=== PATIENT | male | born 1950 | race Caucasian/White ===

== ENCOUNTER → 2018-06-05 | Outpatient (CLI) | payer MEDICARE, OTHER ==
[2018-06-05 19:04] LABS: Basophils % (A) 0 %; Eosinophils # (A) 0.2 k/uL (0-0.7); Eosinophils % (A) 2 %; HGB 14.2 gm/dL (13.0-17.5); Lymphocytes # (A) 0.9 k/uL (1.0-4.8); Lymphocytes % (A) 8 %; MCH 29.7 pg (25.0-35.0); MCHC 33.1 g/dL (31.0-37.0); MCV 89.9 fL (80.0-100.0); Mean Platelet Volume 7.9; Monocytes # (A) 0.5 k/uL (0-1.0); Monocytes % (A) 5 %; Neutrophils # (A) 8.7 k/uL (1.3-7.7); Neutrophils % (A) 84 %; Platelet Count 305 k/uL (150-450); RBC 4.78 m/uL (4.30-5.90); WBC 10.4 k/uL (3.8-10.6)
[2018-06-05 19:10] LABS: ALT 26 U/L (21-72); AST 22 U/L (17-59); Albumin 4.4 g/dL (3.5-5.0); Alkaline Phosphatase 116 U/L (38-126); Anion Gap 9 mmol/L; Blood Urea Nitrogen 22 mg/dL (9-20); Calcium 9.7 mg/dL (8.4-10.2); Carbon Dioxide 28 mmol/L (22-30); Chloride 103 mmol/L (98-107); Glucose 108 mg/dL (74-99); Potassium 4.1 mmol/L (3.5-5.1); Sodium 140 mmol/L (137-145); Total Bilirubin 0.6 mg/dL (0.2-1.3); Total Protein 7.2 g/dL (6.3-8.2)
--- NOTE | 2018-06-05 19:35 | CT ---
EXAMINATION TYPE: CT abdomen pelvis wo con DATE OF EXAM: 06/05/2018 COMPARISON: Radiograph 11/20/2017 HISTORY: abdominal pain and constipation X [address] DLP: 813.2 mGycm Automated exposure control for dose reduction was used. TECHNIQUE: Helical acquisition of images was performed from the lung bases through the pelvis. FINDINGS: LUNG BASES: No acute findings. Coronary calcifications noted. LIVER/GB: No significant abnormality is appreciated. PANCREAS: No significant abnormality is seen. SPLEEN: No significant abnormality is seen. ADRENALS: No significant abnormality is seen. KIDNEYS: No significant abnormality is seen. 4 cm simple appearing upper pole left renal cyst noted. FREE AIR: No free air is visualized RETROPERITONEAL ADENOPATHY: None visualized REPRODUCTIVE ORGANS: No significant abnormality is seen URINARY BLADDER: No significant abnormality is seen. PELVIC ADENOPATHY: None visualized. OSSEOUS STRUCTURES: No significant abnormality is seen. BOWEL: No bowel obstruction or abnormal gas or fluid collection. No focus of inflammatory change. Ho wever, there is moderate marked diverticulosis seen throughout the sigmoid and descending colon with mural thickening and sigmoid mesocolon subcentimeter lymph nodes appreciated. If this patient has not had screening colonoscopy recently, then eventual nonurgent colonoscopy is advisable. IMPRESSION: NO DEFINITE ACUTE CT PROCESS. HOWEVER, THE SIGMOID FINDINGS ABOVE. MILDLY EXCESSIVE PANCOLONIC STOOL VOLUME. PARTIALLY-IMAGED BILATERAL SCROTAL FINDINGS, GREATER ON THE LEFT, WHICH APPEAR TO REPRESENT HYDROCELE S. REQUEST PHYSICAL EXAMINATION CORRELATION.
== END | disposition home or self-care (01) ==
LOC: RADCTMAIN 18:13
PROVIDERS: ATTEND Nurse Practitioner Adult Health
DX: K57.30 Diverticulosis of large intestine without perforation or abscess without bleeding (principal); R19.5 Other fecal abnormalities; R10.9 Unspecified abdominal pain
CPT/HCPCS: 74176; 80053; 85025

== ENCOUNTER 2019-05-14 15:23 | Inpatient (IN) | payer MEDICARE, OTHER ==
[2019-05-14] MEDS: LACTATED RINGERS 1,000 ML IV SCH (16:53)
[2019-05-14] MEDS: LOPERAMIDE 2 MG CAP PO SCH ×2 (17:12→21:05)
[2019-05-14 17:13] LABS: Albumin 2.9 g/dL (3.5-5.0); Calcium 8.7 mg/dL (8.4-10.2); Potassium 4.8 mmol/L (3.5-5.1); Total Bilirubin 0.6 mg/dL (0.2-1.3); Total Protein 5.8 g/dL (6.3-8.2)
[2019-05-14 17:45] LABS: Basophils % (A) 0 %; Eosinophils % (A) 0 %; HCT 37.9 % (39.0-53.0); HGB 11.9 gm/dL (13.0-17.5); Lymphocytes # (A) 0.5 k/uL (1.0-4.8); Lymphocytes % (A) 4 %; MCH 27.9 pg (25.0-35.0); MCHC 31.5 g/dL (31.0-37.0); MCV 88.6 fL (80.0-100.0); Mean Platelet Volume 7.4; Monocytes # (A) 0.4 k/uL (0-1.0); Monocytes % (A) 3 %; Neutrophils # (A) 9.9 k/uL (1.3-7.7); Neutrophils % (A) 91 %; Platelet Count 355 k/uL (150-450); RBC 4.28 m/uL (4.30-5.90); RDW 13.3 % (11.5-15.5); WBC 10.8 k/uL (3.8-10.6)
[2019-05-14] MEDS: BALSALAZIDE DISODIUM 750 MG CAPSULE PO SCH (21:04)
[2019-05-14] MEDS: AMANTADINE HCL 100 MG CAP PO SCH (21:05)
--- NOTE | 2019-05-14 21:07 | P.HPIM ---
History of Present Illness H&P Date: 05/14/19 Chief Complaint: Diarrhea History of presenting complaint: This is a very pleasant 68-year-old patient of Dr. Jossue Peguero. Patient was directly admitted from his office. He presented to the office feeling weak tired and more diarrhea. Long-standing history of Parkinson's. Patient's been having diarrhea bloody stools on and off for about 2 months. Patient was recently at [facility] from where he was discharged 4 days ago. He did have a computed tomography scan ultrasound and colonoscopy. Was diagnosed with colitis. Patient was discharged on prednisone and mesalamine. Patient will appetite is not good continues to have diarrhea bloody stool. Weak tired rundown. Multiple episodes. No obvious fever. Last 4 days has had a congested cough. Decreased appetite. Drinking some liquids. Some abdominal discomfort cramping Review of systems: GEN.: Tired weight loss EYES: None HEENT: None NECK: None RESPIRATORY: As above CARDIOVASCULAR: None GASTROINTESTINAL: As above GENITOURINARY: None MUSCULOSKELETAL: None LYMPHATICS: None HEMATOLOGICAL: None PSYCHIATRY: Anxious NEUROLOGICAL: Bradykinesia Past medical history to include: Parkinson's disease, bradykinesia Social history: Drinks alcohol socially. No smoking. . 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 Family history: Reviewed, noncontributory to presentation Physical examination: VITAL SIGNS: 97.3, 96, 16, 91/59, 96% on room air GENERAL: BMI 27.1, laying in bed, tired. EYES: Pupils equal. Conjunctiva palel. HEENT: External appearance of nose and ears normal, oral cavity dry. NECK: JVD not raised; masses not palpable. HEART: First and second heart sounds are normal; no edema. LUNGS: Respiratory rate increased; decreased breath sounds. ABDOMEN: Soft, minimal tenderness liver spleen not palpable, no masses palpable. PSYCH: Alert and oriented x3; mood and affect tiredl. NEUROLOGICAL: Cranial nerves grossly intact; no facial asymmetry, power and sensation grossly intact. LYMPHATICS: No lymph nodes palpable in the axilla and neck INVESTIGATIONS, reviewed in the clinical context: White count 10.8 hemoglobin 11.9 platelets 355 Sodium 129 potassium 4.8 bun 28 creatinine 1.40 albumin 2.9 Assessment: -This is a patient sent diarrhea for 2 months. With bloody stools. Was at [facility]. Patient did call colonoscopically, computed tomog medhat scan of the abdomen. Was given a diagnosis of colitis. Still having bloody stools. Abdominal pain. Weak tired rundown. We'll obtain records from the hospital GI is being consulted. We will increase the patient is a prednisone to 60 mg. -Idiopathic Parkinson's disease -Patient for 4 days has had a cough congestion. He has been on steroids. Given his low immune system will need to consider diagnosis of COVID-19. Note elevated neutrophil to lymphocyte ratio. The patient been on prednisone. -Mild protein calorie malnutrition medical debility -Medical debility -Acute kidney injury, possibly prerenal -Hyponatremia from decrease solute intake -Normocytic anemia likely from underlying colitis and from blood loss anemia Plan: Patient is to be tested for COVID-19. Multiple isolation room. 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 Prednisone dose increased to 60 mg. GI consulted. Keep on clear liquid diet. Repeat labs in the morning. Get a portable chest x-ray. Albuterol 2 puffs 3 times a day. Other home medications resumed. Care was discussed with the patient question were answered. Past Medical History Additional Past Medical History / Comment(s): parkinson and new colitis History of Any Multi-Drug Resistant Organisms: None Reported Smoking Status: Former smoker Medications and Allergies Home Medications Medication Instructions Recorded Confirmed Type Amantadine HCl [Amantadine] 100 mg PO BID 05/14/19 05/14/19 History Anastrozole [Arimidex] 1 mg PO SUTUFR 05/14/19 05/14/19 History Aspirin [Adult Low Dose Aspirin EC] 81 mg PO DAILY 05/14/19 05/14/19 History Carbidopa/Levodopa [Sinemet 25-100 2 tab PO TID@1000,1400,1800 05/14/19 05/14/19 History mg] Loperamide HCl [Imodium A-D] 2 - 4 mg PO QID PRN 05/14/19 05/14/19 History Mesalamine 1,600 mg PO TID 05/14/19 05/14/19 History predniSONE See Taper PO DAILY 05/14/19 05/14/19 History Allergies Allergy/AdvReac Type Severity Reaction Status Date / Time Penicillins AdvReac Rash/Hives Verified 05/14/19 17:27 Physical Exam Vitals: Vital Signs Temp Pulse Resp BP Pulse Ox 05/14/19 16:32 97.3 F L 96 16 91/59 96 Intake and Output 05/14/19 05/14/19 05/14/19 06:59 14:59 22:59 Other: Voiding Method Toilet Weight 88 kg Results CBC & Chem 7: 05/14/19 16:38 05/14/19 16:38 Labs: Abnormal Lab Results - Last 24 Hours (Table) 05/14/19 05/14/19 Range/Units 16:38 16:38 WBC 10.8 H (3.8-10.6) k/uL RBC 4.28 L (4.30-5.90) m/uL Hgb 11.9 L (13.0-17.5) gm/dL Hct 37.9 L (39.0-53.0) % Neutrophils # 9.9 H (1.3-7.7) k/uL Lymphocytes # 0.5 L (1.0-4.8) k/uL Sodium 129 L (137-145) mmol/L Chloride 90 L (98-107) mmol/L BUN 28 H (9-20) mg/dL Creatinine 1.40 H (0.66-1.25) mg/dL Glucose 171 H (74-99) mg/dL Total Protein 5.8 L (6.3-8.2) g/dL Albumin 2.9 L (3.5-5.0) g/dL Thrombosis Risk Factor Assmnt - Choose All That Apply Each Risk Factor Represents 2 Points: Age 61-74 years Thrombosis Risk Factor Assessment Total Risk Factor Score: 2 Thrombosis Risk Factor Assessment Level: Low Risk
--- NOTE | 2019-05-14 21:50 | XR ---
EXAMINATION TYPE: XR chest 1V portable DATE OF EXAM: 05/14/2019 COMPARISON: NONE HISTORY: Cough and congestion TECHNIQUE: Single view FINDINGS: Heart is normal. There is a minimal infiltrate left lower lobe. The right lung is clear. Th ere are no hilar masses. There is no pleural effusion. IMPRESSION: There is evidence for minimal left lower lobe infiltrate.
[2019-05-14] MEDS ORDERED: MESALAMINE 1600 MG PO SCH (22:00)
[2019-05-14] MEDS: predniSONE 20 MG TAB PO SCH (22:37)
[2019-05-14] MEDS: CARBIDOPA-LEVODOPA 25-100 MG 1 EACH TAB PO SCH (22:38)
[2019-05-15] MEDS: LACTATED RINGERS 1,000 ML IV SCH ×4 (05:41→20:30)
[2019-05-15] MEDS: ACETAMINOPHEN TAB 500 MG TAB PO PRN (06:31)
[2019-05-15 06:58] LABS: Basophils % (A) 0 %; Eosinophils % (A) 0 %; HCT 35.1 % (39.0-53.0); HGB 11.2 gm/dL (13.0-17.5); Lymphocytes # (A) 0.3 k/uL (1.0-4.8); Lymphocytes % (A) 4 %; MCH 28.2 pg (25.0-35.0); MCV 88.1 fL (80.0-100.0); Mean Platelet Volume 7.1; Monocytes # (A) 0.2 k/uL (0-1.0); Monocytes % (A) 2 %; Neutrophils # (A) 5.7 k/uL (1.3-7.7); Neutrophils % (A) 92 %; Platelet Count 304 k/uL (150-450); RBC 3.98 m/uL (4.30-5.90); RDW 13.4 % (11.5-15.5); WBC 6.2 k/uL (3.8-10.6)
[2019-05-15 07:24] LABS: African American GFR (CKD) >90 (>60 ml/min/1.73 sqM); Anion Gap 7 mmol/L; Blood Urea Nitrogen 20 mg/dL (9-20); Calcium 8.4 mg/dL (8.4-10.2); Carbon Dioxide 28 mmol/L (22-30); Chloride 96 mmol/L (98-107); Glucose 170 mg/dL (74-99); Non-African American GFR(CKD) >90 (>60 ml/min/1.73 sqM); Potassium 4.7 mmol/L (3.5-5.1); Sodium 131 mmol/L (137-145)
[2019-05-15] MEDS: ALBUTEROL NEBULIZED 2.5 MG/3 ML INHALATION SCH ×3 (07:32→11:08)
[2019-05-15] MEDS: BALSALAZIDE DISODIUM 750 MG CAPSULE PO SCH ×3 (08:06→20:27)
[2019-05-15] MEDS: CARBIDOPA-LEVODOPA 25-100 MG 1 EACH TAB PO SCH ×3 (08:07→17:34)
[2019-05-15] MEDS: predniSONE 20 MG TAB PO SCH (08:07)
[2019-05-15] MEDS: AMANTADINE HCL 100 MG CAP PO SCH ×2 (08:08→20:27)
[2019-05-15] MEDS: LOPERAMIDE 2 MG CAP PO SCH ×4 (08:08→20:27)
[2019-05-15 14:06] VITALS: BMI 27.0
--- NOTE | 2019-05-15 14:25 | CONS ---
CONSULTATION DATE OF DICTATION: 05/15/2019 REASON FOR CONSULTATION: Diarrhea with blood in the stool. HISTORY OF PRESENT ILLNESS: The patient is a 68-year-old pleasant white male who was directly admitted from Dr. Peguero's office for complaining of fatigue, weakness, worsening diarrhea for the last few days duration. The patient states that he has been having diarrhea on and off for the last 2 months. He was admitted at [facility] about a month ago and he underwent an upper endoscopy as well as flexible sigmoidoscopy. The flexible sigmoidoscopy revealed diffuse inflammation involving the rectum, sigmoid colon and descending colon up to the splenic flexure and the scope could not be completed because of severe inflammation noted. Biopsies revealed crypt abscesses with crypt distortion, all changes consistent with inflammatory bowel disease. He was started on prednisone 60 mg daily as well as and he was discharged home. He was seen by Dr. Peguero in the office and the prednisone was being tapered by 5 mg every week. In the meantime, he continued to have worsening diarrhea with bowel movements anywhere from 7-8 a day with a small amount of blood and mucus in the stool with occasional clots and he was admitted for further management. He has been also complaining of some cough and fever for the last 4 days and presently COVID was tested, which is pending. He also has some chronic lower abdominal discomfort, decreased appetite, weakness, fatigue, but no nausea, vomiting. PAST MEDICAL HISTORY: Significant for Parkinson's disease. PAST SURGICAL HISTORY: Recent EGD a month ago and flexible sigmoidoscopy as mentioned above. MEDICATIONS: At home include Arimidex, Imodium, aspirin, Sinemet, prednisone, mesalamine, and amantadine. ALLERGIES: PENICILLIN. SOCIAL HISTORY: No smoking or alcohol use. FAMILY HISTORY: Unremarkable. REVIEW OF SYSTEMS: CARDIOPULMONARY: No chest pain or shortness of breath. NEUROLOGY: Unremarkable. ENDOCRINE: Unremarkable. PSYCHIATRIC: Unremarkable. ENT/VISION: Unremarkable, CONSTITUTIONAL: Low-grade fever, but no fever, chills, night sweats. GI: As mentioned above. PHYSICAL EXAMINATION: Was not an obtained and telephone interview was obtained from the patient because of COVID pending status. Vital signs show a blood pressure of 132/82, pulse rate 65, temperature 98. LABS: At the time of admission to the hospital:, WBC 6.2, hemoglobin 11.2, platelets 304. Basic metabolic panel is within normal limits. CRP is 165. Sedimentation rate is still pending. Stool studies are still pending. IMPRESSION: 1. Newly diagnosed ulcerative colitis a month ago. He had a flexible sigmoidoscopy done at [facility] a month ago that showed active inflammation involving the left colon. 2. One of the flexible sigmoidoscopy biopsies did show an in the past, presently on prednisone for the last 1 month on tapering doses and he was at 30 mg daily when he presented to the hospital with worsening diarrhea, abdominal pain, and bleeding. Presently, labs do show elevated CRP is 165, all consistent with active inflammatory bowel disease. 3. Cough and fever, pending. 4. History of Parkinson's disease. RECOMMENDATIONS: 1. Start him on Solu-Medoral 20 mg q.8 hours. 2. Continue with oral mesalamine. 3. Obtain stool studies to rule out Clostridium difficile colitis or cholesterol superimposed acute infectious colitis. 4. Await COVID report. RECOMMENDATIONS: 1. Start him on Solu-Medrol 20 mg q.8 hours. 2. Continue with oral mesalamine. 3. Obtain stool studies to rule out C difficile colitis as well as superimposed acute infectious colitis. 4. Elevated await: Results. 5. Advance to full liquid diet. 6. Obtain fecal occult protective as well as ended and we will follow CRP now for 48 hours. The plan was discussed with the patient is agreeable to it thank you for this consultation. CALLIE / JOANN: [id number] /
[2019-05-15] MEDS: methylPREDNISolone SOD SUCCI 40 MG/ML 1 ML VIAL IV SCH ×2 (17:34→23:14)
[2019-05-15] MEDS ORDERED: ALBUTEROL INHALER 60 PUFF/8 GM INHALER (BULK) INHALATION SCH (20:00)
[2019-05-15] MEDS: ALBUTEROL HFA INHALER INHALATION SCH (21:28)
--- NOTE | 2019-05-15 22:21 | P.PN ---
Subjective History of presenting complaint: This is a very pleasant 68-year-old patient of Dr. Jossue Peguero. Patient was directly admitted from his office. He presented to the office feeling weak tired and more diarrhea. Long-standing history of Parkinson's. Patient's been having diarrhea bloody stools on and off for about 2 months. Patient was recently at [facility] from where he was discharged 4 days ago. He did have a computed tomography scan ultrasound and colonoscopy. Was diagnosed with colitis. Patient was discharged on prednisone and mesalamine. Patient will appetite is not good continues to have diarrhea bloody stool. Weak tired rundown. Multiple episodes. No obvious fever. Last 4 days has had a congested cough. Decreased appetite. Drinking some liquids. Some abdominal discomfort cramping 05/15/2019 Patient is awake and alert, he is not in distress. Distal complaining of from bloody diarrhea however is improving today as says yesterday he had only 2 bowel movements, no abdominal pain, no nausea vomiting is still have coughing. No chest pain or dyspnea. Vitals are stable, his leukocytosis on admission of 10.8 K came back to normal at 6.2K, hemoglobin stable at 11.2 compared to 11.9 on admission, platelets normal, sodium is improving 129 up to 131 while on IV fluids, creatinine elevated on admission at 1.4, came back to normal at 0.75. Chest x-ray showed minimal left lower lobe infiltrate suspicious for pneumonia, cough at 19 testing is still pending. Patient was recently discharged from [facility] where he was diagnosed with ulcerative colitis for bloody diarrhea, his C-reactive protein is elevated at 165, ESR is elevated at 71, pro- calcitonin is elevated at 0.13 suspicious for bacterial infection. C. diff testing is negative, influenza is negative EKG was checked showing right bundle branch block, PACs, sinus rhythm with QTC 466, we noticed that the patient on Levaquin which might benefit his pneumonia and possible gastroenteritis. In the meantime we'll wait for stool culture also we'll ask for sputum culture patient today was started on Solu-Medrol 20 mg IV every 8 hours as per GI recommendations, he is on balsalazide, he is also I elected at 125 mL/h. He is also on amantadine for his Parkinson disease Review of systems CONSTITUTIONAL: No fever, no worsening weakness HEENT: No recent visual problems or hearing problems. Denied any sore throat. CARDIOVASCULAR: No orthopnea, PND, no palpitations, no syncope. PULMONARY: No shortness of breath, no cough, no hemoptysis. GENITOURINARY: Denies any burning micturition, frequency, or urgency. MUSCULOSKELETAL/RHEUMATOLOGICAL: Denies any joint pain, swelling, or any muscle pain. ENDOCRINE: Denies any polyuria or polydipsia. Active Medications Generic Name Dose Route Start Last Admin Trade Name Freq PRN Reason Stop Dose Admin Acetaminophen 500 mg 05/15/19 06:24 05/15/19 06:31 Tylenol Tab PO 500 mg Q6HR PRN Administration Fever and/ or Pain Albuterol Sulfate 2 puff 05/15/19 20:00 05/15/19 21:28 Ventolin Hfa Inhaler INHALATION 2 puff RT-TID JUSTIN Administration Amantadine HCl 100 mg 05/14/19 21:00 05/15/19 20:27 Symmetrel PO 100 mg BID JUSTIN Administration Anastrozole 1 mg 05/17/19 09:00 Arimidex PO SuTuFr@0900 JUSTIN Balsalazide 2,250 mg 05/14/19 22:00 05/15/19 20:27 Colazal PO 2,250 mg TID JUSTIN Administration Carbidopa/Levodopa 2 each 05/14/19 21:00 05/15/19 17:34 Sinemet 25-100 PO 2 each TID@1000,1400,1800 JUSTIN Administration Lactated Ringer's 1,000 mls @ 125 mls/hr 05/14/19 16:45 05/15/19 20:30 Lactated Ringers IV 125 mls/hr .Q8H JUSTIN Administration Levofloxacin 500 mg 05/15/19 22:00 Levaquin PO Q24H JUSTIN Loperamide HCl 2 mg 05/14/19 18:00 05/15/19 20:27 Imodium PO 2 mg QID JUSTIN Administration Methylprednisolone Sodium Succinate 20 mg 05/15/19 16:00 05/15/19 17:34 Solu-Medrol IV 20 mg Q8HR JUSTIN Administration Objective - Vital Signs Vital signs: Vital Signs Temp 97.7 F 05/15/19 19:10 Pulse 88 05/15/19 19:10 Resp 19 05/15/19 21:32 BP 106/72 05/15/19 19:10 Pulse Ox 96 05/15/19 19:10 Intake & Output 05/15/19 05/15/19 05/16/19 06:59 18:59 06:59 Intake Total 1225 960 Output Total 1175 Balance 50 960 Weight 88 kg Intake: Intake, IV Titration 875 Amount Lactated Ringers 1,000 ml 875 @ 125 mls/hr IV .Q8H JUSTIN Rx#:[id number] Oral 350 960 Output: Urine 1175 Other: # Voids 2 2 # Bowel Movements 1 2 - Exam GENERAL: The patient is alert and oriented x3, not in any acute distress. Well developed, well nourished. HEENT: Pupils are round and equally reacting to light. EOMI. No scleral icterus. No conjunctival pallor. Normocephalic, atraumatic. No pharyngeal erythema. No thyromegaly. CARDIOVASCULAR: S1 and S2 present. No murmurs, rubs, or gallops. PULMONARY: Chest is clear to auscultation, no wheezing or crackles. ABDOMEN: Soft, nontender, nondistended, normoactive bowel sounds. No palpable organomegaly. MUSCULOSKELETAL: No joint swelling or deformity. EXTREMITIES: No cyanosis, clubbing, or pedal edema. NEUROLOGICAL: Gross neurological examination did not reveal any focal deficits. SKIN: No rashes. no petechiae. - Constitutional General appearance: Present: cooperative - EENT Eyes: Present: poor dentition - Labs CBC & Chem 7: 05/15/19 06:19 05/15/19 06:19 Labs: Abnormal Lab Results - Last 24 Hours (Table) 05/15/19 05/15/19 05/15/19 Range/Units 06:19 06:19 06:19 RBC 3.98 L (4.30-5.90) m/uL Hgb 11.2 L (13.0-17.5) gm/dL Hct 35.1 L (39.0-53.0) % Lymphocytes # 0.3 L (1.0-4.8) k/uL ESR (0-15) mm/hr Sodium 131 L (137-145) mmol/L Chloride 96 L (98-107) mmol/L Glucose 170 H (74-99) mg/dL C-Reactive Protein (<10.0) mg/L Procalcitonin 0.13 H (0.02-0.09) ng/mL 05/15/19 05/15/19 Range/Units 06:19 06:19 RBC (4.30-5.90) m/uL Hgb (13.0-17.5) gm/dL Hct (39.0-53.0) % Lymphocytes # (1.0-4.8) k/uL ESR 71 H (0-15) mm/hr Sodium (137-145) mmol/L Chloride (98-107) mmol/L Glucose (74-99) mg/dL C-Reactive Protein 165.1 H (<10.0) mg/L Procalcitonin (0.02-0.09) ng/mL Assessment and Plan Assessment: -This is a patient sent diarrhea for 2 months. With bloody stools. Was at [facility]. Patient did call colonoscopically, computed tomography scan of the abdomen. Was given a diagnosis of colitis. Still having bloody stools. Abdominal pain. Weak tired rundown. We'll obtain records from the hospital GI is being consulted. We will increase the patient is a prednisone to 60 mg. -Idiopathic Parkinson's disease -Patient for 4 days has had a cough congestion. He has been on steroids. Given his low immune system will need to consider diagnosis of COVID-19. Note eleva theresa neutrophil to lymphocyte ratio. The patient been on prednisone. -Mild protein calorie malnutrition medical debility -Medical debility -Acute kidney injury, possibly prerenal -Hyponatremia from decrease solute intake -Normocytic anemia likely from underlying colitis and from blood loss anemia Plan: This is a pleasant 68 years old male who presents with worsening ulcerative colitis, is also possible elements of infection including pneumonia and infectious gastroenteritis. Continue with steroids and also SoloSite as per GI recommendations continue with IV fluid, continue with Levaquin, monitor QTC, monitor labs Labs and medication were reviewed.. Continue same treatment. Continue with symptomatic treatment. Resume home medication. Monitor lytes and vitals. DVT and GI prophylaxis. Further recommendations of the clinical course of the patient DVT prophylaxis: No heparin in view of possible GI bleed GI Prophylaxis: Pepcid PT/OT: Pending Prognosis is guarded
[2019-05-15] MEDS: LEVOFLOXACIN 500 MG TAB PO SCH (22:30)
[2019-05-16] MEDS: ACETAMINOPHEN TAB 500 MG TAB PO PRN (06:31)
--- NOTE | 2019-05-16 08:17 | XR ---
EXAMINATION TYPE: XR chest 1V DATE OF EXAM: 05/16/2019 COMPARISON: 05/14/2019 HISTORY: 68-year-old male cough, follow-up TECHNIQUE: Single frontal view of the chest is obtained. FINDINGS: Development of mild patchy left mid and lower lung opacity. Heart normal size. Aortopulmonary vascula ture within normal limits. No pleural effusion. IMPRESSION: There may be early developing infiltrates within the periphery of the left mid and lower lung. Follow -up recommended.
[2019-05-16] MEDS: methylPREDNISolone SOD SUCCI 40 MG/ML 1 ML VIAL IV SCH ×3 (08:29→23:58)
[2019-05-16] MEDS: BALSALAZIDE DISODIUM 750 MG CAPSULE PO SCH ×3 (08:30→20:37)
[2019-05-16] MEDS: AMANTADINE HCL 100 MG CAP PO SCH ×2 (08:30→20:38)
[2019-05-16] MEDS: LOPERAMIDE 2 MG CAP PO SCH ×4 (08:31→20:37)
[2019-05-16] MEDS ORDERED: FAMOTIDINE 20 MG/2 ML VIAL IV SCH (09:00)
[2019-05-16] MEDS: ALBUTEROL HFA INHALER INHALATION SCH ×3 (09:03→20:30)
[2019-05-16 09:04] LABS: Basophils % (A) 0 %; Eosinophils % (A) 0 %; HGB 10.8 gm/dL (13.0-17.5); Lymphocytes # (A) 0.5 k/uL (1.0-4.8); Lymphocytes % (A) 7 %; MCH 28.2 pg (25.0-35.0); MCHC 31.9 g/dL (31.0-37.0); MCV 88.6 fL (80.0-100.0); Mean Platelet Volume 7.2; Monocytes # (A) 0.3 k/uL (0-1.0); Monocytes % (A) 4 %; Neutrophils # (A) 6.8 k/uL (1.3-7.7); Neutrophils % (A) 88 %; Platelet Count 311 k/uL (150-450); RBC 3.84 m/uL (4.30-5.90); RDW 13.2 % (11.5-15.5); WBC 7.7 k/uL (3.8-10.6)
[2019-05-16 09:16] LABS: African American GFR (CKD) >90 (>60 ml/min/1.73 sqM); Anion Gap 7 mmol/L; Blood Urea Nitrogen 17 mg/dL (9-20); Calcium 8.3 mg/dL (8.4-10.2); Carbon Dioxide 29 mmol/L (22-30); Chloride 96 mmol/L (98-107); Glucose 166 mg/dL (74-99); Non-African American GFR(CKD) >90 (>60 ml/min/1.73 sqM); Potassium 4.4 mmol/L (3.5-5.1); Sodium 132 mmol/L (137-145)
[2019-05-16] MEDS: CARBIDOPA-LEVODOPA 25-100 MG 1 EACH TAB PO SCH ×3 (10:12→17:24)
[2019-05-16] MEDS: LACTATED RINGERS 1,000 ML IV SCH ×3 (10:12→22:05)
--- NOTE | 2019-05-16 14:06 | P.PN ---
Subjective History of presenting complaint: This is a very pleasant 68-year-old patient of Dr. Jossue Peguero. Patient was directly admitted from his office. He presented to the office feeling weak tired and more diarrhea. Long-standing history of Parkinson's. Patient's been having diarrhea bloody stools on and off for about 2 months. Patient was recently at [facility] from where he was discharged 4 days ago. He did have a computed tomography scan ultrasound and colonoscopy. Was diagnosed with colitis. Patient was discharged on prednisone and mesalamine. Patient will appetite is not good continues to have diarrhea bloody stool. Weak tired rundown. Multiple episodes. No obvious fever. Last 4 days has had a congested cough. Decreased appetite. Drinking some liquids. Some abdominal discomfort cramping 05/15/2019 Patient is awake and alert, he is not in distress. Distal complaining of from bloody diarrhea however is improving today as says yesterday he had only 2 bowel movements, no abdominal pain, no nausea vomiting is still have coughing. No chest pain or dyspnea. Vitals are stable, his leukocytosis on admission of 10.8 K came back to normal at 6.2K, hemoglobin stable at 11.2 compared to 11.9 on admission, platelets normal, sodium is improving 129 up to 131 while on IV fluids, creatinine elevated on admission at 1.4, came back to normal at 0.75. Chest x-ray showed minimal left lower lobe infiltrate suspicious for pneumonia, cough at 19 testing is still pending. Patient was recently discharged from [facility] where he was diagnosed with ulcerative colitis for bloody diarrhea, his C-reactive protein is elevated at 165, ESR is elevated at 71, pro- calcitonin is elevated at 0.13 suspicious for bacterial infection. C. diff testing is negative, influenza is negative EKG was checked showing right bundle branch block, PACs, sinus rhythm with QTC 466, we noticed that the patient on Levaquin which might benefit his pneumonia and possible gastroenteritis. In the meantime we'll wait for stool culture also we'll ask for sputum culture patient today was started on Solu-Medrol 20 mg IV every 8 hours as per GI recommendations, he is on balsalazide, he is also I elected at 125 mL/h. He is also on amantadine for his Parkinson disease 05/16/2019 Patient is improving today with the severe bloody diarrhea, no nausea vomiting and he tolerated clear liquid diet and was to be advanced to full liquid diet, which was started with Ensure. No chest pain but is still have some congested cough at times. Vitals are stable and patient is afebrile. Left showing stable hemoglobin and WBC, lymphocytes are low 0.5 sodium 132. He is a stable. C. diff is negative. Lovenox is been added and his QTC was checked today is stable compared to yesterday was 466 and today is 465. His EKG showed normal sinus rhythm at 72 with right bundle branch block Review of systems CONSTITUTIONAL: No fever, no worsening weakness HEENT: No recent visual problems or hearing problems. Denied any sore throat. CARDIOVASCULAR: No orthopnea, PND, no palpitations, no syncope. PULMONARY: No shortness of breath, no cough, no hemoptysis. GENITOURINARY: Denies any burning micturition, frequency, or urgency. MUSCULOSKELETAL/RHEUMATOLOGICAL: Denies any joint pain, swelling, or any muscle pain. ENDOCRINE: Denies any polyuria or polydipsia. Active Medications Generic Name Dose Route Start Last Admin Trade Name Freq PRN Reason Stop Dose Admin Acetaminophen 500 mg 05/15/19 06:24 05/16/19 06:31 Tylenol Tab PO 500 mg Q6HR PRN Administration Fever and/ or Pain Albuterol Sulfate 2 puff 05/15/19 20:00 05/16/19 11:27 Ventolin Hfa Inhaler INHALATION 2 puff RT-TID JUSTIN Administration Amantadine HCl 100 mg 05/14/19 21:00 05/16/19 08:30 Symmetrel PO 100 mg BID JUSTIN Administration Anastrozole 1 mg 05/17/19 09:00 Arimidex PO SuTuFr@0900 JUSTIN Balsalazide 2,250 mg 05/14/19 22:00 05/16/19 08:30 Colazal PO 2,250 mg TID JUSTIN Administration Carbidopa/Levodopa 2 each 05/14/19 21:00 05/16/19 12:55 Sinemet 25-100 PO 2 each TID@1000,1400,1800 JUSTIN Administration Famotidine 20 mg 05/16/19 21:00 Pepcid PO Q12HR JUSTIN Lactated Ringer's 1,000 mls @ 125 mls/hr 05/14/19 16:45 05/16/19 10:12 Lactated Ringers IV 125 mls/hr .Q8H JUSTIN Administration Levofloxacin 500 mg 05/15/19 22:00 05/15/19 22:30 Levaquin PO 500 mg Q24H JUSTIN Administration Loperamide HCl 2 mg 05/14/19 18:00 05/16/19 12:55 Imodium PO 2 mg QID JUSTIN Administration Methylprednisolone Sodium Succinate 20 mg 05/15/19 16:00 05/16/19 08:29 Solu-Medrol IV 20 mg Q8HR JUSTIN Administration Objective - Vital Signs Vital signs: Vital Signs Temp 97.9 F 05/16/19 11:16 Pulse 80 05/16/19 11:16 Resp 18 05/16/19 11:16 BP 129/75 05/16/19 11:16 Pulse Ox 96 05/16/19 11:16 Intake & Output 05/15/19 05/16/19 05/16/19 18:59 06:59 18:59 Intake Total 960 500 Output Total 1150 Balance 960 -650 Weight 88 kg Intake: Intake, IV Titration 500 Amount Lactated Ringers 1,000 ml 500 @ 125 mls/hr IV .Q8H JUSTIN Rx#:[id number] Oral 960 Output: Urine 1150 Other: Voiding Method Toilet # Voids 2 1 # Bowel Movements 2 2 - Exam GENERAL: The patient is alert and oriented x3, not in any acute distress. Well developed, well nourished. HEENT: Pupils are round and equally reacting to light. EOMI. No scleral icterus. No conjunctival pallor. Normocephalic, atraumatic. No pharyngeal erythema. No thyromegaly. CARDIOVASCULAR: S1 and S2 present. No murmurs, rubs, or gallops. PULMONARY: Chest is clear to auscultation, no wheezing or crackles. ABDOMEN: Soft, nontender, nondistended, normoactive bowel sounds. No palpable organomegaly. MUSCULOSKELETAL: No joint swelling or deformity. EXTREMITIES: No cyanosis, clubbing, or pedal edema. NEUROLOGICAL: Gross neurological examination did not reveal any focal deficits. SKIN: No rashes. no petechiae. - Labs CBC & Chem 7: 05/16/19 08:01 05/16/19 08:07 Labs: Abnormal Lab Results - Last 24 Hours (Table) 05/16/19 05/16/19 Range/Units 08:01 08:07 RBC 3.84 L (4.30-5.90) m/uL Hgb 10.8 L (13.0-17.5) gm/dL Hct 34.0 L (39.0-53.0) % Lymphocytes # 0.5 L (1.0-4.8) k/uL Sodium 132 L (137-145) mmol/L Chloride 96 L (98-107) mmol/L Glucose 166 H (74-99) mg/dL Calcium 8.3 L (8.4-10.2) mg/dL Microbiology - Last 24 Hours (Table) 05/15/19 17:40 Stool Culture - Preliminary Stool Assessment and Plan Assessment: -This is a patient sent diarrhea for 2 months. With bloody stools. Was at [facility]. Patient did call colonoscopically, computed tomography scan of the abdomen. Was given a diagnosis of colitis. Still having bloody stools. Abdominal pain. Weak tired rundown. We'll obtain records from the hospital GI is being consulted. We will increase the patient is a prednisone to 60 mg. -Idiopathic Parkinson's disease -Patient for 4 days has had a cough congestion. He has been on steroids. Given his low immune system will need to consider diagnosis of COVID-19. Note elevated neutrophil to lymphocyte ratio. The patient been on prednisone. -Mild protein calorie malnutrition medical debility -Medical debility -Acute kidney injury, possibly prerenal -Hyponatremia from decrease solute intake -Normocytic anemia likely from underlying colitis and from blood loss anemia Plan: This is a pleasant 68 years old male who presents with worsening ulcerative colitis, is also possible elements of infection including pneumonia and infectious gastroenteritis. Continue with steroids and also SoloSite as per GI recommendations continue with IV fluid, continue with Levaquin, monitor QTC, monitor labs Labs and medication were reviewed.. Continue same treatment. Continue with symptomatic treatment. Resume home medication. Monitor lytes and vitals. DVT and GI prophylaxis. Further recommendations of the clinical course of the patient DVT prophylaxis: No heparin in view of possible GI bleed GI Prophylaxis: Pepcid PT/OT: Pending Prognosis is guarded
--- NOTE | 2019-05-16 15:30 | PN ---
PROGRESS NOTE DATE OF SERVICE: 05/16/2019 Patient is a 68-year-old pleasant white male, admitted to the hospital with exacerbation of ulcerative colitis that was diagnosed only 2 weeks ago. He presents to the hospital with bloody diarrhea and was started on IV Solu-Medrol 20 mg q.8 hours yesterday. Feeling better today. He had only one bowel movement with no bleeding. He still complains of fatigue and weakness. No nausea, vomiting, and a full liquid diet tolerating well. No fever, chills, night sweats. COVID is still pending. PHYSICAL EXAMINATION: He appears comfortable. Vital signs show a blood pressure of 129/75, pulse 80, temperature 98.7. Physical examination as per his attending physician. LABS: Done from today show WBC 7.7, hemoglobin 10.8, platelets normal. Basic metabolic panel is within normal limits. CRP is 165. Stool for C. difficile toxin is negative. IMPRESSION: 1. Acute exacerbation of ulcerative colitis diagnosed about 2 weeks ago. Presently on Solu-Medrol 20 mg q.8 hours and symptoms gradually improving. 2. Fatigue, fever, chills: COVID still pending. 3. History of Parkinson's disease. RECOMMENDATION: 1. Continue with Solu-Medrol 20 mg q.8 hours. 2. If the symptoms continue to improve, will change it to prednisone 40 mg daily tomorrow to be tapered by 35 mg every week. 3. Continue with the Balsalazide 3 tablets 3 times daily. 4. Await COVID-19 results. 5. We will follow with you closely. Thank you for this consultation. MMODL / IJN: [id number] /
[2019-05-16] MEDS: LEVOFLOXACIN 500 MG TAB PO SCH (20:37)
[2019-05-16] MEDS: FAMOTIDINE 20 MG TAB PO SCH (20:37)
[2019-05-16] MEDS ORDERED: AZITHROMYCIN 500 MG TAB PO ONE (21:30)
[2019-05-16] MEDS: HYDROXYCHLOROQUINE SULFATE 200 MG TAB PO SCH (22:04)
[2019-05-17] MEDS: LACTATED RINGERS 1,000 ML IV SCH ×2 (04:03→21:38)
--- NOTE | 2019-05-17 07:56 | XR ---
EXAMINATION TYPE: XR chest 1V portable DATE OF EXAM: 05/17/2019 HISTORY: Shortness of breath. COMPARISON: May 16, 2019 TECHNIQUE: Single view of the chest is submitted. FINDINGS: Demonstrated are scattered senescent parenchymal change. Areas of linear infiltrate or atelectasis left lower lobe persists although appear to enhance. The heart is stable. Hilar and mediastinal structures are within normal limits. Degenerative changes are seen of the dorsal spine. IMPRESSION: 1. Areas of linear infiltrate or atelectasis left lower lobe persists although appear to enhance.
[2019-05-17] MEDS: AMANTADINE HCL 100 MG CAP PO SCH ×2 (08:16→21:36)
[2019-05-17] MEDS: ANASTROZOLE 1 MG TAB PO SCH (08:16)
[2019-05-17] MEDS: LOPERAMIDE 2 MG CAP PO SCH ×4 (08:16→21:36)
[2019-05-17] MEDS: FAMOTIDINE 20 MG TAB PO SCH ×2 (08:16→21:36)
[2019-05-17] MEDS: methylPREDNISolone SOD SUCCI 40 MG/ML 1 ML VIAL IV SCH ×2 (08:16→17:15)
[2019-05-17] MEDS: CARBIDOPA-LEVODOPA 25-100 MG 1 EACH TAB PO SCH ×3 (08:16→17:24)
[2019-05-17] MEDS: BALSALAZIDE DISODIUM 750 MG CAPSULE PO SCH ×3 (08:16→21:36)
[2019-05-17] MEDS: HYDROXYCHLOROQUINE SULFATE 200 MG TAB PO SCH ×2 (08:17→21:54)
[2019-05-17] MEDS: ALBUTEROL HFA INHALER INHALATION SCH ×3 (08:31→19:46)
[2019-05-17 08:45] LABS: Basophils % (A) 0 %; Eosinophils % (A) 0 %; Lymphocytes # (A) 0.5 k/uL (1.0-4.8); Lymphocytes % (A) 10 %; MCH 28.3 pg (25.0-35.0); MCHC 32.3 g/dL (31.0-37.0); MCV 87.5 fL (80.0-100.0); Mean Platelet Volume 7.2; Monocytes # (A) 0.3 k/uL (0-1.0); Monocytes % (A) 5 %; Neutrophils # (A) 4.6 k/uL (1.3-7.7); Neutrophils % (A) 84 %; Platelet Count 279 k/uL (150-450); RBC 4.23 m/uL (4.30-5.90); RDW 13.1 % (11.5-15.5); WBC 5.5 k/uL (3.8-10.6)
[2019-05-17] MEDS ORDERED: AZITHROMYCIN 250 MG TAB PO SCH (09:00)
[2019-05-17 09:11] LABS: African American GFR (CKD) >90 (>60 ml/min/1.73 sqM); Anion Gap 6 mmol/L; Blood Urea Nitrogen 18 mg/dL (9-20); Carbon Dioxide 32 mmol/L (22-30); Chloride 94 mmol/L (98-107); Glucose 186 mg/dL (74-99); LDH 380 U/L (313-618); Non-African American GFR(CKD) >90 (>60 ml/min/1.73 sqM); Potassium 4.5 mmol/L (3.5-5.1); Sodium 132 mmol/L (137-145)
[2019-05-17 09:54] LABS: Erythrocyte Sedimentation Rate 93 mm/hr (0-15)
--- NOTE | 2019-05-17 11:04 | PN ---
PROGRESS NOTE DATE OF SERVICE: 05/17/2019 Patient is a 68-year-old pleasant white male admitted to the hospital with weakness, fatigue, severe bloody diarrhea, which has been going on and off for the last few weeks duration. He underwent upper endoscopy and flexible sigmoidoscopy at [facility] on April 29, which showed severe inflammation involving the entire left colon. Biopsy showed changes consistent with inflammatory bowel disease. Patient was discharged home on oral prednisone, but he was readmitted to the hospital with worsening symptoms. He tested positive for COVID. Presently, he denies any shortness of breath. He still has diarrhea with 3-5 loose bowel movements daily with some blood in the stool which is maroon in color. Patient was started on IV Solu-Medrol 20 mg q.8 hours 2 days ago. CRP has decreased from 167 to 65. He feels better, but still has some diarrhea and bleeding. No abdominal pain. He is on a full liquid diet, tolerating well and requesting for advancing the diet. History was obtained on a telephone interview from across the patient room. PHYSICAL EXAMINATION: Blood pressure is 138/89, pulse is 79, temperature 98. Physical examination as per the attending physician. LABS: From today WBC 5.5, hemoglobin 12, platelets normal. Basic metabolic panel is within normal limits. BUN and creatinine are 80 and 0.65. CRP is 69. C difficile toxin is negative. IMPRESSION: 1. Exacerbation of ulcerative colitis, which was newly diagnosed 3 weeks ago at [facility] on a flexible sigmoidoscopy. Presently on Solu-Medrol 20 mg q.8 hours and is gradually improving. CRP has decreased from 165 to 69, on a full liquid diet, tolerating well. 2. Positive COVID infection. Patient continues to have persistent fatigue and fevers have resolved, presently on hydroxychloroquine as well as azithromycin. 3. History of Parkinson's disease, on carbidopa levodopa. RECOMMENDATIONS: 1. Continue with Solu-Medrol 20 mg q.8 hours. 2. Continue with Balsalazide 3 tablets 3 times daily. 3. Advance to a low-fiber diet. 4. Repeat CRP tomorrow and if it is improving and is clinically improving, will change it to oral prednisone 40 mg daily. The plan was discussed with the patient who is agreeable to it. Thank you for this consultation. MMODL / IJN: [id number] /
[2019-05-17] MEDS ORDERED: Magnesium Replacement Protocol 1 EACH MISC MISCELLANE PRN (13:32)
--- NOTE | 2019-05-17 13:53 | P.PN ---
Subjective History of presenting complaint: This is a very pleasant 68-year-old patient of Dr. Jossue Peguero. Patient was directly admitted from his office. He presented to the office feeling weak tired and more diarrhea. Long-standing history of Parkinson's. Patient's been having diarrhea bloody stools on and off for about 2 months. Patient was recently at [facility] from where he was discharged 4 days ago. He did have a computed tomography scan ultrasound and colonoscopy. Was diagnosed with colitis. Patient was discharged on prednisone and mesalamine. Patient will appetite is not good continues to have diarrhea bloody stool. Weak tired rundown. Multiple episodes. No obvious fever. Last 4 days has had a congested cough. Decreased appetite. Drinking some liquids. Some abdominal discomfort cramping 05/15/2019 Patient is awake and alert, he is not in distress. Distal complaining of from bloody diarrhea however is improving today as says yesterday he had only 2 bowel movements, no abdominal pain, no nausea vomiting is still have coughing. No chest pain or dyspnea. Vitals are stable, his leukocytosis on admission of 10.8 K came back to normal at 6.2K, hemoglobin stable at 11.2 compared to 11.9 on admission, platelets normal, sodium is improving 129 up to 131 while on IV fluids, creatinine elevated on admission at 1.4, came back to normal at 0.75. Chest x-ray showed minimal left lower lobe infiltrate suspicious for pneumonia, cough at 19 testing is still pending. Patient was recently discharged from [facility] where he was diagnosed with ulcerative colitis for bloody diarrhea, his C-reactive protein is elevated at 165, ESR is elevated at 71, pro- calcitonin is elevated at 0.13 suspicious for bacterial infection. C. diff testing is negative, influenza is negative EKG was checked showing right bundle branch block, PACs, sinus rhythm with QTC 466, we noticed that the patient on Levaquin which might benefit his pneumonia and possible gastroenteritis. In the meantime we'll wait for stool culture also we'll ask for sputum culture patient today was started on Solu-Medrol 20 mg IV every 8 hours as per GI recommendations, he is on balsalazide, he is also I elected at 125 mL/h. He is also on amantadine for his Parkinson disease 05/16/2019 Patient is improving today with the severe bloody diarrhea, no nausea vomiting and he tolerated clear liquid diet and was to be advanced to full liquid diet, which was started with Ensure. No chest pain but is still have some congested cough at times. Vitals are stable and patient is afebrile. Left showing stable hemoglobin and WBC, lymphocytes are low 0.5 sodium 132. He is a stable. C. diff is negative. Lovenox is been added and his QTC was checked today is stable compared to yesterday was 466 and today is 465. His EKG showed normal sinus rhythm at 72 with right bundle branch block 05/17/2019 Patient is awake and alert, no overt respiratory symptoms no dyspnea or chest pain, patient had 2 bloody bowel movement last night however his pain is controlled and his abdomen and no nausea vomiting. Has occasional cough. Vitals are stable. She was stable, he has stable mild hyponatremia at 132, potassium 4.5. Patient called 19 test came back positive, patient made aware of this, patient says that his might have it that she is taking that with her doctor as well patient was started on Zithromax and Plaquenil, QTC today is 467 is stable. Infectious disease service is consulted Today patient garrett few runs of nonsustained V. tach, patient remaining asymptomatic We would check troponin and magnesium and add them to the morning labs and call cardiology consult Levaquin was stopped. Continue on Solu-Medrol Upon Patient request and approval I spoke with his Mrs. Eli and I updated her with his condition including positive covid test and all her questions were answered to her satisfaction, she told me she is going to see Dr. Peguero to be tested herself Review of systems CONSTITUTIONAL: No fever, no worsening weakness HEENT: No recent visual problems or hearing problems. Denied any sore throat. CARDIOVASCULAR: No orthopnea, PND, no palpitations, no syncope. PULMONARY: No shortness of breath, no hemoptysis. GENITOURINARY: Denies any burning micturition, frequency, or urgency. MUSCULOSKELETAL/RHEUMATOLOGICAL: Denies any joint pain, swelling, or any muscle pain. ENDOCRINE: Denies any polyuria or polydipsia. Active Medications Generic Name Dose Route Start Last Admin Trade Name Freq PRN Reason Stop Dose Admin Acetaminophen 500 mg 05/15/19 06:24 05/16/19 06:31 Tylenol Tab PO 500 mg Q6HR PRN Administration Fever and/ or Pain Albuterol Sulfate 2 puff 05/15/19 20:00 05/17/19 11:28 Ventolin Hfa Inhaler INHALATION 2 puff RT-TID [facility] Administration Amantadine HCl 100 mg 05/14/19 21:00 05/17/19 08:16 Symmetrel PO 100 mg BID JUSTIN Administration Anastrozole 1 mg 05/17/19 09:00 05/17/19 08:16 Arimidex PO 1 mg SuTuFr@0900 JUSTIN Administration Azithromycin 250 mg 05/17/19 09:00 05/17/19 08:16 Zithromax PO 250 mg DAILY [facility] Administration Balsalazide 2,250 mg 05/14/19 22:00 05/17/19 08:16 Colazal PO 2,250 mg TID JUSTIN Administration Carbidopa/Levodopa 2 each 05/14/19 21:00 05/17/19 08:16 Sinemet 25-100 PO 2 each TID@1000,1400,1800 JUSTIN Administration Famotidine 20 mg 05/16/19 21:00 05/17/19 08:16 Pepcid PO 20 mg Q12HR JUSTIN Administration Hydroxychloroquine Sulfate 200 mg 05/17/19 21:00 Plaquenil PO 05/21/19 09:01 BID [facility] Lactated Ringer's 1,000 mls @ 75 mls/hr 05/16/19 21:15 05/16/19 22:05 Lactated Ringers IV Not Given .[id number] [facility] Loperamide HCl 2 mg 05/14/19 18:00 05/17/19 08:16 Imodium PO 2 mg QID [facility] Administration Methylprednisolone Sodium Succinate 20 mg 05/15/19 16:00 05/17/19 08:16 Solu-Medrol IV 20 mg Q8HR [facility] Administration Metoprolol Tartrate 25 mg 05/17/19 13:45 Lopressor PO BID [facility] Miscellaneous Information 1 each 05/17/19 13:32 Magnesium Per Protocol MISCELLANE DAILY PRN Per Protocol Protocol Objective - Vital Signs Vital signs: Vital Signs Temp 97.8 F 05/17/19 10:58 Pulse 87 05/17/19 10:58 Resp 17 05/17/19 10:58 BP 101/65 05/17/19 10:58 Pulse Ox 94 L 05/17/19 10:58 Intake & Output 05/16/19 05/17/19 05/17/19 18:59 06:59 18:59 Intake Total 1120 888 Output Total 1350 Balance -1350 1120 888 Intake: Intake, IV Titration 900 Amount Lactated Ringers 1,000 ml 900 @ 75 mls/hr IV .[id number] JUSTIN Rx#:[id number] Oral 220 888 Output: Urine 1350 Other: Voiding Method Toilet Urinal Urinal # Voids 400 # Bowel Movements 2 1 - Exam GENERAL: The patient is alert and oriented x3, not in any acute distress. Well developed, well nourished. HEENT: Pupils are round and equally reacting to light. EOMI. No scleral icterus. No conjunctival pallor. Normocephalic, atraumatic. No pharyngeal erythema. No thyromegaly. CARDIOVASCULAR: S1 and S2 present. No murmurs, rubs, or gallops. PULMONARY: Chest is clear to auscultation, no wheezing or crackles. ABDOMEN: Soft, nontender, nondistended, normoactive bowel sounds. No palpable organomegaly. EXTREMITIES: No cyanosis, clubbing, or pedal edema. SKIN: No rashes. no petechiae. - Labs CBC & Chem 7: 05/17/19 07:53 05/17/19 07:53 Labs: Abnormal Lab Results - Last 24 Hours (Table) 05/14/19 05/17/19 05/17/19 Range/Units 22:07 07:53 07:53 RBC 4.23 L (4.30-5.90) m/uL Hgb 12.0 L (13.0-17.5) gm/dL Hct 37.0 L (39.0-53.0) % Lymphocytes # 0.5 L (1.0-4.8) k/uL ESR 93 H (0-15) mm/hr Sodium 132 L (137-145) mmol/L Chloride 94 L (98-107) mmol/L Carbon Dioxide 32 H (22-30) mmol/L Creatinine 0.65 L (0.66-1.25) mg/dL Glucose 186 H (74-99) mg/dL C-Reactive Protein 69.0 H (<10.0) mg/L Coronavirus (PCR) Detected H (Not Detected) Assessment and Plan Assessment: -Ulcerative colitis with bloody diarrhea -Confirmed Covid 19 pneumonia -Non-sustained V. tach -Idiopathic Parkinson's disease -Patient for 4 days has had a cough congestion. He has been on steroids. Given his low immune system will need to consider diagnosis of COVID-19. Note elevated neutrophil to lymphocyte ratio. The patient been on prednisone. -Mild protein calorie malnutrition medical debility -Medical debility -Acute kidney injury, possibly prerenal -Hyponatremia from decrease solute intake -Normocytic anemia likely from underlying colitis and from blood loss anemia Plan: This is a pleasant 68 years old male who presents with worsening ulcerative colitis, is also possible elements of infection including pneumonia and infectious gastroenteritis. Continue with Solu-Medrol and Balsalazide while GI service R following the case closely. Patient was started on Plaquinel and Zithromax, infectious disease consult called. Also call cartilage consult, monitor QTC, monitor labs Labs and medication were reviewed.. Continue same treatment. Continue with symptomatic treatment. Resume home medication. Monitor lytes and vitals. DVT and GI prophylaxis. Further recommendations of the clinical course of the patient DVT prophylaxis: No heparin in view of possible GI bleed GI Prophylaxis: Pepcid Prognosis is guarded
[2019-05-17 15:09] LABS: T4, Free (Free Thyroxine) 2.51 ng/dL (0.78-2.19)
--- NOTE | 2019-05-17 15:10 | P.CRDCN ---
History of Present Illness History of present illness: HISTORY OF PRESENTING ILLNESS This is a pleasant 68-year-old male past medical history significant for Parkinson's disease and colitis newly diagnosed. He denies prior history of coronary artery disease and does not follow regularly in the office with a brain picker. We have been asked to see in consultation for ventricular tachycardia. His course of hospitalization began approximately 2 weeks ago and hospital where he was seen and treated for ulcerative colitis. He was di scharged home however continued to have persistent diarrhea. He came to the emergency department clear and coherent for further evaluation and underwent a COVID 19 testing, which is positive. He is currently being treated simultaneously for acute exacerbation of ulcerative colitis along with Covid 19. He is on Zithromax and Plaquenil. Telemetry tracings from earlier this morning revealed evidence of nonsustained monomorphic ventricular tachycardia. Patient was seen and examined in no acute distress. He denies symptoms of chest pain, shortness of breath, dizziness or palpitations. DIAGNOSTICS EKG reveals sinus mechanism with PACs and right bundle branch block with a QTC of 466. Chest xray on admission reveals minimal left lower lobe infiltrate. Repeat yesterday reveals developing infiltrates with periphery of the left mid and lower lung. Repeat today reveals no infiltrate of the left lower lobe persisting. Laboratory reviewed, WBC 5.5, hemoglobin 12, platelets 279, sodium 132, potassium 4.5, creatinine 0.65, magnesium 2.1, troponin negative 1, TSH 0.212. He takes no daily cardiac medications. REVIEW OF SYSTEMS At the time of my exam: CONSTITUTIONAL: Denies fever or chills. CARDIOVASCULAR: Denies chest pain, shortness of breath, orthopnea, PND or palpitations. RESPIRATORY: Denies cough. GASTROINTESTINAL: Complains of diarrhea. Denies abdominal pain, constipation, nausea or vomiting. MUSCULOSKELETAL: Denies myalgias. NEUROLOGIC: Denies numbness, tingling or weakness. ENDOCRINE: Denies fatigue, weight change, polydipsia or polyurina. GENITOURINARY: Denies burning, hematuria or urgency with micturation. HEMATOLOGIC: Denies history of anemia or bleeding. PHYSICAL EXAMINATION Blood pressure 101/65 heart rate 87 afebrile and maintaining oxygen saturation on room air. CONSTITUTIONAL: No apparent distress. HEENT: Head is normocephalic. Pupils are equal, round. Sclerae anicteric. Mucous membranes of the mouth are moist. No JVD. No carotid bruit. CHEST EXAMINATION: Lungs are clear to auscultation. No chest wall tenderness is noted on palpation or with deep breathing. HEART EXAMINATION: Regular rate and rhythm. S1, S2 heard. No murmurs, gallops or rub. ABDOMEN: Soft, nontender. Positive bowel sounds. EXTREMITIES: 2+ peripheral pulses, no lower extremity edema and no calf tenderness. NEUROLOGIC EXAMINATION: Patient is awake, alert and oriented x3. ASSESSMENT Nonsustained monomorphic ventricular tachycardia, could be related to persistent diarrhea and dehydration Covid 19 positive Ulcerative colitis History of Parkinson's disease PLAN Obtain 2-D echocardiogram and Doppler study to assess cardiac structure and function. Suppressed TSH noted, free T4 pending. To be managed by primary care team. Initiate Lopressor 25 mg twice a day. Ongoing telemetry monitoring. Thank you kindly for this consultation. Nurse Practitioner note has been reviewed, I agree with a documented findings and plan of care. Patient was seen and examined. Past Medical History Additional Past Medical History / Comment(s): parkinson and new colitis History of Any Multi-Drug Resistant Organisms: None Reported Smoking Status: Former smoker Medications and Allergies Home Medications Medication Instructions Recorded Confirmed Type Amantadine HCl [Amantadine] 100 mg PO BID 05/14/19 05/14/19 History Anastrozole [Arimidex] 1 mg PO SUTUFR 05/14/19 05/14/19 History Aspirin [Adult Low Dose Aspirin EC] 81 mg PO DAILY 05/14/19 05/14/19 History Carbidopa/Levodopa [Sinemet 25-100 2 tab PO TID@1000,1400,1800 05/14/19 05/14/19 History mg] Loperamide HCl [Imodium A-D] 2 - 4 mg PO QID PRN 05/14/19 05/14/19 History Mesalamine 1,600 mg PO TID 05/14/19 05/14/19 History predniSONE See Taper PO DAILY 05/14/19 05/14/19 History Allergies Allergy/AdvReac Type Severity Reaction Status Date / Time Penicillins AdvReac Rash/Hives Verified 05/14/19 17:27 Physical Exam Vitals: Vital Signs Temp Pulse Resp BP Pulse Ox 05/17/19 10:58 97.8 F 87 17 101/65 94 L 05/17/19 08:00 79 18 05/17/19 07:00 98.0 F 79 18 138/89 95 05/17/19 04:07 97.9 F 95 05/17/19 04:00 15 05/17/19 03:18 97.5 F L 83 14 139/85 95 05/17/19 01:49 95 05/17/19 00:00 16 05/16/19 23:32 97.9 F 99 14 117/77 99 05/16/19 20:00 14 05/16/19 19:24 98.2 F 78 14 116/80 95 05/16/19 16:00 96 17 05/16/19 15:00 97.8 F 96 17 133/66 97 Intake and Output 05/16/19 05/17/19 05/17/19 22:59 06:59 14:59 Intake Total 120 1000 888 Output Total 750 Balance -630 1000 888 Intake: Intake, IV Titration 900 Amount Lactated Ringers 1,000 ml 900 @ 75 mls/hr IV .[id number] [facility] Rx#:[id number] Oral 120 100 888 Output: Urine 750 Other: Voiding Method Urinal Urinal Urinal # Voids 240 400 # Bowel Movements 1 Weight 88 kg Results 05/17/19 07:53 05/17/19 07:53 Cardiac Enzymes 05/17/19 05/17/19 Range/Units 07:53 07:53 Lactate Dehydrogenase 380 (313-618) U/L Troponin I <0.012 (0.000-0.034) ng/mL CBC 05/17/19 Range/Units 07:53 WBC 5.5 (3.8-10.6) k/uL RBC 4.23 L (4.30-5.90) m/uL Hgb 12.0 L (13.0-17.5) gm/dL Hct 37.0 L (39.0-53.0) % Plt Count 279 (150-450) k/uL Comprehensive Metabolic Panel 05/17/19 Range/Units 07:53 Sodium 132 L (137-145) mmol/L Potassium 4.5 (3.5-5.1) mmol/L Chloride 94 L (98-107) mmol/L Carbon Dioxide 32 H (22-30) mmol/L BUN 18 (9-20) mg/dL Creatinine 0.65 L (0.66-1.25) mg/dL Glucose 186 H (74-99) mg/dL Calcium 9.0 (8.4-10.2) mg/dL Current Medications Generic Name Dose Route Start Last Admin Trade Name Freq PRN Reason Stop Dose Admin Acetaminophen 500 mg 05/15/19 06:24 05/16/19 06:31 Tylenol Tab PO 500 mg Q6HR PRN Administration Fever and/ or Pain Albuterol Sulfate 2 puff 05/15/19 20:00 05/17/19 11:28 Ventolin Hfa Inhaler INHALATION 2 puff RT-TID [facility] Administration Amantadine HCl 100 mg 05/14/19 21:00 05/17/19 08:16 Symmetrel PO 100 mg BID [facility] Administration Anastrozole 1 mg 05/17/19 09:00 05/17/19 08:16 Arimidex PO 1 mg SuTuFr@0900 [facility] Administration Azithromycin 250 mg 05/17/19 09:00 05/17/19 08:16 Zithromax PO 250 mg DAILY [facility] Administration Balsalazide 2,250 mg 05/14/19 22:00 05/17/19 08:16 Colazal PO 2,250 mg TID [facility] Administration Carbidopa/Levodopa 2 each 05/14/19 21:00 05/17/19 08:16 Sinemet 25-100 PO 2 each TID@1000,1400,1800 [facility] Administration Famotidine 20 mg 05/16/19 21:00 05/17/19 08:16 Pepcid PO 20 mg Q12HR [facility] Administration Hydroxychloroquine Sulfate 200 mg 05/17/19 21:00 Plaquenil PO 05/21/19 09:01 BID [facility] Lactated Ringer's 1,000 mls @ 75 mls/hr 05/16/19 21:15 05/16/19 22:05 Lactated Ringers IV Not Given .[id number] [facility] Loperamide HCl 2 mg 05/14/19 18:00 05/17/19 08:16 Imodium PO 2 mg QID [facility] Administration Methylprednisolone Sodium Succinate 20 mg 05/15/19 16:00 05/17/19 08:16 Solu-Medrol IV 20 mg Q8HR [facility] Administration Metoprolol Tartrate 25 mg 05/17/19 13:45 Lopressor PO BID [facility] Miscellaneous Information 1 each 05/17/19 13:32 Magnesium Per Protocol MISCELLANE DAILY PRN Per Protocol Protocol Intake and Output 05/16/19 05/17/19 05/17/19 22:59 06:59 14:59 Intake Total 120 1000 888 Output Total 750 Balance -630 1000 888 Intake: Intake, IV Titration 900 Amount Lactated Ringers 1,000 ml 900 @ 75 mls/hr IV .[id number] [facility] Rx#:[id number] Oral 120 100 888 Output: Urine 750 Other: Voiding Method Urinal Urinal Urinal # Voids 240 400 # Bowel Movements 1 Weight 88 kg Patient Weight 05/18/19 06:59 Weight 88 kg 05/17/19 07:53 05/17/19 07:53
--- NOTE | 2019-05-17 16:37 | P.CNPUL ---
History of Present Illness Consult date: 05/17/19 Reason for consult: cough History of present illness: We were consulted to evaluate this 68-year-old male patient was confirmed to be a case of a covid 19 infection. The patient had a rather atypical presentation. He came in with generalized weakness and fatigue. He denies having any significant respiratory distress. he had limited coffee no significant sputum production. No shortness of breath. No palpitations. No angina. He was garrett ving diminished appetite along with gastrointestinal symptoms with the patient was having diarrhea and bloody stools on and off for the past 2 months and he was evaluated and seen at [facility] where the patient was seen by gastroenterology and he underwent a CAT scan of the abdomen in addition to ultrasound and a colonoscopy and he was given the diagnosis of colitis and he was started on a combination of prednisone starting with 40 mg and this was being tapered as the patient was down to 10 mg at time of admission in addition to mesalamine. The patient reported that he had improved however he was having some iron of GI upset and some loose bowel movements. During this current admission, C. diff is been negative, influenza screen was negative. Covid 19 evaluation was positive. He is been having increased chest congestion for the past 4 days. He is currently on room air oxygen. His chest x-ray is clear. As far as his blood work, the patient has an elevated C-reactive protein of 165. His ESR was 71. Proteus at the level was 0.13. C. diff was negative. EKG showed a right bundle branch block pattern. During this current hospitalization the patient also had an episode of nonsustained V. tach and cardiology consultation was obtained and the patient was placed on beta blockers and echocardiogram is to follow. In terms of his Covid 19 infection the patient was started on Plaquenil and Zithromax. Infectious disease consultation was also obtained. Review of Systems Constitutional: Reports lethargy, Reports weakness Eyes: denies as per HPI, denies blurred vision, denies bulging eye, denies d ecreased vision, denies diplopia, denies discharge, denies dry eye, denies irritation, denies itching, denies pain, denies photophobia, denies loss of peripheral vision, denies loss of vision, denies tunnel vision/blind spots Ears: deny: decreased hearing, ear discharge, earache, tinnitus Ears, nose, mouth and throat: Denies headache, Denies sore throat Breasts: absent: as per HPI, gynecomastia Cardiovascular: Reports as per HPI Respiratory: Reports cough Gastrointestinal: Reports diarrhea, Reports loss of appetite Genitourinary: Reports as per HPI Musculoskeletal: Reports as per HPI, Reports muscle weakness Musculoskeletal: absent: ankle pain, ankle stiffness, ankle swelling Integumentary: Reports as per HPI Neurological: Reports weakness Psychiatric: Reports as per HPI Endocrine: Reports as per HPI Allergic/Immunologic: Reports as per HPI Past Medical History Additional Past Medical History / Comment(s): parkinson disease and inflammatory colitis, History of Any Multi-Drug Resistant Organisms: None Reported Additional Past Surgical History / Comment(s): Previous colonoscopy and EGD Smoking Status: Former smoker Medications and Allergies Home Medications Medication Instructions Recorded Confirmed Type Amantadine HCl [Amantadine] 100 mg PO BID 05/14/19 05/14/19 History Anastrozole [Arimidex] 1 mg PO SUTUFR 05/14/19 05/14/19 History Aspirin [Adult Low Dose Aspirin EC] 81 mg PO DAILY 05/14/19 05/14/19 History Carbidopa/Levodopa [Sinemet 25-100 2 tab PO TID@1000,1400,1800 05/14/19 05/14/19 History mg] Loperamide HCl [Imodium A-D] 2 - 4 mg PO QID PRN 05/14/19 05/14/19 History Mesalamine 1,600 mg PO TID 05/14/19 05/14/19 History predniSONE See Taper PO DAILY 05/14/19 05/14/19 History Allergies Allergy/AdvReac Type Severity Reaction Status Date / Time Penicillins AdvReac Rash/Hives Verified 05/14/19 17:27 Physical Exam Vitals: Vital Signs Temp Pulse Resp BP Pulse Ox 05/17/19 15:00 98.7 F 102 H 19 104/69 98 05/17/19 10:58 97.8 F 87 17 101/65 94 L 05/17/19 08:00 79 18 05/17/19 07:00 98.0 F 79 18 138/89 95 05/17/19 04:07 97.9 F 95 05/17/19 04:00 15 05/17/19 03:18 97.5 F L 83 14 139/85 95 05/17/19 01:49 95 05/17/19 00:00 16 05/16/19 23:32 97.9 F 99 14 117/77 99 05/16/19 20:00 14 05/16/19 19:24 98.2 F 78 14 116/80 95 Intake and Output 05/17/19 05/17/19 05/17/19 06:59 14:59 22:59 Intake Total 1000 888 Balance 1000 888 Intake: Intake, IV Titration 900 Amount Lactated Ringers 1,000 ml 900 @ 75 mls/hr IV .[id number] [facility] Rx#:[id number] Oral 100 888 Other: Voiding Method Urinal Urinal # Voids 400 Weight 88 kg The patient appeared well nourished and normally developed. Vital signs as documented. Head exam is unremarkable. No scleral icterus or corneal arcus noted. Neck is without jugular venous distension, thyromegaly, or carotid bruits. Carotid upstrokes are brisk bilaterally. Lungs are clear to auscultation and percussion. Cardiac exam reveals the PMI to be normally sized and situated. Rhythm is regular. First and second heart sounds normal. No murmurs, rubs or gallops. Abdominal exam reveals normal bowel sounds, no masses, no organomegaly and no aortic enlargement. Extremities are nonedematous and both femoral and pedal pulses are normal.Examination of the skin revealed no evidence of significant rashes, suspicious appearing nevi or other concerning lesions. Neurologically the patient is awake and alert and there is no focal neurological deficits Results - Laboratory Findings CBC and BMP: 05/17/19 07:53 05/17/19 07:53 Abnormal lab findings: Abnormal Labs 05/14/19 05/14/19 05/14/19 16:38 16:38 22:07 WBC 10.8 H RBC 4.28 L Hgb 11.9 L Hct 37.9 L Neutrophils # 9.9 H Lymphocytes # 0.5 L ESR Sodium 129 L Chloride 90 L Carbon Dioxide BUN 28 H Creatinine 1.40 H Glucose 171 H Calcium C-Reactive Protein Total Protein 5.8 L Albumin 2.9 L Procalcitonin TSH Free T4 Coronavirus (PCR) Detected H 05/15/19 05/15/19 05/15/19 06:19 06:19 06:19 WBC RBC 3.98 L Hgb 11.2 L Hct 35.1 L Neutrophils # Lymphocytes # 0.3 L ESR Sodium 131 L Chloride 96 L Carbon Dioxide BUN Creatinine Glucose 170 H Calcium C-Reactive Protein Total Protein Albumin Procalcitonin 0.13 H TSH Free T4 Coronavirus (PCR) 05/15/19 05/15/19 05/16/19 06:19 06:19 08:01 WBC RBC 3.84 L Hgb 10.8 L Hct 34.0 L Neutrophils # Lymphocytes # 0.5 L ESR 71 H Sodium Chloride Carbon Dioxide BUN Creatinine Glucose Calcium C-Reactive Protein 165.1 H Total Protein Albumin Procalcitonin TSH Free T4 Coronavirus (PCR) 05/16/19 05/17/19 05/17/19 08:07 07:53 07:53 WBC RBC 4.23 L Hgb 12.0 L Hct 37.0 L Neutrophils # Lymphocytes # 0.5 L ESR 93 H Sodium 132 L 132 L Chloride 96 L 94 L Carbon Dioxide 32 H BUN Creatinine 0.65 L Glucose 166 H 186 H Calcium 8.3 L C-Reactive Protein 69.0 H Total Protein Albumin Procalcitonin TSH Free T4 Coronavirus (PCR) 05/17/19 07:53 WBC RBC Hgb Hct Neutrophils # Lymphocytes # ESR Sodium Chloride Carbon Dioxide BUN Creatinine Glucose Calcium C-Reactive Protein Total Protein Albumin Procalcitonin TSH 0.212 L Free T4 2.51 H Coronavirus (PCR) - Diagnostic Findings Chest x-ray: image reviewed Assessment and Plan Plan: 1 acute Covid 19 infection currently on Plaquenil and Zithromax 2 inflammatory bowel disease possibly ulcerative colitis 3 Parkinson's disease 4 bundle-branch block pattern in addition to a run of nonsustained monomorphic V. tach currently under investigation 5 acute kidney injury, recovered with fluid resuscitation the patient's renal function is normalized 6 hyponatremia, recovered 7 chronic normocytic anemia 8 elevation of inflammatory markers including mild elevation of the LDH and C- reactive protein. Plan Overall pulmonary status is stable from the Covid 19 infection. The patient has limited cough. He is currently on a combination of Levaquin and Zithromax. Zithromax may be of limited value this infection and I will discontinue this medication specially the patient is having chronic gastritis with intestinal symptoms including diarrhea and Zithromax can contribute to that. Continue Plaquenil per protocol. Oxygenation is stable and the patient is on room air oxygen.. Cardiology to follow-up on the nonsustained V. tach. Echocardiogram is in progress and the patient is started on beta blockers. We'll continue to follow.
[2019-05-17] MEDS: METOPROLOL TARTRATE 25 MG TAB PO SCH ×2 (17:16→21:54)
--- NOTE | 2019-05-17 17:36 | ECHOF ---
Referral Reason:VT MEASUREMENTS -------- HEIGHT: 180.3 cm WEIGHT: 84.8 kg BP: RVIDd: 3.9 cm (< 3.3) IVSd: 1.2 cm (0.6 - 1.1) LVIDd: 4.5 cm (3.9 - 5.3) LVPWd: 1.1 cm (0.6 - 1.1) IVSs: 1.5 cm LVIDs: 3.7 cm LVPWs: 1.5 cm LA Diam: 3.8 cm (2.7 - 3.8) LAESV Index (A-L): 28.30 ml/m Ao Diam: 3.6 cm (2.0 - 3.7) AV Cusp: 1.6 cm (1.5 - 2.6) MV EXCURSION: 16.312 mm (> 18.000) MV EF SLOPE: 78 mm/s (70 - 150) EPSS: 0.6 cm MV E Armand: 0.79 m/s MV DecT: 160 ms MV A Armand: 0.88 m/s MV E/A Ratio: 0.90 AV maxP.81 mmHg AV meanP.64 mmHg RAP: 5.00 mmHg RVSP: 29.49 mmHg TAPSE: 28.50 mm FINDINGS -------- Sinus rhythm. This was a technically good study. The left ventricular size is normal. There is borderline concentric left ventricular hypertrophy. Overall left ventricular systolic function is normal with, an EF between 55 - 60 %. The right ventricle is moderately enlarged. LA is midly dilated 29-33ml/m2. The right atrial size is normal. Interatrial and interventricular septum intact. There is mild aortic valve sclerosis. There is mild aortic stenosis present. Peak/mean gradient a cross the Aortic Valve is 16.81mmHg / 7.64mmHg. The mitral valve is normal. Mild mitral regurgitation is present. Mild tricuspid regurgitation present. Right ventricular systolic pressure is normal at < 35 mmHg. There is no pulmonic regurgitation present. The aortic root size is normal. Normal inferior vena cava with normal inspiratory collapse consistent with estimated right atrial pre ssure of 5 mmHg. There is no pericardial effusion. CONCLUSIONS -------- 1. There is borderline concentric left ventricular hypertrophy. 2. Overall left ventricular systolic function is normal with, an EF between 55 - 60 %. 3. The right ventricle is moderately enlarged. 4. LA is midly dilated 29-33ml/m2. 5. There is mild aortic valve sclerosis. 6. There is mild aortic stenosis present. 7. Peak/mean gradient across the Aortic Valve is 16.81mmHg / 7.64mmHg. 8. Mild mitral regurgitation is present. 9. Mild tricuspid regurgitation present. 10. Right ventricular systolic pressure is normal at < 35 mmHg. 11. There is no pulmonic regurgitation present. 12. Normal inferior vena cava with normal inspiratory collapse consistent with estimated right atrial pressure of 5 mmHg. 13. There is no pericardial effusion. DECAL CUTTER: Belle Ho RDCS
--- NOTE | 2019-05-18 00:05 | P.CONS ---
History of Present Illness - Reason for Consult Consult date: 05/17/19 COVID 19 infection Requesting physician: Aj E Sheet - Chief Complaint diarrhea x few days - History of Present Illness Patient is a 76-year-old male initially presented to the hospital on May 14, 2019 for diarrhea and not feeling well in this patient who did have a longstanding history of Parkinson disease patient on presentation hospital afebrile remained to be febrile , patient also have a component of shortness of breath and did have a minimal cough slight lymphopenia elevated CRP patient had did have a COVID-19 testing done which came back positive that prompted infectious disease consultation chest x-ray this morning areas of lead infiltrate and atelectasis. On examination his vital signs are stable, Lung auscultation --decrease in his breath sounds no significant wheeze Labs--patient did have a normal white count but evidence of lymphopenia lymphocyte count is 0.3% did have elevated CRP of 165 procalcitonin was 0.08 chest x-ray with bilateral medial infiltrate. Patient with a lab to confirm COVID-19 infection in this patient presenting symptom has been GI with diarrhea however chest x-ray shows interstitial infiltrate and the patient did have evidence of lymphopenia patient has been started on Plaquenil zinc to continue and monitor clinical course closely Past Medical History Additional Past Medical History / Comment(s): parkinson and new colitis History of Any Multi-Drug Resistant Organisms: None Reported Smoking Status: Former smoker Medications and Allergies Home Medications Medication Instructions Recorded Confirmed Type Amantadine HCl [Amantadine] 100 mg PO BID 05/14/19 05/14/19 History Anastrozole [Arimidex] 1 mg PO SUTUFR 05/14/19 05/14/19 History Aspirin [Adult Low Dose Aspirin EC] 81 mg PO DAILY 05/14/19 05/14/19 History Carbidopa/Levodopa [Sinemet 25-100 2 tab PO TID@1000,1400,1800 05/14/19 05/14/19 History mg] Loperamide HCl [Imodium A-D] 2 - 4 mg PO QID PRN 05/14/19 05/14/19 History Mesalamine 1,600 mg PO TID 05/14/19 05/14/19 History predniSONE See Taper PO DAILY 05/14/19 05/14/19 History Allergies Allergy/AdvReac Type Severity Reaction Status Date / Time Penicillins AdvReac Rash/Hives Verified 05/14/19 17:27 Physical Exam Vitals: Vital Signs Temp Pulse Resp BP Pulse Ox 05/17/19 10:58 97.8 F 87 17 101/65 94 L 05/17/19 08:00 79 18 05/17/19 07:00 98.0 F 79 18 138/89 95 05/17/19 04:07 97.9 F 95 05/17/19 04:00 15 05/17/19 03:18 97.5 F L 83 14 139/85 95 05/17/19 01:49 95 05/17/19 00:00 16 05/16/19 23:32 97.9 F 99 14 117/77 99 05/16/19 20:00 14 05/16/19 19:24 98.2 F 78 14 116/80 95 05/16/19 16:00 96 17 Intake and Output 05/17/19 05/17/19 05/17/19 06:59 14:59 22:59 Intake Total 1000 888 Balance 1000 888 Intake: Intake, IV Titration 900 Amount Lactated Ringers 1,000 ml 900 @ 75 mls/hr IV .[id number] [facility] Rx#:[id number] Oral 100 888 Other: Voiding Method Urinal Urinal # Voids 400 Weight 88 kg Results CBC & Chem 7: 05/17/19 07:53 05/17/19 07:53 Labs: Abnormal Lab Results - Last 24 Hours (Table) 05/17/19 05/17/19 05/17/19 Range/Units 07:53 07:53 07:53 RBC 4.23 L (4.30-5.90) m/uL Hgb 12.0 L (13.0-17.5) gm/dL Hct 37.0 L (39.0-53.0) % Lymphocytes # 0.5 L (1.0-4.8) k/uL ESR 93 H (0-15) mm/hr Sodium 132 L (137-145) mmol/L Chloride 94 L (98-107) mmol/L Carbon Dioxide 32 H (22-30) mmol/L Creatinine 0.65 L (0.66-1.25) mg/dL Glucose 186 H (74-99) mg/dL C-Reactive Protein 69.0 H (<10.0) mg/L TSH 0.212 L (0.465-4.680) mIU/L
[2019-05-18] MEDS: ACETAMINOPHEN TAB 500 MG TAB PO PRN ×3 (00:37→13:23)
[2019-05-18] MEDS: methylPREDNISolone SOD SUCCI 40 MG/ML 1 ML VIAL IV SCH ×4 (00:38→23:55)
[2019-05-18] MEDS: METOPROLOL TARTRATE 25 MG TAB PO SCH (07:34)
[2019-05-18] MEDS: LOPERAMIDE 2 MG CAP PO SCH ×4 (07:35→21:59)
[2019-05-18] MEDS: HYDROXYCHLOROQUINE SULFATE 200 MG TAB PO SCH ×2 (07:35→20:24)
[2019-05-18] MEDS: AMANTADINE HCL 100 MG CAP PO SCH ×2 (07:35→20:24)
[2019-05-18] MEDS: BALSALAZIDE DISODIUM 750 MG CAPSULE PO SCH ×3 (07:36→21:59)
[2019-05-18] MEDS: FAMOTIDINE 20 MG TAB PO SCH ×2 (07:42→20:24)
[2019-05-18 08:05] LABS: African American GFR (CKD) >90 (>60 ml/min/1.73 sqM); Anion Gap 5 mmol/L; Blood Urea Nitrogen 19 mg/dL (9-20); C Reactive Protein 51.4 mg/L (<10.0); Calcium 8.8 mg/dL (8.4-10.2); Carbon Dioxide 32 mmol/L (22-30); Chloride 94 mmol/L (98-107); Glucose 178 mg/dL (74-99); Non-African American GFR(CKD) >90 (>60 ml/min/1.73 sqM); Potassium 4.6 mmol/L (3.5-5.1); Sodium 131 mmol/L (137-145)
[2019-05-18] MEDS: ALBUTEROL HFA INHALER INHALATION SCH ×3 (08:21→20:37)
[2019-05-18] MEDS: CARBIDOPA-LEVODOPA 25-100 MG 1 EACH TAB PO SCH ×3 (10:05→17:20)
[2019-05-18] MEDS ORDERED: METOPROLOL TARTRATE 25 MG TAB PO STA (10:43)
--- NOTE | 2019-05-18 12:50 | PN ---
PROGRESS NOTE DATE OF DISCHARGE: 05/18/2019 This patient is a 68-year-old pleasant white male admitted to the hospital with exacerbation of ulcerative colitis, presently on Solu-Medrol 20 mg q.8 hours, and his symptoms are gradually improving. He had about 2 loose bowel movements today. He denies having any blood. He still has some cramping lower abdominal pain. Diet was advanced yesterday and he is doing better. He denies any fever, chills, night sweats. He does complain of fatigue. PHYSICAL EXAMINATION: Physical examination was not done because of COVID positivity. Physical examination as per attending physician. LABS: Labs from today show basic metabolic panel within normal limits. CRP is down to 51. BUN and creatinine are within normal limits. CBC not done. Stool calprotectin is more than 3000. IMPRESSION: 1. Exacerbation of ulcerative colitis that was diagnosed about 3 weeks ago, currently on Solu-Medrol 20 mg q.8 hours, and symptoms are gradually improving. CRP improving. 2. COVID positivity. Patient with no pulmonary symptoms, presently on Plaquenil and azithromycin. RECOMMENDATIONS: 1. Continue Solu-Medrol 20 mg q.8 hours. 2. Advance to a low-fiber diet. 3. Will monitor CRP on a daily basis. 4. If he is better, will change to oral prednisone tomorrow. The plan was discussed with the patient on the phone. He is agreeable to it. Thank you for this consultation. MMMURIELL / LOURDESN: [id number] /
--- NOTE | 2019-05-18 12:52 | P.PN ---
Subjective HISTORY OF PRESENTING ILLNESS This is a pleasant 68-year-old male past medical history significant for Parkinson's disease and colitis newly diagnosed. He denies prior history of coronary artery disease and does not follow regularly in the office with a life skills educator. He is seen and examined sitting up in bed in no acute distress. He denies symptoms of chest pain, shortness of breath, dizziness or palpitations. Telemetry tracings reviewed, he has had intermittent episodes of tachycardia with frequent PACs. No further ectopy. Blood pressure 123/74 heart rate 88 afebrile maintaining oxygen saturation on room air. Laboratory data reviewed, sodium 131, potassium 4.6, creatinine 0.65, magnesium 2.0. Echocardiogram obtained reveals preserved LV systolic function with ejection fraction 55-60%, mild aortic stenosis with a mean gradient of 7 mmHg, mild MR and mild TR. PHYSICAL EXAMINATION CONSTITUTIONAL: No apparent distress. HEENT: Head is normocephalic. Pupils are equal, round. Sclerae anicteric. Mucous membranes of the mouth are moist. No JVD. No carotid bruit. CHEST EXAMINATION: Lungs are clear to auscultation. No chest wall tenderness is noted on palpation or with deep breathing. HEART EXAMINATION: Regular rate and rhythm. S1, S2 heard. No murmurs, gallops or rub. EXTREMITIES: 2+ peripheral pulses, no lower extremity edema and no calf tenderness. ASSESSMENT Nonsustained monomorphic ventricular tachycardia, could be related to persistent diarrhea and dehydration Covid 19 positive Ulcerative colitis History of Parkinson's disease PLAN Increase Lopressor to 50 mg twice a day. Ongoing telemetry monitoring. Nurse Practitioner note has been reviewed, I agree with a documented findings and plan of care. Patient was seen and examined. Objective - Vital Signs Vital signs: Vital Signs Temp 97.7 F 05/18/19 11:38 Pulse 88 05/18/19 11:38 Resp 17 05/18/19 11:38 BP 123/74 05/18/19 11:38 Pulse Ox 95 05/18/19 11:38 Intake & Output 05/17/19 05/18/19 05/18/19 18:59 06:59 18:59 Intake Total 1713 600 Output Total 400 Balance 1713 200 Weight 88 kg Intake: Intake, IV Titration 225 Amount Lactated Ringers 1,000 ml 225 @ 100 mls/hr IV .Q10H [facility] Rx#:[id number] Oral 1488 600 Output: Urine 400 Other: Voiding Method Urinal # Voids 2 1 # Bowel Movements 1 - Labs CBC & Chem 7: 05/17/19 07:53 05/18/19 07:29 Labs: Abnormal Lab Results - Last 24 Hours (Table) 05/15/19 05/17/19 05/18/19 Range/Units 17:40 07:53 07:29 Sodium 131 L (137-145) mmol/L Chloride 94 L (98-107) mmol/L Carbon Dioxide 32 H (22-30) mmol/L Creatinine 0.65 L (0.66-1.25) mg/dL Glucose 178 H (74-99) mg/dL C-Reactive Protein 51.4 H (<10.0) mg/L TSH 0.212 L 0.137 L (0.465-4.680) mIU/L Free T4 2.51 H (0.78-2.19) ng/dL Stool Calprotectin >3,000.0 H (<50) mcg/g Microbiology - Last 24 Hours (Table) 05/15/19 17:40 Stool Culture - Preliminary Stool
--- NOTE | 2019-05-18 13:48 | P.PN ---
Subjective Progress Note Date: 05/18/19 Principal diagnosis: Acute CoVID 19 infection We were consulted to evaluate this 68-year-old male patient was confirmed to be a case of a covid 19 infection. The patient had a rather atypical presentation. He came in with generalized weakness and fatigue. He denies having any significant respiratory distress. he had limited coffee no significant sputum production. No shortness of breath. No palpitations. No angina. He was having diminished appetite along with gastrointestinal symptoms with the patient was having diarrhea and bloody stools on and off for the past 2 months and he was evaluated and seen at [facility] where the patient was seen by gastroenterology and he underwent a CAT scan of the abdomen in addition to ultrasound and a colonoscopy and he was given the diagnosis of colitis and he was started on a combination of prednisone starting with 40 mg and this was being tapered as the patient was down to 10 mg at time of admission in addition to mesalamine. The patient reported that he had improved however he was having some iron of GI upset and some loose bowel movements. During this current admission, C. diff is been negative, influenza screen was negative. Covid 19 evaluation was positive. He is been having increased chest congestion for the past 4 days. He is currently on room air oxygen. His chest x-ray is clear. As far as his blood work, the patient has an elevated C-reactive protein of 165. His ESR was 71. Proteus at the level was 0.13. C. diff was negative. EKG showed a right bundle branch block pattern. During this current hospitalization the patient also had an episode of nonsustained V. tach and cardiology consultation was obtained and the patient was placed on beta blockers and echocardiogram is to follow. In terms of his Covid 19 infection the patient was started on Plaquenil and Zithromax. Infectious disease consultation was also obtained. The patient is seen today 05/18/2019 in follow-up on the regular medical floor. He is currently awake and alert in no acute distress. He is maintaining good O2 saturations in the mid 90s on room air. He's afebrile. Hemodynamically stable. Sodium 131. Potassium 4.6. Creatinine 0.65. C-reactive protein 51. He is continued on Plaquenil. On IV Solu-Medrol 20 mg every 8 hours. Objective - Vital Signs Vital signs: Vital Signs Temp 97.7 F 05/18/19 11:38 Pulse 88 05/18/19 11:38 Resp 17 05/18/19 11:38 BP 123/74 05/18/19 11:38 Pulse Ox 95 05/18/19 11:38 Intake & Output 05/17/19 05/18/19 05/18/19 18:59 06:59 18:59 Intake Total 1713 600 Output Total 400 Balance 1713 200 Weight 88 kg Intake: Intake, IV Titration 225 Amount Lactated Ringers 1,000 ml 225 @ 100 mls/hr IV .Q10H [facility] Rx#:[id number] Oral 1488 600 Output: Urine 400 Other: Voiding Method Urinal # Voids 2 1 # Bowel Movements 1 - Exam This is a very pleasant 68-year-old gentleman, on room air, appeared well nourished and normally developed. Vital signs as documented. Head exam is unremarkable. No scleral icterus or corneal arcus noted. Neck is without jugular venous distension, thyromegaly, or carotid bruits. Carotid upstrokes are brisk bilaterally. Lungs are clear to auscultation and percussion. Cardiac exam reveals the PMI to be normally sized and situated. Rhythm is regular. First and second heart sounds normal. No murmurs, rubs or gallops. Abdominal exam reveals normal bowel sounds, no masses, no organomegaly and no aortic enlargement. Extremities are nonedematous and both femoral and pedal pulses are normal.Examination of the skin revealed no evidence of significant rashes, suspicious appearing nevi or other concerning lesions. Neurologically the patient is awake and alert and there is no focal neurological deficits - Labs CBC & Chem 7: 05/17/19 07:53 05/18/19 07:29 Labs: Abnormal Lab Results - Last 24 Hours (Table) 05/15/19 05/17/19 05/18/19 Range/Units 17:40 07:53 07:29 Sodium 131 L (137-145) mmol/L Chloride 94 L (98-107) mmol/L Carbon Dioxide 32 H (22-30) mmol/L Creatinine 0.65 L (0.66-1.25) mg/dL Glucose 178 H (74-99) mg/dL C-Reactive Protein 51.4 H (<10.0) mg/L TSH 0.212 L 0.137 L (0.465-4.680) mIU/L Free T4 2.51 H (0.78-2.19) ng/dL Stool Calprotectin >3,000.0 H (<50) mcg/g Microbiology - Last 24 Hours (Table) 05/15/19 17:40 Stool Culture - Preliminary Stool Assessment and Plan Assessment: 1 acute Covid 19 infection currently on Plaquenil 2 inflammatory bowel disease possibly ulcerative colitis 3 Parkinson's disease 4 bundle-branch block pattern in addition to a run of nonsustained monomorphic V. tach currently under investigation 5 acute kidney injury, recovered with fluid resuscitation the patient's renal function is normalized 6 hyponatremia, recovered 7 chronic normocytic anemia 8 elevation of inflammatory markers including mild elevation of the LDH and C- reactive protein. Plan: The patient was seen and evaluated by Dr. Melendrez He currently remains stable from the pulmonary standpoint. On room air Continued on Plaquenil Preserved left ventricular systolic function ejection fraction 55-60 No further ventricular arrhythmias We'll continue to follow I, the cosigning physician, performed a history & physical examination of the patient. Lungs sounds are clear. Maintaining good O2 saturations in the 90s on room air. I discussed the assessment and plan of care with my nurse practitioner, Tamika Gonzalez. I attest to the above note as dictated by her.
--- NOTE | 2019-05-18 14:43 | P.PN ---
Subjective History of presenting complaint: This is a very pleasant 68-year-old patient of Dr. Jossue Peguero. Patient was directly admitted from his office. He presented to the office feeling weak tired and more diarrhea. Long-standing history of Parkinson's. Patient's been having diarrhea bloody stools on and off for about 2 months. Patient was recently at [facility] from where he was discharged 4 days ago. He did have a computed tomography scan ultrasound and colonoscopy. Was diagnosed with colitis. Patient was discharged on prednisone and mesalamine. Patient will appetite is not good continues to have diarrhea bloody stool. Weak tired rundown. Multiple episodes. No obvious fever. Last 4 days has had a congested cough. Decreased appetite. Drinking some liquids. Some abdominal discomfort cramping 05/15/2019 Patient is awake and alert, he is not in distress. Distal complaining of from bloody diarrhea however is improving today as says yesterday he had only 2 bowel movements, no abdominal pain, no nausea vomiting is still have coughing. No chest pain or dyspnea. Vitals are stable, his leukocytosis on admission of 10.8 K came back to normal at 6.2K, hemoglobin stable at 11.2 compared to 11.9 on admission, platelets normal, sodium is improving 129 up to 131 while on IV fluids, creatinine elevated on admission at 1.4, came back to normal at 0.75. Chest x-ray showed minimal left lower lobe infiltrate suspicious for pneumonia, cough at 19 testing is still pending. Patient was recently discharged from [facility] where he was diagnosed with ulcerative colitis for bloody diarrhea, his C-reactive protein is elevated at 165, ESR is elevated at 71, pro- calcitonin is elevated at 0.13 suspicious for bacterial infection. C. diff testing is negative, influenza is negative EKG was checked showing right bundle branch block, PACs, sinus rhythm with QTC 466, we noticed that the patient on Levaquin which might benefit his pneumonia and possible gastroenteritis. In the meantime we'll wait for stool culture also we'll ask for sputum culture patient today was started on Solu-Medrol 20 mg IV every 8 hours as per GI recommendations, he is on balsalazide, he is also I elected at 125 mL/h. He is also on amantadine for his Parkinson disease 05/16/2019 Patient is improving today with the severe bloody diarrhea, no nausea vomiting and he tolerated clear liquid diet and was to be advanced to full liquid diet, which was started with Ensure. No chest pain but is still have some congested cough at times. Vitals are stable and patient is afebrile. Left showing stable hemoglobin and WBC, lymphocytes are low 0.5 sodium 132. He is a stable. C. diff is negative. Lovenox is been added and his QTC was checked today is stable compared to yesterday was 466 and today is 465. His EKG showed normal sinus rhythm at 72 with right bundle branch block 05/17/2019 Patient is awake and alert, no overt respiratory symptoms no dyspnea or chest pain, patient had 2 bloody bowel movement last night however his pain is controlled and his abdomen and no nausea vomiting. Has occasional cough. Vitals are stable. She was stable, he has stable mild hyponatremia at 132, potassium 4.5. Patient called 19 test came back positive, patient made aware of this, patient says that his might have it that she is taking that with her doctor as well patient was started on Zithromax and Plaquenil, QTC today is 467 is stable. Infectious disease service is consulted Today patient garrett few runs of nonsustained V. tach, patient remaining asymptomatic We would check troponin and magnesium and add them to the morning labs and call cardiology consult Levaquin was stopped. Continue on Solu-Medrol Upon Patient request and approval I spoke with his Mrs. Eli and I updated her with his condition including positive covid test and all her questions were answered to her satisfaction, she told me she is going to see Dr. Peguero to be tested herself 05/18/2019 Patient still have symptoms he had 4 bowel movements sincerely morning, however the consistency are improving and they're less lose, there are reports of still blood in the stool. He still have occasional coughing, patient remains on Plaqu enil and his EKG today showing normal sinus rhythm at [address]- T changes and QTC 477 which is a stable. Discussed the case with the bedside nurse and GI team Review of systems CONSTITUTIONAL: No fever, no worsening weakness HEENT: No recent visual problems or hearing problems. Denied any sore throat. CARDIOVASCULAR: No orthopnea, PND, no palpitations, no syncope. PULMONARY: No shortness of breath, no hemoptysis. GENITOURINARY: Denies any burning micturition, frequency, or urgency. MUSCULOSKELETAL/RHEUMATOLOGICAL: Denies any joint pain, swelling, or any muscle pain. ENDOCRINE: Denies any polyuria or polydipsia. Active Medications Generic Name Dose Route Start Last Admin Trade Name Freq PRN Reason Stop Dose Admin Acetaminophen 500 mg 05/15/19 06:24 05/18/19 13:23 Tylenol Tab PO 500 mg Q6HR PRN Administration Fever and/ or Pain Albuterol Sulfate 2 puff 05/15/19 20:00 05/18/19 12:42 Ventolin Hfa Inhaler INHALATION 2 puff RT-TID [facility] Administration Amantadine HCl 100 mg 05/14/19 21:00 05/18/19 07:35 Symmetrel PO 100 mg BID [facility] Administration Anastrozole 1 mg 05/17/19 09:00 05/17/19 08:16 Arimidex PO 1 mg SuTuFr@0900 [facility] Administration Balsalazide 2,250 mg 05/14/19 22:00 05/18/19 07:36 Colazal PO 2,250 mg TID JUST[facility] Administration Carbidopa/Levodopa 2 each 05/14/19 21:00 05/18/19 13:23 Sinemet 25-100 PO 2 each TID@1000,1400,1800 [facility] Administration Famotidine 20 mg 05/16/19 21:00 05/18/19 07:42 Pepcid PO 20 mg Q12HR [facility] Administration Hydroxychloroquine Sulfate 200 mg 05/17/19 21:00 05/18/19 07:35 Plaquenil PO 05/21/19 09:01 200 mg BID [facility] Administration Lactated Ringer's 1,000 mls @ 100 mls/hr 05/16/19 21:15 05/17/19 21:38 Lactated Ringers IV 100 mls/hr .Q10H [facility] Administration Loperamide HCl 2 mg 05/14/19 18:00 05/18/19 12:00 Imodium PO 2 mg QID [facility] Administration Methylprednisolone Sodium Succinate 20 mg 05/15/19 16:00 05/18/19 07:34 Solu-Medrol IV 20 mg Q8HR [facility] Administration Metoprolol Tartrate 50 mg 05/18/19 21:00 Lopressor PO BID [facility] Miscellaneous Information 1 each 05/17/19 13:32 Magnesium Per Protocol MISCELLANE DAILY PRN Per Protocol Protocol Objective - Vital Signs Vital signs: Vital Signs Temp 97.7 F 05/18/19 11:38 Pulse 88 05/18/19 11:38 Resp 17 05/18/19 11:38 BP 123/74 05/18/19 11:38 Pulse Ox 95 05/18/19 11:38 Intake & Output 05/17/19 05/18/19 05/18/19 18:59 06:59 18:59 Intake Total 1713 600 0 Output Total 400 Balance 1713 200 0 Weight 88 kg Intake: Intake, IV Titration 225 Amount Lactated Ringers 1,000 ml 225 @ 100 mls/hr IV .Q10H [facility] Rx#:[id number] Oral 1488 600 0 Output: Urine 400 Other: Voiding Method Urinal # Voids 2 1 # Bowel Movements 1 - Exam GENERAL: The patient is alert and oriented x3, not in any acute distress. Well developed, well nourished. HEENT: Pupils are round and equally reacting to light. EOMI. No scleral icterus. No conjunctival pallor. Normocephalic, atraumatic. No pharyngeal erythema. No thyromegaly. CARDIOVASCULAR: S1 and S2 present. No murmurs, rubs, or gallops. PULMONARY: Chest is clear to auscultation, no wheezing or crackles. ABDOMEN: Soft, nontender, nondistended, normoactive bowel sounds. No palpable organomegaly. EXTREMITIES: No cyanosis, clubbing, or pedal edema. SKIN: No rashes. no petechiae. - Labs CBC & Chem 7: 05/17/19 07:53 05/18/19 07:29 Labs: Abnormal Lab Results - Last 24 Hours (Table) 05/15/19 05/17/19 05/18/19 Range/Units 17:40 07:53 07:29 ESR (0-15) mm/hr Sodium 131 L (137-145) mmol/L Chloride 94 L (98-107) mmol/L Carbon Dioxide 32 H (22-30) mmol/L Creatinine 0.65 L (0.66-1.25) mg/dL Glucose 178 H (74-99) mg/dL C-Reactive Protein 51.4 H (<10.0) mg/L TSH 0.212 L 0.137 L (0.465-4.680) mIU/L Free T4 2.51 H (0.78-2.19) ng/dL Stool Calprotectin >3,000.0 H (<50) mcg/g 05/18/19 Range/Units 07:29 ESR 72 H (0-15) mm/hr Sodium (137-145) mmol/L Chloride (98-107) mmol/L Carbon Dioxide (22-30) mmol/L Creatinine (0.66-1.25) mg/dL Glucose (74-99) mg/dL C-Reactive Protein (<10.0) mg/L TSH (0.465-4.680) mIU/L Free T4 (0.78-2.19) ng/dL Stool Calprotectin (<50) mcg/g Microbiology - Last 24 Hours (Table) 05/15/19 17:40 Stool Culture - Preliminary Stool Assessment and Plan Assessment: -Ulcerative colitis with bloody diarrhea -Confirmed Covid 19 pneumonia -Non-sustained V. tach -Idiopathic Parkinson's disease -Patient for 4 days has had a cough congestion. He has been on steroids. Given his low immune system will need to consider diagnosis of COVID-19. Note elevat ed neutrophil to lymphocyte ratio. The patient been on prednisone. -Mild protein calorie malnutrition medical debility -Medical debility -Acute kidney injury, possibly prerenal -Hyponatremia from decrease solute intake -Normocytic anemia likely from underlying colitis and from blood loss anemia Plan: This is a pleasant 68 years old male who presents with worsening ulcerative colitis, is also possible elements of infection including pneumonia and infectious gastroenteritis. Continue with Solu-Medrol and Balsalazide while GI service R following the case closely. Patient was started on Plaquinel and Zithromax, infectious disease consult called. Also call cartilage consult, monitor QTC, monitor labs Labs and medication were reviewed.. Continue same treatment. Continue with symptomatic treatment. Resume home medication. Monitor lytes and vitals. DVT and GI prophylaxis. Further recommendations of the clinical course of the patient DVT prophylaxis: No heparin in view of possible GI bleed GI Prophylaxis: Pepcid Prognosis is guarded
[2019-05-18] MEDS: LACTATED RINGERS 1,000 ML IV SCH ×3 (17:20→23:10)
[2019-05-18] MEDS: METOPROLOL TARTRATE 50 MG TAB PO SCH (20:24)
[2019-05-19] MEDS: methylPREDNISolone SOD SUCCI 40 MG/ML 1 ML VIAL IV SCH ×3 (08:08→23:44)
[2019-05-19] MEDS: LOPERAMIDE 2 MG CAP PO SCH ×4 (08:08→20:29)
[2019-05-19] MEDS: ACETAMINOPHEN TAB 500 MG TAB PO PRN (08:08)
[2019-05-19] MEDS: BALSALAZIDE DISODIUM 750 MG CAPSULE PO SCH ×3 (08:08→20:28)
[2019-05-19] MEDS: ANASTROZOLE 1 MG TAB PO SCH (08:09)
[2019-05-19] MEDS: FAMOTIDINE 20 MG TAB PO SCH ×2 (08:09→20:28)
[2019-05-19] MEDS: METOPROLOL TARTRATE 50 MG TAB PO SCH ×2 (08:09→20:29)
[2019-05-19] MEDS: HYDROXYCHLOROQUINE SULFATE 200 MG TAB PO SCH ×2 (08:09→20:29)
[2019-05-19] MEDS: AMANTADINE HCL 100 MG CAP PO SCH ×2 (08:09→20:28)
[2019-05-19] MEDS: ALBUTEROL HFA INHALER INHALATION SCH ×3 (08:44→21:41)
--- NOTE | 2019-05-19 10:05 | PN ---
PROGRESS NOTE DATE OF SERVICE: May 19, 2019 Patient is a 68-year-old pleasant white male admitted to the hospital 3 days ago with positive Covid-19 infection. He also had exacerbation of ulcerative colitis that was just diagnosed about 3 weeks ago at [facility]. Since being in the hospital, he has been on IV Solu-Medrol 20 mg q.8 hours. He continues to have persistent lower abdominal cramping with bloody diarrhea. He had about 5 episodes all day yesterday with adilene colored stool. He denies any fever, chills, or night sweats. He reports no cough. He complains of extreme fatigue and weakness. Presently on soft diet, tolerating well. The history was obtained from telephone interview across the patient's room. As per the nurse taking care of him, he is looking comfortable other than extreme tiredness. Vital signs: Blood pressure 123/56, pulse 65, temperature 98.1. EXAMINATION: Physical examination as per the attending physician. Labs done from today show WBC 8.9, hemoglobin 11.9, platelets normal. BUN and creatinine 22.7 respectively. IMPRESSION: 1. Exacerbation of ulcerative colitis which was diagnosed 3 weeks ago at [facility]. Flexible sigmoidoscopy revealed severe colitis involving the entire left side of the colon. The patient has been on Solu-Medrol 20 mg q.8 hours for the last 4 days with improving CRP and symptoms, but still continues to have bloody diarrhea between 4-5 bowel movements a day. 2. Stool at the time of admission the hospital was elevated at more than 3000. 3. Covid infection causing fatigue and weakness. 4. History of Parkinson disease. RECOMMENDATIONS: 1. Continue with Solu-Medrol 20 mg q.8 hours. 2. Regular diet. 3. We will obtain stool for cultures and repeat and C difficile toxin. 4. Repeat CRP tomorrow. 5. We will follow with you closely. Thank you for this consultation. MMODL / IJN: [id number] /
[2019-05-19] MEDS: CARBIDOPA-LEVODOPA 25-100 MG 1 EACH TAB PO SCH ×3 (10:08→17:09)
--- NOTE | 2019-05-19 12:51 | P.PN ---
Subjective History of presenting complaint: This is a very pleasant 68-year-old patient of Dr. Jossue Peguero. Patient was directly admitted from his office. He presented to the office feeling weak tired and more diarrhea. Long-standing history of Parkinson's. Patient's been having diarrhea bloody stools on and off for about 2 months. Patient was recently at [facility] from where he was discharged 4 days ago. He did have a computed tomography scan ultrasound and colonoscopy. Was diagnosed with colitis. Patient was discharged on prednisone and mesalamine. Patient will appetite is not good continues to have diarrhea bloody stool. Weak tired rundown. Multiple episodes. No obvious fever. Last 4 days has had a congested cough. Decreased appetite. Drinking some liquids. Some abdominal discomfort cramping 05/15/2019 Patient is awake and alert, he is not in distress. Distal complaining of from bloody diarrhea however is improving today as says yesterday he had only 2 bowel movements, no abdominal pain, no nausea vomiting is still have coughing. No chest pain or dyspnea. Vitals are stable, his leukocytosis on admission of 10.8 K came back to normal at 6.2K, hemoglobin stable at 11.2 compared to 11.9 on admission, platelets normal, sodium is improving 129 up to 131 while on IV fluids, creatinine elevated on admission at 1.4, came back to normal at 0.75. Chest x-ray showed minimal left lower lobe infiltrate suspicious for pneumonia, cough at 19 testing is still pending. Patient was recently discharged from [facility] where he was diagnosed with ulcerative colitis for bloody diarrhea, his C-reactive protein is elevated at 165, ESR is elevated at 71, pro- calcitonin is elevated at 0.13 suspicious for bacterial infection. C. diff testing is negative, influenza is negative EKG was checked showing right bundle branch block, PACs, sinus rhythm with QTC 466, we noticed that the patient on Levaquin which might benefit his pneumonia and possible gastroenteritis. In the meantime we'll wait for stool culture also we'll ask for sputum culture patient today was started on Solu-Medrol 20 mg IV every 8 hours as per GI recommendations, he is on balsalazide, he is also I elected at 125 mL/h. He is also on amantadine for his Parkinson disease 05/16/2019 Patient is improving today with the severe bloody diarrhea, no nausea vomiting and he tolerated clear liquid diet and was to be advanced to full liquid diet, which was started with Ensure. No chest pain but is still have some congested cough at times. Vitals are stable and patient is afebrile. Left showing stable hemoglobin and WBC, lymphocytes are low 0.5 sodium 132. He is a stable. C. diff is negative. Lovenox is been added and his QTC was checked today is stable compared to yesterday was 466 and today is 465. His EKG showed normal sinus rhythm at 72 with right bundle branch block 05/17/2019 Patient is awake and alert, no overt respiratory symptoms no dyspnea or chest pain, patient had 2 bloody bowel movement last night however his pain is controlled and his abdomen and no nausea vomiting. Has occasional cough. Vitals are stable. She was stable, he has stable mild hyponatremia at 132, potassium 4.5. Patient called 19 test came back positive, patient made aware of this, patient says that his might have it that she is taking that with her doctor as well patient was started on Zithromax and Plaquenil, QTC today is 467 is stable. Infectious disease service is consulted Today patient garrett few runs of nonsustained V. tach, patient remaining asymptomatic We would check troponin and magnesium and add them to the morning labs and call cardiology consult Levaquin was stopped. Continue on Solu-Medrol Upon Patient request and approval I spoke with his Mrs. Eli and I updated her with his condition including positive covid test and all her questions were answered to her satisfaction, she told me she is going to see Dr. Peguero to be tested herself 05/18/2019 Patient still have symptoms he had 4 bowel movements sincerely morning, however the consistency are improving and they're less lose, there are reports of still blood in the stool. He still have occasional coughing, patient remains on Plaqu enil and his EKG today showing normal sinus rhythm at [address]- T changes and QTC 477 which is a stable. Discussed the case with the bedside nurse and GI team 05/19/2019 Patient is awake, no chest pain or dyspnea. Distal have a lot of loose stool associated with a blood and some lower abdominal pain. No fever today. Blood pressure 145/82, heart rate 77, breathing rate 17-18 C. diff was checked twice and is negative. His ESR was trending down 93 TO 72, 12 C-reactive protein going down from 0.212 0.137 We'll check labs tomorrow morning, also we will check C-reactive protein, repeat stool culture and Protecting Aorta discussed the case with Dr Norris and she recommends The patient for now and to continue with IV steroids at 20 mg every 8 hours Also patient has been evaluated by several consultants including infectious disease, digital controls technical officer and chemical sprayer His metoprolol was increased to 50 mg twice a day Active Medications Generic Name Dose Route Start Last Admin Trade Name Freq PRN Reason Stop Dose Admin Acetaminophen 500 mg 05/15/19 06:24 05/19/19 08:08 Tylenol Tab PO 500 mg Q6HR PRN Administration Fever and/ or Pain Albuterol Sulfate 2 puff 05/15/19 20:00 05/19/19 08:44 Ventolin Hfa Inhaler INHALATION 2 puff RT-TID JUSTIN Administration Amantadine HCl 100 mg 05/14/19 21:00 05/19/19 08:09 Symmetrel PO 100 mg BID JUSTIN Administration Anastrozole 1 mg 05/17/19 09:00 05/19/19 08:09 Arimidex PO 1 mg SuTuFr@0900 JUSTIN Administration Balsalazide 2,250 mg 05/14/19 22:00 05/19/19 08:08 Colazal PO 2,250 mg TID JUSTIN Administration Carbidopa/Levodopa 2 each 05/14/19 21:00 05/19/19 10:08 Sinemet 25-100 PO 2 each TID@1000,1400,1800 JUSTIN Administration Famotidine 20 mg 05/16/19 21:00 05/19/19 08:09 Pepcid PO 20 mg Q12HR JUSTIN Administration Hydroxychloroquine Sulfate 200 mg 05/17/19 21:00 05/19/19 08:09 Plaquenil PO 05/21/19 09:01 200 mg BID JUSTIN Administration Lactated Ringer's 1,000 mls @ 100 mls/hr 05/16/19 21:15 05/18/19 23:10 Lactated Ringers IV Not Given .Q10H JUSTIN Loperamide HCl 2 mg 05/14/19 18:00 05/19/19 12:29 Imodium PO 2 mg QID JUSTIN Administration Methylprednisolone Sodium Succinate 20 mg 05/15/19 16:00 05/19/19 08:08 Solu-Medrol IV 20 mg Q8HR JUSTIN Administration Metoprolol Tartrate 50 mg 05/18/19 21:00 05/19/19 08:09 Lopressor PO 50 mg BID JUSTIN Administration Miscellaneous Information 1 each 05/17/19 13:32 Magnesium Per Protocol MISCELLANE DAILY PRN Per Protocol Protocol Objective - Vital Signs Vital signs: Vital Signs Temp 97.7 F 05/19/19 11:00 Pulse 77 05/19/19 11:00 Resp 17 05/19/19 11:00 BP 145/82 05/19/19 11:00 Pulse Ox 98 05/19/19 11:00 Intake & Output 05/18/19 05/19/19 05/19/19 18:59 06:59 18:59 Intake Total 0 1100 Output Total 1000 Balance -1000 1100 Intake: Intake, IV Titration 1000 Amount Lactated Ringers 1,000 ml 1000 @ 100 mls/hr IV .Q10H JUSTIN Rx#:[id number] Oral 0 100 Output: Urine 1000 Other: Voiding Method Urinal # Voids 1 # Bowel Movements 2 - Exam GENERAL: The patient is alert and oriented x3, not in any acute distress. Well developed, well nourished. HEENT: Pupils are round and equally reacting to light. EOMI. No scleral icterus. No conjunctival pallor. Normocephalic, atraumatic. No pharyngeal erythema. No thyromegaly. CARDIOVASCULAR: S1 and S2 present. No murmurs, rubs, or gallops. PULMONARY: Chest is clear to auscultation, no wheezing or crackles. ABDOMEN: Soft, nontender, nondistended, normoactive bowel sounds. No palpable organomegaly. EXTREMITIES: No cyanosis, clubbing, or pedal edema. SKIN: No rashes. no petechiae. - Labs CBC & Chem 7: 05/17/19 07:53 05/18/19 07:29 Labs: Abnormal Lab Results - Last 24 Hours (Table) 05/18/19 Range/Units 07:29 ESR 72 H (0-15) mm/hr Microbiology - Last 24 Hours (Table) 05/15/19 17:40 Stool Culture - Final Stool Assessment and Plan Assessment: -Ulcerative colitis with bloody diarrhea -Confirmed Covid 19 pneumonia -Non-sustained V. tach -Idiopathic Parkinson's disease -Patient for 4 days has had a cough congestion. He has been on steroids. Given his low immune system will need to consider diagnosis of COVID-19. Note elevated neutrophil to lymphocyte ratio. The patient been on prednisone. -Mild hyperthyroidism -Mild protein calorie malnutrition medical debility -Medical debility -Acute kidney injury, possibly prerenal -Hyponatremia from decrease solute intake -Normocytic anemia likely from underlying colitis and from blood loss anemia Plan: This is a pleasant 68 years old male who presents with worsening ulcerative colitis, is also possible elements of infection including pneumonia and infectious gastroenteritis. Also covid- 19 positive Continue with Solu-Medrol and Balsalazide per GI service recommendation and following the case closely. Patient was started on Plaquinel and Zithromax, also patient is been followed by several consultants including infectious disease, pulmonary and cardiology Recheck thyroid function tests Labs and medication were reviewed.. Continue same treatment. Continue with symptomatic treatment. Resume home medication. Monitor lytes and vitals. DVT and GI prophylaxis. Further recommendations of the clinical course of the patient DVT prophylaxis: No heparin in view of possible GI bleed GI Prophylaxis: Pepcid Prognosis is guarded
--- NOTE | 2019-05-19 13:08 | P.PN ---
Subjective Progress Note Date: 05/19/19 Principal diagnosis: Acute CoVID 19 infection We were consulted to evaluate this 68-year-old male patient was confirmed to be a case of a covid 19 infection. The patient had a rather atypical presentation. He came in with generalized weakness and fatigue. He denies having any significant respiratory distress. he had limited coffee no significant sputum production. No shortness of breath. No palpitations. No angina. He was having diminished appetite along with gastrointestinal symptoms with the patient was having diarrhea and bloody stools on and off for the past 2 months and he was evaluated and seen at [facility] where the patient was seen by gastroenterology and he underwent a CAT scan of the abdomen in addition to ultrasound and a colonoscopy and he was given the diagnosis of colitis and he was started on a combination of prednisone starting with 40 mg and this was being tapered as the patient was down to 10 mg at time of admission in addition to mesalamine. The patient reported that he had improved however he was having some iron of GI upset and some loose bowel movements. During this current admission, C. diff is been negative, influenza screen was negative. Covid 19 evaluation was positive. He is been having increased chest congestion for the past 4 days. He is currently on room air oxygen. His chest x-ray is clear. As far as his blood work, the patient has an elevated C-reactive protein of 165. His ESR was 71. Proteus at the level was 0.13. C. diff was negative. EKG showed a right bundle branch block pattern. During this current hospitalization the patient also had an episode of nonsustained V. tach and cardiology consultation was obtained and the patient was placed on beta blockers and echocardiogram is to follow. In terms of his Covid 19 infection the patient was started on Plaquenil and Zithromax. Infectious disease consultation was also obtained. The patient is seen today 05/18/2019 in follow-up on the regular medical floor. He is currently awake and alert in no acute distress. He is maintaining good O2 saturations in the mid 90s on room air. He's afebrile. Hemodynamically stable. Sodium 131. Potassium 4.6. Creatinine 0.65. C-reactive protein 51. He is continued on Plaquenil. On IV Solu-Medrol 20 mg every 8 hours. The patient is seen today 05/19/2019 in follow-up on the regular medical floor. He is awake and alert in no acute distress. He is maintaining O2 saturations in the upper 90s on 2 L/m per nasal cannula. He's been afebrile. He remains on Plaquenil. Objective - Vital Signs Vital signs: Vital Signs Temp 97.7 F 05/19/19 11:00 Pulse 77 05/19/19 11:00 Resp 17 05/19/19 11:00 BP 145/82 05/19/19 11:00 Pulse Ox 98 05/19/19 11:00 Intake & Output 05/18/19 05/19/19 05/19/19 18:59 06:59 18:59 Intake Total 0 1100 Output Total 1000 Balance -1000 1100 Intake: Intake, IV Titration 1000 Amount Lactated Ringers 1,000 ml 1000 @ 100 mls/hr IV .Q10H JUSTIN Rx#:[id number] Oral 0 100 Output: Urine 1000 Other: Voiding Method Urinal # Voids 1 # Bowel Movements 2 - Exam This is a very pleasant 68-year-old gentleman, on 2 L nasal cannula, appeared well nourished and normally developed. Vital signs as documented. Head exam is unremarkable. No scleral icterus or corneal arcus noted. Neck is without jugular venous distension, thyromegaly, or carotid bruits. Carotid upstrokes are brisk bilaterally. Lungs are clear to auscultation and percussion. Cardiac exam reveals the PMI to be normally sized and situated. Rhythm is regular. First and second heart sounds normal. No murmurs, rubs or gallops. Abdominal exam reveals normal bowel sounds, no masses, no organomegaly and no aortic enlargement. Extremities are nonedematous and both femoral and pedal pulses are normal.Examination of the skin revealed no evidence of significant rashes, suspicious appearing nevi or other concerning lesions. Neurologically the patient is awake and alert and there is no focal neurological deficits - Labs CBC & Chem 7: 05/17/19 07:53 05/18/19 07:29 Labs: Abnormal Lab Results - Last 24 Hours (Table) 05/18/19 Range/Units 07:29 ESR 72 H (0-15) mm/hr Microbiology - Last 24 Hours (Table) 05/15/19 17:40 Stool Culture - Final Stool Assessment and Plan Assessment: 1 acute Covid 19 infection diagnosed 05/14/2019, currently on Plaquenil 2 inflammatory bowel disease possibly ulcerative colitis, C. difficile screen was negative 2 3 Parkinson's disease 4 bundle-branch block pattern in addition to a run of nonsustained monomorphic V. tach currently under investigation 5 acute kidney injury, recovered with fluid resuscitation the patient's renal function is normalized 6 hyponatremia, recovered 7 chronic normocytic anemia 8 elevation of inflammatory markers including mild elevation of the LDH and C- reactive protein. Plan: The patient was seen and evaluated by Dr. Melendrez He remains stable from the pulmonary standpoint. On 2 L nasal cannula. Repeat chest x-ray in the a.m. Continued on Plaquenil We'll continue to follow I, the cosigning physician, performed a history & physical examination of the patient. Lungs sounds are clear. Maintaining good O2 saturations in the 90s on 2 L/m per nasal cannula. I discussed the assessment and plan of care with my nurse practitioner, Tamika Gonzlaez. I attest to the above note as dictated by her.
[2019-05-20] MEDS: LACTATED RINGERS 1,000 ML IV SCH ×3 (01:27→21:18)
[2019-05-20 06:50] LABS: Basophils % (A) 0 %; Eosinophils % (A) 0 %; HCT 35.2 % (39.0-53.0); HGB 11.1 gm/dL (13.0-17.5); Lymphocytes # (A) 1.1 k/uL (1.0-4.8); Lymphocytes % (A) 12 %; MCH 27.4 pg (25.0-35.0); MCHC 31.5 g/dL (31.0-37.0); MCV 87.1 fL (80.0-100.0); Mean Platelet Volume 7.7; Monocytes # (A) 0.4 k/uL (0-1.0); Monocytes % (A) 4 %; Neutrophils # (A) 7.5 k/uL (1.3-7.7); Neutrophils % (A) 82 %; Platelet Count 233 k/uL (150-450); RBC 4.04 m/uL (4.30-5.90); RDW 13.3 % (11.5-15.5); WBC 9.2 k/uL (3.8-10.6)
--- NOTE | 2019-05-20 07:20 | PN ---
PROGRESS NOTE DATE IF SERVICE: 05/19/2019 REASON FOR FOLLOWUP: Acute COVID-19 pneumonia. INTERVAL HISTORY: The patient is currently afebrile, has been breathing comfortably. The patient denies having any chest pain. Did have a cough, though decreased in intensity. No nausea, no vomiting. No abdominal pain and diarrhea has decreased. PHYSICAL EXAMINATION: Blood pressure 102/72 with a pulse of 76, temperature 97.9, he is 94% on 2 L nasal cannula. General description is an elderly male, lying in bed in no distress. RESPIRATORY SYSTEM: Unlabored breathing, decreased breath sounds in the base, with no wheeze. HEART: S1, S2. Regular rate and rhythm. ABDOMEN: Soft, no tenderness. LABS: No new labs have been obtained today. DIAGNOSTIC IMPRESSION AND PLAN: Patient with acute COVID-19 infection in this patient seemed to be clinically responding. He is afebrile, subsequently followed with supplemental oxygen. No nausea, no vomiting. Patient to continue with Plaquenil and Zinc and monitor clinical course closely. Continue supportive care. MMODL / IJN: [id number] /
[2019-05-20 07:23] LABS: African American GFR (CKD) >90 (>60 ml/min/1.73 sqM); Anion Gap 6 mmol/L; Blood Urea Nitrogen 18 mg/dL (9-20); Calcium 8.6 mg/dL (8.4-10.2); Carbon Dioxide 31 mmol/L (22-30); Chloride 95 mmol/L (98-107); Glucose 128 mg/dL (74-99); Non-African American GFR(CKD) >90 (>60 ml/min/1.73 sqM); Potassium 4.6 mmol/L (3.5-5.1); Sodium 132 mmol/L (137-145)
[2019-05-20 07:35] LABS: T4, Free (Free Thyroxine) 1.96 ng/dL (0.78-2.19)
--- NOTE | 2019-05-20 07:57 | XR ---
EXAMINATION TYPE: XR chest 1V portable DATE OF EXAM: 05/20/2019 COMPARISON: 05/17/2019 HISTORY: Left lower lobe airspace disease. Follow up exam. TECHNIQUE: Single frontal view of the chest is obtained. FINDINGS: Faint patchy left basilar airspace disease appears similar to the prior. Remainder the oumou gs are well aerated. Cardiomediastinal silhouette is within normal limits. Osseous structures are int act. IMPRESSION: Redemonstration of unchanged faint left basilar opacity favored to represent atelectasis although pneumonia is possible in the appropriate clinical setting.
[2019-05-20] MEDS: ALBUTEROL HFA INHALER INHALATION SCH ×3 (08:00→20:46)
[2019-05-20] MEDS: methylPREDNISolone SOD SUCCI 40 MG/ML 1 ML VIAL IV SCH ×3 (08:19→23:24)
[2019-05-20] MEDS: AMANTADINE HCL 100 MG CAP PO SCH ×2 (08:19→21:17)
[2019-05-20] MEDS: HYDROXYCHLOROQUINE SULFATE 200 MG TAB PO SCH ×2 (08:20→21:17)
[2019-05-20] MEDS: FAMOTIDINE 20 MG TAB PO SCH (08:20)
[2019-05-20] MEDS: METOPROLOL TARTRATE 50 MG TAB PO SCH ×2 (08:20→21:17)
[2019-05-20] MEDS: LOPERAMIDE 2 MG CAP PO SCH ×4 (08:20→21:17)
[2019-05-20] MEDS: BALSALAZIDE DISODIUM 750 MG CAPSULE PO SCH ×3 (09:19→21:17)
[2019-05-20] MEDS: CARBIDOPA-LEVODOPA 25-100 MG 1 EACH TAB PO SCH ×3 (09:19→16:55)
--- NOTE | 2019-05-20 13:11 | P.PN ---
Subjective Progress Note Date: 05/20/19 Principal diagnosis: Acute COVID 19 infection We were consulted to evaluate this 68-year-old male patient was confirmed to be a case of a covid 19 infection. The patient had a rather atypical presentation. He came in with generalized weakness and fatigue. He denies having any significant respiratory distress. he had limited coffee no significant sputum production. No shortness of breath. No palpitations. No angina. He was having diminished appetite along with gastrointestinal symptoms with the patient was having diarrhea and bloody stools on and off for the past 2 months and he was evaluated and seen at [facility] where the patient was seen by gastroenterology and he underwent a CAT scan of the abdomen in addition to ultrasound and a colonoscopy and he was given the diagnosis of colitis and he was started on a combination of prednisone starting with 40 mg and this was being tapered as the patient was down to 10 mg at time of admission in addition to mesalamine. The patient reported that he had improved however he was having some iron of GI upset and some loose bowel movements. During this current admission, C. diff is been negative, influenza screen was negative. Covid 19 evaluation was positive. He is been having increased chest congestion for the past 4 days. He is currently on room air oxygen. His chest x-ray is clear. As far as his blood work, the patient has an elevated C-reactive protein of 165. His ESR was 71. Proteus at the level was 0.13. C. diff was negative. EKG showed a right bundle branch block pattern. During this current hospitalization the patient also had an episode of nonsustained V. tach and cardiology consultation was obtained and the patient was placed on beta blockers and echocardiogram is to follow. In terms of his Covid 19 infection the patient was started on Plaquenil and Zithromax. Infectious disease consultation was also obtained. The patient is seen today 05/18/2019 in follow-up on the regular medical floor. He is currently awake and alert in no acute distress. He is maintaining good O2 saturations in the mid 90s on room air. He's afebrile. Hemodynamically stable. Sodium 131. Potassium 4.6. Creatinine 0.65. C-reactive protein 51. He is continued on Plaquenil. On IV Solu-Medrol 20 mg every 8 hours. The patient is seen today 05/19/2019 in follow-up on the regular medical floor. He is awake and alert in no acute distress. He is maintaining O2 saturations in the upper 90s on 2 L/m per nasal cannula. He's been afebrile. He remains on Plaquenil. On 05/20/2019 patient seen in follow-up on general medical floor. He is calm and comfortable, he states he feels tired but no pulmonary complaints, no shortness of breath, no cough or congestion, he is on 2 L of oxygen with a pulse ox of 95%. No nausea, or vomiting, he is afebrile, hemodynamically patient is stable. He was tested for C. diff in view of his diarrhea, and he was found to be negative, he remains on IV steroids and Plaquenil, his sputum culture only showed yeast species probably related to contamination, final culture is pending. Today's labs have been reviewed, white blood cell count is 9.2, hemoglobin is 11.1, sodium is 132, potassium is 4.6, chloride is 95, CO2 31, B1 is 18, creatinine 0.62, CRP is relatively stable at 56. Patient is recovering, no acute events overnight. Follow-up chest x-ray showing left basilar opacity likely related to atelectasis. From pulmonary perspective patient is stable, and can be considered for discharge home today. Objective - Vital Signs Vital signs: Vital Signs Temp 97.5 F L 05/20/19 11:00 Pulse 86 05/20/19 11:00 Resp 16 05/20/19 11:00 BP 123/76 05/20/19 11:00 Pulse Ox 96 05/20/19 11:00 Intake & Output 05/19/19 05/20/19 05/20/19 18:59 06:59 18:59 Intake Total 900 200 Output Total 800 Balance 100 200 Intake: Intake, IV Titration 800 200 Amount Lactated Ringers 1,000 ml 800 200 @ 100 mls/hr IV .Q10H [facility] Rx#:[id number] Oral 100 Output: Urine 800 Other: Voiding Method Urinal Urinal # Voids 2 # Bowel Movements 3 - Exam GENERAL EXAM: Alert, very pleasant, 68-year-old white male, on 2 L of oxygen with a pulse ox of 95%, comfortable in no apparent distress. HEAD: Normocephalic/atraumatic. EYES: Normal reaction of pupils, equal size. Conjunctiva pink, sclera white. NOSE: Clear with pink turbinates. THROAT: No erythema or exudates. NECK: No masses, no JVD, no thyroid enlargement, no adenopathy. CHEST: No chest wall deformity. Symmetrical expansion. LUNGS: Equal air entry with no crackles, wheeze, rhonchi or dullness. CVS: Regular rate and rhythm, normal S1 and S2, no gallops, no murmurs, no rubs ABDOMEN: Soft, nontender. No hepatosplenomegaly, normal bowel sounds, no guarding or rigidity. EXTREMITIES: No clubbing, no edema, no cyanosis, 2+ pulses and upper and lower extremities. MUSCULOSKELETAL: Muscle strength and tone normal. SPINE: No scoliosis or deformity SKIN: No rashes CENTRAL NERVOUS SYSTEM: Alert and oriented -3. No focal deficits, tone is normal in all 4 extremities. PSYCHIATRIC: Alert and oriented -3. Appropriate affect. Intact judgment and insight. - Labs CBC & Chem 7: 05/20/19 06:06 05/20/19 06:06 Labs: Abnormal Lab Results - Last 24 Hours (Table) 05/20/19 05/20/19 Range/Units 06:06 06:06 RBC 4.04 L (4.30-5.90) m/uL Hgb 11.1 L (13.0-17.5) gm/dL Hct 35.2 L (39.0-53.0) % Sodium 132 L (137-145) mmol/L Chloride 95 L (98-107) mmol/L Carbon Dioxide 31 H (22-30) mmol/L Creatinine 0.62 L (0.66-1.25) mg/dL Glucose 128 H (74-99) mg/dL C-Reactive Protein 56.0 H (<10.0) mg/L TSH 0.273 L (0.465-4.680) mIU/L Microbiology - Last 24 Hours (Table) 05/19/19 08:46 Gram Stain - Preliminary Sputum Sputum Culture - Preliminary Yeast species 05/15/19 17:40 Stool Culture - Final Stool 05/19/19 10:30 Stool Culture - Preliminary Stool Assessment and Plan Plan: Assessment: #1. Acute Covid 19 infection diagnosed on 05/14/2019, patient is completing of course of Plaquenil and IV steroids. However patient never complained of any significant pulmonary complaints, and his presenting symptoms were weakness and bloody diarrhea. C. diff was negative #2. Inflammatory bowel disease possibly related to ulcerative colitis, C. difficile screen was negative 2 #3. Parkinson's disease #4. Right bundle branch block pattern and a run of nonsustained monomorphic V. tach, under investigation by cardiology #5. Acute kidney injury recovered with fluid resuscitation #6. Hyponatremia, improved #7. Chronic normocytic anemia #8. Elevation of inflammatory markers including mild elevation of the LDH and C-reactive protein related to acute Covid 19 infection Plan: Increase activity as tolerated, today's chest x-ray has been reviewed showing left basilar atelectasis, clinical stable, no fever or chills, patient is completing a course of Plaquenil, his cultures are negative thus far, he denies any pulmonary symptoms. From pulmonary perspective patient can be considered for discharge home today he will need follow-up Covid 19 test in 2 weeks from now, and likely another one in 2 weeks after that. I performed a history & physical examination of the patient and discussed their management with my nurse practitioner, Valentina Cross. I reviewed the nurse practitioner's note and agree with the documented findings and plan of care. Lung sounds are positive for diminished breath sounds. The findings and the impression was discussed with the patient. I attest to the documentation by the nurse practitioner. Time with Patient: Less than 30
[2019-05-20 18:01] LABS: HCT 33.7 % (39.0-53.0); HGB 10.9 gm/dL (13.0-17.5); Hypochromasia Slight; MCH 28.3 pg (25.0-35.0); MCHC 32.3 g/dL (31.0-37.0); MCV 87.5 fL (80.0-100.0); Mean Platelet Volume 7.5; Platelet Count 235 k/uL (150-450); RBC 3.85 m/uL (4.30-5.90); RDW 13.2 % (11.5-15.5); WBC 12.7 k/uL (3.8-10.6)
--- NOTE | 2019-05-20 19:19 | P.PN ---
Subjective Progress Note Date: 05/20/19 Principal diagnosis: Ulcerative colitis, blood per rectum Patient currently be treated for Covid 19, patient was called via the telephone and consented to a telephone visited with patient identifies use for identification of the patient. Patient's continues to report some loose stool and blood per rectum. He does feel that the blood is becoming darker in color and described as maroon today. He continues to have some abdominal cramping but overall slightly improved. Objective - Vital Signs Vital signs: Vital Signs Temp 97.5 F L 05/20/19 11:00 Pulse 86 05/20/19 11:00 Resp 16 05/20/19 11:00 BP 123/76 05/20/19 11:00 Pulse Ox 96 05/20/19 11:00 Intake & Output 05/19/19 05/20/19 05/20/19 18:59 06:59 18:59 Intake Total 900 200 Output Total 800 Balance 100 200 Intake: Intake, IV Titration 800 200 Amount Lactated Ringers 1,000 ml 800 200 @ 100 mls/hr IV .Q10H [facility] Rx#:[id number] Oral 100 Output: Urine 800 Other: Voiding Method Urinal Urinal # Voids 2 # Bowel Movements 3 - Exam Visit performed via the telephone in a patient with covid 19, patient agreed to telephone visit with patient identified as used to confirm his identity - Labs CBC & Chem 7: 05/20/19 17:43 05/20/19 06:06 Labs: Abnormal Lab Results - Last 24 Hours (Table) 05/20/19 05/20/19 Range/Units 06:06 06:06 RBC 4.04 L (4.30-5.90) m/uL Hgb 11.1 L (13.0-17.5) gm/dL Hct 35.2 L (39.0-53.0) % Sodium 132 L (137-145) mmol/L Chloride 95 L (98-107) mmol/L Carbon Dioxide 31 H (22-30) mmol/L Creatinine 0.62 L (0.66-1.25) mg/dL Glucose 128 H (74-99) mg/dL C-Reactive Protein 56.0 H (<10.0) mg/L TSH 0.273 L (0.465-4.680) mIU/L Microbiology - Last 24 Hours (Table) 05/19/19 08:46 Gram Stain - Preliminary Sputum Sputum Culture - Preliminary Yeast species 05/15/19 17:40 Stool Culture - Final Stool 05/19/19 10:30 Stool Culture - Preliminary Stool Assessment and Plan (1) Colitis Narrative/Plan: 68-year-old male with a recent diagnosis of left-sided ulcerative colitis diagnosed on colonoscopy within the last month who presented to the hospital for a constellation of symptoms and is currently being treated for infection with Covid 19. The patient has continued to report symptoms of abdominal pain and cramping as well as frequency of bowel movements and blood per rectum. He does feel that the output is darkening in color. Hemoglobin has remained stable. Currently he is on both IV Solu-Medrol as well as a 5-ASA agent. Current Visit: Yes Status: Acute Code(s): K52.9 - NONINFECTIVE GASTROENTERITIS AND COLITIS, UNSPECIFIED SNOMED Code(s): 81921439 (2) Blood per rectum Current Visit: Yes Status: Acute Code(s): K62.5 - HEMORRHAGE OF ANUS AND RECTUM SNOMED Code(s): 30598693 Plan: Supportive care Okay for her low fiber, low residual diet Continue Solu-Medrol 20 mg every 8 hours Continue balsalazide 3 times a day Mesalamine rectal suppository added nightly Continue to monitor her symptomatically Thank you for allowing us to dissipate in the care of the patient we will contin ue to follow
[2019-05-20] MEDS ORDERED: MESALAMINE 4 GM/60 ML ENEMA RECTAL SCH (21:00)
--- NOTE | 2019-05-20 21:05 | P.PN ---
Progress Note - Text Progress Note Date: 05/20/19 Chief Complaint: Diarrhea History of presenting complaint: This is a very pleasant 68-year-old patient of Dr. Jossue Peguero. Patient was directly admitted from his office. He presented to the office feeling weak tired and more diarrhea. Long-standing history of Parkinson's. Patient's been having diarrhea bloody stools on and off for about 2 months. Patient was recently at [facility] from where he was discharged 4 days ago. He did have a computed tomography scan ultrasound and colonoscopy. Was diagnosed with colitis. Patient was discharged on prednisone and mesalamine. Patient will appetite is not good continues to have diarrhea bloody stool. Weak tired rundown. Multiple episodes. No obvious fever. Last 4 days has had a congested cough. Decreased appetite. Drinking some liquids. Some abdominal discomfort cramping (flexible sigmoidoscopy refused diffuse inflammation involving the rectum sigmoid colon and descending colon up to splenic flexure and because of significant inflammation scopolamine not be depressed. 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 Patient being treated with Colazal, lactated Ringer's, IV Solu- Medrol. Today-still having some bloody bowel movements. Tired. Does get abdominal cramping before bowel movement. Breathing is stable. Weak and tired. Oral intake decreased Review of systems: Was done for constitutional, cardiovascular, GI, pulmonary. relevant finding as above Active Medications Acetaminophen (Tylenol Tab) 500 mg PO Q6HR PRN PRN Reason: Fever and/ or Pain Last Admin: 05/19/19 08:08 Dose: 500 mg Documented by: Albuterol Sulfate (Ventolin Hfa Inhaler) 2 puff INHALATION RT-TID [facility] Last Admin: 05/20/19 20:46 Dose: 2 puff Documented by: Amantadine HCl (Symmetrel) 100 mg PO BID [facility] Last Admin: 05/20/19 08:19 Dose: 100 mg Documented by: Anastrozole (Arimidex) 1 mg PO SuTuFr@0900 [facility] Last Admin: 05/19/19 08:09 Dose: 1 mg Documented by: Balsalazide (Colazal) 2,250 mg PO TID [facility] Last Admin: 05/20/19 16:55 Dose: 2,250 mg Documented by: Carbidopa/Levodopa (Sinemet 25-100) 2 each PO TID@1000,1400,1800 [facility] Last Admin: 05/20/19 16:55 Dose: 2 each Documented by: Hydroxychloroquine Sulfate (Plaquenil) 200 mg PO BID [facility] Stop: 05/21/19 09:01 Last Admin: 05/20/19 08:20 Dose: 200 mg Documented by: Lactated Ringer's (Lactated Ringers) 1,000 mls @ 100 mls/hr IV .Q10H [facility] Last Admin: 05/20/19 14:24 Dose: 100 mls/hr Documented by: Loperamide HCl (Imodium) 2 mg PO QID [facility] Last Admin: 05/20/19 16:55 Dose: 2 mg Documented by: Mesalamine (Rowasa) 4 gm RECTAL HS [facility] Methylprednisolone Sodium Succinate (Solu-Medrol) 20 mg IV Q8HR [facility] Last Admin: 05/20/19 16:55 Dose: 20 mg Documented by: Metoprolol Tartrate (Lopressor) 50 mg PO BID [facility] Last Admin: 05/20/19 08:20 Dose: 50 mg Documented by: Miscellaneous Information (Magnesium Per Protocol) 1 each MISCELLANE DAILY PRN; Protocol PRN Reason: Per Protocol Pantoprazole Sodium (Protonix) 40 mg IVP BID [facility] Physical examination: VITAL SIGNS: 97.5, 81, 18, 123/76, 96% on 2 L GENERAL: Laying in bed, tired PSYCH: Alert and oriented x3; mood and affect tiredl. Further exam as per pulmonary: CHEST: No chest wall deformity. Symmetrical expansion. LUNGS: Equal air entry with no crackles, wheeze, rhonchi or dullness. CVS: Regular rate and rhythm, normal S1 and S2, no gallops, no murmurs, no rubs ABDOMEN: Soft, nontender. No hepatosplenomegaly, normal bowel sounds, no guarding or rigidity. EXTREMITIES: No clubbing, no edema, no cyanosis, 2+ pulses and upper and lower extremities. MUSCULOSKELETAL: Muscle strength and tone normal. INVESTIGATIONS, reviewed in the clinical context: White count 12.7 hemoglobin 10.9 potassium 4.6 creatinine 0.62 CRP 56 Previous testing White count 10.8 hemoglobin 11.9 platelets 355 Sodium 129 potassium 4.8 bun 28 creatinine 1.40 albumin 2.9 Stool-C. diff negative Coronavirus-PCR detected Assessment: -Acute ulcerative colitis, severe exacerbation, slow to respond -Idiopathic Parkinson's disease -Mild pneumonia from COVID-19. -Mild protein calorie malnutrition medical debility -Medical debility -Acute kidney injury, possibly prerenal-improved -Hyponatremia from decrease solute intake -Normocytic anemia likely from underlying colitis and from GI blood loss anemia Plan: Patient is stable from her primary standpoint. Discussed with GI. They started the patient on steroid enema. Other medications to continue. Encouraged to increase oral intake.
[2019-05-20] MEDS: PANTOPRAZOLE 40 MG/10 ML VIAL IVP SCH (21:18)
[2019-05-20] MEDS: ACETAMINOPHEN TAB 500 MG TAB PO PRN (21:27)
--- NOTE | 2019-05-20 23:52 | PN ---
PROGRESS NOTE DATE OF SERVICE: 05/20/2019 REASON FOR FOLLOWUP: Acute COVID-19 infection. INTERVAL HISTORY: The patient is currently afebrile. The patient has been breathing comfortably. The patient denies having any chest pain. Occasional cough. No nausea, no vomiting. No abdominal pain or diarrhea. PHYSICAL EXAMINATION: Blood pressure 127/81 with a pulse of 87, temperature 98.2. He is 96% on 2 L nasal cannula. General description is an elderly male lying in bed in no distress. RESPIRATORY SYSTEM: Unlabored breathing with decreased intensity of breath sounds. No wheeze. HEART: S1, S2. Regular rate and rhythm. ABDOMEN: Soft. No tenderness. LABS: Hemoglobin is 11.1 with white count 9.2, BUN of 18, creatinine 0.62. DIAGNOSTIC IMPRESSION AND PLAN: Patient with acute COVID-19 infection. The patient is currently covered with Plaquenil; to continue along with a low-dose steroid and monitor his clinical course closely. Continue supportive care. MMODL / IJN: [id number] /
[2019-05-21] MEDS: ALBUTEROL HFA INHALER INHALATION SCH ×3 (07:31→20:17)
[2019-05-21] MEDS: AMANTADINE HCL 100 MG CAP PO SCH ×2 (07:35→20:48)
[2019-05-21] MEDS: methylPREDNISolone SOD SUCCI 40 MG/ML 1 ML VIAL IV SCH ×3 (07:35→23:11)
[2019-05-21] MEDS: BALSALAZIDE DISODIUM 750 MG CAPSULE PO SCH ×3 (07:35→20:48)
[2019-05-21] MEDS: HYDROXYCHLOROQUINE SULFATE 200 MG TAB PO SCH (07:35)
[2019-05-21] MEDS: PANTOPRAZOLE 40 MG/10 ML VIAL IVP SCH (07:35)
[2019-05-21] MEDS: LOPERAMIDE 2 MG CAP PO SCH ×4 (07:36→20:48)
[2019-05-21] MEDS: METOPROLOL TARTRATE 50 MG TAB PO SCH ×2 (07:36→20:48)
[2019-05-21] MEDS: LACTATED RINGERS 1,000 ML IV SCH ×2 (07:36→17:10)
[2019-05-21] MEDS: ACETAMINOPHEN TAB 500 MG TAB PO PRN (07:38)
[2019-05-21] MEDS: ANASTROZOLE 1 MG TAB PO SCH (08:03)
[2019-05-21] MEDS: CARBIDOPA-LEVODOPA 25-100 MG 1 EACH TAB PO SCH ×3 (10:21→17:09)
[2019-05-21] MEDS: DICYCLOMINE 20 MG TAB PO PRN (15:31)
--- NOTE | 2019-05-21 18:43 | P.PN ---
Subjective Progress Note Date: 05/21/19 Principal diagnosis: Ulcerative colitis, blood per rectum Patient currently be treated for Covid 19, patient was called via the telephone and consented to a telephone visited with patient identifies use for identification of the patient. Patient's continues to report some loose clots per rectum. He is also complaining that his diet was switched back to a liquid diet yesterday. Patient continues to have some abdominal cramping. Objective - Vital Signs Vital signs: Vital Signs Temp 98.1 F 05/21/19 07:00 Pulse 89 05/21/19 07:00 Resp 17 05/21/19 07:00 BP 144/75 05/21/19 07:00 Pulse Ox 97 05/21/19 07:00 Intake & Output 05/20/19 05/21/19 05/21/19 18:59 06:59 18:59 Intake Total 1100 Output Total 1000 700 900 Balance -1000 400 -900 Intake: Intake, IV Titration 1100 Amount Lactated Ringers 1,000 ml 1100 @ 100 mls/hr IV .Q10H [facility] Rx#:[id number] Output: Urine 1000 700 900 Other: Voiding Method Urinal Urinal # Voids 2 3 # Bowel Movements 1 1 - Exam Visit performed via the telephone in a patient with covid 19, patient agreed to telephone visit with patient identified as used to confirm his identity Defer physical exam to the primary care physician - Labs CBC & Chem 7: 05/20/19 17:43 05/20/19 06:06 Labs: Abnormal Lab Results - Last 24 Hours (Table) 05/20/19 Range/Units 17:43 WBC 12.7 H (3.8-10.6) k/uL RBC 3.85 L (4.30-5.90) m/uL Hgb 10.9 L (13.0-17.5) gm/dL Hct 33.7 L (39.0-53.0) % Microbiology - Last 24 Hours (Table) 05/19/19 10:30 Stool Culture - Preliminary Stool 05/19/19 08:46 Gram Stain - Preliminary Sputum Sputum Culture - Preliminary Yeast species 05/15/19 17:40 Stool Culture - Final Stool Assessment and Plan (1) Colitis Narrative/Plan: 68-year-old male with a recent diagnosis of left-sided ulcerative colitis diagnosed on colonoscopy within the last month who presented to the hospital for a constellation of symptoms and is currently being treated for infection with Covid 19. The patient has continued to report symptoms of abdominal pain and cramping as well as frequency of bowel movements and blood per rectum. He does feel that the output is darkening in color. Hemoglobin has remained stable. Currently he is on both IV Solu-Medrol as well as a 5-ASA agent. Current Visit: Yes Status: Acute Code(s): K52.9 - NONINFECTIVE GASTROENTERITIS AND COLITIS, UNSPECIFIED SNOMED Code(s): 10086095 (2) Blood per rectum Current Visit: Yes Status: Acute Code(s): K62.5 - HEMORRHAGE OF ANUS AND RECTUM SNOMED Code(s): 25274481 Plan: Supportive care Okay for her low fiber, low residual diet Continue Solu-Medrol 20 mg every 8 hours Continue balsalazide 3 times a day Mesalamine rectal suppository changed from Rowasa to Canasa Bentyl added as needed for abdominal cramping Continue to monitor her symptomatically Thank you for allowing us to dissipate in the care of the patient we will continue to follow
--- NOTE | 2019-05-21 20:03 | P.PN ---
Progress Note - Text Progress Note Date: 05/21/19 Chief Complaint: Diarrhea History of presenting complaint: This is a very pleasant 68-year-old patient of Dr. Jossue Peguero. Patient was directly admitted from his office. He presented to the office feeling weak tired and more diarrhea. Long-standing history of Parkinson's. Patient's been having diarrhea bloody stools on and off for about 2 months. Patient was recently at [facility] from where he was discharged 4 days ago. He did have a computed tomography scan ultrasound and colonoscopy. Was diagnosed with colitis. Patient was discharged on prednisone and mesalamine. Patient will appetite is not good continues to have diarrhea bloody stool. Weak tired rundown. Multiple episodes. No obvious fever. Last 4 days has had a congested cough. Decreased appetite. Drinking some liquids. Some abdominal discomfort cramping (flexible sigmoidoscopy refused diffuse inflammation involving the rectum sigmoid colon and descending colon up to splenic flexure and because of significant inflammation scopolamine not be depressed. 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 Patient being treated with Colazal, lactated Ringer's, IV Solu- Medrol. Today-patient did not take his steroid enema yesterday. Still having Bloody stools. Decreased oral intake. Tired. Review of systems: Was done for constitutional, cardiovascular, GI, pulmonary. relevant finding as above Physical examination: VITAL SIGNS: 97.7, 68, 17, 120/75, 97% on 2 L GENERAL: Laying in bed, tired PSYCH: Alert and oriented x3; mood and affect tired. Further exam as per pulmonary: CHEST: No chest wall deformity. Symmetrical expansion. LUNGS: Equal air entry with no crackles, wheeze, rhonchi or dullness. CVS: Regular rate and rhythm, normal S1 and S2, no gallops, no murmurs, no rubs ABDOMEN: Soft, nontender. No hepatosplenomegaly, normal bowel sounds, no guarding or rigidity. EXTREMITIES: No clubbing, no edema, no cyanosis, 2+ pulses and upper and lower extremities. MUSCULOSKELETAL: Muscle strength and tone normal. INVESTIGATIONS, reviewed in the clinical context: White count 12.7 hemoglobin 10.9 potassium 4.6 creatinine 0.62 CRP 56 Previous testing White count 10.8 hemoglobin 11.9 platelets 355 Sodium 129 potassium 4.8 bun 28 creatinine 1.40 albumin 2.9 Stool-C. diff negative Coronavirus-PCR detected Assessment: -Acute ulcerative colitis, severe exacerbation, slow to respond -Idiopathic Parkinson's disease -Mild pneumonia from COVID-19. -Mild protein calorie malnutrition medical debility -Medical debility -Acute kidney injury, possibly prerenal-improved -Hyponatremia from decrease solute intake -Normocytic anemia likely from underlying colitis and from GI blood loss anemia Plan: Had a lengthy talk with the patient. Admitted May to take his steroid enema. Spoke to the nurse. Other medications to continue. Repeat labs
[2019-05-21] MEDS: PANTOPRAZOLE 40 MG TABLET PO SCH (20:48)
[2019-05-21] MEDS: MESALAMINE 1,000 MG SUPP RECTAL SCH (22:06)
[2019-05-22] MEDS: LACTATED RINGERS 1,000 ML IV SCH ×3 (02:19→23:00)
--- NOTE | 2019-05-22 05:41 | PN ---
PROGRESS NOTE DATE OF SERVICE: 05/21/2019 REASON FOR FOLLOWUP: Acute COVID-19 pneumonia. INTERVAL HISTORY: The patient is currently afebrile. He has been breathing comfortably. Patient denies having any chest pain. He did have some cough, but no sputum. No nausea, no vomiting. No abdominal pain, no diarrhea. PHYSICAL EXAMINATION: Blood pressure is 125/78 with a pulse of 81 temperature is 97.9. He is 96% on 2 L nasal cannula. General description is an elderly male lying in bed in no distress. RESPIRATORY SYSTEM: Unlabored breathing, decreased intensity of breath sounds. No wheeze. HEART: S1, S2. Regular rate and rhythm. ABDOMEN: Soft, no tenderness. LABS: Hemoglobin is 10.9, white count 12.7, creatinine 0.62. DIAGNOSTIC IMPRESSION AND PLAN: Patient with acute COVID-19 pneumonia. Patient has completed his Plaquenil course. He is currently on a low-dose steroid to maintain his blood pressure and we will monitor his clinical course closely. Continue with supportive care. MMODL / IJN: [id number] /
[2019-05-22 07:13] LABS: Basophils # (A) 0.1 k/uL (0-0.2); Basophils % (A) 0 %; Eosinophils % (A) 0 %; HCT 34.5 % (39.0-53.0); HGB 11.1 gm/dL (13.0-17.5); Lymphocytes # (A) 0.9 k/uL (1.0-4.8); Lymphocytes % (A) 8 %; MCH 28.3 pg (25.0-35.0); MCHC 32.2 g/dL (31.0-37.0); MCV 87.8 fL (80.0-100.0); Mean Platelet Volume 7.4; Monocytes # (A) 0.4 k/uL (0-1.0); Monocytes % (A) 4 %; Neutrophils # (A) 9.8 k/uL (1.3-7.7); Neutrophils % (A) 86 %; Platelet Count 234 k/uL (150-450); RBC 3.93 m/uL (4.30-5.90); RDW 13.3 % (11.5-15.5); WBC 11.4 k/uL (3.8-10.6)
[2019-05-22 07:40] LABS: African American GFR (CKD) >90 (>60 ml/min/1.73 sqM); Anion Gap 4 mmol/L; Blood Urea Nitrogen 17 mg/dL (9-20); Calcium 8.7 mg/dL (8.4-10.2); Carbon Dioxide 32 mmol/L (22-30); Chloride 95 mmol/L (98-107); Glucose 161 mg/dL (74-99); Non-African American GFR(CKD) >90 (>60 ml/min/1.73 sqM); Potassium 4.8 mmol/L (3.5-5.1); Sodium 131 mmol/L (137-145)
[2019-05-22] MEDS: AMANTADINE HCL 100 MG CAP PO SCH ×2 (08:27→21:07)
[2019-05-22] MEDS: PANTOPRAZOLE 40 MG TABLET PO SCH ×2 (08:27→16:57)
[2019-05-22] MEDS: METOPROLOL TARTRATE 50 MG TAB PO SCH ×2 (08:27→21:07)
[2019-05-22] MEDS: BALSALAZIDE DISODIUM 750 MG CAPSULE PO SCH ×3 (08:27→21:07)
[2019-05-22] MEDS: methylPREDNISolone SOD SUCCI 40 MG/ML 1 ML VIAL IV SCH ×3 (08:27→23:26)
[2019-05-22] MEDS: LOPERAMIDE 2 MG CAP PO SCH ×4 (08:27→21:07)
[2019-05-22] MEDS: ALBUTEROL HFA INHALER INHALATION SCH ×3 (09:24→19:34)
[2019-05-22] MEDS: DICYCLOMINE 20 MG TAB PO PRN (09:54)
[2019-05-22] MEDS: CARBIDOPA-LEVODOPA 25-100 MG 1 EACH TAB PO SCH ×3 (09:54→16:57)
--- NOTE | 2019-05-22 17:23 | P.PN ---
Subjective Progress Note Date: 05/22/19 Principal diagnosis: Ulcerative colitis, blood per rectum Patient currently be treated for Covid 19, patient was called via the telephone and consented to a telephone visited with patient identifies use for identification of the patient. Patient's reporting that he is feeling better today. He is tolerating his diet. Only 1 bowel movement today. Still dark in color but he feels symptoms are improved overall. Objective - Vital Signs Vital signs: Vital Signs Temp 97.7 F 05/22/19 15:00 Pulse 85 05/22/19 15:00 Resp 17 05/22/19 15:00 BP 124/70 05/22/19 15:00 Pulse Ox 97 05/22/19 15:00 Intake & Output 05/21/19 05/22/19 05/22/19 18:59 06:59 18:59 Intake Total 20 Output Total 900 1250 550 Balance -880 -1250 -550 Weight 88 kg Intake: Oral 20 Output: Urine 900 1250 550 Other: Voiding Method Urinal Urinal # Voids 3 1 # Bowel Movements 1 1 - Exam Visit performed via the telephone in a patient with covid 19, patient agreed to telephone visit with patient identified as used to confirm his identity Defer physical exam to the primary care physician - Labs CBC & Chem 7: 05/22/19 06:50 05/22/19 06:50 Labs: Abnormal Lab Results - Last 24 Hours (Table) 05/22/19 05/22/19 Range/Units 06:50 06:50 WBC 11.4 H (3.8-10.6) k/uL RBC 3.93 L (4.30-5.90) m/uL Hgb 11.1 L (13.0-17.5) gm/dL Hct 34.5 L (39.0-53.0) % Neutrophils # 9.8 H (1.3-7.7) k/uL Lymphocytes # 0.9 L (1.0-4.8) k/uL Sodium 131 L (137-145) mmol/L Chloride 95 L (98-107) mmol/L Carbon Dioxide 32 H (22-30) mmol/L Creatinine 0.57 L (0.66-1.25) mg/dL Glucose 161 H (74-99) mg/dL Microbiology - Last 24 Hours (Table) 05/19/19 08:46 Gram Stain - Final Sputum Sputum Culture - Final Mary sp,not albicans/galbr Pseudomonas aeruginosa 05/19/19 10:30 Stool Culture - Final Stool Assessment and Plan (1) Colitis Narrative/Plan: 68-year-old male with a recent diagnosis of left-sided ulcerative colitis diagnosed on colonoscopy within the last month who presented to the hospital for a constellation of symptoms and is currently being treated for infection with Covid 19. The patient has continued to report symptoms of abdominal pain and cramping as well as frequency of bowel movements and blood per rectum. He does feel that the output is darkening in color. Hemoglobin has remained stable. Currently he is on both IV Solu-Medrol as well as a 5-ASA agent. Current Visit: Yes Status: Acute Code(s): K52.9 - NONINFECTIVE GASTROENTERITIS AND COLITIS, UNSPECIFIED SNOMED Code(s): 69331410 (2) Blood per rectum Current Visit: Yes Status: Acute Code(s): K62.5 - HEMORRHAGE OF ANUS AND RE CTUM SNOMED Code(s): 44599446 Plan: Supportive care Okay for her low fiber, low residual diet Continue Solu-Medrol 20 mg every 8 hours, would recommend a slow taper of steroids upon discharge Continue balsalazide 3 times a day Mesalamine rectal suppository changed with Canasa nightly Bentyl added as needed for abdominal cramping Continue to monitor her symptomatically Thank you for allowing us to participate in the care of the patient we will continue to follow
--- NOTE | 2019-05-22 21:54 | P.PN ---
Progress Note - Text Progress Note Date: 05/22/19 Chief Complaint: Diarrhea History of presenting complaint: This is a very pleasant 68-year-old patient of Dr. Jossue Peguero. Patient was directly admitted from his office. He presented to the office feeling weak tired and more diarrhea. Long-standing history of Parkinson's. Patient's been having diarrhea bloody stools on and off for about 2 months. Patient was recently at [facility] from where he was discharged 4 days ago. He did have a computed tomography scan ultrasound and colonoscopy. Was diagnosed with colitis. Patient was discharged on prednisone and mesalamine. Patient will appetite is not good continues to have diarrhea bloody stool. Weak tired rundown. Multiple episodes. No obvious fever. Last 4 days has had a congested cough. Decreased appetite. Drinking some liquids. Some abdominal discomfort cramping (flexible sigmoidoscopy refused diffuse inflammation involving the rectum sigmoid colon and descending colon up to splenic flexure and because of significant inflammation scopolamine not be depressed. 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 Patient being treated with Colazal, lactated Ringer's, IV Solu- Medrol. Today-abdominal cramping a bit better. Diarrhea started to slow down. Oral intake significantly improved. Does get some food from outside. Breathing is stable. Review of systems: Was done for constitutional, cardiovascular, GI, pulmonary. relevant finding as above Active Medications Acetaminophen (Tylenol Tab) 500 mg PO Q6HR PRN PRN Reason: Fever and/ or Pain Last Admin: 05/21/19 07:38 Dose: 500 mg Documented by: Albuterol Sulfate (Ventolin Hfa Inhaler) 2 puff INHALATION RT-TID [facility] Last Admin: 05/22/19 19:34 Dose: 2 puff Documented by: Amantadine HCl (Symmetrel) 100 mg PO BID [facility] Last Admin: 05/22/19 21:07 Dose: 100 mg Documented by: Anastrozole (Arimidex) 1 mg PO SuTuFr@0900 [facility] Last Admin: 05/21/19 08:03 Dose: 1 mg Documented by: Balsalazide (Colazal) 2,250 mg PO TID [facility] Last Admin: 05/22/19 21:07 Dose: 2,250 mg Documented by: Carbidopa/Levodopa (Sinemet 25-100) 2 each PO TID@1000,1400,1800 [facility] Last Admin: 05/22/19 16:57 Dose: 2 each Documented by: Dicyclomine HCl (Bentyl) 20 mg PO QID PRN PRN Reason: Dyspepsia Last Admin: 05/22/19 09:54 Dose: 20 mg Documented by: Lactated Ringer's (Lactated Ringers) 1,000 mls @ 100 mls/hr IV .Q10H [facility] Last Admin: 05/22/19 14:19 Dose: 100 mls/hr Documented by: Loperamide HCl (Imodium) 2 mg PO QID [facility] Last Admin: 05/22/19 21:07 Dose: 2 mg Documented by: Mesalamine (Canasa) 1,000 mg RECTAL HS [facility] Last Admin: 05/21/19 22:06 Dose: 1,000 mg Documented by: Methylprednisolone Sodium Succinate (Solu-Medrol) 20 mg IV Q8HR [facility] Last Admin: 05/22/19 16:56 Dose: 20 mg Documented by: Metoprolol Tartrate (Lopressor) 50 mg PO BID [facility] Last Admin: 05/22/19 21:07 Dose: 50 mg Documented by: Miscellaneous Information (Magnesium Per Protocol) 1 each MISCELLANE DAILY PRN; Protocol PRN Reason: Per Protocol Pantoprazole Sodium (Protonix) 40 mg PO AC-BID [facility] Last Admin: 05/22/19 16:57 Dose: 40 mg Documented by: Physical examination: VITAL SIGNS: 98.3, 75, 18, 139/79, 95% on 2 L GENERAL: Laying in bed, less tired PSYCH: Alert and oriented x3; mood and affect tired. Further exam as per pulmonary: CHEST: No chest wall deformity. Symmetrical expansion. LUNGS: Equal air entry with no crackles, wheeze, rhonchi or dullness. CVS: Regular rate and rhythm, normal S1 and S2, no gallops, no murmurs, no rubs ABDOMEN: Soft, nontender. No hepatosplenomegaly, normal bowel sounds, no guarding or rigidity. EXTREMITIES: No clubbing, no edema, no cyanosis, 2+ pulses and upper and lower extremities. MUSCULOSKELETAL: Muscle strength and tone normal. INVESTIGATIONS, reviewed in the clinical context: White count 10.4 hemoglobin 11.1 pressure 4.8 creatinine 0.57 Previous testing White count 10.8 hemoglobin 11.9 platelets 355 Sodium 129 potassium 4.8 bun 28 creatinine 1.40 albumin 2.9 Stool-C. diff negative Coronavirus-PCR detected Assessment: -Acute ulcerative colitis, severe exacerbation, has started to respond especially after stone and there was -Idiopathic Parkinson's disease -Mild pneumonia from COVID-19. -Mild protein calorie malnutrition medical debility -Medical debility -Acute kidney injury, possibly prerenal-improved -Hyponatremia from decrease solute intake -Normocytic anemia likely from underlying colitis and from GI blood loss anemia Plan: Patient's responding well to the steroid enemas. Other medications to continue. Follow labs.
[2019-05-22] MEDS: MESALAMINE 1,000 MG SUPP RECTAL SCH (23:00)
[2019-05-22] MEDS: CEFEPIME 2 GM in SODIUM CHLORIDE 0.9% 100 ML IVPB SCH (23:00)
--- NOTE | 2019-05-22 23:51 | PN ---
PROGRESS NOTE DATE OF SERVICE: 05/22/2019 REASON FOR FOLLOWUP: Acute COVID-19 pneumonia. INTERVAL HISTORY: The patient is currently afebrile. The patient is breathing comfortably. The patient denies having any chest pain. Occasional cough. No nausea, no vomiting. No abdominal pain. Diarrhea has improved. PHYSICAL EXAMINATION: Blood pressure 127/85 with a pulse of 79, temperature 97.6. He is 95% on 2 L nasal cannula. General description is an elderly male lying in bed in no distress. RESPIRATORY SYSTEM: Unlabored breathing with decreased intensity of breath sounds. No wheeze. HEART: S1, S2. Regular rate and rhythm. ABDOMEN: Soft. No tenderness. LABS: Hemoglobin 11.1, white count 11.4, BUN of 17, creatinine 0.57. Sputum is showing Pseudomonas aeruginosa. DIAGNOSTIC IMPRESSION AND PLAN: Patient with acute COVID-19 pneumonia, for which the patient has completed his 5-day course of Plaquenil therapy, now with concern for possible secondary bacterial pneumonia and sputum now showing Pseudomonas. Chest x-ray will be repeated. Will empirically add cefepime 2 grams q.12 and monitor his clinical course closely. MMODL / IJN: [id number] /
[2019-05-23] MEDS: METOPROLOL TARTRATE 50 MG TAB PO SCH ×2 (07:32→20:02)
[2019-05-23] MEDS: LOPERAMIDE 2 MG CAP PO SCH ×3 (07:32→17:10)
[2019-05-23] MEDS: methylPREDNISolone SOD SUCCI 40 MG/ML 1 ML VIAL IV SCH ×2 (07:32→15:25)
[2019-05-23] MEDS: PANTOPRAZOLE 40 MG TABLET PO SCH ×2 (07:33→17:10)
[2019-05-23] MEDS: AMANTADINE HCL 100 MG CAP PO SCH ×2 (07:33→20:00)
[2019-05-23] MEDS: BALSALAZIDE DISODIUM 750 MG CAPSULE PO SCH ×3 (07:34→21:36)
[2019-05-23] MEDS: LACTATED RINGERS 1,000 ML IV SCH ×2 (07:35→17:11)
[2019-05-23] MEDS: ALBUTEROL HFA INHALER INHALATION SCH ×3 (07:39→20:25)
[2019-05-23] MEDS: CEFEPIME 2 GM in SODIUM CHLORIDE 0.9% 100 ML IVPB SCH ×2 (08:17→20:01)
--- NOTE | 2019-05-23 08:22 | XR ---
EXAMINATION TYPE: XR chest 1V portable DATE OF EXAM: 05/23/2019 COMPARISON: 05/20/2019 INDICATION: Pneumonia TECHNIQUE: Single frontal view of the chest is obtained. FINDINGS: The heart size is normal. The pulmonary vasculature is normal. Minimal infiltrate is less distinct at the left base. Lungs otherwise appear clear. IMPRESSION: 1. Mild changing infiltrate at the left lung base.
[2019-05-23 09:06] LABS: African American GFR (CKD) >90 (>60 ml/min/1.73 sqM); Anion Gap 7 mmol/L; Blood Urea Nitrogen 18 mg/dL (9-20); Calcium 8.5 mg/dL (8.4-10.2); Carbon Dioxide 29 mmol/L (22-30); Chloride 95 mmol/L (98-107); Glucose 165 mg/dL (74-99); Non-African American GFR(CKD) >90 (>60 ml/min/1.73 sqM); Potassium 4.3 mmol/L (3.5-5.1); Sodium 131 mmol/L (137-145)
[2019-05-23] MEDS: CARBIDOPA-LEVODOPA 25-100 MG 1 EACH TAB PO SCH ×3 (09:19→17:10)
[2019-05-23] MEDS: DICYCLOMINE 20 MG TAB PO PRN (10:28)
[2019-05-23] MEDS: TAMSULOSIN 0.4 MG CAP.ER.24H PO SCH (13:44)
[2019-05-23] MEDS: MESALAMINE 1,000 MG SUPP RECTAL SCH (20:02)
--- NOTE | 2019-05-23 20:11 | P.PN ---
Subjective Progress Note Date: 05/23/19 Principal diagnosis: Ulcerative colitis, blood per rectum Patient currently be treated for Covid 19, patient was called via the telephone and consented to a telephone visited with patient identifies use for identification of the patient. Patient's reporting some abdominal cramping and loose stool this morning but improved. Tolerating diet. Objective - Vital Signs Vital signs: Vital Signs Temp 97.6 F 05/23/19 18:55 Pulse 78 05/23/19 18:55 Resp 17 05/23/19 18:55 BP 111/72 05/23/19 18:55 Pulse Ox 97 05/23/19 18:55 Intake & Output 05/23/19 05/23/19 05/24/19 06:59 18:59 06:59 Intake Total 300 236 Output Total 800 2400 Balance -500 -2164 Intake: Intake, IV Titration 300 Amount Lactated Ringers 1,000 ml 300 @ 100 mls/hr IV .Q10H [facility] Rx#:[id number] Oral 236 Output: Urine 800 2400 Other: Voiding Method Urinal Urinal # Voids 6 # Bowel Movements 1 1 - Exam Visit performed via the telephone in a patient with covid 19, patient agreed to telephone visit with patient identified as used to confirm his identity Defer physical exam to the primary care physician - Labs CBC & Chem 7: 05/22/19 06:50 05/23/19 08:36 Labs: Abnormal Lab Results - Last 24 Hours (Table) 05/19/19 05/23/19 Range/Units 10:30 08:36 Sodium 131 L (137-145) mmol/L Chloride 95 L (98-107) mmol/L Creatinine 0.63 L (0.66-1.25) mg/dL Glucose 165 H (74-99) mg/dL Stool Calprotectin >3,000.0 H (<50) mcg/g Microbiology - Last 24 Hours (Table) 05/19/19 10:30 Stool Culture - Final Stool Assessment and Plan (1) Colitis Narrative/Plan: 68-year-old male with a recent diagnosis of left-sided ulcerative colitis diagnosed on colonoscopy within the last month who presented to the hospital for a constellation of symptoms and is currently being treated for infection with Covid 19. The patient has continued to report symptoms of abdominal pain and cramping as well as frequency of bowel movements and blood per rectum. He does feel that the output is darkening in color. Hemoglobin has remained stable. Currently he is on both IV Solu-Medrol as well as a 5-ASA agent. Current Visit: Yes Status: Acute Code(s): K52.9 - NONINFECTIVE GASTROENTERITIS AND COLITIS, UNSPECIFIED SNOMED Code(s): 41098193 (2) Blood per rectum Current Visit: Yes Status: Acute Code(s): K62.5 - HEMORRHAGE OF ANUS AND RECTUM SNOMED Code(s): 59370736 Plan: Supportive care Okay for her low fiber, low residual diet Continue Solu-Medrol 20 mg every 8 hours, would recommend a slow taper of steroids upon discharge Continue balsalazide 3 times a day Mesalamine rectal suppository changed with Canasa nightly Bentyl added as needed for abdominal cramping Continue to monitor her symptomatically Thank you for allowing us to participate in the care of the patient we will continue to follow
--- NOTE | 2019-05-23 20:14 | P.PN ---
Progress Note - Text Progress Note Date: 05/23/19 Chief Complaint: Diarrhea History of presenting complaint: This is a very pleasant 68-year-old patient of Dr. Jossue Peguero. Patient was directly admitted from his office. He presented to the office feeling weak tired and more diarrhea. Long-standing history of Parkinson's. Patient's been having diarrhea bloody stools on and off for about 2 months. Patient was recently at [facility] from where he was discharged 4 days ago. He did have a computed tomography scan ultrasound and colonoscopy. Was diagnosed with colitis. Patient was discharged on prednisone and mesalamine. Patient will appetite is not good continues to have diarrhea bloody stool. Weak tired rundown. Multiple episodes. No obvious fever. Last 4 days has had a congested cough. Decreased appetite. Drinking some liquids. Some abdominal discomfort cramping (flexible sigmoidoscopy refused diffuse inflammation involving the rectum sigmoid colon and descending colon up to splenic flexure and because of significant inflammation scopolamine not be depressed. 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 Patient being treated with Colazal, lactated Ringer's, IV Solu- Medrol. Started on steroid enemas Today-patient not having anymore blood in the stool. Less abdominal cramping.. Eating about 75%. Feels better. Review of systems: Was done for constitutional, cardiovascular, GI, pulmonary. relevant finding as above Active Medications Acetaminophen (Tylenol Tab) 500 mg PO Q6HR PRN PRN Reason: Fever and/ or Pain Last Admin: 05/21/19 07:38 Dose: 500 mg Documented by: Albuterol Sulfate (Ventolin Hfa Inhaler) 2 puff INHALATION RT-TID [facility] Last Admin: 05/23/19 10:56 Dose: 2 puff Documented by: Amantadine HCl (Symmetrel) 100 mg PO BID [facility] Last Admin: 05/23/19 07:33 Dose: 100 mg Documented by: Anastrozole (Arimidex) 1 mg PO SuTuFr@0900 [facility] Last Admin: 05/21/19 08:03 Dose: 1 mg Documented by: Balsalazide (Colazal) 2,250 mg PO TID [facility] Last Admin: 05/23/19 15:26 Dose: 2,250 mg Documented by: Carbidopa/Levodopa (Sinemet 25-100) 2 each PO TID@1000,1400,1800 [facility] Last Admin: 05/23/19 17:10 Dose: 2 each Documented by: Dicyclomine HCl (Bentyl) 20 mg PO QID PRN PRN Reason: Dyspepsia Last Admin: 05/23/19 10:28 Dose: 20 mg Documented by: Lactated Ringer's (Lactated Ringers) 1,000 mls @ 100 mls/hr IV .Q10H [facility] Last Admin: 05/23/19 17:11 Dose: 100 mls/hr Documented by: Cefepime HCl 2 gm/ Sodium (Chloride) 100 mls @ 200 mls/hr IVPB Q12HR [facility] Last Admin: 05/23/19 08:17 Dose: 200 mls/hr Documented by: Loperamide HCl (Imodium) 2 mg PO QID [facility] Last Admin: 05/23/19 17:10 Dose: 2 mg Documented by: Mesalamine (Canasa) 1,000 mg RECTAL HS [facility] Last Admin: 05/22/19 23:00 Dose: 1,000 mg Documented by: Methylprednisolone Sodium Succinate (Solu-Medrol) 20 mg IV Q8HR [facility] Last Admin: 05/23/19 15:25 Dose: 20 mg Documented by: Metoprolol Tartrate (Lopressor) 50 mg PO BID [facility] Last Admin: 05/23/19 07:32 Dose: 50 mg Documented by: Miscellaneous Information (Magnesium Per Protocol) 1 each MISCELLANE DAILY PRN; Protocol PRN Reason: Per Protocol Pantoprazole Sodium (Protonix) 40 mg PO AC-BID [facility] Last Admin: 05/23/19 17:10 Dose: 40 mg Documented by: Tamsulosin HCl (Flomax) 0.4 mg PO PC-BRKFST [facility] Last Admin: 05/23/19 13:44 Dose: 0.4 mg Documented by: Physical examination: VITAL SIGNS: 97.8, 78, 17, 142/78, 98% on 2 L GENERAL: Propped up in bed, awake PSYCH: Alert and oriented x3; mood and affect tired. Further exam as per pulmonary: CHEST: No chest wall deformity. Symmetrical expansion. LUNGS: Equal air entry with no crackles, wheeze, rhonchi or dullness. CVS: Regular rate and rhythm, normal S1 and S2, no gallops, no murmurs, no rubs ABDOMEN: Soft, nontender. No hepatosplenomegaly, normal bowel sounds, no guarding or rigidity. EXTREMITIES: No clubbing, no edema, no cyanosis, 2+ pulses and upper and lower extremities. MUSCULOSKELETAL: Muscle strength and tone normal. INVESTIGATIONS, reviewed in the clinical context: Potassium 4.3 creatinine 0.63 Previous testing White count 10.8 hemoglobin 11.9 platelets 355 Sodium 129 potassium 4.8 bun 28 creatinine 1.40 albumin 2.9 Stool-C. diff negative Coronavirus-PCR detected Sputum-pseudomonas aeruginosa and Mary not albicans Assessment: -Acute ulcerative colitis, severe exacerbation, slowly improving-no more blood in the stools -Idiopathic Parkinson's disease -Novel coronavirus infected pneumonia-mild -Secondary pneumonia from Pseudomonas-old cefepime -Mild protein calorie malnutrition medical debility -Medical debility -Acute kidney injury, possibly prerenal-improved -Hyponatremia from decrease solute intake -Normocytic anemia likely from underlying colitis and from GI blood loss anemia Plan: Continue with IV cefepime. Steroid enemas are working well. Appetite is improving. Encouraged to ambulate more. We'll switch to by mouth prednisone 60 mg
[2019-05-23] MEDS: PSYLLIUM HUSK 100% 6 GM PACKET PO SCH (21:36)
--- NOTE | 2019-05-23 23:55 | PN ---
PROGRESS NOTE DATE OF SERVICE: 05/23/2019 REASON FOR FOLLOWUP: Acute COVID-19 infection. INTERVAL HISTORY: The patient is currently afebrile, has been breathing comfortably. The patient has been complaining mostly of difficulty initiating his urinary stream. No chest pain. No abdominal pain or diarrhea. PHYSICAL EXAMINATION: Blood pressure is 111/72 with a pulse of 78, temperature 97.6. He is 97% on 2 L nasal cannula. General description is an elderly male lying in bed in no distress. RESPIRATORY SYSTEM: Unlabored breathing with decreased breath sounds at the base. No wheeze. HEART: S1, S2. Regular rate and rhythm. ABDOMEN: Soft. No tenderness. LABS: BUN of 18, creatinine 0.63. Sputum has been Pseudomonas aeruginosa. DIAGNOSTIC IMPRESSION AND PLAN: 1. Patient with acute COVID-19 pneumonia that has been adequately treated. 2. Patient who did have a positive sputum with Pseudomonas aeruginosa. Chest x-ray with left lower lobe infiltrate. The patient is covered with cefepime; to continue and monitor his clinical course closely. MMODL / IJN: [id number] /
[2019-05-24] MEDS: DICYCLOMINE 20 MG TAB PO PRN ×2 (05:27→22:00)
[2019-05-24] MEDS: ALBUTEROL HFA INHALER INHALATION SCH ×3 (08:11→20:17)
[2019-05-24] MEDS: LACTATED RINGERS 1,000 ML IV SCH ×3 (08:54→22:02)
[2019-05-24] MEDS: TAMSULOSIN 0.4 MG CAP.ER.24H PO SCH (08:56)
[2019-05-24] MEDS: CEFEPIME 2 GM in SODIUM CHLORIDE 0.9% 100 ML IVPB SCH ×2 (08:56→21:08)
[2019-05-24] MEDS: PSYLLIUM HUSK 100% 6 GM PACKET PO SCH ×2 (08:56→21:06)
[2019-05-24] MEDS: CARBIDOPA-LEVODOPA 25-100 MG 1 EACH TAB PO SCH ×3 (08:56→17:40)
[2019-05-24] MEDS: predniSONE 20 MG TAB PO SCH (08:57)
[2019-05-24] MEDS: ACETAMINOPHEN TAB 500 MG TAB PO PRN ×2 (08:57→21:17)
[2019-05-24] MEDS: METOPROLOL TARTRATE 50 MG TAB PO SCH (08:57)
[2019-05-24] MEDS: PANTOPRAZOLE 40 MG TABLET PO SCH ×2 (08:57→17:40)
[2019-05-24] MEDS: BALSALAZIDE DISODIUM 750 MG CAPSULE PO SCH ×3 (08:58→21:07)
[2019-05-24] MEDS: AMANTADINE HCL 100 MG CAP PO SCH ×2 (08:58→21:06)
[2019-05-24] MEDS: ANASTROZOLE 1 MG TAB PO SCH (08:58)
--- NOTE | 2019-05-24 10:51 | P.PN ---
Subjective HISTORY OF PRESENTING ILLNESS This is a pleasant 68-year-old male past medical history significant for Parkinson's disease and colitis newly diagnosed. He denies prior history of coronary artery disease and does not follow regularly in the office with a taper/finisher. We have been asked to see the patient again in consultation secondary to elevated heart rates. Patient evaluated by reviewing the chart and speaking to the nursing staff. Telemetry tracings reviewed, intermittent episodes of PAC's noted at times. No arrhythmia otherwise. Currently maintained on lopressor 50 mg BID. Laboratory data reviewed, sodium 131, potassium 4.3, creatinine 0.63, magnesium 1.8. ASSESSMENT Premature atrial contractions Nonsustained monomorphic ventricular tachycardia, could be related to persistent diarrhea and dehydration. Resolved. Covid 19 positive Ulcerative colitis History of Parkinson's disease PLAN Continue current medical regimen. PAC's noted, no acute arrhythmia. Nurse Practitioner note has been reviewed, I agree with a documented findings and plan of care. Patient was seen and examined. Objective - Vital Signs Vital signs: Vital Signs Temp 97.6 F 05/24/19 07:00 Pulse 75 05/24/19 07:00 Resp 17 05/24/19 07:00 BP 107/66 05/24/19 07:00 Pulse Ox 95 05/24/19 07:00 Intake & Output 05/23/19 05/24/19 05/24/19 18:59 06:59 18:59 Intake Total 236 800 Output Total 2400 400 Balance -2164 400 Intake: Intake, IV Titration 800 Amount Lactated Ringers 1,000 ml 800 @ 100 mls/hr IV .Q10H [facility] Rx#:[id number] Oral 236 Output: Urine 2400 400 Other: Voiding Method Urinal Urinal Diaper # Voids 6 1 # Bowel Movements 1 1 1 - Labs CBC & Chem 7: 05/22/19 06:50 05/23/19 08:36 Labs: Abnormal Lab Results - Last 24 Hours (Table) 05/19/19 Range/Units 10:30 Stool Calprotectin >3,000.0 H (<50) mcg/g Microbiology - Last 24 Hours (Table) 05/19/19 10:30 Stool Culture - Final Stool
--- NOTE | 2019-05-24 11:32 | P.PN ---
Subjective Progress Note Date: 05/24/19 Principal diagnosis: Ulcerative colitis, blood per rectum Patient currently be treated for Covid 19, patient was called via the telephone and consented to a telephone visited with patient identifies use for identification of the patient. Patient's reporting some abdominal cramping again this morning. He is stating Bowel movements are firming up with less blood. Some nausea this morning. Objective - Vital Signs Vital signs: Vital Signs Temp 97.6 F 05/24/19 11:17 Pulse 84 05/24/19 11:17 Resp 16 05/24/19 11:17 BP 107/69 05/24/19 11:17 Pulse Ox 96 05/24/19 11:17 Intake & Output 05/23/19 05/24/19 05/24/19 18:59 06:59 18:59 Intake Total 236 800 Output Total 2400 400 Balance -2164 400 Intake: Intake, IV Titration 800 Amount Lactated Ringers 1,000 ml 800 @ 100 mls/hr IV .Q10H [facility] Rx#:[id number] Oral 236 Output: Urine 2400 400 Other: Voiding Method Urinal Urinal Diaper # Voids 6 1 # Bowel Movements 1 1 1 - Exam Visit performed via the telephone in a patient with covid 19, patient agreed to telephone visit with patient identified as used to confirm his identity Defer physical exam to the primary care physician - Labs CBC & Chem 7: 05/22/19 06:50 05/23/19 08:36 Labs: Abnormal Lab Results - Last 24 Hours (Table) 05/19/19 Range/Units 10:30 Stool Calprotectin >3,000.0 H (<50) mcg/g Microbiology - Last 24 Hours (Table) 05/19/19 10:30 Stool Culture - Final Stool Assessment and Plan (1) Colitis Narrative/Plan: 68-year-old male with a recent diagnosis of left-sided ulcerative colitis diagnosed on colonoscopy within the last month who presented to the hospital for a constellation of symptoms and is currently being treated for infection with Covid 19. The patient has continued to report symptoms of abdominal pain and cramping as well as frequency of bowel movements and blood per rectum. He does feel that the output is darkening in color. Hemoglobin has remained stable. Currently he is on both IV Solu-Medrol as well as a 5-ASA agent. Current Visit: Yes Status: Acute Code(s): K52.9 - NONINFECTIVE GASTROENTERITIS AND COLITIS, UNSPECIFIED SNOMED Code(s): 04324808 (2) Blood per rectum Current Visit: Yes Status: Acute Code(s): K62.5 - HEMORRHAGE OF ANUS AND R ECTUM SNOMED Code(s): 87429615 Plan: Supportive care Okay for her low fiber, low residual diet Continue Solu-Medrol 20 mg every 8 hours, would recommend a slow taper of steroids upon discharge Continue balsalazide 3 times a day Mesalamine rectal suppository with Canasa nightly Bentyl added as needed for abdominal cramping Zofran as needed for nausea Continue to monitor her symptomatically Thank you for allowing us to participate in the care of the patient we will continue to follow
[2019-05-24] MEDS: ONDANSETRON 4 MG/2 ML VIAL IVP PRN (12:08)
[2019-05-24] MEDS: LACTATED RINGERS 250 ML IV SCH ×3 (17:43→17:45)
--- NOTE | 2019-05-24 21:01 | P.PN ---
Progress Note - Text Progress Note Date: 05/24/19 Chief Complaint: Diarrhea History of presenting complaint: This is a very pleasant 68-year-old patient of Dr. Jossue Peguero. Patient was directly admitted from his office. He presented to the office feeling weak tired and more diarrhea. Long-standing history of Parkinson's. Patient's been having diarrhea bloody stools on and off for about 2 months. Patient was recently at [facility] from where he was discharged 4 days ago. He did have a computed tomography scan ultrasound and colonoscopy. Was diagnosed with colitis. Patient was discharged on prednisone and mesalamine. Patient will appetite is not good continues to have diarrhea bloody stool. Weak tired rundown. Multiple episodes. No obvious fever. Last 4 days has had a congested cough. Decreased appetite. Drinking some liquids. Some abdominal discomfort cramping (flexible sigmoidoscopy refused diffuse inflammation involving the rectum sigmoid colon and descending colon up to splenic flexure and because of significant inflammation scopolamine not be depressed. Biopsies did confirm crypt abscesses with crypt distortion consistent with inflammatory bowel disease.) Admitted with a diagnosis of acute exacerbation of ulcerative colitis, [id number]. Also Pseudomonas pneumonia. Patient being treated with Colazal, lactated Ringer's, IV Solu-Medrol. Started on Canasa enemas Today-feels diet. Had been up in a chair. Stool frequency is gone down. Eating some. Some abdominal cramping. Review of systems: Was done for constitutional, cardiovascular, GI, pulmonary. relevant finding as above Active Medications Acetaminophen (Tylenol Tab) 500 mg PO Q6HR PRN PRN Reason: Fever and/ or Pain Last Admin: 05/24/19 08:57 Dose: 500 mg Documented by: Albuterol Sulfate (Ventolin Hfa Inhaler) 2 puff INHALATION RT-TID [facility] Last Admin: 05/24/19 20:17 Dose: 2 puff Documented by: Amantadine HCl (Symmetrel) 100 mg PO BID [facility] Last Admin: 05/24/19 08:58 Dose: 100 mg Documented by: Anastrozole (Arimidex) 1 mg PO SuTuFr@0900 [facility] Last Admin: 05/24/19 08:58 Dose: 1 mg Documented by: Balsalazide (Colazal) 2,250 mg PO TID [facility] Last Admin: 05/24/19 17:40 Dose: 2,250 mg Documented by: Carbidopa/Levodopa (Sinemet 25-100) 2 each PO TID@1000,1400,1800 [facility] Last Admin: 05/24/19 17:40 Dose: 2 each Documented by: Dicyclomine HCl (Bentyl) 20 mg PO QID PRN PRN Reason: Dyspepsia Last Admin: 05/24/19 05:27 Dose: 20 mg Documented by: Lactated Ringer's (Lactated Ringers) 1,000 mls @ 100 mls/hr IV .Q10H [facility] Last Admin: 05/24/19 17:38 Dose: Not Given Documented by: Cefepime HCl 2 gm/ Sodium (Chloride) 100 mls @ 200 mls/hr IVPB Q12HR [facility] Last Admin: 05/24/19 08:56 Dose: 200 mls/hr Documented by: Mesalamine (Canasa) 1,000 mg RECTAL HS [facility] Last Admin: 05/23/19 20:02 Dose: 1,000 mg Documented by: Metoprolol Tartrate (Lopressor) 25 mg PO TID [facility] Miscellaneous Information (Magnesium Per Protocol) 1 each MISCELLANE DAILY PRN; Protocol PRN Reason: Per Protocol Ondansetron HCl (Zofran) 4 mg IVP Q6HR PRN PRN Reason: Nausea And Vomiting Last Admin: 05/24/19 12:08 Dose: 4 mg Documented by: Pantoprazole Sodium (Protonix) 40 mg PO AC-BID [facility] Last Admin: 05/24/19 17:40 Dose: 40 mg Documented by: Prednisone () 60 mg PO DAILY [facility] Last Admin: 05/24/19 08:57 Dose: 60 mg Documented by: Psyllium Hydrophilic Mucilloid (Metamucil) 6 gm PO BID [facility] Last Admin: 05/24/19 08:56 Dose: 6 gm Documented by: Tamsulosin HCl (Flomax) 0.4 mg PO PC-BRKFST [facility] Last Admin: 05/24/19 08:56 Dose: 0.4 mg Documented by: Physical examination: VITAL SIGNS: 97.6, 84, 16, 100 and cyanosis 9, 96% on 2 L GENERAL: Sitting up in bed, PSYCH: Alert and oriented x3; mood and affect tired. Further exam as per nursing noted in the chart.: INVESTIGATIONS, reviewed in the clinical context: Potassium 4.3 creatinine 0.63 Previous testing White count 10.8 hemoglobin 11.9 platelets 355 Sodium 129 potassium 4.8 bun 28 creatinine 1.40 albumin 2.9 Stool-C. diff negative Coronavirus-PCR detected Sputum-pseudomonas aeruginosa and Mary not albicans Assessment: -Acute ulcerative colitis, severe exacerbation, slowly improving-no more blood in the stools -Idiopathic Parkinson's disease -Novel coronavirus infected pneumonia- -Secondary pneumonia from on cefepime -Mild protein calorie malnutrition medical debility -Medical debility -Acute kidney injury, possibly prerenal-improved -Hyponatremia from decrease solute intake -Normocytic anemia likely from underlying colitis and from GI blood loss anemia Plan: Seen by physical therapy. Recommending subacute rehab. On IV cefepime. Will discuss with ID was switched to by mouth. Looking at subacute rehab.
[2019-05-24] MEDS: METOPROLOL TARTRATE 25 MG TAB PO SCH (21:06)
[2019-05-24] MEDS: MESALAMINE 1,000 MG SUPP RECTAL SCH (21:07)
--- NOTE | 2019-05-25 00:07 | PN ---
PROGRESS NOTE DATE OF SERVICE: 05/24/2019 REASON FOR FOLLOWUP: Acute COVID-19 infection, INTERVAL HISTORY: The patient is currently afebrile. The patient has been breathing comfortably. The patient denies having any chest pain or cough. No nausea, vomiting, abdominal pain or diarrhea. PHYSICAL EXAMINATION: Blood pressure 104/71 with a pulse of 81, temperature 97.6. He is 98% on 2 L nasal cannula. General description is an elderly male lying in bed in no distress. RESPIRATORY SYSTEM: Unlabored breathing with decreased breath sounds at the base. No wheeze. HEART: S1, S2. Regular rate and rhythm. ABDOMEN: Soft. No tenderness. LABS: BUN of 18, creatinine 0.63. DIAGNOSTIC IMPRESSION AND PLAN: Patient with acute COVID-19 pneumonia. Patient seems to have shown clinical improvement. The patient has completed his 5-day course of Plaquenil. Patient also has a component of possible secondary bacterial pneumonia with sputum positive for Pseudomonas aeruginosa, currently covered with cefepime. Transition to oral antibiotic on discharge. Continue with supportive care. MMODL / IJN: [id number] /
[2019-05-25] MEDS: ALBUTEROL HFA INHALER INHALATION SCH ×3 (07:48→19:17)
[2019-05-25] MEDS: ACETAMINOPHEN TAB 500 MG TAB PO PRN ×2 (08:05→21:33)
[2019-05-25] MEDS: PANTOPRAZOLE 40 MG TABLET PO SCH ×2 (08:05→16:05)
[2019-05-25] MEDS: TAMSULOSIN 0.4 MG CAP.ER.24H PO SCH (08:05)
[2019-05-25] MEDS: METOPROLOL TARTRATE 25 MG TAB PO SCH ×3 (08:05→21:34)
[2019-05-25] MEDS: ONDANSETRON 4 MG/2 ML VIAL IVP PRN (08:05)
[2019-05-25] MEDS: CARBIDOPA-LEVODOPA 25-100 MG 1 EACH TAB PO SCH ×3 (08:05→19:24)
[2019-05-25] MEDS: CEFEPIME 2 GM in SODIUM CHLORIDE 0.9% 100 ML IVPB SCH ×2 (08:06→21:34)
[2019-05-25] MEDS: BALSALAZIDE DISODIUM 750 MG CAPSULE PO SCH ×3 (08:06→23:30)
[2019-05-25] MEDS: predniSONE 20 MG TAB PO SCH (08:06)
[2019-05-25] MEDS: AMANTADINE HCL 100 MG CAP PO SCH ×2 (08:07→21:33)
[2019-05-25] MEDS: DICYCLOMINE 20 MG TAB PO PRN ×2 (08:25→21:51)
[2019-05-25] MEDS: PSYLLIUM HUSK 100% 6 GM PACKET PO SCH ×2 (15:18→21:33)
--- NOTE | 2019-05-25 16:36 | P.PN ---
Progress Note - Text Progress Note Date: 05/25/19 Chief Complaint: Diarrhea History of presenting complaint: This is a very pleasant 68-year-old patient of Dr. Jossue Peguero. Patient was directly admitted from his office. He presented to the office feeling weak tired and more diarrhea. Long-standing history of Parkinson's. Patient's been having diarrhea bloody stools on and off for about 2 months. Patient was recently at [facility] from where he was discharged 4 days ago. He did have a computed tomography scan ultrasound and colonoscopy. Was diagnosed with colitis. Patient was discharged on prednisone and mesalamine. Patient will appetite is not good continues to have diarrhea bloody stool. Weak tired rundown. Multiple episodes. No obvious fever. Last 4 days has had a congested cough. Decreased appetite. Drinking some liquids. Some abdominal discomfort cramping (flexible sigmoidoscopy refused diffuse inflammation involving the rectum sigmoid colon and descending colon up to splenic flexure and because of significant inflammation scopolamine not be depressed. 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 Also Pseudomonas pneumonia. Patient being treated with Colazal, lactated Ringer's, IV Solu-Medrol. Started on Canasa enemas Today-tired. Eating some. No blood in the diarrhea. Bowel movement every 3-4 hours. Tired. Some trouble swallowing felt to be secondary to Parkinson's. Review of systems: Was done for constitutional, cardiovascular, GI, pulmonary. relevant finding as above Active Medications Acetaminophen (Tylenol Tab) 500 mg PO Q6HR PRN PRN Reason: Fever and/ or Pain Last Admin: 05/25/19 08:05 Dose: 500 mg Documented by: Albuterol Sulfate (Ventolin Hfa Inhaler) 2 puff INHALATION RT-TID [facility] Last Admin: 05/25/19 13:44 Dose: 2 puff Documented by: Amantadine HCl (Symmetrel) 100 mg PO BID [facility] Last Admin: 05/25/19 08:07 Dose: 100 mg Documented by: Anastrozole (Arimidex) 1 mg PO SuTuFr@0900 [facility] Last Admin: 05/24/19 08:58 Dose: 1 mg Documented by: Balsalazide (Colazal) 2,250 mg PO TID [facility] Last Admin: 05/25/19 16:06 Dose: 2,250 mg Documented by: Carbidopa/Levodopa (Sinemet 25-100) 2 each PO TID@1000,1400,1800 [facility] Last Admin: 05/25/19 16:05 Dose: 2 each Documented by: Dicyclomine HCl (Bentyl) 20 mg PO QID PRN PRN Reason: Dyspepsia Last Admin: 05/25/19 08:25 Dose: 20 mg Documented by: Lactated Ringer's (Lactated Ringers) 1,000 mls @ 100 mls/hr IV .Q10H [facility] Last Admin: 05/24/19 22:02 Dose: 100 mls/hr Documented by: Cefepime HCl 2 gm/ Sodium (Chloride) 100 mls @ 200 mls/hr IVPB Q12HR [facility] Last Admin: 05/25/19 08:06 Dose: 200 mls/hr Documented by: Mesalamine (Canasa) 1,000 mg RECTAL HS [facility] Last Admin: 05/24/19 21:07 Dose: 1,000 mg Documented by: Metoprolol Tartrate (Lopressor) 25 mg PO TID [facility] Last Admin: 05/25/19 16:05 Dose: 25 mg Documented by: Miscellaneous Information (Magnesium Per Protocol) 1 each MISCELLANE DAILY PRN; Protocol PRN Reason: Per Protocol Ondansetron HCl (Zofran) 4 mg IVP Q6HR PRN PRN Reason: Nausea And Vomiting Last Admin: 05/25/19 08:05 Dose: 4 mg Documented by: Pantoprazole Sodium (Protonix) 40 mg PO AC-BID [facility] Last Admin: 05/25/19 16:05 Dose: 40 mg Documented by: Prednisone () 60 mg PO DAILY [facility] Last Admin: 05/25/19 08:06 Dose: 60 mg Documented by: Psyllium Hydrophilic Mucilloid (Metamucil) 6 gm PO BID [facility] Last Admin: 05/25/19 15:18 Dose: Not Given Documented by: Tamsulosin HCl (Flomax) 0.4 mg PO PC-BRKFST [facility] Last Admin: 05/25/19 08:05 Dose: 0.4 mg Documented by: Physical examination: VITAL SIGNS: 97.4, 79, 17, 117/73, 96% on 2 L GENERAL: propped up in bed, awake PSYCH: Alert and oriented x3; mood and affect tired. Further exam as per nursing noted in the chart.: INVESTIGATIONS, reviewed in the clinical context: Potassium 4.3 creatinine 0.63 Previous testing White count 10.8 hemoglobin 11.9 platelets 355 Sodium 129 potassium 4.8 bun 28 creatinine 1.40 albumin 2.9 Stool-C. diff negative Coronavirus-PCR detected Sputum-pseudomonas aeruginosa and Mary not albicans Assessment: -Acute ulcerative colitis, severe exacerbation, slowly improving-no more blood in the stools -Idiopathic Parkinson's disease -Novel coronavirus infected pneumonia- -Secondary pneumonia from pseudomonas aeruginosa,on cefepime -Mild protein calorie malnutrition medical debility -Medical debility -Acute kidney injury, possibly prerenal-improved -Hyponatremia from decrease solute intake -Normocytic anemia likely from underlying colitis and from GI blood loss anemia Plan: pending-subacute rehab. On IV cefepime. Will discuss with ID was switched to by mouth. decrease prednisone to 50 mg.
[2019-05-25] MEDS: LACTATED RINGERS 1,000 ML IV SCH (18:10)
[2019-05-25 21:33] LABS: Glucose,Whole Blood 159 mg/dL (75-99)
[2019-05-25] MEDS: MESALAMINE 1,000 MG SUPP RECTAL SCH (22:14)
--- NOTE | 2019-05-25 23:56 | PN ---
PROGRESS NOTE DATE OF SERVICE: 05/25/2019 REASON FOR FOLLOWUP: 1. Acute Covid-19 pneumonia. 2. Pseudomonas pneumonia. INTERVAL HISTORY: The patient is currently afebrile, has been breathing comfortably. Denies having any chest pain. Minimal cough. No nausea, no vomiting. No abdominal pain. No diarrhea. PHYSICAL EXAMINATION: Blood pressure 101/67 with a pulse of 82, temperature 97.9. He is 97% on 2 L nasal cannula. General description is an elderly male lying in bed in no distress. Respiratory system: Unlabored breathing, decreased breath sounds in the bases. No wheeze. HEART: S1, S2. Regular rate and rhythm. Abdomen soft, no tenderness. LABS: No new labs have been obtained today. DIAGNOSTIC IMPRESSION AND PLAN: 1. Patient with acute Covid-19 pneumonia that has been adequately treated. 2. The patient with a component of Pseudomonas pneumonia. 3. The patient is currently covered with cefepime. Will transition to oral antibiotics on discharge. 4. Monitor clinical course closely. MMODL / IJN: [id number] /
[2019-05-26] MEDS: MESALAMINE 1,000 MG SUPP RECTAL SCH ×2 (00:41→20:46)
[2019-05-26] MEDS: ONDANSETRON 4 MG/2 ML VIAL IVP PRN (07:15)
[2019-05-26] MEDS: ACETAMINOPHEN TAB 500 MG TAB PO PRN ×2 (07:21→20:46)
[2019-05-26] MEDS: ALBUTEROL HFA INHALER INHALATION SCH ×3 (07:37→20:16)
[2019-05-26] MEDS: PANTOPRAZOLE 40 MG TABLET PO SCH ×2 (07:52→17:12)
[2019-05-26] MEDS: TAMSULOSIN 0.4 MG CAP.ER.24H PO SCH (07:52)
[2019-05-26] MEDS: DICYCLOMINE 20 MG TAB PO PRN (07:52)
[2019-05-26] MEDS: CEFEPIME 2 GM in SODIUM CHLORIDE 0.9% 100 ML IVPB SCH ×2 (08:22→20:47)
[2019-05-26] MEDS: AMANTADINE HCL 100 MG CAP PO SCH ×2 (08:28→20:47)
[2019-05-26] MEDS: BALSALAZIDE DISODIUM 750 MG CAPSULE PO SCH ×3 (08:28→20:47)
[2019-05-26] MEDS: predniSONE 50 MG TAB PO SCH (08:28)
[2019-05-26] MEDS: METOPROLOL TARTRATE 25 MG TAB PO SCH ×3 (08:28→20:47)
[2019-05-26] MEDS: ANASTROZOLE 1 MG TAB PO SCH (08:28)
[2019-05-26] MEDS: PSYLLIUM HUSK 100% 6 GM PACKET PO SCH ×2 (08:29→20:46)
[2019-05-26] MEDS: CARBIDOPA-LEVODOPA 25-100 MG 1 EACH TAB PO SCH ×3 (09:16→17:12)
--- NOTE | 2019-05-26 16:30 | P.PN ---
Progress Note - Text Progress Note Date: 05/26/19 Chief Complaint: Diarrhea History of presenting complaint: This is a very pleasant 68-year-old patient of Dr. Jossue Peguero. Patient was directly admitted from his office. He presented to the office feeling weak tired and more diarrhea. Long-standing history of Parkinson's. Patient's been having diarrhea bloody stools on and off for about 2 months. Patient was recently at [facility] from where he was discharged 4 days ago. He did have a computed tomography scan ultrasound and colonoscopy. Was diagnosed with colitis. Patient was discharged on prednisone and mesalamine. Patient will appetite is not good continues to have diarrhea bloody stool. Weak tired rundown. Multiple episodes. No obvious fever. Last 4 days has had a congested cough. Decreased appetite. Drinking some liquids. Some abdominal discomfort cramping (flexible sigmoidoscopy refused diffuse inflammation involving the rectum sigmoid colon and descending colon up to splenic flexure and because of significant inflammation scopolamine not be depressed. Biopsies did confirm crypt abscesses with crypt distortion consistent with inflammatory bowel disease.) Admitted with a diagnosis of acute exacerbation of ulcerative colitis, [id number]. Also Pseudomonas pneumonia. Patient being treated with Colazal, lactated Ringer's, IV Solu-Medrol. Started on Canasa enemas Today-appetite improving. Occasional abdominal cramping. Diarrhea frequency decreasing. Review of systems: Was done for constitutional, cardiovascular, GI, pulmonary. relevant finding as above Active Medications Acetaminophen (Tylenol Tab) 500 mg PO Q6HR PRN PRN Reason: Fever and/ or Pain Last Admin: 05/26/19 07:21 Dose: 500 mg Documented by: Albuterol Sulfate (Ventolin Hfa Inhaler) 2 puff INHALATION RT-TID [facility] Last Admin: 05/26/19 13:42 Dose: 2 puff Documented by: Amantadine HCl (Symmetrel) 100 mg PO BID [facility] Last Admin: 05/26/19 08:28 Dose: 100 mg Documented by: Anastrozole (Arimidex) 1 mg PO SuTuFr@0900 [facility] Last Admin: 05/26/19 08:28 Dose: 1 mg Documented by: Balsalazide (Colazal) 2,250 mg PO TID [facility] Last Admin: 05/26/19 15:51 Dose: 2,250 mg Documented by: Carbidopa/Levodopa (Sinemet 25-100) 2 each PO TID@1000,1400,1800 [facility] Last Admin: 05/26/19 14:03 Dose: 2 each Documented by: Dicyclomine HCl (Bentyl) 20 mg PO QID PRN PRN Reason: Dyspepsia Last Admin: 05/26/19 07:52 Dose: 20 mg Documented by: Cefepime HCl 2 gm/ Sodium (Chloride) 100 mls @ 200 mls/hr IVPB Q12HR [facility] Last Admin: 05/26/19 08:22 Dose: 200 mls/hr Documented by: Mesalamine (Canasa) 1,000 mg RECTAL HS [facility] Last Admin: 05/26/19 00:41 Dose: 1,000 mg Documented by: Metoprolol Tartrate (Lopressor) 25 mg PO TID [facility] Last Admin: 05/26/19 15:56 Dose: Not Given Documented by: Miscellaneous Information (Magnesium Per Protocol) 1 each MISCELLANE DAILY PRN; Protocol PRN Reason: Per Protocol Ondansetron HCl (Zofran) 4 mg IVP Q6HR PRN PRN Reason: Nausea And Vomiting Last Admin: 05/26/19 07:15 Dose: 4 mg Documented by: Pantoprazole Sodium (Protonix) 40 mg PO AC-BID [facility] Last Admin: 05/26/19 07:52 Dose: 40 mg Documented by: Prednisone () 50 mg PO DAILY [facility] Last Admin: 05/26/19 08:28 Dose: 50 mg Documented by: Psyllium Hydrophilic Mucilloid (Metamucil) 6 gm PO BID [facility] Last Admin: 05/26/19 08:29 Dose: 6 gm Documented by: Tamsulosin HCl (Flomax) 0.4 mg PO PC-BRKFST [facility] Last Admin: 05/26/19 07:52 Dose: 0.4 mg Documented by: Physical examination: VITAL SIGNS: 97.8, 95, 16, 95/60, 98% on 2 L GENERAL: propped up in bed, awake PSYCH: Alert and oriented x3; mood and affect tired. Further exam as per nursing noted in the chart.: INVESTIGATIONS, reviewed in the clinical context: Potassium 4.3 creatinine 0.63 Previous testing White count 10.8 hemoglobin 11.9 platelets 355 Sodium 129 potassium 4.8 bun 28 creatinine 1.40 albumin 2.9 Stool-C. diff negative Coronavirus-PCR detected Sputum-pseudomonas aeruginosa and Mary not albicans Assessment: -Acute ulcerative colitis, severe exacerbation, slowly improving- -Idiopathic Parkinson's disease -Novel coronavirus infected pneumonia- -Secondary pneumonia from pseudomonas aeruginosa,on cefepime -Mild protein calorie malnutrition medical debility -Medical debility -Acute kidney injury, possibly prerenal-improved -Hyponatremia from decrease solute intake -Normocytic anemia likely from underlying colitis and from GI blood loss anemia Plan: pending-subacute rehab. On IV cefepime.. decrease prednisone to 50 mg.
--- NOTE | 2019-05-26 22:40 | PN ---
PROGRESS NOTE DATE OF SERVICE: 05/26/2019 REASON FOR FOLLOWUP: Pseudomonas pneumonia. INTERVAL HISTORY: The patient is currently afebrile. He is breathing comfortably. He is complaining of some sore throat and difficulty swallowing. Denies having any chest pain, shortness of breath. Minimal cough. No abdominal pain or diarrhea. PHYSICAL EXAMINATION: Blood pressure is 103/63 with a pulse of 82, temperature is 97.7. He is 98% on 2 L nasal cannula. General description is an elderly male up in the bed in no distress. Respiratory system: Unlabored breathing, decreased breath sounds at the bases. No wheeze. Heart: S1, S2. Regular rate and rhythm. Abdomen soft, no tenderness. LABS: BUN of 18, creatinine 0.63. DIAGNOSTIC IMPRESSION/PLAN: 1. Patient with acute COVID-19 pneumonia that has been adequately treated. 2. The patient ( ) negative pneumonia with sputum showing Pseudomonas aeruginosa. Currently cefepime transitioned to Levaquin 750 daily for about 7-10 days to finish course of therapy. 3. Possible oral thrush. Will add nystatin swish and swallow. MMODL / IJN: [id number] /
[2019-05-26] MEDS: NYSTATIN 100,000 UNIT/ML SUSP 500,000 UNIT/5 ML CUP PO SCH (23:28)
[2019-05-27] MEDS: DICYCLOMINE 20 MG TAB PO PRN ×3 (00:06→21:37)
[2019-05-27] MEDS: ACETAMINOPHEN TAB 500 MG TAB PO PRN ×2 (07:48→21:35)
[2019-05-27] MEDS: METOPROLOL TARTRATE 25 MG TAB PO SCH ×3 (07:48→20:57)
[2019-05-27] MEDS: PANTOPRAZOLE 40 MG TABLET PO SCH ×2 (07:48→16:02)
[2019-05-27] MEDS: AMANTADINE HCL 100 MG CAP PO SCH ×2 (07:49→20:56)
[2019-05-27] MEDS: TAMSULOSIN 0.4 MG CAP.ER.24H PO SCH (07:49)
[2019-05-27] MEDS: CEFEPIME 2 GM in SODIUM CHLORIDE 0.9% 100 ML IVPB SCH ×2 (07:50→20:55)
[2019-05-27] MEDS: BALSALAZIDE DISODIUM 750 MG CAPSULE PO SCH ×3 (07:50→21:37)
[2019-05-27] MEDS: predniSONE 50 MG TAB PO SCH (07:50)
[2019-05-27] MEDS: NYSTATIN 100,000 UNIT/ML SUSP 500,000 UNIT/5 ML CUP PO SCH ×4 (07:50→20:57)
[2019-05-27] MEDS: PSYLLIUM HUSK 100% 6 GM PACKET PO SCH ×2 (07:51→20:58)
[2019-05-27] MEDS: CARBIDOPA-LEVODOPA 25-100 MG 1 EACH TAB PO SCH ×3 (07:53→17:55)
[2019-05-27] MEDS: ONDANSETRON 4 MG/2 ML VIAL IVP PRN ×2 (07:54→21:35)
[2019-05-27] MEDS: ALBUTEROL HFA INHALER INHALATION SCH ×3 (08:22→20:02)
--- NOTE | 2019-05-27 15:52 | PN ---
PROGRESS NOTE DATE OF SERVICE: 05/27/2019 REASON FOR FOLLOWUP: 1. Pseudomonas pneumonia. 2. Oral thrush. INTERVAL HISTORY: The patient is currently afebrile, has been breathing comfortably. The patient denies having any chest pain or shortness of breath. The patient did mention his oral sores have improved and he was able to eat lunch without too much difficulty. No nausea, no vomiting. No abdominal pain or diarrhea. PHYSICAL EXAMINATION: Blood pressure 90/74 with a pulse of 87, temperature 97.7. He is 93% on room air. General description is an elderly male up in the bed in no distress. RESPIRATORY SYSTEM: Unlabored breathing with decreased intensity of breath sounds. No wheeze. HEART: S1, S2. Regular rate and rhythm. ABDOMEN: Soft. No tenderness. LABS: BUN of 18, creatinine 0.63. No labs have been done since then. DIAGNOSTIC IMPRESSION AND PLAN: 1. Patient with Pseudomonas aeruginosa pneumonia. Patient is currently on cefepime. That can be transitioned to oral Cipro for another 7-10 days to finish course of therapy. 2. Patient with oral thrush. Continue with nystatin swish and swallow for another 7 days. MMODL / IJN: [id number] /
--- NOTE | 2019-05-27 21:04 | P.PN ---
Progress Note - Text Progress Note Date: 05/27/19 Chief Complaint: Diarrhea History of presenting complaint: This is a very pleasant 68-year-old patient of Dr. Jossue Peguero. Patient was directly admitted from his office. He presented to the office feeling weak tired and more diarrhea. Long-standing history of Parkinson's. Patient's been having diarrhea bloody stools on and off for about 2 months. Patient was recently at [facility] from where he was discharged 4 days ago. He did have a computed tomography scan ultrasound and colonoscopy. Was diagnosed with colitis. Patient was discharged on prednisone and mesalamine. Patient will appetite is not good continues to have diarrhea bloody stool. Weak tired rundown. Multiple episodes. No obvious fever. Last 4 days has had a congested cough. Decreased appetite. Drinking some liquids. Some abdominal discomfort cramping (flexible sigmoidoscopy refused diffuse inflammation involving the rectum sigmoid colon and descending colon up to splenic flexure and because of significant inflammation scopolamine not be depressed. 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 Also Pseudomonas pneumonia. Patient being treated with Colazal, lactated Ringer's, IV Solu-Medrol. Started on Canasa enemas Today-diarrhea better. Tolerating some diet. A bit weak. Review of systems: Was done for constitutional, cardiovascular, GI, pulmonary. relevant finding as above Active Medications Acetaminophen (Tylenol Tab) 500 mg PO Q6HR PRN PRN Reason: Fever and/ or Pain Last Admin: 05/27/19 07:48 Dose: 500 mg Documented by: Albuterol Sulfate (Ventolin Hfa Inhaler) 2 puff INHALATION RT-TID [facility] Last Admin: 05/27/19 20:02 Dose: 2 puff Documented by: Amantadine HCl (Symmetrel) 100 mg PO BID [facility] Last Admin: 05/27/19 20:56 Dose: 100 mg Documented by: Anastrozole (Arimidex) 1 mg PO SuTuFr@0900 [facility] Last Admin: 05/26/19 08:28 Dose: 1 mg Documented by: Balsalazide (Colazal) 2,250 mg PO TID [facility] Last Admin: 05/27/19 16:02 Dose: 2,250 mg Documented by: Carbidopa/Levodopa (Sinemet 25-100) 2 each PO TID@1000,1400,1800 [facility] Last Admin: 05/27/19 17:55 Dose: 2 each Documented by: Dicyclomine HCl (Bentyl) 20 mg PO QID PRN PRN Reason: Dyspepsia Last Admin: 05/27/19 09:12 Dose: 20 mg Documented by: Cefepime HCl 2 gm/ Sodium (Chloride) 100 mls @ 200 mls/hr IVPB Q12HR [facility] Last Admin: 05/27/19 20:55 Dose: 200 mls/hr Documented by: Mesalamine (Canasa) 1,000 mg RECTAL HS [facility] Last Admin: 05/26/19 20:46 Dose: 1,000 mg Documented by: Metoprolol Tartrate (Lopressor) 25 mg PO TID [facility] Last Admin: 05/27/19 20:57 Dose: 25 mg Documented by: Miscellaneous Information (Magnesium Per Protocol) 1 each MISCELLANE DAILY PRN; Protocol PRN Reason: Per Protocol Nystatin (Mycostatin Oral Susp) 500,000 unit PO QID [facility] Last Admin: 05/27/19 20:57 Dose: 500,000 unit Documented by: Ondansetron HCl (Zofran) 4 mg IVP Q6HR PRN PRN Reason: Nausea And Vomiting Last Admin: 05/27/19 07:54 Dose: 4 mg Documented by: Pantoprazole Sodium (Protonix) 40 mg PO AC-BID [facility] Last Admin: 05/27/19 16:02 Dose: 40 mg Documented by: Prednisone () 50 mg PO DAILY [facility] Last Admin: 05/27/19 07:50 Dose: 50 mg Documented by: Psyllium Hydrophilic Mucilloid (Metamucil) 6 gm PO BID [facility] Last Admin: 05/27/19 20:58 Dose: Not Given Documented by: Tamsulosin HCl (Flomax) 0.4 mg PO PC-BRKFST [facility] Last Admin: 05/27/19 07:49 Dose: 0.4 mg Documented by: Physical examination: VITAL SIGNS: 97.7, 87, 16, 82/54, 93% room air GENERAL: propped up in bed, a bit tired PSYCH: Alert and oriented x3; mood and affect tired. Further exam as per nursing noted in the chart.: INVESTIGATIONS, reviewed in the clinical context: Potassium 4.3 creatinine 0.63 Previous testing White count 10.8 hemoglobin 11.9 platelets 355 Sodium 129 potassium 4.8 bun 28 creatinine 1.40 albumin 2.9 Stool-C. diff negative Coronavirus-PCR detected Sputum-pseudomonas aeruginosa and Mary not albicans Assessment: -Acute ulcerative colitis, severe exacerbation, improving- -Idiopathic Parkinson's disease -Novel coronavirus infected pneumonia- -Secondary pneumonia from pseudomonas aeruginosa,on cefepime -Mild protein calorie malnutrition medical debility -Medical debility -Acute kidney injury, possibly prerenal-improved -Hyponatremia from decrease solute intake -Normocytic anemia likely from underlying colitis and from GI blood loss anemia Plan: pending-subacute rehab. On IV cefepime.. Continue prednisone. Spoke with social media coordinator.
[2019-05-27] MEDS: MESALAMINE 1,000 MG SUPP RECTAL SCH (21:52)
[2019-05-28] MEDS: ONDANSETRON 4 MG/2 ML VIAL IVP PRN (05:21)
[2019-05-28] MEDS: DICYCLOMINE 20 MG TAB PO PRN ×3 (05:21→21:49)
[2019-05-28] MEDS: ACETAMINOPHEN TAB 500 MG TAB PO PRN ×3 (05:21→21:49)
[2019-05-28 07:00] LABS: African American GFR (CKD) >90 (>60 ml/min/1.73 sqM); Anion Gap 4 mmol/L; Blood Urea Nitrogen 15 mg/dL (9-20); Carbon Dioxide 30 mmol/L (22-30); Chloride 100 mmol/L (98-107); Glucose 116 mg/dL (74-99); Non-African American GFR(CKD) >90 (>60 ml/min/1.73 sqM); Potassium 3.4 mmol/L (3.5-5.1); Sodium 134 mmol/L (137-145)
[2019-05-28 07:30] LABS: Basophils % (A) 0 %; Eosinophils # (A) 0.1 k/uL (0-0.7); Eosinophils % (A) 1 %; HCT 30.5 % (39.0-53.0); Lymphocytes # (A) 1.4 k/uL (1.0-4.8); Lymphocytes % (A) 16 %; MCH 28.5 pg (25.0-35.0); MCHC 32.9 g/dL (31.0-37.0); MCV 86.7 fL (80.0-100.0); Mean Platelet Volume 7.6; Monocytes # (A) 0.5 k/uL (0-1.0); Monocytes % (A) 6 %; Neutrophils # (A) 6.5 k/uL (1.3-7.7); Neutrophils % (A) 76 %; Platelet Count 200 k/uL (150-450); RBC 3.51 m/uL (4.30-5.90); RDW 13.8 % (11.5-15.5); WBC 8.6 k/uL (3.8-10.6)
[2019-05-28] MEDS: TAMSULOSIN 0.4 MG CAP.ER.24H PO SCH (07:46)
[2019-05-28] MEDS: PANTOPRAZOLE 40 MG TABLET PO SCH ×2 (07:46→16:30)
[2019-05-28] MEDS: CEFEPIME 2 GM in SODIUM CHLORIDE 0.9% 100 ML IVPB SCH (07:46)
[2019-05-28] MEDS: CARBIDOPA-LEVODOPA 25-100 MG 1 EACH TAB PO SCH ×3 (07:46→17:13)
[2019-05-28] MEDS: METOPROLOL TARTRATE 25 MG TAB PO SCH ×3 (07:46→20:35)
[2019-05-28] MEDS: PSYLLIUM HUSK 100% 6 GM PACKET PO SCH ×2 (07:47→20:35)
[2019-05-28] MEDS: BALSALAZIDE DISODIUM 750 MG CAPSULE PO SCH ×3 (07:47→20:34)
[2019-05-28] MEDS: ANASTROZOLE 1 MG TAB PO SCH (07:48)
[2019-05-28] MEDS: AMANTADINE HCL 100 MG CAP PO SCH ×2 (07:48→20:34)
[2019-05-28] MEDS: predniSONE 50 MG TAB PO SCH (07:49)
[2019-05-28] MEDS: NYSTATIN 100,000 UNIT/ML SUSP 500,000 UNIT/5 ML CUP PO SCH ×4 (07:49→20:34)
[2019-05-28] MEDS: ALBUTEROL HFA INHALER INHALATION SCH ×3 (08:18→19:36)
[2019-05-28] MEDS ORDERED: POTASSIUM CHLORIDE ER 20 MEQ TAB.ER PO ONE (12:00)
[2019-05-28] MEDS: CHOLESTYRAMINE (WITH SUGAR) 4 GM PACKET PO SCH (17:14)
--- NOTE | 2019-05-28 20:01 | P.PN ---
Progress Note - Text Progress Note Date: 05/28/19 Chief Complaint: Diarrhea History of presenting complaint: This is a very pleasant 68-year-old patient of Dr. Jossue Peguero. Patient was directly admitted from his office. He presented to the office feeling weak tired and more diarrhea. Long-standing history of Parkinson's. Patient's been having diarrhea bloody stools on and off for about 2 months. Patient was recently at [facility] from where he was discharged 4 days ago. He did have a computed tomography scan ultrasound and colonoscopy. Was diagnosed with colitis. Patient was discharged on prednisone and mesalamine. Patient will appetite is not good continues to have diarrhea bloody stool. Weak tired rundown. Multiple episodes. No obvious fever. Last 4 days has had a congested cough. Decreased appetite. Drinking some liquids. Some abdominal discomfort cramping (flexible sigmoidoscopy refused diffuse inflammation involving the rectum sigmoid colon and descending colon up to splenic flexure and because of significant inflammation scopolamine not be depressed. Biopsies did confirm crypt abscesses with crypt distortion consistent with inflammatory bowel disease.) Admitted with a diagnosis of acute exacerbation of ulcerative colitis, [id number]. Also Pseudomonas pneumonia. Patient being treated with Colazal, lactated Ringer's, IV Solu-Medrol. Started on Canasa enemas Today-had about 4-5 bowel movements yesterday evening overnight and oriented 3- 4 bowel movements this morning. More abdominal cramping. Tired. Decreased appetite. Review of systems: Was done for constitutional, cardiovascular, GI, pulmonary. relevant finding as above Active Medications Acetaminophen (Tylenol Tab) 500 mg PO Q6HR PRN PRN Reason: Fever and/ or Pain Last Admin: 05/28/19 13:30 Dose: 500 mg Documented by: Albuterol Sulfate (Ventolin Hfa Inhaler) 2 puff INHALATION RT-TID [facility] Last Admin: 05/28/19 19:36 Dose: 2 puff Documented by: Amantadine HCl (Symmetrel) 100 mg PO BID [facility] Last Admin: 05/28/19 07:48 Dose: 100 mg Documented by: Anastrozole (Arimidex) 1 mg PO SuTuFr@0900 [facility] Last Admin: 05/28/19 07:48 Dose: 1 mg Documented by: Balsalazide (Colazal) 2,250 mg PO TID [facility] Last Admin: 05/28/19 16:31 Dose: 2,250 mg Documented by: Carbidopa/Levodopa (Sinemet 25-100) 2 each PO TID@1000,1400,1800 [facility] Last Admin: 05/28/19 17:13 Dose: 2 each Documented by: Cholestyramine Resin (Questran) 4 gm PO BID@1000,1800 [facility] Last Admin: 05/28/19 17:14 Dose: 4 gm Documented by: Ciprofloxacin (Cipro) 500 mg PO BID [facility] Dicyclomine HCl (Bentyl) 20 mg PO QID PRN PRN Reason: Dyspepsia Last Admin: 05/28/19 13:31 Dose: 20 mg Documented by: Mesalamine (Canasa) 1,000 mg RECTAL HS [facility] Last Admin: 05/27/19 21:52 Dose: 1,000 mg Documented by: Metoprolol Tartrate (Lopressor) 25 mg PO TID [facility] Last Admin: 05/28/19 16:30 Dose: 25 mg Documented by: Miscellaneous Information (Magnesium Per Protocol) 1 each MISCELLANE DAILY PRN; Protocol PRN Reason: Per Protocol Nystatin (Mycostatin Oral Susp) 500,000 unit PO QID [facility] Last Admin: 05/28/19 17:13 Dose: 500,000 unit Documented by: Ondansetron HCl (Zofran) 4 mg IVP Q6HR PRN PRN Reason: Nausea And Vomiting Last Admin: 05/28/19 05:21 Dose: 4 mg Documented by: Pantoprazole Sodium (Protonix) 40 mg PO AC-BID [facility] Last Admin: 05/28/19 16:30 Dose: 40 mg Documented by: Prednisone () 50 mg PO DAILY [facility] Last Admin: 05/28/19 07:49 Dose: 50 mg Documented by: Psyllium Hydrophilic Mucilloid (Metamucil) 6 gm PO BID [facility] Last Admin: 05/28/19 07:47 Dose: 6 gm Documented by: Tamsulosin HCl (Flomax) 0.4 mg PO PC-BRKFST [facility] Last Admin: 05/28/19 07:46 Dose: 0.4 mg Documented by: Physical examination: VITAL SIGNS: 97.9, 60, 18, 100/65, 95% on 2 L GENERAL: Laying in bed, more tired PSYCH: Alert and oriented x3; mood and affect tired. Further exam as per nursing noted in the chart.: INVESTIGATIONS, reviewed in the clinical context: White count 8.6 hemoglobin 10 potassium 3.4 creatinine 0.90 Repeat C. diff stool-negative Previous testing White count 10.8 hemoglobin 11.9 platelets 355 Sodium 129 potassium 4.8 bun 28 creatinine 1.40 albumin 2.9 Stool-C. diff negative Coronavirus-PCR detected Sputum-pseudomonas aeruginosa and Mary not albicans Assessment: -Acute ulcerative colitis, severe exacerbation, patient was asked improving but overnight has become worse again. No blood. More abdominal cramping. -Idiopathic Parkinson's disease -Novel coronavirus infected pneumonia- -Secondary pneumonia from pseudomonas aeruginosa,on cefepime -Mild protein calorie malnutrition medical debility -Medical debility -Acute kidney injury, possibly prerenal-improved -Hyponatremia from decrease solute intake -Normocytic anemia likely from underlying colitis and from GI blood loss anemia Plan: GI reconsulted. Other medications to continue. Cefepime discontinued. Switched to Cipro. Questran was also added. Hold off discharge currently. We'll start IV fluids. ID.
--- NOTE | 2019-05-28 20:32 | PN ---
PROGRESS NOTE DATE OF DICTATION: 05/28/2019 Patient is a 68-year-old, pleasant, white male admitted to the hospital for the last two weeks with COVID-19 infection as well as exacerbation of ulcerative colitis that was diagnosed about a month ago. He was being maintained on IV steroids with Solu- Medrol 20 mg q.8 hours for almost 12 days and he was just changed to oral prednisone 50 mg daily yesterday. He remains on Canasa suppositories once at bedtime as well as Colazal 3 tablets 3 times daily. He continues to have persistent diarrhea which is gradually improving. He had about six loose bowel movements early this morning between 3:00 and 5:00 a.m. and after that he has been doing well. He still has some cramping lower abdominal pain. He reports no nausea or vomiting, no fevers, chills, or night sweats. PHYSICAL EXAMINATION: Vital signs are stable. Blood pressure is 92/56, pulse rate 60, temperature 97.8. Physical examination was not performed because of active COVID-19 infection and is deferred to the attending physician. LABORATORY DATA: Labs done today: WBC is 8.8, hemoglobin 10.6, platelets normal. Basic metabolic panel shows a potassium of 3.4, but the rest of the labs are within normal limits. IMPRESSION: 1. Severe ulcerative colitis diagnosed a month ago, has been steroid dependent, was on intravenous steroids for almost 10 days with some improvement in his symptoms. Bleeding has resolved but continues to have persistent diarrhea and cramping lower abdominal pain. Intravenous steroids were changed to oral prednisone 50 mg daily this morning. Continues to remain symptomatic. Last CRP done five days ago was gradually improving but was 55. 2. Active COVID-19 infection in insolation. RECOMMENDATIONS: 1. Agree with prednisone 50 mg daily. 2. Soft diet. 3. Will repeat CRP tomorrow morning as well as stool for Clostridium difficile toxin to rule out concurrent Clostridium difficile infection. 4. Based on the labs, we will decide if he can continue on oral prednisone and can be discharged home and consider outpatient biologic therapy once the COVID-19 infection is resolved. 5. The plan was discussed with the patient and he is agreeable to it. Thank you for this consultation. MMODL / IJN: [id number] /
[2019-05-28] MEDS: CIPROFLOXACIN HCL 500 MG TAB PO SCH (20:34)
[2019-05-28] MEDS: LACTATED RINGERS 1,000 ML IV SCH (20:34)
[2019-05-28] MEDS: MESALAMINE 1,000 MG SUPP RECTAL SCH (21:49)
--- NOTE | 2019-05-28 21:54 | PN ---
PROGRESS NOTE DATE OF SERVICE: ____ REASON FOR FOLLOWUP: 1. Pseudomonas pneumonia. 2. Diarrhea. INTERVAL HISTORY: The patient is currently afebrile, has been breathing comfortably. The patient denies having any chest pain or shortness of breath. Minimal cough. No abdominal pain. Has had multiple loose stools today. PHYSICAL EXAMINATION: Blood pressure 113/72 with a pulse of 80, temperature 97.9. He is 96% on 2 L nasal cannula. General description is an elderly male lying in bed in no distress. RESPIRATORY SYSTEM: Unlabored breathing. Clear to auscultation anteriorly. HEART: S1, S2. Regular rate and rhythm. ABDOMEN: Soft. No tenderness. LABS: Hemoglobin is 10 with white count 8.6, BUN of 15, creatinine 0.61. Stool for C difficile negative. DIAGNOSTIC IMPRESSION AND PLAN: 1. Patient with Pseudomonas pneumonia. Antibiotic will transition to oral Cipro to continue for about a week. 2. Diarrhea, possibly antibiotic-associated. Hopefully will improve with discontinuation of cefepime. Questran will be added. 3. Oral thrush. Continue with nystatin swish and swallow. MMODL / IJN: [id number] /
[2019-05-29] MEDS: LACTATED RINGERS 1,000 ML IV SCH ×2 (04:34→19:42)
[2019-05-29 07:57] LABS: Basophils % (A) 0 %; Eosinophils # (A) 0.1 k/uL (0-0.7); Eosinophils % (A) 1 %; HCT 32.1 % (39.0-53.0); HGB 10.4 gm/dL (13.0-17.5); Lymphocytes # (A) 1.2 k/uL (1.0-4.8); Lymphocytes % (A) 16 %; MCH 28.2 pg (25.0-35.0); MCHC 32.3 g/dL (31.0-37.0); MCV 87.3 fL (80.0-100.0); Mean Platelet Volume 7.6; Monocytes # (A) 0.4 k/uL (0-1.0); Monocytes % (A) 6 %; Neutrophils # (A) 5.7 k/uL (1.3-7.7); Neutrophils % (A) 75 %; Platelet Count 210 k/uL (150-450); RBC 3.68 m/uL (4.30-5.90); RDW 13.9 % (11.5-15.5); WBC 7.5 k/uL (3.8-10.6)
[2019-05-29] MEDS: ALBUTEROL HFA INHALER INHALATION SCH ×3 (08:04→20:09)
[2019-05-29 08:08] LABS: African American GFR (CKD) >90 (>60 ml/min/1.73 sqM); Anion Gap 4 mmol/L; Blood Urea Nitrogen 14 mg/dL (9-20); Calcium 8.2 mg/dL (8.4-10.2); Carbon Dioxide 29 mmol/L (22-30); Chloride 99 mmol/L (98-107); Glucose 107 mg/dL (74-99); Non-African American GFR(CKD) >90 (>60 ml/min/1.73 sqM); Sodium 132 mmol/L (137-145)
[2019-05-29] MEDS: CARBIDOPA-LEVODOPA 25-100 MG 1 EACH TAB PO SCH ×3 (10:15→17:24)
[2019-05-29] MEDS: TAMSULOSIN 0.4 MG CAP.ER.24H PO SCH (10:15)
[2019-05-29] MEDS: AMANTADINE HCL 100 MG CAP PO SCH ×2 (10:15→21:16)
[2019-05-29] MEDS: BALSALAZIDE DISODIUM 750 MG CAPSULE PO SCH ×3 (10:15→21:16)
[2019-05-29] MEDS: predniSONE 50 MG TAB PO SCH (10:15)
[2019-05-29] MEDS: NYSTATIN 100,000 UNIT/ML SUSP 500,000 UNIT/5 ML CUP PO SCH ×4 (10:15→21:17)
[2019-05-29] MEDS: PANTOPRAZOLE 40 MG TABLET PO SCH ×2 (10:15→17:24)
[2019-05-29] MEDS: METOPROLOL TARTRATE 25 MG TAB PO SCH ×3 (10:15→21:17)
[2019-05-29] MEDS: CIPROFLOXACIN HCL 500 MG TAB PO SCH ×2 (10:16→21:16)
[2019-05-29] MEDS: PSYLLIUM HUSK 100% 6 GM PACKET PO SCH ×2 (10:16→21:16)
[2019-05-29] MEDS: CHOLESTYRAMINE (WITH SUGAR) 4 GM PACKET PO SCH ×2 (10:16→16:47)
--- NOTE | 2019-05-29 16:48 | P.PN ---
Progress Note - Text Progress Note Date: 05/29/19 Chief Complaint: Diarrhea History of presenting complaint: This is a very pleasant 68-year-old patient of Dr. Jossue Peguero. Patient was directly admitted from his office. He presented to the office feeling weak tired and more diarrhea. Long-standing history of Parkinson's. Patient's been having diarrhea bloody stools on and off for about 2 months. Patient was recently at [facility] from where he was discharged 4 days ago. He did have a computed tomography scan ultrasound and colonoscopy. Was diagnosed with colitis. Patient was discharged on prednisone and mesalamine. Patient will appetite is not good continues to have diarrhea bloody stool. Weak tired rundown. Multiple episodes. No obvious fever. Last 4 days has had a congested cough. Decreased appetite. Drinking some liquids. Some abdominal discomfort cramping (flexible sigmoidoscopy refused diffuse inflammation involving the rectum sigmoid colon and descending colon up to splenic flexure and because of significant inflammation scopolamine not be depressed. Biopsies did confirm crypt abscesses with crypt distortion consistent with inflammatory bowel disease.) Admitted with a diagnosis of acute exacerbation of ulcerative colitis, [id number]. Also Pseudomonas pneumonia. Patient being treated with Colazal, lactated Ringer's, IV Solu-Medrol. Started on Canasa enemas Today-bowel frequency down this morning. Tired. Started on nystatin for oral thrush. No further abdominal cramping. Does feel tired though. Review of systems: Was done for constitutional, cardiovascular, GI, pulmonary. relevant finding as above Active Medications Acetaminophen (Tylenol Tab) 500 mg PO Q6HR PRN PRN Reason: Fever and/ or Pain Last Admin: 05/28/19 21:49 Dose: 500 mg Documented by: Albuterol Sulfate (Ventolin Hfa Inhaler) 2 puff INHALATION RT-TID [facility] Last Admin: 05/29/19 12:02 Dose: 2 puff Documented by: Amantadine HCl (Symmetrel) 100 mg PO BID [facility] Last Admin: 05/29/19 10:15 Dose: 100 mg Documented by: Anastrozole (Arimidex) 1 mg PO SuTuFr@0900 [facility] Last Admin: 05/28/19 07:48 Dose: 1 mg Documented by: Balsalazide (Colazal) 2,250 mg PO TID [facility] Last Admin: 05/29/19 10:15 Dose: 2,250 mg Documented by: Carbidopa/Levodopa (Sinemet 25-100) 2 each PO TID@1000,1400,1800 [facility] Last Admin: 05/29/19 13:14 Dose: 2 each Documented by: Cholestyramine Resin (Questran) 4 gm PO BID@1000,1800 [facility] Last Admin: 05/29/19 10:16 Dose: Not Given Documented by: Ciprofloxacin (Cipro) 500 mg PO BID [facility] Last Admin: 05/29/19 10:16 Dose: 500 mg Documented by: Dicyclomine HCl (Bentyl) 20 mg PO QID PRN PRN Reason: Dyspepsia Last Admin: 05/28/19 21:49 Dose: 20 mg Documented by: Lactated Ringer's (Lactated Ringers) 1,000 mls @ 125 mls/hr IV .Q8H [facility] Last Admin: 05/29/19 04:34 Dose: Not Given Documented by: Mesalamine (Canasa) 1,000 mg RECTAL HS [facility] Last Admin: 05/28/19 21:49 Dose: 1,000 mg Documented by: Metoprolol Tartrate (Lopressor) 25 mg PO TID [facility] Last Admin: 05/29/19 10:15 Dose: 25 mg Documented by: Miscellaneous Information (Magnesium Per Protocol) 1 each MISCELLANE DAILY PRN; Protocol PRN Reason: Per Protocol Nystatin (Mycostatin Oral Susp) 500,000 unit PO QID [facility] Last Admin: 05/29/19 13:14 Dose: 500,000 unit Documented by: Ondansetron HCl (Zofran) 4 mg IVP Q6HR PRN PRN Reason: Nausea And Vomiting Last Admin: 05/28/19 05:21 Dose: 4 mg Documented by: Pantoprazole Sodium (Protonix) 40 mg PO AC-BID [facility] Last Admin: 05/29/19 10:15 Dose: 40 mg Documented by: Prednisone () 50 mg PO DAILY [facility] Last Admin: 05/29/19 10:15 Dose: 50 mg Documented by: Psyllium Hydrophilic Mucilloid (Metamucil) 6 gm PO BID [facility] Last Admin: 05/29/19 10:16 Dose: Not Given Documented by: Tamsulosin HCl (Flomax) 0.4 mg PO PC-BRKFST [facility] Last Admin: 05/29/19 10:15 Dose: 0.4 mg Documented by: Physical examination: VITAL SIGNS: 97.8, 99, 18, 94/58, 94% on 2 L GENERAL: Laying in bed, awake PSYCH: Alert and oriented x3; mood and affect tired. Further exam as per nursing noted in the chart.: INVESTIGATIONS, reviewed in the clinical context: White count 7.5 hemoglobin 10.4 potassium 4 creatinine 0.58 Previous testing White count 10.8 hemoglobin 11.9 platelets 355 Sodium 129 potassium 4.8 bun 28 creatinine 1.40 albumin 2.9 Stool-C. diff negative Coronavirus-PCR detected Sputum-pseudomonas aeruginosa and Mary not albicans Repeat C. diff [id number] Assessment: -Acute ulcerative colitis, severe exacerbation, slowly improving -Oropharyngeal candidiasis -Idiopathic Parkinson's disease -Novel coronavirus infected pneumonia- -Secondary pneumonia from pseudomonas aeruginosa, -Mild protein calorie malnutrition medical debility -Medical debility -Acute kidney injury, possibly prerenal-improved -Hyponatremia from decrease solute intake -Normocytic anemia likely from underlying colitis and from GI blood loss anemia Plan: Had a lengthy discussion with Dr. Russell from ID. Patient's wish total ciprofloxacin. To be given for 5 days. Also spoke at length with Dr. Agustina Norris from GI. Patient to have possible Biologics. Will be discharged on 50 mg of prednisone to be decreased by 5 mg weekly. Repeat COVID 19 PCR to be done to help decision about the Biologics. Also spoke to patient's daughter Sherri Ward telephone #[phone]. Give a full update on patient's clinical condition. Spoke her about 45 minutes. Several conditions were answered. Total time spent today was about 90 minutes with over 1 hour in discussion
[2019-05-29 19:05] LABS: Hepatitis B Surface Antigen Non-Reactive (Non-Reactive); Hepatitis C IgG Antibody Non-Reactive (Non-Reactive)
--- NOTE | 2019-05-29 20:59 | PN ---
PROGRESS NOTE DATE OF DICTATION: 05/29/2019 Patient is a 68-year-old pleasant white male admitted to the hospital with COVID-19 infection as well as severe ulcerative colitis. He has been in the hospital for two weeks with a newly diagnosed ulcerative colitis a month ago. He was treated with IV steroids for ten days and steroids were changed to oral prednisone 50 mg daily two days ago. He continues to have diarrhea with bowel movements between seven to eight a day, mostly at night, with no blood. He still has some crampy abdominal pain. On a regular diet, tolerating it well. He still has fatigue and weakness. Repeat Clostridium difficile toxin was negative. PHYSICAL EXAMINATION: On physical examination, he appears comfortable, in no apparent distress. Vital Signs: Blood pressure is 94/58, pulse rate 99, temperature 97.8. The rest of the physical examination as per attending physician because of active COVID- 19 infection. LABS: Labs done today show WBC 7.5, hemoglobin 10.4, platelets normal. Basic metabolic panel is within normal limits. CRP is 53.5. Clostridium difficile toxin is negative. IMPRESSION: 1. Active severe ulcerative colitis, diagnosed in April of 2019 at [facility]. Flexible sigmoidoscopy done at that time revealed severe colitis of the splenic flexure and hence, the colonoscopy was not completed by the service technician. Biopsies did show severe active colitis. On IV steroids for 12 days, now on prednisone 50 mg daily. Symptoms are gradually improving. He still has some diarrhea and elevated CRP. Bleeding has resolved. Presently he is on prednisone 50 mg daily. 2. COVID-19 infection, improving. 3. History of Parkinson's disease. He is seeing a neurologist in the [place] area. RECOMMENDATIONS: I had a lengthy discussion with the patient regarding management of his refractory ulcerative colitis. Despite being on steroids for 14 days, he has some improvement noted but not complete recovery as expected. Persistent elevation of CRP once again indicates active ulcerative colitis. I once again discussed with the patient the need for biologic agents at the present time in order to treat this refractory ulcerative colitis. We will obtain baseline labs with TB testing as well as hepatitis serologies for B and C. Will discuss with his neurologist, Dr. Harris, about his Parkinson's disease and then based on that, I will obtain approval for biologic agents, possibly Remicade infusions on an outpatient basis. The patient is agreeable with this plan. Hopefully he will be discharged home in the next one or two days, and I will follow with you closely. Thank you for this consultation. CALLIE / JOANN: [id number] /
[2019-05-29] MEDS: DICYCLOMINE 20 MG TAB PO PRN (21:16)
[2019-05-29] MEDS: MESALAMINE 1,000 MG SUPP RECTAL SCH (21:17)
[2019-05-29] MEDS: ACETAMINOPHEN TAB 500 MG TAB PO PRN (21:18)
--- NOTE | 2019-05-29 23:16 | PN ---
PROGRESS NOTE DATE OF SERVICE: 05/29/2019 REASON FOR FOLLOWUP: Pseudomonas pneumonia and diarrhea. INTERVAL HISTORY: The patient is afebrile, has been breathing comfortably. Denies having any chest pain or shortness of breath or cough. No abdominal pain; however, he still complains of significant diarrhea with about 4 bowel movements today. PHYSICAL EXAMINATION: Blood pressure 92/54 with a pulse of 67, temperature 98.1. He is 98% on 2 L nasal cannula. General description is an elderly male lying in bed in no distress. RESPIRATORY SYSTEM: Unlabored breathing. Clear to auscultation anteriorly. HEART: S1, S2. Regular rate and rhythm. ABDOMEN: Soft. No tenderness. LABS: Hemoglobin is 10.4, white count 7.5. BUN of 14, creatinine 0.58. DIAGNOSTIC IMPRESSION AND PLAN: 1. Patient with pseudomonas pneumonia, currently on oral Ceftin; to continue for about a week to finish course of therapy. 2. Diarrhea. Advised to increase his probiotic and yogurt intake and Questran. Continue with supportive care. MMODL / IJN: [id number] /
[2019-05-30] MEDS: ALBUTEROL HFA INHALER INHALATION SCH ×2 (07:57→11:13)
[2019-05-30] MEDS: TAMSULOSIN 0.4 MG CAP.ER.24H PO SCH (08:22)
[2019-05-30] MEDS: PSYLLIUM HUSK 100% 6 GM PACKET PO SCH (08:22)
[2019-05-30] MEDS: PANTOPRAZOLE 40 MG TABLET PO SCH (08:22)
[2019-05-30] MEDS: CARBIDOPA-LEVODOPA 25-100 MG 1 EACH TAB PO SCH ×2 (08:22→13:34)
[2019-05-30] MEDS: AMANTADINE HCL 100 MG CAP PO SCH (08:22)
[2019-05-30] MEDS: predniSONE 50 MG TAB PO SCH (08:23)
[2019-05-30] MEDS: BALSALAZIDE DISODIUM 750 MG CAPSULE PO SCH (08:23)
[2019-05-30] MEDS: CHOLESTYRAMINE (WITH SUGAR) 4 GM PACKET PO SCH (08:23)
[2019-05-30] MEDS: METOPROLOL TARTRATE 25 MG TAB PO SCH (08:23)
[2019-05-30] MEDS: CIPROFLOXACIN HCL 500 MG TAB PO SCH (08:23)
[2019-05-30] MEDS: NYSTATIN 100,000 UNIT/ML SUSP 500,000 UNIT/5 ML CUP PO SCH ×2 (08:23→13:34)
[2019-05-30 08:35] LABS: African American GFR (CKD) >90 (>60 ml/min/1.73 sqM); Anion Gap 6 mmol/L; Blood Urea Nitrogen 13 mg/dL (9-20); Calcium 8.1 mg/dL (8.4-10.2); Carbon Dioxide 30 mmol/L (22-30); Chloride 97 mmol/L (98-107); Glucose 103 mg/dL (74-99); Non-African American GFR(CKD) >90 (>60 ml/min/1.73 sqM); Potassium 3.5 mmol/L (3.5-5.1); Sodium 133 mmol/L (137-145)
[2019-05-30 11:47] VITALS: BP 86/56; PULSE 88; RESP 18; TEMP 97.5
--- NOTE | 2019-05-30 14:14 | PN ---
PROGRESS NOTE DATE OF SERVICE: 05/30/2019 REASON FOR FOLLOWUP: Pseudomonas pneumonia. Oral thrush and diarrhea. INTERVAL HISTORY: The patient is currently afebrile, has been breathing comfortably on room air. Denies having any chest pain, shortness of breath or cough. No abdominal pain and diarrhea has slowed down. PHYSICAL EXAMINATION: Blood pressure 96/56, pulse of 88, temperature 97.5. He is 94% on room air. General description is an elderly male, lying in bed in no distress. RESPIRATORY SYSTEM: Unlabored breathing, clear to auscultation anteriorly. HEART: S1, S2. Regular rate and rhythm. ABDOMEN: Soft, no tenderness. LABS: Hemoglobin 12.4, white count 7.5. BUN of 13, creatinine 0.62. DIAGNOSTIC IMPRESSION/PLAN: 1. Patient with acute Pseudomonas pneumonia has been adequately treated. The patient still positive wheezing which usually detects indigent and is not indicative of underlying infection. In this patient currently no lymphopenia, hence no further treatment for the pain. Continue with . 2. Patient has Pseudomonas pneumonia, currently on cefepime to continue to finish course of therapy. 3. Oral thrush continue nystatin swish and swallow for about a week. MMODL / IJN: [id number] /
--- NOTE | 2019-05-30 14:14 | P.DS ---
Providers Date of admission: 05/14/19 15:49 Expected date of discharge: 05/30/19 Attending physician: Adam Van Consults: 05/17/19 12:48 Consult Physician Urgent Consulting Provider: Nadine Muhammad Consult Reason/Comments: runs of al on covid pt Do you want consulting provider notified?: Yes 05/17/19 14:05 Consult Physician Routine Consulting Provider: Soco Melendrez Consult Reason/Comments: covid positivd pna Do you want consulting provider notified?: Yes 05/18/19 21:24 Consult Physician Routine Consulting Provider: Kelli Russell Consult Reason/Comments: COVID INFECTION Do you want consulting provider notified?: Already Contacted 05/23/19 22:03 Consult Physician Urgent Consulting Provider: Nadine Muhammad Consult Reason/Comments: pt. has been having PSVT's all evening Dr. Van asked to consult cardio Do you want consulting provider notified?: Yes 05/28/19 23:55 Consult Physician Routine Consulting Provider: Brooke Norris Consult Reason/Comments: diarrhea Do you want consulting provider notified?: Yes, Notify in am Primary care physician: Jossue Peguero [facility] Course: Chief Complaint: Diarrhea History of presenting complaint: This is a very pleasant 68-year-old patient of Dr. Jossue Peguero. Patient was directly admitted from his office. He presented to the office feeling weak tired and more diarrhea. Long-standing history of Parkinson's. Patient's been having diarrhea bloody stools on and off for about 2 months. Patient was recently at [facility] from where he was discharged 4 days ago. He did have a computed tomography scan ultrasound and colonoscopy. Was diagnosed with colitis. Patient was discharged on prednisone and mesalamine. Patient will appetite is not good continues to have diarrhea bloody stool. Weak tired rundown. Multiple episodes. No obvious fever. Last 4 days has had a congested cough. Decreased appetite. Drinking some liquids. Some abdominal discomfort cramping (flexible sigmoidoscopy refused diffuse inflammation involving the rectum sigmoid colon and descending colon up to splenic flexure and because of significant inflammation scopolamine not be depressed. 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 Also Pseudomonas pneumonia. Patient being treated with Colazal, lactated Ringer's, IV Solu-Medrol. Started on Canasa enemas. Patient eventually did better. Stool frequency is coming down. No more blood. Abdominal cramping is much improved. On oral nystatin for thrush. Discussed with the patient at length and with patient's daughter at length. Also discussed with Dr. Agustina Norris. Patient had an episode of nonsustained monomorphic V. tach. Today-feeling better. Tolerating diet. Abdominal cramping better. Discussed with Dr. Agustina Norris. She did run the case by patient's neurologist and okay to start Biologics in view of patient's underlying Parkinson's disease. Discussed with social service liaison. Patient's prednisone will be tapered by 5 mg weekly. We'll follow up with Dr. Agustina Norris. . Drew as discussed 5 more days of Cipro. Repeat COVID-19 today is positive. Patient will remain in quarantine/isolation. At the [facility]. Discussion and discharge planning more than 35 minutes Consultants: Dr. Russell from ID Dr. Agustina Norris from GI Dr. Guadalupe and colleagues from pulmonary Dr. Muhammad from cardiology Physical examination: VITAL SIGNS: 97.5, 88, 18, 109/68, 96% on room air GENERAL: Laying in bed, more comfortable PSYCH: Alert and oriented x3; mood and affect tired. Further exam as per nursing noted in the chart.: INVESTIGATIONS, reviewed in the clinical context: White count 7.5 hemoglobin 10.4 potassium 4 creatinine 0.58 Previous testing White count 10.8 hemoglobin 11.9 platelets 355 Sodium 129 potassium 4.8 bun 28 creatinine 1.40 albumin 2.9 Stool-C. diff negative Coronavirus-PCR detected Sputum-pseudomonas aeruginosa and Mary not albicans Repeat C. diff [id number] Assessment: -Acute ulcerative colitis, severe exacerbation, some improvement -Oropharyngeal candidiasis -Idiopathic Parkinson's disease -Novel coronavirus infected pneumonia- -Secondary pneumonia from pseudomonas aeruginosa, -Mild protein calorie malnutrition medical debility -Medical debility -Acute kidney injury, possibly prerenal-improved -Hyponatremia from decrease solute intake -Normocytic anemia likely from underlying colitis and from GI blood loss anemia Disposition: [facility] Patient Condition at Discharge: Stable Plan - Discharge Summary Discharge Rx Participant: No New Discharge Prescriptions: New Dicyclomine [Bentyl] 20 mg PO QID PRN tab PRN Reason: Dyspepsia Mesalamine [Canasa] 1,000 mg RECTAL HS supp Ciprofloxacin HCl [Cipro] 500 mg PO BID #10 tab Tamsulosin [Flomax] 0.4 mg PO PC-BRKFST cap.er.24h Metoprolol Tartrate [Lopressor] 25 mg PO TID tab Psyllium Husk 100% [Metamucil Packet] 6 gm PO BID packet Nystatin 100,000 Unit/ml Susp [Mycostatin Oral Susp] 500,000 unit PO QID ml predniSONE 50 mg PO DAILY #1 tab Pantoprazole [Protonix] 40 mg PO AC-BID tablet. Cholestyramine (with Sugar) [Questran Packet] 4 gm PO BID@1000,1800 packet Acetaminophen Tab [Tylenol] 500 mg PO Q6HR PRN tab PRN Reason: Fever And/ Or Pain Albuterol Inhaler [Ventolin Hfa Inhaler] 2 puff INHALATION RT-TID puff Continue Amantadine HCl [Amantadine] 100 mg PO BID Anastrozole [Arimidex] 1 mg PO SUTUFR Carbidopa/Levodopa [Sinemet 25-100 mg] 2 tab PO TID@1000,1400,1800 Discontinued Loperamide HCl [Imodium A-D] 2 - 4 mg PO QID PRN PRN Reason: Diarrhea predniSONE See Taper PO DAILY Mesalamine 1,600 mg PO TID Aspirin [Adult Low Dose Aspirin EC] 81 mg PO DAILY Discharge Medication List Amantadine HCl [Amantadine] 100 mg PO BID 05/14/19 [History] Anastrozole [Arimidex] 1 mg PO SUTUFR 05/14/19 [History] Carbidopa/Levodopa [Sinemet 25-100 mg] 2 tab PO TID@1000,1400,1800 05/14/19 [History] Acetaminophen Tab [Tylenol] 500 mg PO Q6HR PRN tab 05/30/19 [Rx] Albuterol Inhaler [Ventolin Hfa Inhaler] 2 puff INHALATION RT-TID puff 05/30/19 [Rx] Cholestyramine (with Sugar) [Questran Packet] 4 gm PO BID@1000,1800 packet 05/30/19 [Rx] Ciprofloxacin HCl [Cipro] 500 mg PO BID #10 tab 05/30/19 [Rx] Dicyclomine [Bentyl] 20 mg PO QID PRN tab 05/30/19 [Rx] Mesalamine [Canasa] 1,000 mg RECTAL HS supp 05/30/19 [Rx] Metoprolol Tartrate [Lopressor] 25 mg PO TID tab 05/30/19 [Rx] Nystatin 100,000 Unit/ml Susp [Mycostatin Oral Susp] 500,000 unit PO QID ml 05/30/19 [Rx] Pantoprazole [Protonix] 40 mg PO AC-BID tablet.dr 05/30/19 [Rx] Psyllium Husk 100% [Metamucil Packet] 6 gm PO BID packet 05/30/19 [Rx] Tamsulosin [Flomax] 0.4 mg PO PC-BRKFST cap.er.24h 05/30/19 [Rx] predniSONE 50 mg PO DAILY #1 tab 05/30/19 [Rx] Follow up Appointment(s)/Referral(s): Jossue Peguero MD [Primary Care Provider] - 1-2 Days ([facility]) Brooke Norris MD [STAFF PHYSICIAN] - 06/19/19 3:00 pm Patient Instructions/Handouts: Ciprofloxacin (By mouth), Prednisone (By mouth), Rectal Bleeding (DC) Activity/Diet/Wound Care/Special Instructions: soft bland diet Discharge Disposition: HOME SELF-CARE
--- NOTE | 2019-05-30 16:38 | PN ---
PROGRESS NOTE DATE OF DICTATION: 05/30/2019 Patient is a 68-year-old pleasant whole male diagnosed with ulcerative colitis approximately 5 weeks ago. He has been in in the hospital with COVID-19 infection for the last 2 weeks and was on IV Solu-Medrol 20 mg q.8 hours for almost 12 days. The medications were adjusted, switched to prednisone 50 mg daily about 2 days ago, he is doing better. He had only three bowel movements all day yesterday. Still has some cramping abdominal pain. No nausea, vomiting. Remains on Questran as needed as well as Bentyl for the lower abdominal pain. No fever, chills, night sweats. Repeat COVID- 19 test this morning was positive. PHYSICAL EXAMINATION: Appears comfortable, in no apparent distress. VITAL SIGNS: Stable. Blood pressure is 87/56, pulse rate 88, temperature 97.5. HEENT: Examination unremarkable, conjunctivae are pink, sclerae nonicteric, oral cavity no lesions. NECK: No JVD or lymph no enlargement. CHEST: Clear to auscultation. HEART: Regular rate and rhythm. ABDOMEN: Soft. Bowel sounds are positive. No organomegaly. EXTREMITIES: No pedal edema. SKIN: No rashes. NEUROLOGIC: Alert and oriented x3. No focal deficits. LABS: From yesterday, stool was 1581. Villagran virus PCF positive today, hemoglobin 10.4. IMPRESSION: 1. Severe ulcerative colitis diagnosed in April of 2019, presently on IV steroids for 12 days, now on prednisone 50 mg daily, symptoms gradually improving. She still has elevated CRP at 53 and is 1500, much improved than at the time of admission to the hospital. Meals are advanced, otherwise, three times daily as well as suppository once at bedtime. 2. COVID-19 infection with no pneumonia. 3. History of Parkinson's disease. RECOMMENDATION: I had a length discussion with the patient regarding management of ulcerative colitis. At this time, will continue with prednisone 50 mg daily and he can taper this by 5 mg every 2 weeks. In the meantime, since he continues to have persistent symptoms, will proceed with approval for biologics on outpatient basis. I discussed with him about Remicade infusions as a part of management of ulcerative colitis. Also, I have discussed with his neurologist, Dr. Mckeon in [place] today about underlying Parkinson's disease and this time no contraindication for biologics as the patient will be discharged home today and he will be seen in the office in a week from now. Thank you for this consultation. CALLIE / IJN: [id number] /
== END 2019-05-30 15:55 | DRG 385 ==
LOC: 6NMEDSUR 15:49 → 4SSUR 21:33
PROVIDERS: ADMIT Hospitalist; ATTEND Hospitalist
DX: K51.511 Left sided colitis with rectal bleeding (principal); J15.1 Pneumonia due to Pseudomonas; U07.1 COVID-19; J12.89 Other viral pneumonia; B37.0 Candidal stomatitis; B37.89 Other sites of candidiasis; E44.1 Mild protein-calorie malnutrition; E87.1 Hypo-osmolality and hyponatremia; I47.2 Ventricular tachycardia; J98.11 Atelectasis; N17.9 Acute kidney failure, unspecified; K51.514 Left sided colitis with abscess; G20 Parkinson's disease; D50.0 Iron deficiency anemia secondary to blood loss (chronic); D72.810 Lymphocytopenia; E05.90 Thyrotoxicosis, unspecified without thyrotoxic crisis or storm; I45.10 Unspecified right bundle-branch block; I49.1 Atrial premature depolarization; E86.0 Dehydration; Z87.891 Personal history of nicotine dependence; Z79.52 Long term (current) use of systemic steroids; Z79.82 Long term (current) use of aspirin; Z79.899 Other long term (current) drug therapy; Z88.0 Allergy status to penicillin
CPT/HCPCS: 71045; 80048; 80053; 83615; 83735; 83993; 84145; 84436; 84439; 84443; 84484; 85025; 85027; 85652; 86140; 86480; 86803; 87045; 87046; 87070; 87077; 87186; 87205; 87324; 87340; 87502; 87635; 93005; 93306; 94640; 94760

== ENCOUNTER 2019-06-10 18:59 | Inpatient (IN) | payer MEDICARE, OTHER ==
--- NOTE | 2019-06-10 19:42 | ED ---
Recheck HPI - General Chief Complaint: Weakness Stated Complaint: Weakness Time Seen by Provider: 06/10/19 19:00 Source: EMS, RN notes reviewed, old records reviewed Mode of arrival: EMS Limitations: no limitations - History of Present Illness Initial Comments: This is a 68-year-old male DF for evaluation patient is under treatment for colitis and diarrheal illness weakness and abdominal pain patient also has known positive Kovic test, patient denying any fevers or shortness of breath currently. Patient was admitted to significant dehydration weakness and failure to thrive, worsening of condition MD Complaint: abnormal lab (COVID,COlitis,Dehydration) -: days(s) Returns Today for: Called Because of Abnormal Lab/Test, persistent/worsening pain related to initial visit Symptoms Since Prior Visit: worsening pain, fever Associated Symptoms: fever, chills, shortness of breath, abdominal pain Treatments Prior to Arrival: other medications, Given Antibiotics on, Given Pain Meds on - Related Data Home Medications Medication Instructions Recorded Confirmed Amantadine HCl [Amantadine] 100 mg PO BID 05/14/19 06/10/19 Anastrozole [Arimidex] 1 mg PO SUTUFR 05/14/19 06/10/19 Carbidopa/Levodopa [Sinemet 25-100 1 tab PO TID@1000,1400,1800 05/14/19 06/10/19 mg] Dicyclomine [Bentyl] 20 mg PO Q6H PRN 06/10/19 06/10/19 Diff-Stat Probiotic 2 cap PO BID 06/10/19 06/10/19 Dronabinol [Marinol] 2.5 mg PO BID@0800,1600 06/10/19 06/10/19 Ensure 1 can PO TID-W/MEALS 06/10/19 06/10/19 Loperamide HCl [Loperamide] 2 mg PO Q6H PRN 06/10/19 06/10/19 Metoprolol Tartrate [Lopressor] 25 mg PO DIRECTED 06/10/19 06/10/19 Multivitamin-Minerals Tab 1 tab PO DAILY@0800 06/10/19 06/10/19 Pantoprazole [Protonix] 40 mg PO BID@0600,1800 06/10/19 06/10/19 Tamsulosin [Flomax] 0.4 mg PO DAILY 06/10/19 06/10/19 predniSONE 45 mg PO DAILY 06/10/19 06/10/19 Previous Rx's Medication Instructions Recorded Acetaminophen Tab [Tylenol] 500 mg PO Q6HR PRN tab 05/30/19 Albuterol Inhaler [Ventolin Hfa 2 puff INHALATION RT-TID puff 05/30/19 Inhaler] Cholestyramine (with Sugar) 4 gm PO BID@1000,1800 packet 05/30/19 [Questran Packet] Mesalamine [Canasa] 1,000 mg RECTAL HS supp 05/30/19 Psyllium Husk 100% [Metamucil 6 gm PO BID packet 05/30/19 Packet] Allergies Allergy/AdvReac Type Severity Reaction Status Date / Time Penicillins AdvReac Rash/Hives Verified 06/10/19 19:09 Review of Systems ROS Statement: Those systems with pertinent positive or pertinent negative responses have been documented in the HPI. ROS Other: All systems not noted in ROS Statement are negative. Past Medical History Additional Past Medical History / Comment(s): parkinson and new colitis History of Any Multi-Drug Resistant Organisms: None Reported Additional Past Surgical History / Comment(s): Previous colonoscopy and EGD Smoking Status: Former smoker General Exam Limitations: no limitations General appearance: alert, in no apparent distress, anxious Head exam: Present: atraumatic, normocephalic, normal inspection Eye exam: Present: normal appearance, PERRL, EOMI. Absent: scleral icterus, conjunctival injection, periorbital swelling ENT exam: Present: normal exam, mucous membranes dry Neck exam: Present: normal inspection. Absent: tenderness, meningismus, lymphadenopathy Respiratory exam: Present: normal lung sounds bilaterally. Absent: respiratory distress, wheezes, rales, rhonchi, stridor Cardiovascular Exam: Present: normal rhythm, tachycardia, normal heart sounds. Absent: systolic murmur, diastolic murmur, rubs, gallop, clicks GI/Abdominal exam: Present: soft, normal bowel sounds. Absent: distended, tenderness, guarding, rebound, rigid Extremities exam: Present: normal inspection, full ROM, normal capillary refill. Absent: tenderness, pedal edema, joint swelling, calf tenderness Back exam: Present: normal inspection Neurological exam: Present: alert, oriented X3, CN II-XII intact Psychiatric exam: Present: normal affect, normal mood Skin exam: Present: warm, dry, intact, normal color. Absent: rash Course Vital Signs 06/10/19 06/10/19 06/10/19 19:01 19:30 20:59 Temperature 97.9 F Pulse Rate 101 H 72 97 Respiratory 20 18 16 Rate Blood Pressure 113/72 112/78 96/70 O2 Sat by Pulse 98 97 95 Oximetry 06/10/19 06/10/19 06/11/19 21:58 22:53 00:02 Temperature 97.4 F L Pulse Rate 90 90 91 Respiratory 18 18 17 Rate Blood Pressure 105/76 114/78 105/77 O2 Sat by Pulse 96 97 98 Oximetry - Reevaluation(s) Reevaluation #1: Medical records reviewed Patient informed and updated of results Patient of COVID precaution even though negative COVID test here in the ER se condary to high risk - Consultations Consultation #1: spoke w AISHA zuniga for admission Medical Decision Making - Medical Decision Making 68 male here with multiple medical core rate is coming in for likely suspicion of colitis was related to colitis. Patient having severe dehydration failure to thrive and worsening outpatient clinical condition. - Lab Data Result diagrams: 06/17/19 06:48 06/17/19 06:48 Lab Results 06/10/19 06/10/19 06/10/19 Range/Units 19:45 19:45 19:45 WBC 8.7 (3.8-10.6) k/uL RBC 4.07 L (4.30-5.90) m/uL Hgb 11.4 L (13.0-17.5) gm/dL Hct 35.0 L (39.0-53.0) % MCV 85.8 (80.0-100.0) fL MCH 28.0 (25.0-35.0) pg MCHC 32.6 (31.0-37.0) g/dL RDW 14.3 (11.5-15.5) % Plt Count 226 (150-450) k/uL Neutrophils % 88 % Lymphocytes % 7 % Monocytes % 3 % Eosinophils % 1 % Basophils % 1 % Neutrophils # 7.6 (1.3-7.7) k/uL Lymphocytes # 0.6 L (1.0-4.8) k/uL Monocytes # 0.3 (0-1.0) k/uL Eosinophils # 0.0 (0-0.7) k/uL Basophils # 0.1 (0-0.2) k/uL Manual Slide Review Performed Toxic Granulation Present Sodium 130 L (137-145) mmol/L Potassium 4.4 (3.5-5.1) mmol/L Chloride 97 L (98-107) mmol/L Carbon Dioxide 26 (22-30) mmol/L Anion Gap 7 mmol/L BUN 14 (9-20) mg/dL Creatinine 0.64 L (0.66-1.25) mg/dL Est GFR (CKD-EPI)AfAm >90 (>60 ml/min/1.73 sqM) Est GFR (CKD-EPI)NonAf >90 (>60 ml/min/1.73 sqM) Glucose 133 H (74-99) mg/dL Calcium 8.3 L (8.4-10.2) mg/dL Magnesium 1.9 (1.6-2.3) mg/dL Ferritin 664.6 H (22.0-322.0) ng/mL Total Bilirubin 0.3 (0.2-1.3) mg/dL AST 14 L (17-59) U/L ALT 10 (4-49) U/L Alkaline Phosphatase 95 (38-126) U/L Lactate Dehydrogenase 404 (313-618) U/L C-Reactive Protein 76.9 H (<10.0) mg/L Total Protein 5.1 L (6.3-8.2) g/dL Albumin 2.5 L (3.5-5.0) g/dL Procalcitonin 0.14 H (0.02-0.09) ng/mL C. difficile (EIA) Intrp (Negative) Coronavirus (PCR) (Not Detectd) 06/10/19 06/10/19 Range/Units 21:40 21:55 WBC (3.8-10.6) k/uL RBC (4.30-5.90) m/uL Hgb (13.0-17.5) gm/dL Hct (39.0-53.0) % MCV (80.0-100.0) fL MCH (25.0-35.0) pg MCHC (31.0-37.0) g/dL RDW (11.5-15.5) % Plt Count (150-450) k/uL Neutrophils % % Lymphocytes % % Monocytes % % Eosinophils % % Basophils % % Neutrophils # (1.3-7.7) k/uL Lymphocytes # (1.0-4.8) k/uL Monocytes # (0-1.0) k/uL Eosinophils # (0-0.7) k/uL Basophils # (0-0.2) k/uL Manual Slide Review Toxic Granulation Sodium (137-145) mmol/L Potassium (3.5-5.1) mmol/L Chloride (98-107) mmol/L Carbon Dioxide (22-30) mmol/L Anion Gap mmol/L BUN (9-20) mg/dL Creatinine (0.66-1.25) mg/dL Est GFR (CKD-EPI)AfAm (>60 ml/min/1.73 sqM) Est GFR (CKD-EPI)NonAf (>60 ml/min/1.73 sqM) Glucose (74-99) mg/dL Calcium (8.4-10.2) mg/dL Magnesium (1.6-2.3) mg/dL Ferritin (22.0-322.0) ng/mL Total Bilirubin (0.2-1.3) mg/dL AST (17-59) U/L ALT (4-49) U/L Alkaline Phosphatase (38-126) U/L Lactate Dehydrogenase (313-618) U/L C-Reactive Protein (<10.0) mg/L Total Protein (6.3-8.2) g/dL Albumin (3.5-5.0) g/dL Procalcitonin (0.02-0.09) ng/mL C. difficile (EIA) Intrp Negative (Negative) Coronavirus (PCR) Not Detected (Not Detectd) - EKG Data -: EKG Interpreted by Me (EKG shows sinus rhythm of 99, MI 150, QRS 132, QTC 479) - Radiology Data Radiology results: report reviewed (Chest x-ray shows persistent infiltrate), image reviewed Critical Care Time Critical Care Time: Yes Total Critical Care Time: 31 Disposition Clinical Impression: Dehydration, COVID-19, Acute pneumonia, Colitis, Weakness, Failure to thrive Disposition: ADMITTED IP TO THIS [facility] Condition: Fair Is patient prescribed a controlled substance at d/c from ED?: No
[2019-06-10 20:00] LABS: Basophils # (A) 0.1 k/uL (0-0.2); Basophils % (A) 1 %; Eosinophils % (A) 1 %; HGB 11.4 gm/dL (13.0-17.5); Lymphocytes # (A) 0.6 k/uL (1.0-4.8); Lymphocytes % (A) 7 %; MCHC 32.6 g/dL (31.0-37.0); MCV 85.8 fL (80.0-100.0); Mean Platelet Volume 6.9; Monocytes # (A) 0.3 k/uL (0-1.0); Monocytes % (A) 3 %; Neutrophils # (A) 7.6 k/uL (1.3-7.7); Neutrophils % (A) 88 %; Platelet Count 226 k/uL (150-450); RBC 4.07 m/uL (4.30-5.90); RDW 14.3 % (11.5-15.5); WBC 8.7 k/uL (3.8-10.6)
--- NOTE | 2019-06-10 20:03 | XR ---
EXAMINATION TYPE: XR chest 1V portable DATE OF EXAM: 06/10/2019 COMPARISON: Chest x-ray May 23, 2019 and older x-rays HISTORY: Weakness. Recent Covid Diagnosis. TECHNIQUE: Single AP portable frontal upright view of the chest is obtained. FINDINGS: There is no new suspicious focal air space opacity, pleural effusion, or pneumothorax seen . Patchy left basilar opacity remains present. The cardiac silhouette size is within normal limits. The osseous structures are intact. IMPRESSION: Persistent left basilar acute infiltrate and/or atelectasis. No new infiltrates seen. No significant change from most recent x-ray.
[2019-06-10 20:11] LABS: ALT 10 U/L (4-49); AST 14 U/L (17-59); African American GFR (CKD) >90 (>60 ml/min/1.73 sqM); Albumin 2.5 g/dL (3.5-5.0); Alkaline Phosphatase 95 U/L (38-126); Anion Gap 7 mmol/L; Blood Urea Nitrogen 14 mg/dL (9-20); C Reactive Protein 76.9 mg/L (<10.0); Calcium 8.3 mg/dL (8.4-10.2); Carbon Dioxide 26 mmol/L (22-30); Chloride 97 mmol/L (98-107); Glucose 133 mg/dL (74-99); LDH 404 U/L (313-618); Magnesium 1.9 mg/dL (1.6-2.3); Non-African American GFR(CKD) >90 (>60 ml/min/1.73 sqM); Potassium 4.4 mmol/L (3.5-5.1); Sodium 130 mmol/L (137-145); Total Bilirubin 0.3 mg/dL (0.2-1.3); Total Protein 5.1 g/dL (6.3-8.2)
[2019-06-10 20:24] LABS: Toxic Granulation Present
[2019-06-10] MEDS ORDERED: PNEUMONIA PROTOCOL UTILIZED 1 EACH MISC PO PRN (22:03)
[2019-06-11 03:56] LABS: Ferritin 664.6 ng/mL (22.0-322.0)
--- NOTE | 2019-06-11 08:15 | XR ---
EXAMINATION TYPE: XR chest 1V portable DATE OF EXAM: 06/11/2019 Comparison: 06/10/2019 Clinical History: 68-year-old male PNA/COVID Findings: Heart normal size. Aorta and pulmonary vasculature within normal limits. Some very mild patchy periph eral left lower lung opacity is unchanged. No pleural effusion. Impression: Very mild patchy peripheral left lower lung opacity is unchanged
[2019-06-11] MEDS: CARBIDOPA-LEVODOPA 25-100 MG 1 EACH TAB PO SCH ×3 (10:04→17:43)
[2019-06-11] MEDS: predniSONE 10 MG TAB PO SCH (10:07)
[2019-06-11] MEDS: ANASTROZOLE 1 MG TAB PO SCH (10:07)
[2019-06-11] MEDS: AMANTADINE HCL 100 MG CAP PO SCH ×2 (10:08→20:10)
[2019-06-11] MEDS: TAMSULOSIN 0.4 MG CAP.ER.24H PO SCH (10:11)
[2019-06-11] MEDS: LACTOBACILLUS ACIDOPH & BULGAR 1 EACH PACKET PO SCH ×2 (10:11→20:11)
[2019-06-11] MEDS: CHOLESTYRAMINE (WITH SUGAR) 4 GM PACKET PO SCH ×2 (10:11→17:43)
[2019-06-11] MEDS: ALBUTEROL HFA INHALER INHALATION SCH ×2 (11:57→20:19)
[2019-06-11] MEDS: ACETAMINOPHEN TAB 500 MG TAB PO PRN (13:37)
[2019-06-11] MEDS: LOPERAMIDE 2 MG CAP PO PRN (13:38)
[2019-06-11] MEDS: DICYCLOMINE 20 MG TAB PO PRN (15:53)
[2019-06-11] MEDS: DRONABINOL 2.5 MG CAP PO SCH (15:56)
--- NOTE | 2019-06-11 16:06 | P.HPIM ---
History of Present Illness H&P Date: 06/11/19 Chief Complaint: Weak and tired History of presenting complaint: This is a very pleasant 68-year-old patient of Dr. Jossue Peguero. Patient was not prolonged cold in the hospital from May 13 through May 29. Admitted with a diagnosis of acute exacerbation of ulcerative colitis. Also had COVID-19 pneumonia and Pseudomonas pneumonia. Patient was treated with Colazal, Canasa enemas steroids. Discharged on high-dose of steroids. Seen by Dr. Agustina Norris from GI. Supposed to start Biologics down the road. Patient was discharged to the [facility]. Patient now presents with feeling weak tired rundown. Very dry mouth. Does not like the taste of food. Occasional abdominal cramping. May be some blood in the stool. No fever no chills. No respiratory symptoms. (For the same. Review of systems: GEN.: Tired, decreased appetite EYES: None HEENT: Dry mouth NECK: None RESPIRATORY: None CARDIOVASCULAR: None GASTROINTESTINAL: Intermittent diarrhea with occasional some blood GENITOURINARY: None MUSCULOSKELETAL: Muscle weakness LYMPHATICS: None HEMATOLOGICAL: None PSYCHIATRY: Anxious NEUROLOGICAL: Bradykinesia Past medical history to include: Parkinson's disease, ulcerative colitis, recent COVID 19 pneumonia, pseudomonas pneumonia Social history: Drinks alcohol socially. No smoking. . 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 Family history: Reviewed, noncontributory to presentation Physical examination: VITAL SIGNS: 97.9, 101, 20, 113/72, 98% on room air GENERAL: BMI 25.2, propped up in bed, tired. EYES: Pupils equal. Conjunctiva palel. HEENT: External appearance of nose and ears normal, oral cavity dry. NECK: JVD not raised; masses not palpable. HEART: First and second heart sounds are normal; no edema. LUNGS: Respiratory rate normal, decreased breath sounds. ABDOMEN: Soft, minimal tenderness liver spleen not palpable, no masses palpable. PSYCH: Alert and oriented x3; mood and affect slightly anxious. NEUROLOGICAL: Cranial nerves grossly intact; no facial asymmetry, power and sensation grossly intact. LYMPHATICS: No lymph nodes palpable in the axilla and neck INVESTIGATIONS, reviewed in the clinical context: White count 8.7 hemoglobin 11.4 platelets 226 potassium 4.4 bun 14 creatinine 0.64 CRP 76.9, albumin 2.5, pro calcitonin 0.14 Stool for C. 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 Continue with steroids. The patient on a full liquid diet. Consult GI. Care was discussed with the patient. Questions were answered. Past Medical History Additional Past Medical History / Comment(s): parkinson and colitis History of Any Multi-Drug Resistant Organisms: None Reported Past Surgical History: Tonsillectomy Additional Past Surgical History / Comment(s): Previous colonoscopy and EGD Smoking Status: Former smoker Medications and Allergies Home Medications Medication Instructions Recorded Confirmed Type Amantadine HCl [Amantadine] 100 mg PO BID 05/14/19 06/10/19 History Anastrozole [Arimidex] 1 mg PO SUTUFR 05/14/19 06/10/19 History Carbidopa/Levodopa [Sinemet 25-100 1 tab PO TID@1000,1400,1800 05/14/19 06/10/19 History mg] Acetaminophen Tab [Tylenol] 500 mg PO Q6HR PRN tab 05/30/19 06/10/19 Rx Albuterol Inhaler [Ventolin Hfa 2 puff INHALATION RT-TID puff 05/30/19 06/10/19 Rx Inhaler] Cholestyramine (with Sugar) 4 gm PO BID@1000,1800 packet 05/30/19 06/10/19 Rx [Questran Packet] Mesalamine [Canasa] 1,000 mg RECTAL HS supp 05/30/19 06/10/19 Rx Psyllium Husk 100% [Metamucil 6 gm PO BID packet 05/30/19 06/10/19 Rx Packet] Dicyclomine [Bentyl] 20 mg PO Q6H PRN 06/10/19 06/10/19 History Diff-Stat Probiotic 2 cap PO BID 06/10/19 06/10/19 History Dronabinol [Marinol] 2.5 mg PO BID@0800,1600 06/10/19 06/10/19 History Ensure 1 can PO TID-W/MEALS 06/10/19 06/10/19 History Loperamide HCl [Loperamide] 2 mg PO Q6H PRN 06/10/19 06/10/19 History Metoprolol Tartrate [Lopressor] 25 mg PO DIRECTED 06/10/19 06/10/19 History Multivitamin-Minerals Tab 1 tab PO DAILY@0800 06/10/19 06/10/19 History Pantoprazole [Protonix] 40 mg PO BID@0600,1800 06/10/19 06/10/19 History Tamsulosin [Flomax] 0.4 mg PO DAILY 06/10/19 06/10/19 History predniSONE 45 mg PO DAILY 06/10/19 06/10/19 History Allergies Allergy/AdvReac Type Severity Reaction Status Date / Time Penicillins AdvReac Rash/Hives Verified 06/10/19 19:09 Physical Exam Vitals: Vital Signs Temp Pulse Pulse Resp BP BP Pulse Ox 06/11/19 07:00 97.9 F 104 H 17 132/69 98 06/11/19 00:13 98.3 F 88 14 115/79 95 06/11/19 00:02 97.4 F L 91 17 105/77 98 06/10/19 22:53 90 18 114/78 97 06/10/19 21:58 90 18 105/76 96 06/10/19 20:59 97 16 96/70 95 06/10/19 19:30 72 18 112/78 97 06/10/19 19:01 97.9 F 101 H 20 113/72 98 Intake and Output 06/10/19 06/11/19 06/11/19 22:59 06:59 14:59 Output Total 200 Balance -200 Output: Urine 200 Other: Voiding Method Urinal Urinal # Voids 1 Weight 75.296 kg Results CBC & Chem 7: 06/10/19 19:45 06/10/19 19:45 Labs: Abnormal Lab Results - Last 24 Hours (Table) 06/10/19 06/10/19 06/10/19 Range/Units 19:45 19:45 19:45 RBC 4.07 L (4.30-5.90) m/uL Hgb 11.4 L (13.0-17.5) gm/dL Hct 35.0 L (39.0-53.0) % Lymphocytes # 0.6 L (1.0-4.8) k/uL Sodium 130 L (137-145) mmol/L Chloride 97 L (98-107) mmol/L Creatinine 0.64 L (0.66-1.25) mg/dL Glucose 133 H (74-99) mg/dL Calcium 8.3 L (8.4-10.2) mg/dL Ferritin 664.6 H (22.0-322.0) ng/mL AST 14 L (17-59) U/L C-Reactive Protein 76.9 H (<10.0) mg/L Total Protein 5.1 L (6.3-8.2) g/dL Albumin 2.5 L (3.5-5.0) g/dL Procalcitonin 0.14 H (0.02-0.09) ng/mL Thrombosis Risk Factor Assmnt - Choose All That Apply Each Factor Represents 1 point: Obesity (BMI >25) Each Risk Factor Represents 2 Points: Age 61-74 years Thrombosis Risk Factor Assessment Total Risk Factor Score: 3 Thrombosis Risk Factor Assessment Level: Moderate Risk
[2019-06-11] MEDS: ENOXAPARIN 40 MG/0.4 ML SYRINGE SQ SCH (17:42)
[2019-06-11] MEDS: PANTOPRAZOLE 40 MG TABLET PO SCH (17:43)
[2019-06-11] MEDS: DEXTROSE 5%-0.45% NACL 1,000 ML IV SCH (17:43)
[2019-06-11] MEDS: METOPROLOL TARTRATE 25 MG TAB PO SCH (20:10)
[2019-06-11] MEDS: MESALAMINE 1,000 MG SUPP RECTAL SCH (20:11)
[2019-06-11] MEDS: NYSTATIN 100,000 UNIT/ML SUSP 500,000 UNIT/5 ML CUP PO SCH (22:25)
[2019-06-12] MEDS: DEXTROSE 5%-0.45% NACL 1,000 ML IV SCH ×3 (01:36→17:17)
--- NOTE | 2019-06-12 03:28 | CONS ---
CONSULTATION DATE OF SERVICE: 06/11/2019 REASON FOR CONSULTATION: Pneumonia. HISTORY OF PRESENT ILLNESS: The patient is a 68-year-old male who was recently admitted to this facility where the patient was treated for acute COVID-19 pneumonia clinical course was complicated by development of Pseudomonas pneumonia for which the patient was treated with IV cefepime subsequently finished therapy with oral Cipro. The patient also had exacerbation of his acute ulcerative colitis with significant diarrhea for which the patient has been evaluated by Dr. Norris. The [facility] The patient now being brought back to the ER last evening for evaluation of feeling weak, run down, food taste not good. Patient been complaining of crampy abdominal pain and has been complaining of multiple loose stools though no significant blood or mucus in the stool. The patient has some nausea but no vomiting. Did have some difficulty with swallowing. Denies having any chest pain or shortness of breath or cough. No nausea, no vomiting. With these symptoms, the patient was evaluated by the ER physician. On arrival to the ER, the patient has been afebrile. The patient did have a normal white count. The CRP was elevated. The patient did have a chest x-ray with some left lower lobe atelectasis versus pneumonia. Patient has been admitted to the hospital where the patient had been started on Questran, Lactinex, steroids. Infection Disease was consulted for further management of his antibiotic and need for antibiotic for possible pneumonia. REVIEW OF SYSTEMS: Positive points have been mentioned in HPI. Rest of the systems are negative. PAST MEDICAL HISTORY: Recent COVID-19 pneumonia, Parkinson disease, ulcerative colitis and Pseudomonas pneumonia. PAST SURGICAL HISTORY: Colonoscopy and EGD. SOCIAL HISTORY: Remote history of smoking. No drinking or drug use. Currently a [facility] resident. ALLERGIES: PENICILLIN. Tolerated cephalosporin without any problem. MEDICATIONS: Medications include the patient is currently on Tylenol, Ventolin, Arimidex, Sinemet, Questran, Bentyl, Lactinex, Imodium, Lopressor, Theragran, prednisone, Flomax. PHYSICAL EXAMINATION: Blood pressure is 112/68 with a pulse of 91, temperature is 97.7. He is 97% on room air. General description is an elderly male lying in bed in no distress. No tachypnea or accessory muscle of respiration use. HEENT: Examination shows slight pallor. No scleral icterus. Oral mucous membrane is dry with evidence of oral thrush. NECK: Trachea central. No thyromegaly. LUNGS: Unlabored breathing, decreased breath sounds at the bases. No wheeze. HEART: S1, S2. Regular rate and rhythm. No added sounds. ABDOMEN: Soft, no tenderness. No guarding or rigidity. EXTREMITIES: No edema of feet. SKIN EXAMINATION: No rash or mass palpable. NEUROLOGICAL: Patient awake, alert, oriented x3. Mood and affect normal. LABS: Hemoglobin 11.4, white count 8.7, BUN of 14, creatinine 0.64. Stool for C difficile has been negative. Coronavirus PCR was negative. CRP was slightly elevated. Chest x- ray with left lower lobe atelectasis. DIAGNOSTIC IMPRESSION AND PLAN: 1. Patient admitted to the hospital with no energy, run down in this patient who did have significant diarrhea with concern for Clostridium difficile. However, that has been ruled out as the stool for Clostridium difficile is negative, possibly related to his ulcerative colitis exacerbation. 2. The patient with abnormal x-ray with concern for possible pneumonia clinically not behaving as pneumonia. Hence will hold on any systemic antibiotic therapy. 3. Oral thrush. PLAN: 1. We will add nystatin swish and swallow. 2. Continue the Questran twice daily of his diarrhea. 3. Hold on any systemic antibiotic therapy. 4. Will follow on clinical condition and further adjust medication if needed. Thank you for this consultation. Will follow this patient along with you. MMODL / IJN: [id number] / MTDD
[2019-06-12] MEDS: LOPERAMIDE 2 MG CAP PO PRN ×3 (05:36→22:50)
[2019-06-12] MEDS: PANTOPRAZOLE 40 MG TABLET PO SCH ×2 (05:36→16:54)
[2019-06-12] MEDS: ACETAMINOPHEN TAB 500 MG TAB PO PRN (05:36)
[2019-06-12] MEDS: DICYCLOMINE 20 MG TAB PO PRN ×2 (05:46→17:08)
[2019-06-12] MEDS: ALBUTEROL HFA INHALER INHALATION SCH ×3 (07:32→20:18)
[2019-06-12] MEDS: AMANTADINE HCL 100 MG CAP PO SCH ×2 (08:35→20:43)
[2019-06-12] MEDS: LACTOBACILLUS ACIDOPH & BULGAR 1 EACH PACKET PO SCH ×2 (08:35→16:52)
[2019-06-12] MEDS: ENOXAPARIN 40 MG/0.4 ML SYRINGE SQ SCH (08:35)
[2019-06-12] MEDS: NYSTATIN 100,000 UNIT/ML SUSP 500,000 UNIT/5 ML CUP PO SCH ×4 (08:35→20:43)
[2019-06-12] MEDS: CHOLESTYRAMINE (WITH SUGAR) 4 GM PACKET PO SCH ×2 (08:35→16:53)
[2019-06-12] MEDS: predniSONE 10 MG TAB PO SCH (08:35)
[2019-06-12] MEDS: DRONABINOL 2.5 MG CAP PO SCH ×2 (08:36→16:53)
[2019-06-12] MEDS: CARBIDOPA-LEVODOPA 25-100 MG 1 EACH TAB PO SCH ×3 (08:36→16:53)
[2019-06-12] MEDS: TAMSULOSIN 0.4 MG CAP.ER.24H PO SCH (08:36)
[2019-06-12] MEDS: MULTIVITAMINS, THERA 1 EACH TAB PO SCH (08:36)
[2019-06-12] MEDS: METOPROLOL TARTRATE 25 MG TAB PO SCH ×2 (08:36→20:43)
[2019-06-12 16:14] VITALS: BMI 25.2
--- NOTE | 2019-06-12 16:38 | P.PN ---
Progress Note - Text Progress Note Date: 06/12/19 Chief Complaint: Weak and tired History of presenting complaint: This is a very pleasant 68-year-old patient of Dr. Jossue Peguero. Patient was not prolonged cold in the hospital from May 13 through May 29. Admitted with a diagnosis of acute exacerbation of ulcerative colitis. Also had COVID-19 pneumonia and Pseudomonas pneumonia. Patient was treated with Colazal, Canasa enemas steroids. Discharged on high-dose of steroids. Seen by Dr. Agustina Norris from GI. Supposed to start Biologics down the road. Patient was discharged to the [facility]. Patient now presents with feeling weak tired rundown. Very dry mouth. Does not like the taste of food. Occasional abdominal cramping. May be some blood in the stool. No fever no chills. No respiratory symptoms. (For the same. Admitted with severe asthenia, some steroid-induced myopathy, significant anorexia. Today-laying in bed. Tired. Patient asking about PEG tube feeding this was suggested by his PCP Dr. Peguero. Review of systems: Was done for constitutional, cardiovascular, GI, pulmonary. relevant finding as above Active Medications Acetaminophen (Tylenol Tab) 500 mg PO Q6HR PRN PRN Reason: Fever and/ or Pain Last Admin: 06/12/19 05:36 Dose: 500 mg Documented by: Albuterol Sulfate (Ventolin Hfa Inhaler) 2 puff INHALATION RT-TID [facility] Last Admin: 06/12/19 10:57 Dose: 2 puff Documented by: Amantadine HCl (Symmetrel) 100 mg PO BID [facility] Last Admin: 06/12/19 08:35 Dose: 100 mg Documented by: Anastrozole (Arimidex) 1 mg PO SUTUFR [facility] Last Admin: 06/11/19 10:07 Dose: 1 mg Documented by: Carbidopa/Levodopa (Sinemet 25-100) 1 each PO TID@1000,1400,1800 [facility] Last Admin: 06/12/19 13:31 Dose: 1 each Documented by: Cholestyramine Resin (Questran) 4 gm PO BID@1000,1800 [facility] Last Admin: 06/12/19 08:35 Dose: 4 gm Documented by: Dicyclomine HCl (Bentyl) 20 mg PO Q6H PRN PRN Reason: Dyspepsia Last Admin: 06/12/19 05:46 Dose: 20 mg Documented by: Dronabinol (Marinol) 2.5 mg PO BID@0800,1600 [facility] Last Admin: 06/12/19 08:36 Dose: 2.5 mg Documented by: Enoxaparin Sodium (Lovenox) 40 mg SQ DAILY [facility] Last Admin: 06/12/19 08:35 Dose: 40 mg Documented by: Fluconazole (Diflucan) 200 mg PO DAILY [facility] Dextrose/Sodium Chloride (Dextrose 5%-1/2ns Iv Soln) 1,000 mls @ 125 mls/hr IV .Q8H [facility] Last Admin: 06/12/19 08:36 Dose: Not Given Documented by: Lactobacillus Acidoph/Bulgaricus (Lactinex) 1 each PO BID [facility] Last Admin: 06/12/19 08:35 Dose: 1 each Documented by: Loperamide HCl (Imodium) 2 mg PO Q6H PRN PRN Reason: Diarrhea Last Admin: 06/12/19 05:36 Dose: 2 mg Documented by: Mesalamine (Canasa) 1,000 mg RECTAL HS [facility] Last Admin: 06/11/19 20:11 Dose: Not Given Documented by: Metoprolol Tartrate (Lopressor) 25 mg PO BID [facility] Last Admin: 06/12/19 08:36 Dose: 25 mg Documented by: Miscellaneous Information (Pneumonia Protocol Utilized) 1 each PO ONCE PRN PRN Reason: Per Protocol Multivitamins (Theragran) 1 each PO DAILY@0800 [facility] Last Admin: 06/12/19 08:36 Dose: 1 each Documented by: Nystatin (Mycostatin Oral Susp) 500,000 unit PO QID [facility] Last Admin: 06/12/19 13:31 Dose: 500,000 unit Documented by: Pantoprazole Sodium (Protonix) 40 mg PO BID@0600,1800 [facility] Last Admin: 06/12/19 05:36 Dose: 40 mg Documented by: Prednisone () 45 mg PO DAILY [facility] Last Admin: 06/12/19 08:35 Dose: 45 mg Documented by: Tamsulosin HCl (Flomax) 0.4 mg PO DAILY [facility] Last Admin: 06/12/19 08:36 Dose: 0.4 mg Documented by: Physical examination: VITAL SIGNS: 98.1, 70, 16, 99/65, 97% on room air GENERAL: Propped up in bed, awake EYES: Pupils equal. Conjunctiva pale. HEENT: External appearance of nose and ears normal, oral cavity dry. NECK: JVD not raised; masses not palpable. HEART: First and second heart sounds are normal; no edema. LUNGS: Respiratory rate normal, decreased breath sounds. ABDOMEN: Soft, minimal tenderness liver spleen not palpable, no masses palpable. PSYCH: Alert and oriented x3; mood and affect slightly anxious. NEUROLOGICAL: Cranial nerves grossly intact; no facial asymmetry, power and sensation grossly intact. INVESTIGATIONS, reviewed in the clinical context: White count 8.7 hemoglobin 11.4 platelets 226 potassium 4.4 bun 14 creatinine 0.64 CRP 76.9, albumin 2.5, pro calcitonin 0.14 Stool for C. 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 PEG tube will not be a good option this patient with ulcerative colitis given very immunosuppressed state with expectoration of a lot of complications. There had a discussion Dr. Agustina Norris who felt strongly about the same. It is not felt that the PEG tube will be the best interest of the patient to have more problems. Only option right now will be hyperalimentation through IV access. Hence PICC line replaced with this. Also discussed with dietitian and the nurse. Also discussed with Dr. Morris from [place]. Total time spent today was about 50 minutes with over 30 minutes of discussion. Patient's oral intake to continue.
[2019-06-12] MEDS: FLUCONAZOLE ORAL SUSP 1,400 MG/35 ML BOTTLE PO SCH (16:44)
[2019-06-12] MEDS: MESALAMINE 1,000 MG SUPP RECTAL SCH (20:42)
--- NOTE | 2019-06-12 22:34 | PN ---
PROGRESS NOTE DATE OF SERVICE: 06/12/2019 REASON FOR FOLLOWUP: Oral thrush and diarrhea. INTERVAL HISTORY: The patient is currently afebrile. He is still complaining of sore throat and occasional choking episode and coughing spells. Still has diarrhea. No abdominal pain, though. No chest pain, shortness of breath or cough. PHYSICAL EXAMINATION: Blood pressure 103/66, pulse of 102, temperature 97.7. He is 97% on room air. General description is an elderly male lying in bed in no distress. RESPIRATORY SYSTEM: Unlabored breathing. Clear to auscultation anteriorly. HEART: S1, S2. Regular rate and rhythm. ABDOMEN: Soft. No tenderness. LABS: Hemoglobin 11.4, white count 8.7, BUN of 14, creatinine 0.64. Stool for C difficile is negative. DIAGNOSTIC IMPRESSION AND PLAN: 1. Patient with extensive oral thrush. Continue with nystatin swish and swallow. Will add oral Diflucan and monitor clinical course closely. 2. Patient with diarrhea, possibly related to underlying colitis. CT was negative. Continue with Questran and symptomatic treatment and steroids per GI. MMODL / IJN: [id number] /
[2019-06-13] MEDS: DEXTROSE 5%-0.45% NACL 1,000 ML IV SCH ×4 (01:31→23:28)
--- NOTE | 2019-06-13 01:39 | CONS ---
CONSULTATION DATE OF CONSULTATION: 06/12/2019 REASON FOR CONSULTATION: Management of ulcerative colitis. HISTORY OF PRESENT ILLNESS: The patient is a 68-year-old pleasant white male who was diagnosed with severe ulcerative colitis in the second week of April at [facility] when he presented with bloody diarrhea and had a flexible sigmoidoscopy that showed severe colitis. Subsequently, the patient was admitted to [facility] about 4 weeks ago and had a prolonged hospitalization for almost 20 days with Covid-19 infection and exacerbation of ulcerative colitis. He was treated with IV steroids for almost five days following which he was discharged home on Prednisone 50 mg daily. He went to [facility] and undergoing physical rehab program. He is presently on Prednisone 45 mg daily and he has been having two to three bowel movements daily with no blood or mucous in the stool. He also has been taking Bentyl 10 mg four times daily as well as Questran for lower abdominal discomfort. The patient thinks that he has been progressively losing weight and because of extreme fatigue and weakness, the family brought him back to the emergency room yesterday and subsequently admitted to the hospital for further management. Family apparently is requesting for a PEG tube placement for management of protein energy malnutrition. The patient states that he has decreased appetite. Complains of very dry mouth. He lost his taste and smell with the recent Covid-19 pneumonia and his appetite has been significantly decreased. PAST MEDICAL HISTORY: Significant for recent Covid-19 infection with prolonged hospitalization, history of ulcerative colitis diagnosed 6 weeks ago, history of Parkinson's disease. PAST SURGICAL HISTORY: EGD and flexible sigmoidoscopy at [facility] 6 weeks ago. MEDICATIONS AT HOME: Include Amantadine, Arimidex, carbidopa levodopa, Bentyl, Marinol, Loperamide, Ensure, Lopressor, Protonix, Flomax, Prednisone 45 mg daily. ALLERGIES: PENICILLIN. SOCIAL HISTORY: Former smoker. No alcohol use. REVIEW OF SYSTEMS: Cardiopulmonary: No chest pain or shortness of breath. Genitourinary: No dysuria or hematuria. Musculoskeletal: Unremarkable except for generalized weakness. Psychiatric: Unremarkable. ENT/Vision: Unremarkable. Neurology: History of Parkinson disease. Constitutional: Weight loss but he does not know how much he lost. No fever, chills, night sweats. Generalized fatigue and weakness. Hematology unremarkable. Endocrine: Unremarkable. PHYSICAL EXAMINATION: GENERAL: He appears comfortable in no apparent distress. VITAL SIGNS: Vital signs stable. Blood pressure 93/52, pulse rate 86, temperature 97.6. HEENT examination unremarkable. Conjunctivae pink. Sclerae anicteric. Oral cavity no lesions. NECK: No JVD or lymph node enlargement. CHEST: Clear to auscultation. HEART: Regular rate and rhythm. ABDOMEN: Soft. It was nontender, nondistended. Bowel sounds are positive. No organomegaly. EXTREMITIES: No pedal edema. SKIN: No rashes. NEUROLOGICAL: Alert and oriented times three. No focal deficits. Generalized body weakness. LABORATORY DATA: Labs done yesterday: WBC 8.7, hemoglobin 11.4, platelets normal. Basic metabolic panel within normal limits. BUN and creatinine normal. Ferritin 664. 76. Albumin 2.5. Covid-19 negative. C difficile toxin is negative. IMPRESSION: 1. Severe ulcerative colitis diagnosed in April of this year at [facility] on a flexible sigmoidoscopy when he presented with bloody diarrhea of two weeks duration. The patient had a recent prolonged hospitalization at this hospital for almost 14 days and was just discharged to a [facility] a week ago. He was treated with IV steroids for almost 12 days and changed to Prednisone 50 mg daily. Current on 45 mg daily. Had 2 to 3 bowel movements with small amount of blood in the stool. Overall he is doing much better in regards to ulcerative colitis. 2. Protein energy malnutrition with progressive weight loss probably from recent Covid- 19 infection as well as exacerbation of ulcerative colitis as well as severe ulcerative colitis. 3. Elevated CRP, probably related to underlying active ulcerative colitis. 4. Repeat Covid-19 test was negative yesterday. RECOMMENDATIONS: 1. Continue Prednisone 45 mg daily. 2. We will start him on biologic agents with Remicade on an outpatient basis which has already been approved with the insurance company. 3. Continue with suppository and for now. 4. I had a lengthy discussion with the patient that he is not a good candidate to proceed with a PEG tube at the present time since the increased risk of infection while he is on immunosuppressive therapy with high doses of Prednisone as well as biologics in the near future. Instead, I recommended that we start him on parenteral nutrition and I have called Dr. Van and discussed with him and will proceed with PICC line placement and starting the TPN to improve his overall nutrition status. 5. The patient is agreeable with this plan. For now, we will follow with you closely. Thank you for this consultation. CALLIE / JOANN: [id number] /
[2019-06-13] MEDS: PANTOPRAZOLE 40 MG TABLET PO SCH ×2 (06:14→16:59)
[2019-06-13] MEDS: LOPERAMIDE 2 MG CAP PO PRN (06:14)
[2019-06-13] MEDS: FLUCONAZOLE ORAL SUSP 1,400 MG/35 ML BOTTLE PO SCH (07:29)
[2019-06-13] MEDS: LACTOBACILLUS ACIDOPH & BULGAR 1 EACH PACKET PO SCH ×2 (07:29→20:16)
[2019-06-13] MEDS: CHOLESTYRAMINE (WITH SUGAR) 4 GM PACKET PO SCH ×2 (07:29→17:00)
[2019-06-13] MEDS: NYSTATIN 100,000 UNIT/ML SUSP 500,000 UNIT/5 ML CUP PO SCH ×4 (07:29→20:16)
[2019-06-13] MEDS: CARBIDOPA-LEVODOPA 25-100 MG 1 EACH TAB PO SCH ×3 (07:30→16:59)
[2019-06-13] MEDS: METOPROLOL TARTRATE 25 MG TAB PO SCH ×2 (07:30→20:16)
[2019-06-13] MEDS: MULTIVITAMINS, THERA 1 EACH TAB PO SCH (07:30)
[2019-06-13] MEDS: AMANTADINE HCL 100 MG CAP PO SCH ×2 (07:30→20:16)
[2019-06-13] MEDS: predniSONE 10 MG TAB PO SCH (07:30)
[2019-06-13] MEDS: DRONABINOL 2.5 MG CAP PO SCH ×2 (07:30→16:59)
[2019-06-13] MEDS: TAMSULOSIN 0.4 MG CAP.ER.24H PO SCH (07:30)
[2019-06-13] MEDS: ENOXAPARIN 40 MG/0.4 ML SYRINGE SQ SCH (07:31)
[2019-06-13] MEDS: ALBUTEROL HFA INHALER INHALATION SCH ×3 (08:10→18:58)
[2019-06-13] MEDS ORDERED: METOPROLOL TARTRATE 25 MG TAB PO SCH (09:00)
[2019-06-13] MEDS ORDERED: LIDOCAINE 1% INJ 10MG/ML (20 ML MDV) SQ ONE (09:38)
--- NOTE | 2019-06-13 09:54 | IR ---
PICC LINE PLACEMENT: HISTORY: Infection requiring long-term antibiotic therapy PROCEDURE: Ultrasound and fluoroscopic guidance of PICC line placement. COMPLICATIONS: None ANESTHESIA: 1. 1% Lidocaine locally. FINDINGS/TECHNIQUE: The procedure was explained to the patient. The risks, complications, benefits and alternatives were discussed and any questions were answered. Informed consent was obtained. The patient was placed supine on the fluoroscopic table and prepped and draped in the usual sterile fash ion. Utilizing a 21 gauge needle and sonographic and fluoroscopic guidance, access in the right bas ilic vein was achieved and there is placement of a 0.018 guidewire. The vein is patent. A 4-F sheat h was placed over the guidewire. The guidewire and dilator were removed and a 4-F. PICC line was bernarda art through the sheath with the tip at the level of the SVC. The sheath was removed, the catheter wa s flushed and sutured into position. The patient was stable throughout the procedure and remained st able upon discharge from the Department of Radiology. The vein puncture was patent under ultrasound. A yousif scale image was obtained to document patency of the vein punctured. All elements of the maximal barrier technique were utilized. FLUOROSCOPY TIME: 0.1 minutes of fluoroscopy and one image submitted IMPRESSION: Successful PICC line placement under ultrasound and fluoroscopic guidance.
[2019-06-13] MEDS ORDERED: MVI, ADULT NO.4 WITH VIT K 10 ML, TRACE (CONC-1ML/DOSE) 1 ML in AMINO ACID 5%-D15W+LYTE... IV ONE ×3 (13:00)
--- NOTE | 2019-06-13 15:57 | PN ---
PROGRESS NOTE DATE OF DICTATION: 06/13/2019 The patient is a 68-year-old pleasant white male with newly diagnosed ulcerative colitis 7 weeks ago, has been steroid-dependent since then, had a recent prolonged hospitalization and was discharged home a week ago to [facility] for rehab therapy. He had progressive weight loss of almost 60 pounds in the last 2 months since onset of his symptoms. This was complicated with right colon infection that was diagnosed during his last hospitalization. He was on IV steroids for 2 weeks and discharged to the halfway on prednisone 50 mg daily and presently on 45 mg daily. He still continues to complain of some vague abdominal pain, has diarrhea with bowel movements 3- 4 a day which are sometimes dark blood in the stool. Has decreased taste and smell and his oral intake has significantly decreased and he has lost about 60 pounds. No fever, chills or night sweats. He complains of weakness and tiredness. PHYSICAL EXAMINATION: Appears comfortable. VITAL SIGNS: Stable. Blood pressure 102/63, pulse rate 89, temperature 98. HEENT examination unremarkable. Conjunctivae pink. Sclerae anicteric. Oral cavity no lesions. NECK: No JVD or lymph node enlargement. CHEST: Clear to auscultation. HEART: Regular rate and rhythm. ABDOMEN: Soft. It was slightly tender in the suprapubic area. Rest of the abdomen was benign. Bowel sounds are positive. No organomegaly. EXTREMITIES: No pedal edema. SKIN: No rashes. NEUROLOGIC: Alert and oriented x3. No focal deficits. He has extreme weakness in the proximal muscles. IMPRESSION: 1. Severe ulcerative colitis diagnosed in the first week of April at [facility] on a flexible sigmoidoscopy that showed severe colitis, was treated with IV steroids and has been steroid-dependent since then, with IV steroids for 2 weeks during last hospitalization and currently on prednisone 45 mg daily and continues to remain somewhat symptomatic. CRP is still elevated at 76.9. Most likely we are dealing with steroid-refractory colitis. 2. Recent COVID-19 infection, resolved. Repeat coronavirus PCR was negative. 3. Progressive weight loss of 60 pounds in the last 2 months' duration. 4. Extreme debility and protein energy malnutrition from decreased oral intake. RECOMMENDATIONS: I had a lengthy discussion with the patient's daughter yesterday regarding further management of his underlying severe ulcerative colitis. Since he remains steroid- refractory/steroid-dependent, I suggested that we can start him on biologics on an outpatient basis. Remicade infusions have been approved on an outpatient basis, which cannot be given during this hospitalization. However, I did explain to the patient as well as his daughter in detail that biologic therapy is successful in approximately 70% to 80% of the patients, and would take another 2-3 months for symptoms to resolve. In the meantime, in regards to oral nutrition, I suggested starting him on TPN to improve his overall general nutrition and consider a transfer to a tertiary care institute for further management and consideration to be evaluated by a colorectal surgeon in case he needs surgical intervention with a colectomy if he continues to remain refractory to steroid therapy. After this was discussed in great length with the family, she would like to discuss it with her father and let me know what they would like. In the meantime, will continue with prednisone 45 mg daily, and if the patient decides to stay back Dictation ends here abruptly. CALLIE / JOANN: [id number] /
--- NOTE | 2019-06-13 18:09 | PN ---
PROGRESS NOTE DATE OF SERVICE: 06/13/2019 REASON FOR FOLLOWUP: Oral thrush and diarrhea. INTERVAL HISTORY: The patient is currently afebrile. He seems to be feeling slightly better today as far as soreness in the throat is concerned. Denies having chest pain. Occasional cough. No nausea, no vomiting. No abdominal pain or any worsening diarrhea. PHYSICAL EXAMINATION: Blood pressure 95/63 with a pulse of 96, temperature 97.5. He is 96% on room air. General description is an elderly male lying in bed in no distress. RESPIRATORY SYSTEM: Unlabored breathing. Clear to auscultation anteriorly. HEART: S1, S2. Regular rate and rhythm. ABDOMEN: Soft. No tenderness. LABS: Hemoglobin is 11.4, white count 8.7, BUN of 14, creatinine 0.64. Blood culture has been negative. DIAGNOSTIC IMPRESSION AND PLAN: 1. Patient with extensive oral thrush with concern about possible oropharyngeal candidiasis. Continue nystatin swish and swallow and Diflucan. 2. Diarrhea, more likely due to his underlying ulcerative colitis, being managed by [facility]. Continue with symptomatic treatment. MMODL / IJN: [id number] /
[2019-06-13] MEDS: MESALAMINE 1,000 MG SUPP RECTAL SCH (20:17)
--- NOTE | 2019-06-13 20:40 | P.PN ---
Progress Note - Text Progress Note Date: 06/13/19 Chief Complaint: Weak and tired History of presenting complaint: This is a very pleasant 68-year-old patient of Dr. Jossue Peguero. Patient was not prolonged cold in the hospital from May 13 through May 29. Admitted with a diagnosis of acute exacerbation of ulcerative colitis. Also had COVID-19 pneumonia and Pseudomonas pneumonia. Patient was treated with Colazal, Canasa enemas steroids. Discharged on high-dose of steroids. Seen by Dr. Agustina Norris from GI. Supposed to start Biologics down the road. Patient was discharged to the [facility]. Patient now presents with feeling weak tired rundown. Very dry mouth. Does not like the taste of food. Occasional abdominal cramping. May be some blood in the stool. No fever no chills. No respiratory symptoms. (For the same. Admitted with severe asthenia, some steroid-induced myopathy, significant anorexia. Today-still rather tired. Decreased appetite. Patient had a PICC line placed today. Will be starting on TPN and lipids. Discussed at length with Dr. Agustina Norris from GI. Possible selective sigmoidoscopy tomorrow. Also discussed at length with the patient. He wishes for me to talk to the daughter. Review of systems: Was done for constitutional, cardiovascular, GI, pulmonary. relevant finding as above Active Medications Acetaminophen (Tylenol Tab) 500 mg PO Q6HR PRN PRN Reason: Fever and/ or Pain Last Admin: 06/12/19 05:36 Dose: 500 mg Documented by: Albuterol Sulfate (Ventolin Hfa Inhaler) 2 puff INHALATION RT-TID [facility] Last Admin: 06/13/19 18:58 Dose: 2 puff Documented by: Amantadine HCl (Symmetrel) 100 mg PO BID [facility] Last Admin: 06/13/19 20:16 Dose: 100 mg Documented by: Anastrozole (Arimidex) 1 mg PO SUTUFR [facility] Last Admin: 06/11/19 10:07 Dose: 1 mg Documented by: Carbidopa/Levodopa (Sinemet 25-100) 1 each PO TID@1000,1400,1800 [facility] Last Admin: 06/13/19 16:59 Dose: 1 each Documented by: Cholestyramine Resin (Questran) 4 gm PO BID@1000,1800 [facility] Last Admin: 06/13/19 17:00 Dose: 4 gm Documented by: Dicyclomine HCl (Bentyl) 20 mg PO Q6H PRN PRN Reason: Dyspepsia Last Admin: 06/12/19 17:08 Dose: 20 mg Documented by: Dronabinol (Marinol) 2.5 mg PO BID@0800,1600 [facility] Last Admin: 06/13/19 16:59 Dose: 2.5 mg Documented by: Enoxaparin Sodium (Lovenox) 40 mg SQ DAILY [facility] Last Admin: 06/13/19 07:31 Dose: Not Given Documented by: Fluconazole (Diflucan) 200 mg PO DAILY [facility] Last Admin: 06/13/19 07:29 Dose: 200 mg Documented by: Dextrose/Sodium Chloride (Dextrose 5%-1/2ns Iv Soln) 1,000 mls @ 125 mls/hr IV .Q8H [facility] Last Admin: 06/13/19 17:00 Dose: Not Given Documented by: Parenteral Vitamin Supplement 10 ml/ Chromium/Copper/Manganese/Seleni/Zn 1 ml/Amino Ac/Electrol/Dextrose/Calcium 1,011 mls @ 30 mls/hr IV .Q24H [facility] Stop: 06/14/19 12:59 Last Admin: 06/13/19 13:32 Dose: 30 mls/hr Documented by: Parenteral Vitamin Supplement 10 ml/ Chromium/Copper/Manganese/Seleni/Zn 1 ml/Amino Ac/Electrol/Dextrose/Calcium 1,011 mls @ 55 mls/hr IV .[id number] [facility] Fat Emulsion Intravenous (Lipids 20%) 250 mls @ 20.833 mls/hr IV MoWeFr@1300 [facility] Lactobacillus Acidoph/Bulgaricus (Lactinex) 1 each PO BID [facility] Last Admin: 06/13/19 20:16 Dose: 1 each Documented by: Loperamide HCl (Imodium) 2 mg PO Q6H PRN PRN Reason: Diarrhea Last Admin: 06/13/19 06:14 Dose: 2 mg Documented by: Mesalamine (Canasa) 1,000 mg RECTAL HS [facility] Last Admin: 06/13/19 20:17 Dose: Not Given Documented by: Metoprolol Tartrate (Lopressor) 25 mg PO BID [facility] Last Admin: 06/13/19 20:16 Dose: 25 mg Documented by: Miscellaneous Information (Pneumonia Protocol Utilized) 1 each PO ONCE PRN PRN Reason: Per Protocol Multivitamins (Theragran) 1 each PO DAILY@0800 [facility] Last Admin: 06/13/19 07:30 Dose: 1 each Documented by: Nystatin (Mycostatin Oral Susp) 500,000 unit PO QID [facility] Last Admin: 06/13/19 20:16 Dose: 500,000 unit Documented by: Pantoprazole Sodium (Protonix) 40 mg PO BID@0600,1800 [facility] Last Admin: 06/13/19 16:59 Dose: 40 mg Documented by: Prednisone () 45 mg PO DAILY [facility] Last Admin: 06/13/19 07:30 Dose: 45 mg Documented by: Tamsulosin HCl (Flomax) 0.4 mg PO DAILY [facility] Last Admin: 06/13/19 07:30 Dose: 0.4 mg Documented by: Physical examination: VITAL SIGNS: 98, 89, 16, 102/63, 95% on room air GENERAL: Propped up in bed, awake EYES: Pupils equal. Conjunctiva pale. HEENT: External appearance of nose and ears normal, oral cavity dry. NECK: JVD not raised; masses not palpable. HEART: First and second heart sounds are normal; no edema. LUNGS: Respiratory rate normal, decreased breath sounds. ABDOMEN: Soft, minimal tenderness liver spleen not palpable, no masses palpable. PSYCH: Alert and oriented x3; mood and affect slightly anxious. NEUROLOGICAL: Cranial nerves grossly intact; no facial asymmetry, power and sensation grossly intact. INVESTIGATIONS, reviewed in the clinical context: White count 8.7 hemoglobin 11.4 platelets 226 potassium 4.4 bun 14 creatinine 0.64 CRP 76.9, albumin 2.5, pro calcitonin 0.14 Stool for C. 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 Agustina Norris again today. Also called the patient's daughter Sherri Baumann telephone #[phone]. Given extensive update report was discussed with Dr. Agustina Norris. Daughter will speak to the patient and will then and the patient decided to Dr. Kimball finally about transferred to [facility]. They do understand because of COVID 19 transfer may not happen. In the meantime Dr. Kimball is planning for a limited sigmoidoscopy tomorrow. Total time spent today was over an hour with over 40 minutes of discussion.
[2019-06-14] MEDS: PANTOPRAZOLE 40 MG TABLET PO SCH ×2 (05:47→18:13)
[2019-06-14 06:03] LABS: Ionized Calcium 4.9 mg/dL (4.5-5.3)
[2019-06-14 06:12] LABS: ALT 8 U/L (4-49); AST 16 U/L (17-59); African American GFR (CKD) >90 (>60 ml/min/1.73 sqM); Albumin 2.1 g/dL (3.5-5.0); Alkaline Phosphatase 83 U/L (38-126); Anion Gap 5 mmol/L; Blood Urea Nitrogen 9 mg/dL (9-20); Calcium 8.1 mg/dL (8.4-10.2); Carbon Dioxide 29 mmol/L (22-30); Chloride 95 mmol/L (98-107); Glucose 191 mg/dL (74-99); Magnesium 1.7 mg/dL (1.6-2.3); Non-African American GFR(CKD) >90 (>60 ml/min/1.73 sqM); Potassium 3.6 mmol/L (3.5-5.1); Sodium 129 mmol/L (137-145); Total Bilirubin 0.3 mg/dL (0.2-1.3); Total Protein 4.6 g/dL (6.3-8.2)
[2019-06-14 06:41] LABS: Triglycerides 98 mg/dL (<150)
[2019-06-14] MEDS: ALBUTEROL HFA INHALER INHALATION SCH ×3 (07:15→20:46)
[2019-06-14] MEDS: FLUCONAZOLE ORAL SUSP 1,400 MG/35 ML BOTTLE PO SCH (08:44)
[2019-06-14] MEDS: ENOXAPARIN 40 MG/0.4 ML SYRINGE SQ SCH (08:44)
[2019-06-14] MEDS: predniSONE 10 MG TAB PO SCH (08:45)
[2019-06-14] MEDS: DRONABINOL 2.5 MG CAP PO SCH ×2 (08:45→15:50)
[2019-06-14] MEDS: METOPROLOL TARTRATE 25 MG TAB PO SCH ×2 (08:45→20:24)
[2019-06-14] MEDS: CARBIDOPA-LEVODOPA 25-100 MG 1 EACH TAB PO SCH ×3 (08:45→18:13)
[2019-06-14] MEDS: MULTIVITAMINS, THERA 1 EACH TAB PO SCH (08:45)
[2019-06-14] MEDS: AMANTADINE HCL 100 MG CAP PO SCH ×2 (08:45→20:24)
[2019-06-14] MEDS: ANASTROZOLE 1 MG TAB PO SCH (08:45)
[2019-06-14] MEDS: CHOLESTYRAMINE (WITH SUGAR) 4 GM PACKET PO SCH ×2 (08:46→15:51)
[2019-06-14] MEDS: NYSTATIN 100,000 UNIT/ML SUSP 500,000 UNIT/5 ML CUP PO SCH ×4 (08:46→21:18)
[2019-06-14] MEDS: LACTOBACILLUS ACIDOPH & BULGAR 1 EACH PACKET PO SCH ×2 (08:46→20:25)
[2019-06-14] MEDS: TAMSULOSIN 0.4 MG CAP.ER.24H PO SCH (08:50)
[2019-06-14 09:04] LABS: Basophils % (A) 0 %; Eosinophils # (A) 0.1 k/uL (0-0.7); Eosinophils % (A) 1 %; HCT 34.3 % (39.0-53.0); HGB 10.9 gm/dL (13.0-17.5); Hypochromasia Moderate; Lymphocytes # (A) 1.1 k/uL (1.0-4.8); Lymphocytes % (A) 12 %; MCH 28.2 pg (25.0-35.0); MCHC 31.8 g/dL (31.0-37.0); MCV 88.7 fL (80.0-100.0); Mean Platelet Volume 7.8; Monocytes # (A) 0.4 k/uL (0-1.0); Monocytes % (A) 4 %; Neutrophils # (A) 7.3 k/uL (1.3-7.7); Neutrophils % (A) 81 %; Platelet Count 194 k/uL (150-450); RBC 3.87 m/uL (4.30-5.90); RDW 14.4 % (11.5-15.5)
[2019-06-14] MEDS: MAGNESIUM SULFATE-D5W PMX 1 GM in DEXTROSE/WATER 1 100ML.BAG IVPB SCH ×2 (11:10→12:34)
[2019-06-14] MEDS: MVI, ADULT NO.4 WITH VIT K 10 ML, TRACE (CONC-1ML/DOSE) 1 ML in AMINO ACID 5%-D15W+LYTE... IV SCH ×3 (15:34)
[2019-06-14] MEDS: POTASSIUM CHLORIDE 10 MEQ in WATER FOR INJECTION 1 100ML.BAG IVPB SCH ×2 (15:36→16:50)
--- NOTE | 2019-06-14 15:45 | PN ---
PROGRESS NOTE DATE OF SERVICE: 06/14/2019 Patient is a 68-year-old pleasant white male admitted to the hospital with progressive weight loss, failure to thrive, refractory ulcerative colitis. He underwent a PICC line placement yesterday and TPN was started. He is feeling a little bit better today. He still have about 3 loose bowel movements. He remains on Bentyl as well as Questran. He is also on prednisone 45 mg daily. He has some lower abdominal discomfort, some dysphagia. PHYSICAL EXAMINATION: Appears comfortable. Vital signs show a blood pressure of 115/70, pulse rate 107, temperature 97.5 HEENT: Examination unremarkable. Conjunctivae are pink. Sclerae nonicteric. Oral cavity, no lesions. NECK: No JVD or lymph node enlargement. CHEST: Clear to auscultation. HEART: Regular rate and rhythm. ABDOMEN: Soft. Bowel sounds are positive. No organomegaly. EXTREMITIES: No pedal edema. SKIN: No rashes. NEUROLOGIC: Alert and oriented x3. No focal deficits. LABS: From today WBC 9, hemoglobin 10.9, platelets normal. Basic metabolic panel, sodium 129, potassium 3.6, chloride 95, CO2 is 19, BUN and creatinine are within normal limits. IMPRESSION: 1. Severe ulcerative colitis. steroid dependent for the last 7 weeks. Presently on prednisone 45 mg daily. Continues to have 3 to 4 loose bowel movements with some blood in the stool. Hemoglobin remains stable. CRP is still elevated. 2. COVID-19 infection, resolved. 3. Progressive weight loss of 40 pounds in the last 2 months since the diagnosis of ulcerative colitis. 4. Anosmia secondary from recent: COVID-19 infection causing decreased appetite. 5. Protein energy malnutrition started on IV TPN yesterday. RECOMMENDATIONS: I had a lengthy discussion with the patient as well as his family regarding further management at this time. Will continue with prednisone 45 mg daily and taper it of 40 mg next week. In the meantime, I recommended that we proceed with a flexible sigmoidoscopy to see for any improvement in the colitis and based on that, further decisions will be made regarding biological therapy versus surgical intervention. The patient wants to rest over the weekend and is agreeable to have an flexible sigmoidoscopy on Monday. In the meantime, I will obtain stool for and obtain repeat CRP tomorrow. Continue TPN for now. Encourage eating, repeat labs in the morning and will follow with you closely. Thank you for this consultation. MMODL / IJN: [id number] /
--- NOTE | 2019-06-14 17:47 | P.PN ---
Progress Note - Text Progress Note Date: 06/14/19 Chief Complaint: Weak and tired History of presenting complaint: This is a very pleasant 68-year-old patient of Dr. Jossue Peguero. Patient was not prolonged cold in the hospital from May 13 through May 29. Admitted with a diagnosis of acute exacerbation of ulcerative colitis. Also had COVID-19 pneumonia and Pseudomonas pneumonia. Patient was treated with Colazal, Canasa enemas steroids. Discharged on high-dose of steroids. Seen by Dr. Agustina Norris from GI. Supposed to start Biologics down the road. [facility] was [facility] to the [facility] Patient now presents with feeling weak tired rundown. Very dry mouth. Does not like the taste of food. Occasional abdominal cramping. May be some blood in the stool. No fever no chills. No respiratory symptoms. (For the same. Admitted with severe asthenia, some steroid-induced myopathy, oral candidiasis, significant anorexia. PICC line was placed. Started on TPN-lipids. Today-eating slightly better. Getting TPN lipids. Tired.In the last 24 hours patient's had 3-4 bowel movements. No blood. Declined physical therapy Review of systems: Was done for constitutional, cardiovascular, GI, pulmonary. relevant finding as above Active Medications Acetaminophen (Tylenol Tab) 500 mg PO Q6HR PRN PRN Reason: Fever and/ or Pain Last Admin: 06/12/19 05:36 Dose: 500 mg Documented by: Albuterol Sulfate (Ventolin Hfa Inhaler) 2 puff INHALATION RT-TID [facility] Last Admin: 06/14/19 15:25 Dose: 2 puff Documented by: Amantadine HCl (Symmetrel) 100 mg PO BID [facility] Last Admin: 06/14/19 08:45 Dose: 100 mg Documented by: Anastrozole (Arimidex) 1 mg PO SUTUFR [facility] Last Admin: 06/14/19 08:45 Dose: 1 mg Documented by: Carbidopa/Levodopa (Sinemet 25-100) 1 each PO TID@1000,1400,1800 [facility] Last Admin: 06/14/19 15:50 Dose: 1 each Documented by: Cholestyramine Resin (Questran) 4 gm PO BID@1000,1800 [facility] Last Admin: 06/14/19 15:51 Dose: 4 gm Documented by: Dicyclomine HCl (Bentyl) 20 mg PO Q6H PRN PRN Reason: Dyspepsia Last Admin: 06/12/19 17:08 Dose: 20 mg Documented by: Dronabinol (Marinol) 2.5 mg PO BID@0800,1600 [facility] Last Admin: 06/14/19 15:50 Dose: 2.5 mg Documented by: Enoxaparin Sodium (Lovenox) 40 mg SQ DAILY [facility] Last Admin: 06/14/19 08:44 Dose: 40 mg Documented by: Fluconazole (Diflucan) 200 mg PO DAILY [facility] Last Admin: 06/14/19 08:44 Dose: 200 mg Documented by: Dextrose/Sodium Chloride (Dextrose 5%-1/2ns Iv Soln) 1,000 mls @ 125 mls/hr IV .Q8H [facility] Last Admin: 06/13/19 23:28 Dose: Not Given Documented by: Parenteral Vitamin Supplement 10 ml/ Chromium/Copper/Manganese/Seleni/Zn 1 ml/Amino Ac/Electrol/Dextrose/Calcium 1,011 mls @ 55 mls/hr IV .[id number] [facility] Last Admin: 06/14/19 15:34 Dose: 55 mls/hr Documented by: Fat Emulsion Intravenous (Lipids 20%) 250 mls @ 20.833 mls/hr IV MoWeFr@1300 [facility] Lactobacillus Acidoph/Bulgaricus (Lactinex) 1 each PO BID [facility] Last Admin: 06/14/19 08:46 Dose: 1 each Documented by: Mesalamine (Canasa) 1,000 mg RECTAL HS [facility] Last Admin: 06/13/19 20:17 Dose: Not Given Documented by: Metoprolol Tartrate (Lopressor) 25 mg PO BID [facility] Last Admin: 06/14/19 08:45 Dose: 25 mg Documented by: Miscellaneous Information (Pneumonia Protocol Utilized) 1 each PO ONCE PRN PRN Reason: Per Protocol Multivitamins (Theragran) 1 each PO DAILY@0800 [facility] Last Admin: 06/14/19 08:45 Dose: 1 each Documented by: Nystatin (Mycostatin Oral Susp) 500,000 unit PO QID [facility] Last Admin: 06/14/19 15:51 Dose: 500,000 unit Documented by: Pantoprazole Sodium (Protonix) 40 mg PO BID@0600,1800 [facility] Last Admin: 06/14/19 05:47 Dose: 40 mg Documented by: Prednisone () 45 mg PO DAILY [facility] Last Admin: 06/14/19 08:45 Dose: 45 mg Documented by: Tamsulosin HCl (Flomax) 0.4 mg PO DAILY [facility] Last Admin: 06/14/19 08:50 Dose: 0.4 mg Documented by: Physical examination: VITAL SIGNS: 97.5, 107, 20, 115/70, 97% on room air GENERAL: Propped up in bed, awake EYES: Pupils equal. Conjunctiva pale. HEENT: External appearance of nose and ears normal, oral cavity dry. NECK: JVD not raised; masses not palpable. HEART: First and second heart sounds are normal; no edema. LUNGS: Respiratory rate normal, decreased breath sounds. ABDOMEN: Soft, minimal tenderness liver spleen not palpable, no masses palpable. PSYCH: Alert and oriented x3; mood and affect slightly anxious. NEUROLOGICAL: Cranial nerves grossly intact; no facial asymmetry, power and sensation grossly intact. INVESTIGATIONS, reviewed in the clinical context: White count 9 hemoglobin 10.9 sodium 139 potassium 3.6 creatinine 0.55 Previous testing White count 8.7 hemoglobin 11.4 platelets 226 potassium 4.4 bun 14 creatinine 0.64 CRP 76.9, albumin 2.5, pro calcitonin 0.14 Stool for C. 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 Kimball TODAY. She discussed with the patient. Patient does not want sigmoidoscopy tomorrow. Possibly Monday. I also discussed with the patient earlier today. Patient declined physical therapy.
[2019-06-14] MEDS: FAT EMULSION 20% 250 ML IV SCH (18:13)
[2019-06-14] MEDS: MESALAMINE 1,000 MG SUPP RECTAL SCH ×2 (20:24→21:00)
[2019-06-14] MEDS: DEXTROSE 5%-0.45% NACL 1,000 ML IV SCH ×2 (20:29→23:34)
[2019-06-15] MEDS: ACETAMINOPHEN TAB 500 MG TAB PO PRN (01:45)
[2019-06-15] MEDS: DICYCLOMINE 20 MG TAB PO PRN ×2 (02:59→21:04)
[2019-06-15] MEDS: PANTOPRAZOLE 40 MG TABLET PO SCH ×2 (05:26→17:17)
[2019-06-15] MEDS: ALBUTEROL HFA INHALER INHALATION SCH ×3 (07:50→20:01)
[2019-06-15] MEDS: DEXTROSE 5%-0.45% NACL 1,000 ML IV SCH ×2 (07:57→15:09)
[2019-06-15 08:28] LABS: African American GFR (CKD) >90 (>60 ml/min/1.73 sqM); Anion Gap 7 mmol/L; Blood Urea Nitrogen 10 mg/dL (9-20); Calcium 7.8 mg/dL (8.4-10.2); Carbon Dioxide 28 mmol/L (22-30); Chloride 95 mmol/L (98-107); Glucose 152 mg/dL (74-99); Magnesium 1.9 mg/dL (1.6-2.3); Non-African American GFR(CKD) >90 (>60 ml/min/1.73 sqM); Phosphorus 2.5 mg/dL (2.5-4.5); Potassium 3.4 mmol/L (3.5-5.1); Sodium 130 mmol/L (137-145)
[2019-06-15] MEDS: MULTIVITAMINS, THERA 1 EACH TAB PO SCH (09:03)
[2019-06-15] MEDS: DRONABINOL 2.5 MG CAP PO SCH ×2 (09:03→17:17)
[2019-06-15] MEDS: AMANTADINE HCL 100 MG CAP PO SCH ×2 (09:03→21:05)
[2019-06-15] MEDS: TAMSULOSIN 0.4 MG CAP.ER.24H PO SCH (09:03)
[2019-06-15] MEDS: METOPROLOL TARTRATE 25 MG TAB PO SCH ×2 (09:04→21:05)
[2019-06-15] MEDS: predniSONE 10 MG TAB PO SCH (09:04)
[2019-06-15] MEDS: LACTOBACILLUS ACIDOPH & BULGAR 1 EACH PACKET PO SCH ×2 (09:07→21:05)
[2019-06-15] MEDS: FLUCONAZOLE ORAL SUSP 1,400 MG/35 ML BOTTLE PO SCH (09:08)
[2019-06-15] MEDS: NYSTATIN 100,000 UNIT/ML SUSP 500,000 UNIT/5 ML CUP PO SCH ×4 (09:10→21:04)
[2019-06-15] MEDS: ENOXAPARIN 40 MG/0.4 ML SYRINGE SQ SCH (09:11)
[2019-06-15] MEDS: CHOLESTYRAMINE (WITH SUGAR) 4 GM PACKET PO SCH ×2 (09:14→17:17)
[2019-06-15] MEDS: CARBIDOPA-LEVODOPA 25-100 MG 1 EACH TAB PO SCH ×3 (09:16→17:17)
[2019-06-15] MEDS: MVI, ADULT NO.4 WITH VIT K 10 ML, TRACE (CONC-1ML/DOSE) 1 ML in AMINO ACID 5%-D15W+LYTE... IV SCH ×3 (09:29)
--- NOTE | 2019-06-15 10:45 | PN ---
PROGRESS NOTE DATE OF DICTATION: June 15, 2019 The patient is a 68-year-old white male with history of refractory ulcerative colitis who has been steroid dependent for the last 7 weeks, admitted to hospital with failure to thrive, protein energy malnutrition, decreased oral intake and a recent COVID-19 infection. He continues to have diarrhea with 4-5 bowel movements, sometimes blood and mucus in the stool. He remains on prednisone 45 mg daily. He was started on TPN 2 days ago. He continues to complain of lower abdominal pain. Reports no nausea, vomiting. No fever, chills, or night sweats. PHYSICAL EXAMINATION: He appears comfortable. No apparent distress. VITAL SIGNS: Stable. Blood pressure 112/86, pulse rate 93, temperature 98.2. HEENT examination unremarkable. Conjunctivae pink. Sclerae anicteric. Oral cavity no lesions. NECK: No JVD or lymph node enlargement. CHEST was clear to auscultation. HEART: Regular rate and rhythm. ABDOMEN: Minimal tenderness in the lower abdominal area. Rest of the abdomen was benign. Bowel sounds are positive. No organomegaly. EXTREMITIES: No pedal edema. SKIN no rashes. NEUROLOGIC: Alert and oriented x3. No focal deficits. LABORATORY DATA: Lab from today, CRP decreased to 49.7. Fecal samm protectant is pending. Basic metabolic panel is normal. IMPRESSION: 1. Severe ulcerative colitis refractory to steroid therapy. He has been on high doses of steroids for the last 7 weeks. Currently on 45 mg prednisone daily. Still has 4-5 loose to soft bowel movements with some blood and mucus. CRP has slightly improved to 49.7. 2. Recent COVID-19 infection, resolved. 3. Severe anosmia with decreased appetite and poor oral intake. The patient started on TPN 2 days ago. 4. History of Parkinson disease. 5. Severe debilitation from ongoing illness. RECOMMENDATIONS: I had a lengthy discussion with the patient and his daughter over the last 2 days regarding further management. At this time, we will continue on TPN. We will plan on a repeat flexible sigmoidoscopy on Monday. In the meantime, order fecal samm protectant. If the colonoscopy reveals severe colitis, we will consider surgical consultation for colectomy. The patient at this time does not want to proceed with any biologic therapy. We will follow with you closely. Thank you for this consultation. MMODL / IJN: [id number] /
[2019-06-15] MEDS ORDERED: POTASSIUM CHLORIDE 20 MEQ in WATER FOR INJECTION 1 100ML.BAG IVPB SCH (11:00)
[2019-06-15] MEDS: POTASSIUM CHLORIDE ER 20 MEQ TAB.ER PO SCH ×2 (12:08→13:22)
--- NOTE | 2019-06-15 17:02 | P.PN ---
Progress Note - Text Progress Note Date: 06/15/19 Chief Complaint: Weak and tired History of presenting complaint: This is a very pleasant 68-year-old patient of Dr. Jossue Peguero. Patient was not prolonged cold in the hospital from May 13 through May 29. Admitted with a diagnosis of acute exacerbation of ulcerative colitis. Also had COVID-19 pneumonia and Pseudomonas pneumonia. Patient was treated with Colazal, Canasa enemas steroids. Discharged on high-dose of steroids. Seen by Dr. Agustina Norris from GI. Supposed to start Biologics down the road. Patient was discharged to the [facility]. Patient now presents with feeling weak tired rundown. Very dry mouth. Does not like the taste of food. Occasional abdominal cramping. May be some blood in the stool. No fever no chills. No respiratory symptoms. (For the same. Admitted with severe asthenia, some steroid-induced myopathy, oral candidiasis, significant anorexia. PICC line was placed. Started on TPN-lipids. Today-oral intake still low. Getting TPN lipids. Tired. Review of systems: Was done for constitutional, cardiovascular, GI, pulmonary. relevant finding as above Active Medications Acetaminophen (Tylenol Tab) 500 mg PO Q6HR PRN PRN Reason: Fever and/ or Pain Last Admin: 06/15/19 01:45 Dose: 500 mg Documented by: Albuterol Sulfate (Ventolin Hfa Inhaler) 2 puff INHALATION RT-TID [facility] Last Admin: 06/15/19 11:47 Dose: 2 puff Documented by: Amantadine HCl (Symmetrel) 100 mg PO BID [facility] Last Admin: 06/15/19 09:03 Dose: 100 mg Documented by: Anastrozole (Arimidex) 1 mg PO SUTUFR [facility] Last Admin: 06/14/19 08:45 Dose: 1 mg Documented by: Carbidopa/Levodopa (Sinemet 25-100) 1 each PO TID@1000,1400,1800 [facility] Last Admin: 06/15/19 13:22 Dose: 1 each Documented by: Cholestyramine Resin (Questran) 4 gm PO BID@1000,1800 [facility] Last Admin: 06/15/19 09:14 Dose: 4 gm Documented by: Dicyclomine HCl (Bentyl) 20 mg PO Q6H PRN PRN Reason: Dyspepsia Last Admin: 06/15/19 02:59 Dose: 20 mg Documented by: Dronabinol (Marinol) 2.5 mg PO BID@0800,1600 [facility] Last Admin: 06/15/19 09:03 Dose: 2.5 mg Documented by: Enoxaparin Sodium (Lovenox) 40 mg SQ DAILY [facility] Last Admin: 06/15/19 09:11 Dose: 40 mg Documented by: Fluconazole (Diflucan) 200 mg PO DAILY [facility] Last Admin: 06/15/19 09:08 Dose: 200 mg Documented by: Dextrose/Sodium Chloride (Dextrose 5%-1/2ns Iv Soln) 1,000 mls @ 125 mls/hr IV .Q8H [facility] Last Admin: 06/15/19 15:09 Dose: Not Given Documented by: Parenteral Vitamin Supplement 10 ml/ Chromium/Copper/Manganese/Seleni/Zn 1 ml/Amino Ac/Electrol/Dextrose/Calcium 1,011 mls @ 55 mls/hr IV .[id number] [facility] Stop: 06/16/19 03:59 Last Admin: 06/15/19 09:29 Dose: 55 mls/hr Documented by: Fat Emulsion Intravenous (Lipids 20%) 250 mls @ 20.833 mls/hr IV MoWeFr@1300 [facility] Last Admin: 06/14/19 18:13 Dose: 20.833 mls/hr Documented by: Parenteral Vitamin Supplement 10 ml/ Chromium/Copper/Manganese/Seleni/Zn 1 ml/Sodium Chloride 20 meq/Potassium Chloride 20 meq/Amino Ac/Electrol/Dextrose/Calcium 1,029 mls @ 55 mls/hr IV .[id number] [facility] Lactobacillus Acidoph/Bulgaricus (Lactinex) 1 each PO BID [facility] Last Admin: 06/15/19 09:07 Dose: 1 each Documented by: Mesalamine (Canasa) 1,000 mg RECTAL HS [facility] Last Admin: 06/14/19 21:00 Dose: Not Given Documented by: Metoprolol Tartrate (Lopressor) 25 mg PO BID [facility] Last Admin: 06/15/19 09:04 Dose: 25 mg Documented by: Miscellaneous Information (Pneumonia Protocol Utilized) 1 each PO ONCE PRN PRN Reason: Per Protocol Multivitamins (Theragran) 1 each PO DAILY@0800 [facility] Last Admin: 06/15/19 09:03 Dose: 1 each Documented by: Nystatin (Mycostatin Oral Susp) 500,000 unit PO QID [facility] Last Admin: 06/15/19 13:23 Dose: 500,000 unit Documented by: Pantoprazole Sodium (Protonix) 40 mg PO BID@0600,1800 [facility] Last Admin: 06/15/19 05:26 Dose: 40 mg Documented by: Prednisone () 45 mg PO DAILY [facility] Last Admin: 06/15/19 09:04 Dose: 45 mg Documented by: Tamsulosin HCl (Flomax) 0.4 mg PO DAILY [facility] Last Admin: 06/15/19 09:03 Dose: 0.4 mg Documented by: Physical examination: VITAL SIGNS: 98.2, 93, 18, 104/68, 96% on room air GENERAL: Propped up in bed, awake EYES: Pupils equal. Conjunctiva pale. HEENT: External appearance of nose and ears normal, oral cavity dry. NECK: JVD not raised; masses not palpable. HEART: First and second heart sounds are normal; no edema. LUNGS: Respiratory rate normal, decreased breath sounds. ABDOMEN: Soft, minimal tenderness liver spleen not palpable, no masses palpable. PSYCH: Alert and oriented x3; mood and affect slightly anxious. NEUROLOGICAL: Cranial nerves grossly intact; no facial asymmetry, power and sensation grossly intact. INVESTIGATIONS, reviewed in the clinical context: White count 9 hemoglobin 10.9 potassium 3.4 creatinine 0.5 on sodium 1:30 Previous testing White count 8.7 hemoglobin 11.4 platelets 226 potassium 4.4 bun 14 creatinine 0.64 CRP 76.9, albumin 2.5, pro calcitonin 0.14 Stool for C. diff-negative Coronavirus PCR-not detected EKG tracing personally reviewed by me--sinus rhythm with a right bundle-branch block Chest x-ray film personally reviewed by me-lung zamora clear Assessment: -Advancing medical debility, multifactorial, POA -Hyponatremia, from decreased salt intake -Significant anorexia, POA -Oral candidiasis - chronic ulcerative colitis -Clinical dehydration -Idiopathic Parkinson's disease -Novel coronavirus infected pneumonia-recently, now negative -Mild protein calorie malnutrition -Medical debility -Normocytic anemia likely from underlying colitis and from GI blood loss anemia -Possible steroid-induced myopathy, POA -BPH Plan: Patient encouraged to increase his oral intake. Continue TPN and lipids.
[2019-06-15] MEDS ORDERED: LOPERAMIDE 2 MG CAP PO PRN (20:05)
[2019-06-15] MEDS: MESALAMINE 1,000 MG SUPP RECTAL SCH (21:12)
--- NOTE | 2019-06-15 22:07 | PN ---
PROGRESS NOTE DATE OF SERVICE: 06/15/2019 REASON FOR FOLLOWUP: 1. Oral thrush. 2. Diarrhea. INTERVAL HISTORY: The patient is currently afebrile. The patient is breathing comfortably. Oral sores have slightly improved. No chest pain. No abdominal pain. Diarrhea has slowed down. PHYSICAL EXAMINATION: Blood pressure is 98/67, pulse of 87. Temperature is 97.7. He is 92% on room air. General description: The patient is an elderly male lying in bed in no distress. RESPIRATORY system: Unlabored breathing, decreased breath sounds in the bases. No wheeze. HEART S1, S2. Regular rate and rhythm. ABDOMEN soft, no tenderness. LABS: Hemoglobin is 10.8, white count 9.0, BUN of 10, creatinine 0.51. Blood culture has been negative. DIAGNOSTIC IMPRESSION AND PLAN: 1. Patient with oral thrush, concern for possible oropharyngeal candidiasis. Continue with nystatin swish and swallow and Diflucan. 2. Diarrhea. Continue Questran and monitor clinical course closely. MMODL / IJN: [id number] /
[2019-06-16] MEDS: DEXTROSE 5%-0.45% NACL 1,000 ML IV SCH ×3 (01:39→17:29)
[2019-06-16] MEDS: MVI, ADULT NO.4 WITH VIT K 10 ML, TRACE (CONC-1ML/DOSE) 1 ML, SODIUM CHLORIDE 2.5MEQ/ML... IV SCH ×10 (03:49→23:38)
[2019-06-16] MEDS: PANTOPRAZOLE 40 MG TABLET PO SCH ×2 (06:08→17:28)
[2019-06-16] MEDS: DICYCLOMINE 20 MG TAB PO PRN ×2 (06:08→11:47)
[2019-06-16 07:09] LABS: African American GFR (CKD) >90 (>60 ml/min/1.73 sqM); Anion Gap 7 mmol/L; Blood Urea Nitrogen 11 mg/dL (9-20); Calcium 7.9 mg/dL (8.4-10.2); Carbon Dioxide 27 mmol/L (22-30); Chloride 95 mmol/L (98-107); Glucose 135 mg/dL (74-99); Magnesium 1.7 mg/dL (1.6-2.3); Non-African American GFR(CKD) >90 (>60 ml/min/1.73 sqM); Phosphorus 2.7 mg/dL (2.5-4.5); Sodium 129 mmol/L (137-145)
[2019-06-16] MEDS: ALBUTEROL HFA INHALER INHALATION SCH ×3 (07:57→20:37)
--- NOTE | 2019-06-16 08:30 | XR ---
EXAMINATION TYPE: XR abdomen complete w decub , 4 VIEWS DATE OF EXAM ORDERED: 06/16/2019 HISTORY: abdominal pain. COMPARISON: None. FINDINGS: The lung bases are clear. Within the abdomen, the abdominal gas pattern is within normal limits. There is no evidence of obstru ction or free air. No unusual calcifications are seen. IMPRESSION: NO ACUTE THORACIC OR ABDOMINAL ABNORMALITY.
[2019-06-16] MEDS: predniSONE 10 MG TAB PO SCH (10:15)
[2019-06-16] MEDS: CARBIDOPA-LEVODOPA 25-100 MG 1 EACH TAB PO SCH ×3 (10:15→17:28)
[2019-06-16] MEDS: DRONABINOL 2.5 MG CAP PO SCH ×2 (10:15→17:28)
[2019-06-16] MEDS: METOPROLOL TARTRATE 25 MG TAB PO SCH ×2 (10:15→21:33)
[2019-06-16] MEDS: MULTIVITAMINS, THERA 1 EACH TAB PO SCH (10:15)
[2019-06-16] MEDS: TAMSULOSIN 0.4 MG CAP.ER.24H PO SCH (10:15)
[2019-06-16] MEDS: ANASTROZOLE 1 MG TAB PO SCH (10:18)
[2019-06-16] MEDS: NYSTATIN 100,000 UNIT/ML SUSP 500,000 UNIT/5 ML CUP PO SCH ×4 (10:19→21:34)
[2019-06-16] MEDS: CHOLESTYRAMINE (WITH SUGAR) 4 GM PACKET PO SCH ×2 (10:19→17:31)
[2019-06-16] MEDS: ENOXAPARIN 40 MG/0.4 ML SYRINGE SQ SCH (10:19)
[2019-06-16] MEDS: FLUCONAZOLE ORAL SUSP 1,400 MG/35 ML BOTTLE PO SCH (10:20)
[2019-06-16] MEDS: LACTOBACILLUS ACIDOPH & BULGAR 1 EACH PACKET PO SCH ×2 (10:20→21:33)
[2019-06-16] MEDS: AMANTADINE HCL 100 MG CAP PO SCH ×2 (10:21→21:33)
--- NOTE | 2019-06-16 11:25 | PN ---
PROGRESS NOTE DATE OF SERVICE: 06/16/2019 The patient is a 68-year-old pleasant white male with severe refractory ulcerative colitis, maintained on oral steroids for the last 7 days duration. Continues to have diarrhea, anywhere from 6-7 which are loose in consistency. They are adilene colored. He started complaining of some lower abdominal pain last night and this morning he states he is feeling better. He had a couple of loose watery bowel movements this morning. He remains on oral prednisone 45 mg daily. He denies any fever, chills, night sweats. He reports no nausea, vomiting. He continues to have decreased oral intake. He continues to have anosmia. Remains on total parenteral nutrition. PHYSICAL EXAMINATION: He appears comfortable. No obvious distress. VITAL SIGNS: Stable. Blood pressure is 112/72, pulse rate 92, temperature 97.4. HEENT examination unremarkable. Conjunctivae pink, sclerae anicteric. Oral cavity, no lesions. NECK: No JVD or lymph node enlargement. CHEST: Clear to auscultation. HEART: Regular rate and rhythm. ABDOMEN: Soft. There was mild diffuse tenderness noted throughout the abdomen, more predominant in the left lower quadrant area. The rest of the abdomen was benign. EXTREMITIES: No pedal edema. SKIN: No rashes. NEURO: He is awake, oriented to name, place, and time, but continues to have progressive weakness. LABS: From today sodium 129, potassium 4, chloride 95, CO2 is 27. BUN and creatinine 11 and 0.45 respectively. CBC not done. Abdominal x-rays were ordered because of diffuse abdominal pain which was unremarkable. IMPRESSION: 1. Severe refractory ulcerative colitis, continues to remain on oral steroids of prednisone 45 mg daily and he still remains symptomatic with elevated CRP and overall progressive weakness. 2. Recent COVID-19 infection which has resolved. 3. Progressive debility with weakness. 4. Protein-calorie malnutrition maintained on TPN for the last 4 days. RECOMMENDATIONS: Once again, had a lengthy discussion with the patient regarding further management. We will proceed with a flexible sigmoidoscopy to see if any improvement in ulcerative colitis and if not, will consider surgical consultation for possible colectomy. The patient understands this very clearly. He expressed that he would not like to start any biologic agents at this time and he is scheduled for a flexible sigmoidoscopy tomorrow. Once again, I answered all of his questions and he is agreeable with the plan. In the meantime, continue to maintain on TPN and he will remain on a clear liquid diet today. We will follow with you closely. Thank you for this consultation. MELISSAL / LOURDESN: [id number] /
[2019-06-16] MEDS: MAGNESIUM SULFATE-D5W PMX 1 GM in DEXTROSE/WATER 1 100ML.BAG IVPB SCH ×2 (12:12→13:27)
[2019-06-16] MEDS ORDERED: MAGNESIUM CITRATE 296 ML BOTTLE PO ONE (19:00)
--- NOTE | 2019-06-16 19:11 | P.PN ---
Progress Note - Text Progress Note Date: 06/16/19 Chief Complaint: Weak and tired History of presenting complaint: This is a very pleasant 68-year-old patient of Dr. Jossue Peguero. Patient was not prolonged cold in the hospital from May 13 through May 29. Admitted with a diagnosis of acute exacerbation of ulcerative colitis. Also had COVID-19 pneumonia and Pseudomonas pneumonia. Patient was treated with Colazal, Canasa enemas steroids. Discharged on high-dose of steroids. Seen by Dr. Agustnia Norris from GI. Supposed to start Biologics down the road. Patient was discharged to the [facility]. Patient now presents with feeling weak tired rundown. Very dry mouth. Does not like the taste of food. Occasional abdominal cramping. May be some blood in the stool. No fever no chills. No respiratory symptoms. (For the same. Admitted with severe asthenia, some steroid-induced myopathy, oral candidiasis, significant anorexia. PICC line was placed. Started on TPN-lipids. Today-IV TPN lipids. Not much of an appetite. Having anywhere from 4-5 BMs and 24 hours. Intermittent abdominal cramping. No blood in the stool. Review of systems: Was done for constitutional, cardiovascular, GI, pulmonary. relevant finding as above Active Medications Acetaminophen (Tylenol Tab) 500 mg PO Q6HR PRN PRN Reason: Fever and/ or Pain Last Admin: 06/15/19 01:45 Dose: 500 mg Documented by: Albuterol Sulfate (Ventolin Hfa Inhaler) 2 puff INHALATION RT-TID [facility] Last Admin: 06/16/19 11:42 Dose: 2 puff Documented by: Amantadine HCl (Symmetrel) 100 mg PO BID [facility] Last Admin: 06/16/19 10:21 Dose: 100 mg Documented by: Anastrozole (Arimidex) 1 mg PO SUTUFR [facility] Last Admin: 06/16/19 10:18 Dose: 1 mg Documented by: Carbidopa/Levodopa (Sinemet 25-100) 1 each PO TID@1000,1400,1800 [facility] Last Admin: 06/16/19 17:28 Dose: 1 each Documented by: Cholestyramine Resin (Questran) 4 gm PO BID@1000,1800 [facility] Last Admin: 06/16/19 17:31 Dose: 4 gm Documented by: Dicyclomine HCl (Bentyl) 20 mg PO Q6H PRN PRN Reason: Dyspepsia Last Admin: 06/16/19 11:47 Dose: 20 mg Documented by: Dronabinol (Marinol) 2.5 mg PO BID@0800,1600 [facility] Last Admin: 06/16/19 17:28 Dose: 2.5 mg Documented by: Enoxaparin Sodium (Lovenox) 40 mg SQ DAILY [facility] Last Admin: 06/16/19 10:19 Dose: 40 mg Documented by: Fluconazole (Diflucan) 200 mg PO DAILY [facility] Last Admin: 06/16/19 10:20 Dose: 200 mg Documented by: Dextrose/Sodium Chloride (Dextrose 5%-1/2ns Iv Soln) 1,000 mls @ 125 mls/hr IV .Q8H [facility] Last Admin: 06/16/19 17:29 Dose: 125 mls/hr Documented by: Fat Emulsion Intravenous (Lipids 20%) 250 mls @ 20.833 mls/hr IV MoWeFr@1300 [facility] Last Admin: 06/14/19 18:13 Dose: 20.833 mls/hr Documented by: Parenteral Vitamin Supplement 10 ml/ Chromium/Copper/Manganese/Seleni/Zn 1 ml/Sodium Chloride 20 meq/Potassium Chloride 20 meq/Amino Ac/Electrol/Dextrose/Calcium 1,029 mls @ 55 mls/hr IV .[id number] [facility] Last Admin: 06/16/19 03:49 Dose: 55 mls/hr Documented by: Lactobacillus Acidoph/Bulgaricus (Lactinex) 1 each PO BID [facility] Last Admin: 06/16/19 10:20 Dose: 1 each Documented by: Loperamide HCl (Imodium) 2 mg PO QID PRN PRN Reason: Diarrhea Mesalamine (Canasa) 1,000 mg RECTAL HS [facility] Last Admin: 06/15/19 21:12 Dose: Not Given Documented by: Metoprolol Tartrate (Lopressor) 25 mg PO BID [facility] Last Admin: 06/16/19 10:15 Dose: 25 mg Documented by: Miscellaneous Information (Pneumonia Protocol Utilized) 1 each PO ONCE PRN PRN Reason: Per Protocol Multivitamins (Theragran) 1 each PO DAILY@0800 [facility] Last Admin: 06/16/19 10:15 Dose: 1 each Documented by: Nystatin (Mycostatin Oral Susp) 500,000 unit PO QID [facility] Last Admin: 06/16/19 17:31 Dose: 500,000 unit Documented by: Pantoprazole Sodium (Protonix) 40 mg PO BID@0600,1800 [facility] Last Admin: 06/16/19 17:28 Dose: 40 mg Documented by: Prednisone () 45 mg PO DAILY [facility] Last Admin: 06/16/19 10:15 Dose: 45 mg Documented by: Sodium Biphosphate/Sodium Phosphate (Fleet Adult) 133 ml RECTAL ONCE ONE Stop: 06/17/19 06:31 Tamsulosin HCl (Flomax) 0.4 mg PO DAILY [facility] Last Admin: 06/16/19 10:15 Dose: 0.4 mg Documented by: Physical examination: VITAL SIGNS: Reason 0.4, 92, 17, 112/72, 96% on room air GENERAL: Propped up in bed, awake, tired EYES: Pupils equal. Conjunctiva pale. HEENT: External appearance of nose and ears normal, oral cavity dry. NECK: JVD not raised; masses not palpable. HEART: First and second heart sounds are normal; no edema. LUNGS: Respiratory rate normal, decreased breath sounds. ABDOMEN: Soft, minimal tenderness liver spleen not palpable, no masses palpable. PSYCH: Alert and oriented x3; mood and affect-a bit low. NEUROLOGICAL: Cranial nerves grossly intact; no facial asymmetry, power and sensation grossly intact. INVESTIGATIONS, reviewed in the clinical context: Progression 4 creatinine 0.46 Previous testing White count 8.7 hemoglobin 11.4 platelets 226 potassium 4.4 bun 14 creatinine 0.64 CRP 76.9, albumin 2.5, pro calcitonin 0.14 Stool for C. diff-negative Coronavirus PCR-not detected EKG tracing personally reviewed by me--sinus rhythm with a right bundle-branch block Chest x-ray film personally reviewed by me-lung zamora clear Assessment: -Advancing medical debility, multifactorial, POA -Hyponatremia, from decreased salt intake -Significant anorexia, POA -Oral candidiasis - chronic ulcerative colitis , severe refractory-not improving -Clinical dehydration -Idiopathic Parkinson's disease -Novel coronavirus infected pneumonia-recently, now negative -Mild protein calorie malnutrition -Medical debility -Normocytic anemia likely from underlying colitis and from GI blood loss anemia -Possible steroid-induced myopathy, POA -BPH Plan: -Continue TPN and lipids. Being scheduled for flex sigmoidoscopy tomorrow. Per Dr. Norris patient does not want any biologic treatments current time.
[2019-06-16] MEDS: MESALAMINE 1,000 MG SUPP RECTAL SCH (21:32)
--- NOTE | 2019-06-16 23:27 | PN ---
PROGRESS NOTE DATE OF SERVICE: 06/16/2019 REASON FOR FOLLOWUP: Oral thrush and diarrhea. INTERVAL HISTORY: The patient is currently afebrile. Has been complaining of some abdominal pain though no worsening sores in the mouth and difficulty swallowing. No chest pain or cough. PHYSICAL EXAMINATION: Blood pressure is 112/82 with a pulse of 92, temperature is 97.4. He is 96% on room air. General description is an elderly male lying in bed in no distress. RESPIRATORY SYSTEM: Unlabored breathing, clear to auscultation anteriorly. HEART: S1, S2. Regular rate and rhythm, ABDOMEN: Soft, no tenderness. LABS: BUN of 11, creatinine 0.46. DIAGNOSTIC IMPRESSION AND PLAN: 1. Patient with oral thrush to continue with nystatin swish and swallow and Diflucan. 2. Diarrhea for possible colonoscopy tomorrow. Continue symptomatic treatment and monitor clinical course closely. MMMURIELL / LOURDESN: [id number] /
[2019-06-17] MEDS: DEXTROSE 5%-0.45% NACL 1,000 ML IV SCH ×4 (02:14→23:47)
[2019-06-17] MEDS ORDERED: NA PHOS,M-B/NA PHOS,DI-BA 133 ML ENEMA RECTAL ONE (06:30)
[2019-06-17] MEDS: PANTOPRAZOLE 40 MG TABLET PO SCH ×2 (06:57→18:08)
[2019-06-17] MEDS ORDERED: PROPOFOL 10 MG/ML 20 ML VIAL IV ONE (07:54)
[2019-06-17] MEDS ORDERED: IV FLUID CONTINUATION 1,000 ML IV ONE (08:00)
[2019-06-17 08:08] LABS: African American GFR (CKD) >90 (>60 ml/min/1.73 sqM); Anion Gap 5 mmol/L; Blood Urea Nitrogen 12 mg/dL (9-20); Calcium 7.8 mg/dL (8.4-10.2); Carbon Dioxide 28 mmol/L (22-30); Chloride 97 mmol/L (98-107); Glucose 161 mg/dL (74-99); Magnesium 2.5 mg/dL (1.6-2.3); Non-African American GFR(CKD) >90 (>60 ml/min/1.73 sqM); Phosphorus 3.4 mg/dL (2.5-4.5); Potassium 3.9 mmol/L (3.5-5.1); Sodium 130 mmol/L (137-145)
--- NOTE | 2019-06-17 08:13 | P.PCN ---
Date of Procedure: 06/17/19 Procedure(s) Performed: BRIEF HISTORY: Patient is a 68-year-old pleasant white male was diagnosed with ulcerative colitis at [facility] in April 2019 when he presented with bloody diarrhea of 2 weeks duration. Patient was treated with IV steroids and was discharged home on oral steroids. He continued to have persistent bloody diarrhea and had a prolonged hospitalization to this hospital active ulcerative colitis and only 90 infection. He continued to be treated with IV steroids for 2 weeks and be changed to oral prednisone 60 mg daily and was discharged to group home about 2 weeks ago. He was readmitted to the hospital with ongoing bloody diarrhea, failure to thrive, progressive weakness and weight loss of 60 pounds in the last 2 months duration. He continued to remain on prednisone 40 mg daily. TPN was initiated. Discuss with the family about biologic therapy versus surgical intervention at this time is scheduled for colonoscopy to assess the severity of colitis prior to considering surgical consultation. PROCEDURE PERFORMED: Colonoscopy with random biopsies. PREOPERATIVE DIAGNOSIS: Severe steroids refractory ulcerative colitis. IV sedation per Anesthesia. PROCEDURE: After informed consent was obtained, the patient, was brought into the endoscopy unit. IV sedation was administered by Anesthesia under continuous monitoring. Digital rectal examination was normal. Initially the Olympus CF-160 flexible video colonoscope was then inserted in the rectum, gradually advanced into the cecum without any difficulty. Careful examination was performed as the scope was gradually being withdrawn. Ileocecal valve and the appendiceal orifice were visualized and appeared normal. Prep was excellent. Mucosa of the cecum, ascending colon, transverse colon, descending colon, sigmoid colon, and rectum appeared normal. Retroflexion was performed in the rectum and no lesions were seen. The patient tolerated the procedure well. IMPRESSION: Severe colitis involving the entire colon cobblestoning of the mucosa and deep ulcerations, erythema friability spontaneous bleeding with exudates more predominant in the ascending colon, descending colon, sigmoid colon and rectum, status post multiple biopsies RECOMMENDATIONS: Findings of this examination were discussed with the patient as well as his family. At this time will request surgical consultation for possible colectomy. He will TPN and clear liquids for today.
[2019-06-17] MEDS: ALBUTEROL HFA INHALER INHALATION SCH ×3 (08:28→20:22)
[2019-06-17 08:55] LABS: HCT 30.9 % (39.0-53.0); HGB 9.9 gm/dL (13.0-17.5); Hypochromasia Slight; MCHC 32.1 g/dL (31.0-37.0); MCV 87.4 fL (80.0-100.0); Mean Platelet Volume 7.9; Platelet Count 197 k/uL (150-450); RBC 3.53 m/uL (4.30-5.90); RDW 14.4 % (11.5-15.5); WBC 7.2 k/uL (3.8-10.6)
--- NOTE | 2019-06-17 08:59 | PN ---
PROGRESS NOTE DATE OF SERVICE: 06/14/2019 REASON FOR FOLLOWUP: Oral thrush and diarrhea. INTERVAL HISTORY: The patient is currently afebrile. The patient is breathing comfortably. The patient denies having any chest pain or shortness of breath. Minimal cough. No abdominal pain and diarrhea has slowed down. PHYSICAL EXAMINATION: Blood pressure 100/55 with a pulse of 87, temperature is 97.8. He is 96% on room air. General description is an elderly male lying in bed in no distress. HEENT examination, oral thrush. Lungs unlabored breathing, clear to auscultation anteriorly. Heart S1, S2. Regular rate and rhythm. Abdomen soft, no tenderness. LABS: Hemoglobin is 10.8, white count 9.0. BUN of 19, creatinine 0.55. DIAGNOSTIC IMPRESSION AND PLAN: 1. Patient with oral thrush, possible oropharyngeal candidiasis. Continue with the Diflucan and the Nystatin Swish and swallow. 2. Diarrhea, possible underlying ulcerative colitis. Continue symptomatic treatment. MMODL / IJN: [id number] /
[2019-06-17 09:40] LABS: Band Neutrophils % 11 %; Metamyelocytes # (M) 0.07 k/uL (0); Metamyelocytes % 1 %; Monocytes # (M) 0.36 k/uL (0-1.0); Myelocytes # (M) 0.36 k/uL (0); Myelocytes % 5 %; Neutrophils % (M) 61 %; Nucleated Red Blood Cells 0 /100 WBC (0-0); Total Cells Counted 200
[2019-06-17 09:41] LABS: Poikilocytosis (M) Present
[2019-06-17] MEDS: LACTOBACILLUS ACIDOPH & BULGAR 1 EACH PACKET PO SCH ×2 (10:05→20:53)
[2019-06-17] MEDS: NYSTATIN 100,000 UNIT/ML SUSP 500,000 UNIT/5 ML CUP PO SCH ×4 (10:05→20:55)
[2019-06-17] MEDS: TAMSULOSIN 0.4 MG CAP.ER.24H PO SCH (10:06)
[2019-06-17] MEDS: ENOXAPARIN 40 MG/0.4 ML SYRINGE SQ SCH (10:06)
[2019-06-17] MEDS: DRONABINOL 2.5 MG CAP PO SCH ×2 (10:06→18:08)
[2019-06-17] MEDS: CHOLESTYRAMINE (WITH SUGAR) 4 GM PACKET PO SCH ×2 (10:06→18:13)
[2019-06-17] MEDS: AMANTADINE HCL 100 MG CAP PO SCH ×2 (10:06→20:55)
[2019-06-17] MEDS: METOPROLOL TARTRATE 25 MG TAB PO SCH ×2 (10:06→20:54)
[2019-06-17] MEDS: CARBIDOPA-LEVODOPA 25-100 MG 1 EACH TAB PO SCH ×3 (10:06→18:08)
[2019-06-17] MEDS: predniSONE 10 MG TAB PO SCH (10:07)
[2019-06-17] MEDS: FLUCONAZOLE ORAL SUSP 1,400 MG/35 ML BOTTLE PO SCH (10:07)
[2019-06-17] MEDS: MULTIVITAMINS, THERA 1 EACH TAB PO SCH (10:07)
--- NOTE | 2019-06-17 12:37 | P.PN ---
Subjective Progress Note Date: 06/17/19 Principal diagnosis: Severe ulcerative colitis, abdominal pain, diarrhea Patient is seen lying in bed today, continues to have some abdominal pain. No nausea or vomiting. Denies any bowel movements today, is urinating. Objective - Vital Signs Vital signs: Vital Signs Temp 97.4 F L 06/17/19 07:00 Pulse 80 06/17/19 08:00 Resp 17 06/17/19 08:00 BP 108/69 06/17/19 07:00 Pulse Ox 96 06/17/19 07:00 Intake & Output 06/16/19 06/17/19 06/17/19 18:59 06:59 18:59 Intake Total 330 1029 150 Output Total 225 250 Balance 105 779 150 Weight 75.296 kg Intake: IV 50 Intake, IV Titration 330 1029 Amount Mvi, Adult No.4 with Vit 330 1029 K 10 ml Trace (Conc-1Ml/ Dose) 1 ml Sodium Chloride 2.5MEQ/ml Vial 20 meq Potassium Chloride 20 meq In Amino Acid 5%- D15w+Lytes*E* 1,000 ml @ 55 mls/hr IV .[id number] [facility] Rx#:[id number] Oral 100 Output: Urine 225 250 Other: Voiding Method Urinal Urinal Urinal Diaper Diaper Diaper Incontinent Incontinent Incontinent # Voids 1 # Bowel Movements 1 1 - Exam On physical examination, patient appears comfortable in no apparent distress. HEAD: Normocephalic, atraumatic. EYES: No scleral icterus. No conjunctival injection. MOUTH: No lesions, tongue midline. NECK: Trachea midline, no gross abnormalities. ABDOMEN: Soft, mildly tender to palpation. Bowel sounds are positive. No organomegaly. No guarding or rigidity. EXTREMITIES: No pedal edema. SKIN: No rashes, no jaundice. NEUROLOGIC: Alert and oriented x3. No focal deficits. - Labs CBC & Chem 7: 06/17/19 06:48 06/17/19 06:48 Labs: Abnormal Lab Results - Last 24 Hours (Table) 06/17/19 06/17/19 Range/Units 06:48 06:48 RBC 3.53 L (4.30-5.90) m/uL Hgb 9.9 L (13.0-17.5) gm/dL Hct 30.9 L (39.0-53.0) % Metamyelocytes # (Man) 0.07 H (0) k/uL Myelocytes # (Manual) 0.36 H (0) k/uL Sodium 130 L (137-145) mmol/L Chloride 97 L (98-107) mmol/L Creatinine 0.45 L (0.66-1.25) mg/dL Glucose 161 H (74-99) mg/dL Calcium 7.8 L (8.4-10.2) mg/dL Magnesium 2.5 H (1.6-2.3) mg/dL Microbiology - Last 24 Hours (Table) 06/10/19 19:45 Blood Culture - Final Blood No Growth after 144 hours Assessment and Plan (1) Colitis Narrative/Plan: 68-year-old male with severe refractory ulcerative colitis maintained on prednisone therapy the patient remains symptomatic with elevated CRP and progressive weakness. Colonoscopy performed yesterday showed severe pancolitis. Current Visit: Yes Status: Acute Code(s): K52.9 - NONINFECTIVE GASTROENTERITIS AND COLITIS, UNSPECIFIED SNOMED Code(s): 94962137 (2) Blood per rectum Current Visit: No Status: Acute Code(s): K62.5 - HEMORRHAGE OF ANUS AND RECTUM SNOMED Code(s): 79497895 Plan: Supportive care Clear liquid diet TPN therapy Surgical service consult for evaluation Continue symptomatic treatment with Imodium and Bentyl Continue prednisone and Canasa rectal Thank you for allowing us to participate in the care of the patient
--- NOTE | 2019-06-17 12:59 | P.GSCN ---
History of Present Illness Consult date: 06/17/19 Reason for Consult: Colitis Requesting physician: Brooke Norris History of present illness: CHIEF COMPLAINT: colitis HISTORY OF PRESENT ILLNESS: 68 year old who has been experiencing abdominal pain for the last 8 weeks. Patient has been receiving steroids for colitis and also reports 50 lb unintentional weight loss. The patient underwent colonoscopy today with Dr. Norris revealing severe colitis throughout the entire colon extending all the way from the rectum to the cecum. General surgery was consulted for possible colectomy. PAST MEDICAL HISTORY: See list. PAST SURGICAL HISTORY: See list. SOCIAL HISTORY: No illicit drug use. REVIEW OF SYSTEMS: CONSTITUTIONAL: Denies fever or chills. Reports weight loss of 50 lbs. Reports weakness and fatigue. HEENT: Denies blurred vision, vision changes, or eye pain. Denies hemoptysis CARDIOVASCULAR: Denies chest pain or pressure. RESPIRATORY: No shortness of breath. GASTROINTESTINAL: Refer to HPI for pertinent findings HEMATOLOGIC: Denies bleeding disorders. GENITOURINARY: Denies any blood in urine. SKIN: Denies pruitis. Denies rash. PHYSICAL EXAM: VITAL SIGNS: Reviewed. GENERAL: Well-developed in no acute distress. HEENT: No sclera icterus. Extraocular movements grossly intact. Moist buccal mucosa. Head is atraumatic, normocephalic. ABDOMEN: Soft. Nondistended. Diffuse tenderness with palpation. NEUROLOGIC: Alert and oriented. Cranial nerves II through XII grossly intact. LABORATORY DATA: WBC 7.2. Hemoglobin 9.9. Platelet count 197. ASSESSMENT: 1. Severe colitis of entire colon extending from rectum to cecum PLAN: Patients family was originally requesting transfer to [facility] or [place] Dr. Anderson examined patient and spoke with daughter via phone Daughter to speak with other family members regarding surgical intervention at [facility] and will call back with a decision Nurse practitioner note has been reviewed by physician. Signing provider agrees with the documented findings, assessment, and plan of care. Past Medical History Additional Past Medical History / Comment(s): parkinson and colitis History of Any Multi-Drug Resistant Organisms: None Reported Past Surgical History: Tonsillectomy Additional Past Surgical History / Comment(s): Previous colonoscopy and EGD Smoking Status: Former smoker Medications and Allergies Home Medications Medication Instructions Recorded Confirmed Type Amantadine HCl [Amantadine] 100 mg PO BID 05/14/19 06/10/19 History Anastrozole [Arimidex] 1 mg PO SUTUFR 05/14/19 06/10/19 History Carbidopa/Levodopa [Sinemet 25-100 1 tab PO TID@1000,1400,1800 05/14/19 06/10/19 History mg] Acetaminophen Tab [Tylenol] 500 mg PO Q6HR PRN tab 05/30/19 06/10/19 Rx Albuterol Inhaler [Ventolin Hfa 2 puff INHALATION RT-TID puff 05/30/19 06/10/19 Rx Inhaler] Cholestyramine (with Sugar) 4 gm PO BID@1000,1800 packet 05/30/19 06/10/19 Rx [Questran Packet] Mesalamine [Canasa] 1,000 mg RECTAL HS supp 05/30/19 06/10/19 Rx Psyllium Husk 100% [Metamucil 6 gm PO BID packet 05/30/19 06/10/19 Rx Packet] Dicyclomine [Bentyl] 20 mg PO Q6H PRN 06/10/19 06/10/19 History Diff-Stat Probiotic 2 cap PO BID 06/10/19 06/10/19 History Dronabinol [Marinol] 2.5 mg PO BID@0800,1600 06/10/19 06/10/19 History Ensure 1 can PO TID-W/MEALS 06/10/19 06/10/19 History Loperamide HCl [Loperamide] 2 mg PO Q6H PRN 06/10/19 06/10/19 History Metoprolol Tartrate [Lopressor] 25 mg PO DIRECTED 06/10/19 06/10/19 History Multivitamin-Minerals Tab 1 tab PO DAILY@0800 06/10/19 06/10/19 History Pantoprazole [Protonix] 40 mg PO BID@0600,1800 06/10/19 06/10/19 History Tamsulosin [Flomax] 0.4 mg PO DAILY 06/10/19 06/10/19 History predniSONE 45 mg PO DAILY 06/10/19 06/10/19 History Allergies Allergy/AdvReac Type Severity Reaction Status Date / Time Penicillins AdvReac Rash/Hives Verified 06/10/19 19:09 Surgical - Exam Vital Signs Temp Pulse Resp BP Pulse Ox 97.9 F 101 H 20 113/72 98 06/10/19 19:01 06/10/19 19:01 06/10/19 19:01 06/10/19 19:01 06/10/19 19:01 Results - Labs 06/17/19 06:48 06/17/19 06:48 Abnormal Lab Results - Last 24 Hours (Table) 06/17/19 06/17/19 Range/Units 06:48 06:48 RBC 3.53 L (4.30-5.90) m/uL Hgb 9.9 L (13.0-17.5) gm/dL Hct 30.9 L (39.0-53.0) % Metamyelocytes # (Man) 0.07 H (0) k/uL Myelocytes # (Manual) 0.36 H (0) k/uL Sodium 130 L (137-145) mmol/L Chloride 97 L (98-107) mmol/L Creatinine 0.45 L (0.66-1.25) mg/dL Glucose 161 H (74-99) mg/dL Calcium 7.8 L (8.4-10.2) mg/dL Magnesium 2.5 H (1.6-2.3) mg/dL Microbiology - Last 24 Hours (Table) 06/10/19 19:45 Blood Culture - Final Blood No Growth after 144 hours Diabetes panel 06/17/19 Range/Units 06:48 Sodium 130 L (137-145) mmol/L Potassium 3.9 (3.5-5.1) mmol/L Chloride 97 L (98-107) mmol/L Carbon Dioxide 28 (22-30) mmol/L BUN 12 (9-20) mg/dL Creatinine 0.45 L (0.66-1.25) mg/dL Glucose 161 H (74-99) mg/dL Calcium 7.8 L (8.4-10.2) mg/dL Calcium panel 06/17/19 Range/Units 06:48 Calcium 7.8 L (8.4-10.2) mg/dL Phosphorus 3.4 (2.5-4.5) mg/dL Pituitary panel 06/17/19 Range/Units 06:48 Sodium 130 L (137-145) mmol/L Potassium 3.9 (3.5-5.1) mmol/L Chloride 97 L (98-107) mmol/L Carbon Dioxide 28 (22-30) mmol/L BUN 12 (9-20) mg/dL Creatinine 0.45 L (0.66-1.25) mg/dL Glucose 161 H (74-99) mg/dL Calcium 7.8 L (8.4-10.2) mg/dL Adrenal panel 06/17/19 Range/Units 06:48 Sodium 130 L (137-145) mmol/L Potassium 3.9 (3.5-5.1) mmol/L Chloride 97 L (98-107) mmol/L Carbon Dioxide 28 (22-30) mmol/L BUN 12 (9-20) mg/dL Creatinine 0.45 L (0.66-1.25) mg/dL Glucose 161 H (74-99) mg/dL Calcium 7.8 L (8.4-10.2) mg/dL
[2019-06-17] MEDS: FAT EMULSION 20% 250 ML IV SCH (13:41)
--- NOTE | 2019-06-17 14:39 | P.CN ---
Psychiatric Consult - . 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 HISTORY OF PRESENT ILLNESS: The patient presented to the hospital as a readmi ssion for initially coming in with COVID 19 pneumonia and was discharged several weeks ago on steroids to an extended care facility. Patient came back to the hospital for an exacerbation of his ulcerative colitis and is feeling weak and run down and complaining of abdominal pain. Patient was also noted to be dehydrated and surgery and gastroenterology are on board and performed a colonoscopy. Patient sodium was noticed to be decreasing. Psychiatry was consulted for "depression". Patient was seen at bedside and was watching television and agreeable to speak a selling underwriter. He states that he had a "bad case of colitis" and states that he has been dealing with this exacerbation for a couple of months. He states that he most likely will be having to have a colon surgery soon and states that he is "not happy about making all these decisions". He claims to be overwhelmed and stressed about the healthcare decisions he has to make and his well-being. At this time she claims that he has felt "down" in the past however denies any significant depression. He denies any anxiety at this time. He complains of abdominal pain. He states that his sleep is "okay" and claims sleep throughout the night. He states that his appetite is low due to his UC exacerbation. At this time patient denies any suicidal or homical ideations, intent or plan. Patient denies any auditory, visual hallucinations and denies any paranoia or delusions. Patients admits to using alcohol occasionally and denies any cigarette use. PAST PSYCHIATRIC HISTORY: Patient denies any psychiatric history. Patient denies being on any psychiatric medications. Patient denies any previous psychiatric hospitalizations. Patient denies any psychiatric outpatient follow- up. PAST MEDICAL HISTORY: Ulcerative colitis, Parkinson's disease. ALLERGIES: as per EMR. CHEMICAL DEPENDENCY HISTORY: as per HPI. FAMILY PSYCHIATRIC/SUBSTANCE USE HISTORY: denies SOCIAL HISTORY: Patient was born and raised in [place] and moved to [place]. She states that he completed high school. 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 MENTAL STATUS EXAM: General Appearance: Patient appears to be stated age is thin, alert, and attempts to cooperate. Patient appears to have fair hygiene and grooming wearing hospital gown with fair eye contact. Behavior: Patient is calmly lying in bed without any agitated behavior. Cooperative. Speech: Patient's speech is fluent and nonpressured. Soft tone. Mood/Affect: Patient reports their mood is "down at times", affect is congruent and constricted. Suicidality/Homicidality: Patient denies having any suicidal or homicidal ideation intent or plan. Perceptions: Patient denies any visual hallucinations and denies any auditory hallucinations Though content/process: There is no evidence of any delusional thought content and thought process is linear and goal-directed. Future oriented. Memory and concentration: AOX3, grossly intact for the purposes of this session. Can spell "WORLD" backwards Judgment and insight: Fair IMPRESSIONS: Adjustment disorder, with depressed mood PLAN: -At this time patient DOES NOT meet criteria for inpatient psychiatric admission. -Would recommend the following medication changes/additions: Discussed medications with patient including Remeron and the benefits it could offer him however patient at this time claims that he does not want to be started on any medications if he does not have to. -Continue with medical treatment of underlying conditions -Psychiatry will sign off at this point, please contact with any questions.
[2019-06-17] MEDS: MVI, ADULT NO.4 WITH VIT K 10 ML, TRACE (CONC-1ML/DOSE) 1 ML, SODIUM CHLORIDE 2.5MEQ/ML... IV SCH ×19 (18:07→20:32)
--- NOTE | 2019-06-17 19:02 | PN ---
PROGRESS NOTE DATE OF SERVICE: 06/17/2019 REASON FOR FOLLOWUP: 1. Oral thrush. 2. Diarrhea. INTERVAL HISTORY: The patient is status post colonoscopy. The patient was noted to have severe colitis throughout the entire colon. The patient is status post random biopsies. He tolerated the procedure. The patient denies having any chest pain or shortness of breath or cough. PHYSICAL EXAMINATION: Blood pressure is 100/66, pulse of 92, temperature 97.3. He is 96% on room air. General description is an elderly male lying in bed in no distress. RESPIRATORY SYSTEM: Unlabored breathing. Clear to auscultation anteriorly. HEART: S1, S2. Regular rate and rhythm. ABDOMEN: Soft. Mildly distended. EXTREMITIES: No edema of the feet. LABS: Stool for C difficile is negative. Hemoglobin 9.9, white count 7.2, BUN of 12, creatinine 0.45. DIAGNOSTIC IMPRESSION AND PLAN: 1. Patient with oral thrush. To continue with nystatin swish and swallow and Diflucan. 2. Patient with diarrhea, found to have severe colitis, possibly ulcerative. Patient is status post biopsies. Continue management per GI Services. Monitor clinical course closely. MMODL / IJN: [id number] /
--- NOTE | 2019-06-17 20:15 | P.PN ---
Progress Note - Text Progress Note Date: 06/17/19 Chief Complaint: Weak and tired History of presenting complaint: This is a very pleasant 68-year-old patient of Dr. Jossue Peguero. Patient was not prolonged cold in the hospital from May 13 through May 29. Admitted with a diagnosis of acute exacerbation of ulcerative colitis. Also had COVID-19 pneumonia and Pseudomonas pneumonia. Patient was treated with Colazal, Canasa enemas steroids. Discharged on high-dose of steroids. Seen by Dr. Agustina Norris from GI. Supposed to start Biologics down the road. Patient was discharged to the ECF. Patient now presents with feeling weak tired rundown. Very dry mouth. Does not like the taste of food. Occasional abdominal cramping. May be some blood in the stool. No fever no chills. No respiratory symptoms. (For the same. Admitted with severe asthenia, some steroid-induced myopathy, oral candidiasis, significant anorexia. PICC line was placed. Started on TPN-lipids. Today-earlier today had undergone colonoscopic Dr. Agustina Norris. She called me that patient had severe total colitis. She did have spoken to patient's daughter. Consultation was made to Dr. Anderson. I called the patient's daughter late in the morning and they will plan to transfer the patient to [facility]. In the meantime Dr. Anderson spoke to the patient and then talk to the patient's daughter and called me that this point family deciding again want to do and in the meantime transfer was held. Patient continues with IV hyperalimentation. No new issues. Review of systems: Was done for constitutional, cardiovascular, GI, pulmonary. relevant finding as above Active Medications Acetaminophen (Tylenol Tab) 500 mg PO Q6HR PRN PRN Reason: Fever and/ or Pain Last Admin: 06/15/19 01:45 Dose: 500 mg Documented by: Albuterol Sulfate (Ventolin Hfa Inhaler) 2 puff INHALATION RT-TID [facility] Last Admin: 06/17/19 12:20 Dose: 2 puff Documented by: Amantadine HCl (Symmetrel) 100 mg PO BID [facility] Last Admin: 06/17/19 10:06 Dose: 100 mg Documented by: Anastrozole (Arimidex) 1 mg PO SUTUFR [facility] Last Admin: 06/16/19 10:18 Dose: 1 mg Documented by: Carbidopa/Levodopa (Sinemet 25-100) 1 each PO TID@1000,1400,1800 [facility] Last Admin: 06/17/19 18:08 Dose: 1 each Documented by: Cholestyramine Resin (Questran) 4 gm PO BID@1000,1800 [facility] Last Admin: 06/17/19 18:13 Dose: Not Given Documented by: Dicyclomine HCl (Bentyl) 20 mg PO Q6H PRN PRN Reason: Dyspepsia Last Admin: 06/16/19 11:47 Dose: 20 mg Documented by: Dronabinol (Marinol) 2.5 mg PO BID@0800,1600 [facility] Last Admin: 06/17/19 18:08 Dose: 2.5 mg Documented by: Enoxaparin Sodium (Lovenox) 40 mg SQ DAILY [facility] Last Admin: 06/17/19 10:06 Dose: 40 mg Documented by: Fluconazole (Diflucan) 200 mg PO DAILY [facility] Last Admin: 06/17/19 10:07 Dose: 200 mg Documented by: Dextrose/Sodium Chloride (Dextrose 5%-1/2ns Iv Soln) 1,000 mls @ 125 mls/hr IV .Q8H [facility] Last Admin: 06/17/19 19:22 Dose: Not Given Documented by: Fat Emulsion Intravenous (Lipids 20%) 250 mls @ 20.833 mls/hr IV MoWeFr@1300 [facility] Last Admin: 06/17/19 13:41 Dose: 20.833 mls/hr Documented by: Parenteral Vitamin Supplement 10 ml/ Chromium/Copper/Manganese/Seleni/Zn 1 ml/Sodium Chloride 55 meq/Potassium Chloride 40 meq/Calcium Gluconate 1 gm/Pota ssium Phosphate 10 mmol/Amino Acids/Dextrose 1,066.3333 mls @ 55 mls/hr IV .[id number] [facility] Last Admin: 06/17/19 18:07 Dose: 55 mls/hr Documented by: Lactobacillus Acidoph/Bulgaricus (Lactinex) 1 each PO BID [facility] Last Admin: 06/17/19 10:05 Dose: 1 each Documented by: Loperamide HCl (Imodium) 2 mg PO QID PRN PRN Reason: Diarrhea Mesalamine (Canasa) 1,000 mg RECTAL HS [facility] Last Admin: 06/16/19 21:32 Dose: Not Given Documented by: Metoprolol Tartrate (Lopressor) 25 mg PO BID [facility] Last Admin: 06/17/19 10:06 Dose: 25 mg Documented by: Miscellaneous Information (Pneumonia Protocol Utilized) 1 each PO ONCE PRN PRN Reason: Per Protocol Multivitamins (Theragran) 1 each PO DAILY@0800 [facility] Last Admin: 06/17/19 10:07 Dose: 1 each Documented by: Nystatin (Mycostatin Oral Susp) 500,000 unit PO QID [facility] Last Admin: 06/17/19 18:08 Dose: 500,000 unit Documented by: Pantoprazole Sodium (Protonix) 40 mg PO BID@0600,1800 [facility] Last Admin: 06/17/19 18:08 Dose: 40 mg Documented by: Prednisone () 45 mg PO DAILY [facility] Last Admin: 06/17/19 10:07 Dose: 45 mg Documented by: Tamsulosin HCl (Flomax) 0.4 mg PO DAILY [facility] Last Admin: 06/17/19 10:06 Dose: 0.4 mg Documented by: Physical examination: VITAL SIGNS: 97.4, 80, 17, moderate to 69, 96% room air GENERAL: Laying bed, awake EYES: Pupils equal. Conjunctiva pale. HEENT: External appearance of nose and ears normal, oral cavity dry. NECK: JVD not raised; masses not palpable. HEART: First and second heart sounds are normal; no edema. LUNGS: Respiratory rate normal, decreased breath sounds. ABDOMEN: Soft, minimal tenderness liver spleen not palpable, no masses palpable. PSYCH: Alert and oriented x3; mood and affect-a bit low. NEUROLOGICAL: Cranial nerves grossly intact; no facial asymmetry, power and sensation grossly intact. INVESTIGATIONS, reviewed in the clinical context: White count 7.2 hemoglobin 9.9 potassium 3.9 crit 0.45. Lesion 2.5 Previous testing White count 8.7 hemoglobin 11.4 platelets 226 potassium 4.4 bun 14 creatinine 0.64 CRP 76.9, albumin 2.5, pro calcitonin 0.14 Stool for C. diff-negative Coronavirus PCR-not detected EKG tracing personally reviewed by me--sinus rhythm with a right bundle-branch block Chest x-ray film personally reviewed by me-lung zamora clear Assessment: -Advancing medical debility, multifactorial, POA, slow to respond -Hyponatremia, from decreased salt intake, slow to respond -Significant anorexia, POA -Oral candidiasis - chronic ulcerative colitis , severe refractory-not improving-with pancolitis -Clinical dehydration -Idiopathic Parkinson's disease -Novel coronavirus infected pneumonia-recently, now negative -Mild protein calorie malnutrition -Medical debility -Normocytic anemia likely from underlying colitis and from GI blood loss anemia -Possible steroid-induced myopathy, POA -BPH -Moderate protein calorie malnutrition from decreased oral intake Plan: -Continue TPN and lipids. Spoke to Dr. Kimball earlier than patient's daughter and her Dr. Anderson. Finally awaiting patient's family's decision about further course of action. This point total colectomy has been suggested. Total time spent today was about an hour with over 35 minutes in discussion.
[2019-06-17] MEDS: MESALAMINE 1,000 MG SUPP RECTAL SCH (20:55)
[2019-06-17 21:06] LABS: Glucose,Whole Blood 216 mg/dL (75-99)
[2019-06-18 02:09] LABS: Glucose,Whole Blood 187 mg/dL (75-99)
[2019-06-18] MEDS: PANTOPRAZOLE 40 MG TABLET PO SCH ×2 (05:33→18:20)
[2019-06-18 06:49] LABS: African American GFR (CKD) >90 (>60 ml/min/1.73 sqM); Anion Gap 5 mmol/L; Blood Urea Nitrogen 12 mg/dL (9-20); Carbon Dioxide 28 mmol/L (22-30); Chloride 97 mmol/L (98-107); Glucose 169 mg/dL (74-99); Magnesium 1.9 mg/dL (1.6-2.3); Non-African American GFR(CKD) >90 (>60 ml/min/1.73 sqM); Phosphorus 2.9 mg/dL (2.5-4.5); Potassium 4.1 mmol/L (3.5-5.1); Sodium 130 mmol/L (137-145)
[2019-06-18] MEDS: ALBUTEROL HFA INHALER INHALATION SCH ×3 (07:22→19:48)
[2019-06-18] MEDS: DEXTROSE 5%-0.45% NACL 1,000 ML IV SCH ×2 (08:16→18:17)
[2019-06-18] MEDS: CARBIDOPA-LEVODOPA 25-100 MG 1 EACH TAB PO SCH ×3 (08:40→18:20)
[2019-06-18] MEDS: DRONABINOL 2.5 MG CAP PO SCH ×2 (08:40→18:20)
[2019-06-18] MEDS: predniSONE 10 MG TAB PO SCH (08:40)
[2019-06-18] MEDS: METOPROLOL TARTRATE 25 MG TAB PO SCH ×2 (08:40→21:56)
[2019-06-18] MEDS: FLUCONAZOLE ORAL SUSP 1,400 MG/35 ML BOTTLE PO SCH (08:40)
[2019-06-18] MEDS: TAMSULOSIN 0.4 MG CAP.ER.24H PO SCH (08:42)
[2019-06-18] MEDS: NYSTATIN 100,000 UNIT/ML SUSP 500,000 UNIT/5 ML CUP PO SCH ×4 (08:42→21:58)
[2019-06-18] MEDS: ENOXAPARIN 40 MG/0.4 ML SYRINGE SQ SCH (08:42)
[2019-06-18] MEDS: MULTIVITAMINS, THERA 1 EACH TAB PO SCH (08:42)
[2019-06-18] MEDS: LACTOBACILLUS ACIDOPH & BULGAR 1 EACH PACKET PO SCH ×2 (08:42→21:56)
[2019-06-18] MEDS: ANASTROZOLE 1 MG TAB PO SCH (08:43)
[2019-06-18] MEDS: AMANTADINE HCL 100 MG CAP PO SCH ×2 (08:43→21:56)
[2019-06-18] MEDS: CHOLESTYRAMINE (WITH SUGAR) 4 GM PACKET PO SCH ×2 (08:43→18:20)
--- NOTE | 2019-06-18 10:24 | P.PN ---
Subjective Progress Note Date: 06/18/19 CHIEF COMPLAINT: colitis HISTORY OF PRESENT ILLNESS: Patient examined this morning at the bedside with Dr. Anderson. He states he spoke with his daughter via phone and they have decided to seek surgical consultation with a physician out of [place] and have declined surgical intervention at this facility. PHYSICAL EXAM: VITAL SIGNS: Reviewed. GENERAL: Well-developed in no acute distress. HEENT: No sclera icterus. Extraocular movements grossly intact. Moist buccal mucosa. Head is atraumatic, normocephalic. ABDOMEN: Soft. Nondistended. Mild diffuse tenderness with palpation. NEUROLOGIC: Alert and oriented. Cranial nerves II through XII grossly intact. ASSESSMENT: 1. Severe colitis of entire colon extending from rectum to cecum PLAN: Patient states he spoke with his daughter via phone and they have decided to seek surgical consultation with a physician out of [place] and have declined surgical intervention at this facility We will sign off. If patient or family changes their mind, please re-consult Nurse practitioner note has been reviewed by physician. Signing provider agrees with the documented findings, assessment, and plan of care. Objective - Vital Signs Vital signs: Vital Signs Temp 97.7 F 06/18/19 07:00 Pulse 84 06/18/19 07:00 Resp 16 06/18/19 08:00 BP 107/70 06/18/19 07:00 Pulse Ox 97 06/18/19 07:00 Intake & Output 06/17/19 06/18/19 06/18/19 18:59 06:59 18:59 Intake Total 910 251.083 Output Total 250 Balance 660 251.083 Weight 75.296 kg Intake: IV 50 Intake, IV Titration 760 131.083 Amount Dextrose 5%-0.45% NaCl 1, 320 000 ml @ 125 mls/hr IV . Q8H [facility] Rx#:[id number] Mvi, Adult No.4 with Vit 440 131.083 K 10 ml Trace (Conc-1Ml/ Dose) 1 ml Sodium Chloride 2.5MEQ/ml Vial 55 meq Potassium Chloride 40 meq Calcium Gluconate 1 gm Potassium Phosphate 10 mmol In Amino Acid 5% -D15w 1,000 ml @ 55 mls/ hr IV .[id number] [facility] Rx#: [id number] Oral 100 120 Output: Urine 250 Other: Voiding Method Urinal Urinal Urinal Diaper Diaper Diaper Incontinent Incontinent Incontinent # Voids 1 2 # Bowel Movements 3 - Labs CBC & Chem 7: 06/17/19 06:48 06/18/19 06:05 Labs: Abnormal Lab Results - Last 24 Hours (Table) 06/17/19 06/18/19 06/18/19 Range/Units 21:05 02:07 06:05 Sodium 130 L (137-145) mmol/L Chloride 97 L (98-107) mmol/L Creatinine 0.47 L (0.66-1.25) mg/dL Glucose 169 H (74-99) mg/dL POC Glucose (mg/dL) 216 H 187 H (75-99) mg/dL Calcium 8.0 L (8.4-10.2) mg/dL
[2019-06-18 12:15] LABS: Glucose,Whole Blood 138 mg/dL (75-99)
--- NOTE | 2019-06-18 17:28 | PN ---
PROGRESS NOTE DATE OF SERVICE: 06/18/2019 REASON FOR FOLLOWUP: Oral thrush and diarrhea. INTERVAL HISTORY: The patient is currently afebrile, patient is breathing comfortably. Oral sores, no worsening. No chest pain or cough. Denies any worsening abdominal pain, no diarrhea. PHYSICAL EXAMINATION: Blood pressure 95/64 with a pulse of 86, temperature is 97.7. He is 98% on room air. General description is an elderly male, lying in bed in no distress. RESPIRATORY SYSTEM: Unlabored breathing, clear to auscultation anteriorly. HEART: S1, S2. Regular rate and rhythm. ABDOMEN: Soft, no tenderness. LABS: BUN of 12, creatinine 0.47. Blood culture has been negative. DIAGNOSTIC IMPRESSION AND PLAN: 1. Patient with oral thrush, continue with Nystatin swish and swallow. 2. Diarrhea, possibly related to colitis. Surgery is on the case. Continue with current med treatment. Monitor clinical course closely. MMMURIELL / LOURDESN: [id number] /
[2019-06-18] MEDS ORDERED: MVI, ADULT NO.4 WITH VIT K 10 ML, TRACE (CONC-1ML/DOSE) 1 ML, SODIUM CHLORIDE 2.5MEQ/ML... IV SCH ×7 (17:30)
[2019-06-18 18:03] LABS: Glucose,Whole Blood 130 mg/dL (75-99)
--- NOTE | 2019-06-18 20:12 | P.PN ---
Subjective Progress Note Date: 06/18/19 Principal diagnosis: Severe ulcerative colitis, abdominal pain, diarrhea Patient is seen lying in bed today, continues to have some abdominal pain. No nausea or vomiting. Denies any bowel movements today, is urinating. Objective - Vital Signs Vital signs: Vital Signs Temp 97.7 F 06/18/19 07:00 Pulse 84 06/18/19 07:00 Resp 16 06/18/19 08:00 BP 107/70 06/18/19 07:00 Pulse Ox 97 06/18/19 07:00 Intake & Output 06/17/19 06/18/19 06/18/19 18:59 06:59 18:59 Intake Total 910 251.083 Output Total 250 Balance 660 251.083 Weight 75.296 kg Intake: IV 50 Intake, IV Titration 760 131.083 Amount Dextrose 5%-0.45% NaCl 1, 320 000 ml @ 125 mls/hr IV . Q8H JUSTIN Rx#:[id number] Mvi, Adult No.4 with Vit 440 131.083 K 10 ml Trace (Conc-1Ml/ Dose) 1 ml Sodium Chloride 2.5MEQ/ml Vial 55 meq Potassium Chloride 40 meq Calcium Gluconate 1 gm Potassium Phosphate 10 mmol In Amino Acid 5% -D15w 1,000 ml @ 55 mls/ hr IV .[id number] JUSTIN Rx#: [id number] Oral 100 120 Output: Urine 250 Other: Voiding Method Urinal Urinal Urinal Diaper Diaper Diaper Incontinent Incontinent Incontinent # Voids 1 2 # Bowel Movements 3 - Exam On physical examination, patient appears comfortable in no apparent distress. HEAD: Normocephalic, atraumatic. EYES: No scleral icterus. No conjunctival injection. MOUTH: No lesions, tongue midline. NECK: Trachea midline, no gross abnormalities. ABDOMEN: Soft, mildly tender to palpation. Bowel sounds are positive. No organomegaly. No guarding or rigidity. EXTREMITIES: No pedal edema. SKIN: No rashes, no jaundice. NEUROLOGIC: Alert and oriented x3. No focal deficits. - Labs CBC & Chem 7: 06/17/19 06:48 06/18/19 06:05 Labs: Abnormal Lab Results - Last 24 Hours (Table) 06/17/19 06/18/19 06/18/19 Range/Units 21:05 02:07 06:05 Sodium 130 L (137-145) mmol/L Chloride 97 L (98-107) mmol/L Creatinine 0.47 L (0.66-1.25) mg/dL Glucose 169 H (74-99) mg/dL POC Glucose (mg/dL) 216 H 187 H (75-99) mg/dL Calcium 8.0 L (8.4-10.2) mg/dL Assessment and Plan (1) Colitis Narrative/Plan: 68-year-old male with severe refractory ulcerative colitis maintained on prednisone therapy the patient remains symptomatic with elevated CRP and progressive weakness. Colonoscopy performed on 07/13/2019 showed severe pancolitis. Recommendation was for surgical intervention and colectomy in at this time the patient and his daughter would like to seek a surgical opinion at [facility]. Current Visit: Yes Status: Acute Code(s): K52.9 - NONINFECTIVE GASTROENTERITIS AND COLITIS, UNSPECIFIED SNOMED Code(s): 47248304 (2) Blood per rectum Current Visit: No Status: Acute Code(s): K62.5 - HEMORRHAGE OF ANUS AND RECTUM SNOMED Code(s): 32665245 Plan: Supportive care Clear liquid diet TPN therapy Surgical service consulted and appreciate their recommendations Continue symptomatic treatment with Imodium and Bentyl Continue prednisone and Canasa rectal Thank you for allowing us to participate in the care of the patient
--- NOTE | 2019-06-18 21:27 | P.PN ---
Progress Note - Text Progress Note Date: 06/18/19 Chief Complaint: Weak and tired History of presenting complaint: This is a very pleasant 68-year-old patient of Dr. Jossue Peguero. Patient was not prolonged cold in the hospital from May 13 through May 29. Admitted with a diagnosis of acute exacerbation of ulcerative colitis. Also had COVID-19 pneumonia and Pseudomonas pneumonia. Patient was treated with Colazal, Canasa enemas steroids. Discharged on high-dose of steroids. Seen by Dr. Agustina Norris from GI. Supposed to start [facility]olog[facility] down the road. Patient was discharged to the [facility]. Patient now presents with feeling weak tired rundown. Very dry mouth. Does not like the taste of food. Occasional abdominal cramping. May be some blood in the stool. No fever no chills. No respiratory symptoms. (For the same. Admitted with severe asthenia, some steroid-induced myopathy, oral candidiasis, significant anorexia. PICC line was placed. Started on TPN-lipids. colonoscopic Dr. Agustina Norris. - severe total colitis. Total colectomy and recommended. Today-family decided to move the patient to [place]. Tired. TPN lipids are being given. I was called by the colorectal surgeon from [facility] Dr. Yepez. Give him a full report. Spoke to the pillowcase cleaner. Review of systems: Was done for constitutional, cardiovascular, GI, pulmonary. relevant finding as above Active Medications Acetaminophen (Tylenol Tab) 500 mg PO Q6HR PRN PRN Reason: Fever and/ or Pain Last Admin: 06/15/19 01:45 Dose: 500 mg Documented by: Albuterol Sulfate (Ventolin Hfa Inhaler) 2 puff INHALATION RT-TID [facility] Last Admin: 06/18/19 19:48 Dose: 2 puff Documented by: Amantadine HCl (Symmetrel) 100 mg PO BID [facility] Last Admin: 06/18/19 08:43 Dose: 100 mg Documented by: Anastrozole (Arimidex) 1 mg PO SUTUFR [facility] Last Admin: 06/18/19 08:43 Dose: 1 mg Documented by: Carbidopa/Levodopa (Sinemet 25-100) 1 each PO TID@1000,1400,1800 [facility] Last Admin: 06/18/19 18:20 Dose: 1 each Documented by: Cholestyramine Resin (Questran) 4 gm PO BID@1000,1800 [facility] Last Admin: 06/18/19 18:20 Dose: 4 gm Documented by: Dicyclomine HCl (Bentyl) 20 mg PO Q6H PRN PRN Reason: Dyspepsia Last Admin: 06/16/19 11:47 Dose: 20 mg Documented by: Dronabinol (Marinol) 2.5 mg PO BID@0800,1600 [facility] Last Admin: 06/18/19 18:20 Dose: 2.5 mg Documented by: Enoxaparin Sodium (Lovenox) 40 mg SQ DAILY [facility] Last Admin: 06/18/19 08:42 Dose: 40 mg Documented by: Fluconazole (Diflucan) 200 mg PO DAILY [facility] Last Admin: 06/18/19 08:40 Dose: 200 mg Documented by: Dextrose/Sodium Chloride (Dextrose 5%-1/2ns Iv Soln) 1,000 mls @ 125 mls/hr IV .Q8H [facility] Last Admin: 06/18/19 18:17 Dose: Not Given Documented by: Fat Emulsion Intravenous (Lipids 20%) 250 mls @ 20.833 mls/hr IV MoWeFr@1300 [facility] Last Admin: 06/17/19 13:41 Dose: 20.833 mls/hr Documented by: Parenteral Vitamin Supplement 10 ml/ Chromium/Copper/Manganese/Seleni/Zn 1 ml/Sodium Chloride 55 meq/Potassium Chloride 40 meq/Calcium Gluconate 1 gm/Potassium Phosphate 10 mmol/Amino Acids/Dextrose 1,066.3333 mls @ 55 mls/hr IV .[id number] [facility] Last Admin: 06/18/19 18:19 Dose: 55 mls/hr Documented by: Lactobacillus Acidoph/Bulgaricus (Lactinex) 1 each PO BID [facility] Last Admin: 06/18/19 08:42 Dose: 1 each Documented by: Loperamide HCl (Imodium) 2 mg PO QID PRN PRN Reason: Diarrhea Mesalamine (Canasa) 1,000 mg RECTAL HS [facility] Last Admin: 06/17/19 20:55 Dose: 1,000 mg Documented by: Metoprolol Tartrate (Lopressor) 25 mg PO BID [facility] Last Admin: 06/18/19 08:40 Dose: 25 mg Documented by: Miscellaneous Information (Pneumonia Protocol Utilized) 1 each PO ONCE PRN PRN Reason: Per Protocol Multivitamins (Theragran) 1 each PO DAILY@0800 [facility] Last Admin: 06/18/19 08:42 Dose: 1 each Documented by: Nystatin (Mycostatin Oral Susp) 500,000 unit PO QID [facility] Last Admin: 06/18/19 18:20 Dose: 500,000 unit Documented by: Pantoprazole Sodium (Protonix) 40 mg PO BID@0600,1800 [facility] Last Admin: 06/18/19 18:20 Dose: 40 mg Documented by: Prednisone () 45 mg PO DAILY [facility] Last Admin: 06/18/19 08:40 Dose: 45 mg Documented by: Tamsulosin HCl (Flomax) 0.4 mg PO DAILY [facility] Last Admin: 06/18/19 08:42 Dose: 0.4 mg Documented by: Physical examination: VITAL SIGNS: 97.7, 86, 16, 95/61, 98% on room air GENERAL: Laying bed, awake EYES: Pupils equal. Conjunctiva pale. HEENT: External appearance of nose and ears normal, oral cavity dry. NECK: JVD not raised; masses not palpable. HEART: First and second heart sounds are normal; no edema. LUNGS: Respiratory rate normal, decreased breath sounds. ABDOMEN: Soft, minimal tenderness liver spleen not palpable, no masses palpable. PSYCH: Alert and oriented x3; mood and affect-a bit low. NEUROLOGICAL: Cranial nerves grossly intact; no facial asymmetry, power and sensation grossly intact. INVESTIGATIONS, reviewed in the clinical context: Progression 4.1 crit 0.47 Previous testing White count 8.7 hemoglobin 11.4 platelets 226 potassium 4.4 bun 14 creatinine 0.64 CRP 76.9, albumin 2.5, pro calcitonin 0.14 Stool for C. diff-negative Coronavirus PCR-not detected EKG tracing personally reviewed by me--sinus rhythm with a right bundle-branch block Chest x-ray film personally reviewed by me-lung zamora clear Assessment: -Advancing medical debility, multifactorial, POA, slow to respond -Hyponatremia, from decreased salt intake, slow to respond -Significant anorexia, POA -Oral candidiasis - chronic ulcerative colitis , severe refractory-not improving-with pancolitis -Clinical dehydration -Idiopathic Parkinson's disease -Novel coronavirus infected pneumonia-recently, now negative -Mild protein calorie malnutrition -Medical debility -Normocytic anemia likely from underlying colitis and from GI blood loss anemia -Possible steroid-induced myopathy, POA -BPH -Moderate protein calorie malnutrition from decreased oral intake Plan: -Continue TPN and lipids. Spoke to the accepting physician at [facility] as above. Also spoke to Dr. Anderson and the pillowcase cleaner. Patient will be accepted tomorrow. Total time spent today about 45 minutes with over 25 minutes of discussion.
[2019-06-18] MEDS: MESALAMINE 1,000 MG SUPP RECTAL SCH (21:57)
[2019-06-19 00:14] LABS: Glucose,Whole Blood 152 mg/dL (75-99)
[2019-06-19] MEDS: DEXTROSE 5%-0.45% NACL 1,000 ML IV SCH (01:55)
[2019-06-19] MEDS: ACETAMINOPHEN TAB 500 MG TAB PO PRN ×2 (02:35→08:26)
[2019-06-19] MEDS: DICYCLOMINE 20 MG TAB PO PRN ×2 (02:36→08:52)
[2019-06-19] MEDS: PANTOPRAZOLE 40 MG TABLET PO SCH (05:22)
[2019-06-19 05:56] LABS: Glucose,Whole Blood 153 mg/dL (75-99)
[2019-06-19 07:41] LABS: African American GFR (CKD) >90 (>60 ml/min/1.73 sqM); Anion Gap 5 mmol/L; Blood Urea Nitrogen 11 mg/dL (9-20); Calcium 8.2 mg/dL (8.4-10.2); Carbon Dioxide 27 mmol/L (22-30); Chloride 99 mmol/L (98-107); Glucose 127 mg/dL (74-99); Magnesium 1.6 mg/dL (1.6-2.3); Non-African American GFR(CKD) >90 (>60 ml/min/1.73 sqM); Phosphorus 2.9 mg/dL (2.5-4.5); Potassium 4.2 mmol/L (3.5-5.1); Sodium 131 mmol/L (137-145)
[2019-06-19] MEDS: NYSTATIN 100,000 UNIT/ML SUSP 500,000 UNIT/5 ML CUP PO SCH (08:25)
[2019-06-19] MEDS: FLUCONAZOLE ORAL SUSP 1,400 MG/35 ML BOTTLE PO SCH (08:25)
[2019-06-19] MEDS: AMANTADINE HCL 100 MG CAP PO SCH (08:26)
[2019-06-19] MEDS: LACTOBACILLUS ACIDOPH & BULGAR 1 EACH PACKET PO SCH (08:26)
[2019-06-19] MEDS: predniSONE 10 MG TAB PO SCH (08:26)
[2019-06-19] MEDS: CARBIDOPA-LEVODOPA 25-100 MG 1 EACH TAB PO SCH (08:27)
[2019-06-19] MEDS: METOPROLOL TARTRATE 25 MG TAB PO SCH (08:27)
[2019-06-19] MEDS: MULTIVITAMINS, THERA 1 EACH TAB PO SCH (08:27)
[2019-06-19] MEDS: DRONABINOL 2.5 MG CAP PO SCH (08:27)
[2019-06-19] MEDS: TAMSULOSIN 0.4 MG CAP.ER.24H PO SCH (08:27)
[2019-06-19] MEDS: ENOXAPARIN 40 MG/0.4 ML SYRINGE SQ SCH (08:28)
[2019-06-19] MEDS: CHOLESTYRAMINE (WITH SUGAR) 4 GM PACKET PO SCH (08:28)
[2019-06-19 08:33] VITALS: BP 142/74; PULSE 80; RESP 18; TEMP 97.8
[2019-06-19] MEDS: ALBUTEROL HFA INHALER INHALATION SCH (09:09)
[2019-06-19] MEDS ORDERED: MAGNESIUM SULFATE-D5W PMX 1 GM in DEXTROSE/WATER 1 100ML.BAG IVPB SCH (09:45)
--- NOTE | 2019-06-20 21:40 | P.DS ---
Providers Date of admission: 06/12/19 15:00 Expected date of discharge: 06/19/19 Attending physician: Adam Van Consults: 06/10/19 22:03 Consult Physician Routine Consulting Provider: Kelli Russell Consult Reason/Comments: covid Do you want consulting provider notified?: Yes 06/11/19 13:08 Consult Physician Routine Consulting Provider: Brooke Norris Consult Reason/Comments: colitis, known pt Do you want consulting provider notified?: Yes 06/16/19 19:07 Consult Physician Routine Consulting Provider: Dre Patterson Consult Reason/Comments: Depression Do you want consulting provider notified?: Already Contacted 06/17/19 08:35 Consult Physician Routine Consulting Provider: Todd Anderson Consult Reason/Comments: severe colitis for colectomy Do you want consulting provider notified?: Yes Primary care physician: [facility] Course: Chief Complaint: Weak and tired History of presenting complaint: This is a very pleasant 68-year-old patient of Dr. Jossue Peguero. Patient was not prolonged cold in the hospital from May 13 through May 29. Admitted with a diagnosis of acute exacerbation of ulcerative colitis. Also had COVID-19 pneumonia and Pseudomonas pneumonia. Patient was treated with Colazal, Canasa enemas steroids. Discharged on high-dose of steroids. Seen by Dr. Agustina Norris from GI. Supposed to start [facility]olog[facility] down the road. Patient was discharged to the [facility]. Patient now presents with feeling weak tired rundown. Very dry mouth. Does not like the taste of food. Occasional abdominal cramping. May be some blood in the stool. No fever no chills. No respiratory symptoms. (For the same. Admitted with severe asthenia, some steroid-induced myopathy, oral candidiasis, significant anorexia. PICC line was placed. Started on TPN-lipids. colonoscopic Dr. Agustina Norris. - severe total colitis. Total colectomy and recommended. -family decided to move the patient to [place]. Tired. TPN lipids are being given. I was called by the colorectal surgeon from [facility] Dr. Yepez. Give him a full report. Spoke to the patient case coordinator. Today-patient being transferred to [facility] Consultation: Dr. Agustina Norris from Dr. Anderson from general surgery Physical examination: VITAL SIGNS: 97.8, 80, 18, 140-74, 97% on room air INVESTIGATIONS, reviewed in the clinical context: Progression 4.2 creatinine 0.51 Previous testing White count 8.7 hemoglobin 11.4 platelets 226 potassium 4.4 bun 14 creatinine 0.64 CRP 76.9, albumin 2.5, pro calcitonin 0.14 Stool for C. diff-negative Coronavirus PCR-not detected EKG tracing personally reviewed by me--sinus rhythm with a right bundle-branch block Chest x-ray film personally reviewed by me-lung zamora clear Assessment: -Advancing medical debility, multifactorial, POA, slow to respond -Hyponatremia, from decreased salt intake, slow to respond -Significant anorexia, POA -Oral candidiasis - chronic ulcerative colitis , severe refractory-not improving-with pancolitis- severe for total colectomy possibly -Clinical dehydration -Idiopathic Parkinson's disease -Novel coronavirus infected pneumonia-recently, now negative -Mild protein calorie malnutrition -Medical debility -Normocytic anemia likely from underlying colitis and from GI blood loss anemia -Possible steroid-induced myopathy, POA -BPH -Moderate protein calorie malnutrition from decreased oral intake Disposition: [facility] transfer for higher level of care under colorectal surgery Patient Condition at Discharge: Undetermined Plan - Discharge Summary New Discharge Prescriptions: No Action Amantadine HCl [Amantadine] 100 mg PO BID Anastrozole [Arimidex] 1 mg PO SUTUFR Carbidopa/Levodopa [Sinemet 25-100 mg] 1 tab PO TID@1000,1400,1800 Mesalamine [Canasa] 1,000 mg RECTAL HS supp Psyllium Husk 100% [Metamucil Packet] 6 gm PO BID packet Cholestyramine (with Sugar) [Questran Packet] 4 gm PO BID@1000,1800 packet Acetaminophen Tab [Tylenol] 500 mg PO Q6HR PRN tab PRN Reason: Fever And/ Or Pain Albuterol Inhaler [Ventolin Hfa Inhaler] 2 puff INHALATION RT-TID puff Dicyclomine [Bentyl] 20 mg PO Q6H PRN PRN Reason: Dyspepsia Metoprolol Tartrate [Lopressor] 25 mg PO DIRECTED Ensure 1 can PO TID-W/MEALS Pantoprazole [Protonix] 40 mg PO BID@0600,1800 Dronabinol [Marinol] 2.5 mg PO BID@0800,1600 Diff-Stat Probiotic 2 cap PO BID predniSONE 45 mg PO DAILY Multivitamin-Minerals Tab 1 tab PO DAILY@0800 Tamsulosin [Flomax] 0.4 mg PO DAILY Loperamide HCl [Loperamide] 2 mg PO Q6H PRN PRN Reason: Diarrhea Discharge Medication List Amantadine HCl [Amantadine] 100 mg PO BID 05/14/19 [History] Anastrozole [Arimidex] 1 mg PO SUTUFR 05/14/19 [History] Carbidopa/Levodopa [Sinemet 25-100 mg] 1 tab PO TID@1000,1400,1800 05/14/19 [History] Acetaminophen Tab [Tylenol] 500 mg PO Q6HR PRN tab 05/30/19 [Rx] Albuterol Inhaler [Ventolin Hfa Inhaler] 2 puff INHALATION RT-TID puff 05/30/19 [Rx] Cholestyramine (with Sugar) [Questran Packet] 4 gm PO BID@1000,1800 packet 05/30/19 [Rx] Mesalamine [Canasa] 1,000 mg RECTAL HS supp 05/30/19 [Rx] Psyllium Husk 100% [Metamucil Packet] 6 gm PO BID packet 05/30/19 [Rx] Dicyclomine [Bentyl] 20 mg PO Q6H PRN 06/10/19 [History] Diff-Stat Probiotic 2 cap PO BID 06/10/19 [History] Dronabinol [Marinol] 2.5 mg PO BID@0800,1600 06/10/19 [History] Ensure 1 can PO TID-W/MEALS 06/10/19 [History] Loperamide HCl [Loperamide] 2 mg PO Q6H PRN 06/10/19 [History] Metoprolol Tartrate [Lopressor] 25 mg PO DIRECTED 06/10/19 [History] Multivitamin-Minerals Tab 1 tab PO DAILY@0800 06/10/19 [History] Pantoprazole [Protonix] 40 mg PO BID@0600,1800 06/10/19 [History] Tamsulosin [Flomax] 0.4 mg PO DAILY 06/10/19 [History] predniSONE 45 mg PO DAILY 06/10/19 [History] Follow up Appointment(s)/Referral(s): Tray Alvarez MD [Primary Care Provider] - 1-2 days Discharge Disposition: OTHER INSTITUTION NOT DEFINED
== END 2019-06-19 10:05 | disposition short-term general hospital (02) | DRG 386 ==
LOC: EC 18:59 → INTOOBSV 22:05 → 4SSUR 22:05 → OBSVTOIN 06-12 15:00
PROVIDERS: ADMIT Hospitalist; ATTEND Hospitalist
PROC: 0JH63XZ Insertion of Tunneled Vascular Access Device into Chest Subcutaneous Tissue and Fascia, Percutaneous Approach (ICD-10-PCS; principal; 2019-06-13 10:55)
PROC: 02HV33Z Insertion of Infusion Device into Superior Vena Cava, Percutaneous Approach (ICD-10-PCS; principal; 2019-06-13 10:55)
PROC: 0DBK8ZX Excision of Ascending Colon, Via Natural or Artificial Opening Endoscopic, Diagnostic (ICD-10-PCS; 2019-06-17)
PROC: 0DBN8ZX Excision of Sigmoid Colon, Via Natural or Artificial Opening Endoscopic, Diagnostic (ICD-10-PCS; 2019-06-17)
PROC: 0DBM8ZX Excision of Descending Colon, Via Natural or Artificial Opening Endoscopic, Diagnostic (ICD-10-PCS; 2019-06-17)
DX: K50.118 Crohn's disease of large intestine with other complication (principal); B37.0 Candidal stomatitis; E44.0 Moderate protein-calorie malnutrition; E87.1 Hypo-osmolality and hyponatremia; G72.0 Drug-induced myopathy; D50.0 Iron deficiency anemia secondary to blood loss (chronic); E86.0 Dehydration; F32.9 Major depressive disorder, single episode, unspecified; G20 Parkinson's disease; N40.0 Benign prostatic hyperplasia without lower urinary tract symptoms; R13.10 Dysphagia, unspecified; R62.7 Adult failure to thrive; T38.0X5A Adverse effect of glucocorticoids and synthetic analogues, initial encounter; Z79.52 Long term (current) use of systemic steroids; Z79.899 Other long term (current) drug therapy; Z87.891 Personal history of nicotine dependence; Z86.19 Personal history of other infectious and parasitic diseases; Z68.25 Body mass index [BMI] 25.0-25.9, adult; R43.0 Anosmia; Z87.01 Personal history of pneumonia (recurrent)
CPT/HCPCS: 36415; 36573; 45331; 71045; 74021; 80048; 80053; 82330; 82728; 83615; 83735; 83993; 84100; 84145; 84478; 85025; 86140; 87040; 87324; 87635; 88305; 93005; 94640; 99291

== ENCOUNTER 2024-05-29 12:00 | Inpatient (IN) | payer MEDICARE, OTHER ==
--- NOTE | 2024-05-29 12:21 | ED ---
General Adult HPI - General Chief complaint: Recheck/Abnormal Lab/Rx Stated complaint: Abn labs Time Seen by Provider: 05/29/24 12:06 Source: patient, RN notes reviewed Mode of arrival: ambulatory Limitations: no limitations - History of Present Illness Initial comments: Patient is a 73-year-old male present to the emergency department with concerns with leg edema and hematuria. Both started 2 to 3 days ago. No history of either previously. No chest pain or dyspnea. Patient is not on blood thinners. No other areas of bleeding or concern. No fatigue. No calf pain. - Related Data Home Medications Medication Instructions Recorded Confirmed Carbidopa/Levodopa [Sinemet 25-100 1 tab PO QID PRN 05/14/19 05/29/24 mg] Adalimumab [Humira(Cf) Pen] 40 mg SQ Q14D 05/29/24 05/29/24 Carbidopa-Levodopa ER 50-200Mg 1 tab PO BID 05/29/24 05/29/24 [Sinemet CR 50-200 mg] Fludrocortisone [Florinef] 0.1 mg PO BID 05/29/24 05/29/24 Midodrine HCl [ProAmantine] 2.5 mg PO TID 05/29/24 05/29/24 Naproxen [Naprosyn] 500 mg PO BID PRN 05/29/24 05/29/24 Pramipexole [Mirapex] 0.125 mg PO TID@1100,1500,1900 05/29/24 05/29/24 Sildenafil Citrate 100 mg PO DAILY PRN 05/29/24 05/29/24 Testosterone Enanthate [Xyosted] 75 mg SQ TH 05/29/24 05/29/24 modafiniL [Provigil] 200 mg PO DAILY 05/29/24 05/29/24 Allergies Allergy/AdvReac Type Severity Reaction Status Date / Time Penicillins Allergy Rash/Hives Verified 05/29/24 14:15 Review of Systems ROS Statement: Those systems with pertinent positive or pertinent negative responses have been documented in the HPI. ROS Other: All systems not noted in ROS Statement are negative. Constitutional: Denies: fever Eyes: Denies: eye pain ENT: Denies: ear pain Respiratory: Denies: cough, dyspnea Cardiovascular: Reports: edema. Denies: chest pain, orthopnea Endocrine: Denies: fatigue Gastrointestinal: Denies: abdominal pain Genitourinary: Reports: as per HPI Skin: Denies: rash Neurological: Denies: weakness Past Medical History Additional Past Medical History / Comment(s): parkinson and new colitis History of Any Multi-Drug Resistant Organisms: None Reported Past Surgical History: Tonsillectomy Additional Past Surgical History / Comment(s): Previous colonoscopy and EGD, colon removed. Past Psychological History: No Psychological Hx Reported Smoking Status: Never smoker Past Alcohol Use History: Rare Past Drug Use History: None Reported General Exam Limitations: no limitations General appearance: alert, in no apparent distress Head exam: Present: normocephalic Eye exam: Present: normal appearance Neck exam: Present: normal inspection Respiratory exam: Present: normal lung sounds bilaterally Cardiovascular Exam: Present: regular rate, irregular rhythm, normal heart sounds GI/Abdominal exam: Present: soft. Absent: tenderness Extremities exam: Present: pedal edema. Absent: calf tenderness Neurological exam: Present: alert Psychiatric exam: Present: normal affect, normal mood Skin exam: Present: normal color Course Vital Signs 05/29/24 05/29/24 12:00 16:09 Temperature 97.8 F Pulse Rate 86 98 Respiratory 18 18 Rate Blood Pressure 110/63 147/84 O2 Sat by Pulse 97 97 Oximetry EKG Findings - EKG Results: EKG: interpreted by ERMD (Right bundle branch block. PVCs present.), normal axis, normal ST/T EKG shows: atrial fibrillation Medical Decision Making - Medical Decision Making Was pt. sent in by a medical professional or institution (, PA, JAVA PROGRAMMER, urgent care, hospital, or [facility]...) When possible be specific @ -No Did you speak to anyone other than the patient for history (EMS, parent, family, police, friend...)? What history was obtained from this source @ -Son is present and helps provide history including onset of symptoms Did you review nursing and triage notes (agree or disagree)? Why? @ -I reviewed and agree with nursing and triage notes Were old charts reviewed (outside hosp., previous admission, EMS record, old EKG, old radiological studies, urgent care reports/EKG's, [facility] records)? Report findings @ -No old charts were reviewed Differential Diagnosis (chest pain, altered mental status, abdominal pain women, abdominal pain men, vaginal bleeding, weakness, fever, dyspnea, syncope, headache, dizziness, GI bleed, back pain, seizure, CVA, palpatations, mental health, musculoskeletal)? @ -Differential Abdominal Pain Men: Appendicitis, cholecystitis, diverticulosis, ischemic bowel, pancreatitis, hepatitis, UTI, gastroenteritis, AAA, incarcerated hernia, bowel obstruction, constipation, inflammatory bowel, hepatitis, peptic ulcer disease, splenic infarction, perforated viscus, testicular torsion, this is not meant to be an all-inclusive list EKG interpreted by me (3pts min.). @ -As above X-rays interpreted by me (1pt min.). @ -Chest x-ray and abdominal x-ray did not reveal acute abnormality CT interpreted by me (1pt min.). @ -CT scan abdomen pelvis does show nonobstructing stone on the right. In addition there is. Cholecystic fluid without gallstone. U/S interpreted by me (1pt. min.). @ -None done What testing was considered but not performed or refused? (CT, X-rays, U/S, l abs)? Why? @ -None What meds were considered but not given or refused? Why? @ -None Did you discuss the management of the patient with other professionals (professionals i.e. , PA, JAVA PROGRAMMER, lab, RT, psych nurse, social work instructor, compatibility test engineer, teacher, animal park code enforcement officer, rifle case repairer)? Give summary @ -Case discussed with Dr. Chew who will admit covering Dr. Peguero Was smoking cessation discussed for >3mins.? @ -No Was critical care preformed (if so, how long)? @ -No Were there social determinants of health that impacted care today? How? (Homelessness, low income, unemployed, alcoholism, drug addiction, t ransportation, low edu. Level, literacy, decrease access to med. care, longterm, rehab)? @ -No Was there de-escalation of care discussed even if they declined (Discuss DNR or withdrawal of care, Hospice)? DNR status @ -No What co-morbidities impacted this encounter? (DM, HTN, Smoking, COPD, CAD, Cance r, CVA, ARF, Chemo, Hep., AIDS, mental health diagnosis, sleep apnea, morbid obesity)? @ -None Was patient admitted / discharged? Hospital course, mention meds given and route, prescriptions, significant lab abnormalities, going to OR and other pertinent info. @ -Patient presents with hematuria and leg edema. Patient has mild bump in INR. There is a nonobstructing stone which could be potential cause for hematuria. Patient does have leg edema without pulmonary edema. There is also concern for acalculous cholecystitis. Patient will be admitted. Surgery will be placed on consult. Admission orders written. Undiagnosed new problem with uncertain prognosis? @ -No Drug Therapy requiring intensive monitoring for toxicity (Heparin, Nitro, Insulin, Cardizem)? @ -No Were any procedures done? @ -No Diagnosis/symptom? @ -Leg edema, hematuria, acalculous cholecystitis Acute, or Chronic, or Acute on Chronic? @ -Acute, acute, acute Uncomplicated (without systemic symptoms) or Complicated (systemic symptoms)? @ -Default Side effects of treatment? @ -No Exacerbation, Progression, or Severe Exacerbation? @ -No Poses a threat to life or bodily function? How? (Chest pain, [place], [place], pneumonia, PE, COPD, DKA, ARF, appy, cholecystitis, CVA, Diverticulitis, Homicidal, Suicidal, threat to staff... and all critical care pts) @ -No - Lab Data Result diagrams: 05/29/24 12:59 05/29/24 13:11 Lab Results 05/29/24 05/29/24 05/29/24 Range/Units 12:27 12:59 12:59 WBC 9.24 (4.50-10.00) 10*3/uL RBC 5.01 (4.40-5.60) 10*6/uL Hgb 14.8 (13.0-17.0) g/dL Hct 44.3 (39.6-50.0) % MCV 88.4 (80.0-97.0) fL MCH 29.5 (27.0-32.0) pg MCHC 33.4 (32.0-37.0) g/dL Plt Count 218 (140-440) 10*3/uL MPV 10.6 (9.5-12.2) fL Immature Gran % (Auto) 1.0 % Neutrophils % 73.9 % Lymphocytes % 11.3 % Monocytes % 9.7 % Eosinophils % 3.0 % Basophils % 1.1 % Immature Gran # 0.09 H (0.00-0.04) 10*3/uL Neutrophils # 6.83 (1.80-7.70) 10*3/uL Lymphocytes # 1.04 (0.90-5.00) 10*3/uL Monocytes # 0.90 (0.20-1.00) 10*3/uL Eosinophils # 0.28 (0.04-0.35) 10*3/uL Basophils # 0.10 (0.00-0.10) 10*3/uL PT 14.9 H (10.0-12.5) sec INR 1.4 H (<1.2) APTT 22.7 (22.0-30.0) sec Sodium (137-145) mmol/L Potassium (3.5-5.1) mmol/L Chloride (98-107) mmol/L Carbon Dioxide (22-30) mmol/L Anion Gap mmol/L BUN (9-20) mg/dL Creatinine (0.66-1.25) mg/dL Est GFR (CKD-EPI)AfAm (>60 ml/min/1.73 sqM) Est GFR (CKD-EPI)NonAf (>60 ml/min/1.73 sqM) Glucose (74-99) mg/dL Plasma Lactic Acid Silvano (0.7-2.0) mmol/L Calcium (8.4-10.2) mg/dL Magnesium (1.6-2.3) mg/dL Total Bilirubin (0.2-1.3) mg/dL AST (17-59) U/L ALT (4-49) U/L Alkaline Phosphatase (38-126) U/L Troponin I (0.000-0.034) ng/mL NT-Pro-B Natriuret Pep pg/mL Total Protein (6.3-8.2) g/dL Albumin (3.5-5.0) g/dL Urine Color Dark Brown Urine Appearance Turbid (Clear) Urine pH 5.5 (5.0-8.0) Ur Specific Brock 1.028 (1.001-1.035) Urine Protein 1+ H (Negative) Urine Glucose (UA) Negative (Negative) Urine Ketones Trace H (Negative) Urine Blood Large H (Negative) Urine Nitrite Negative (Negative) Urine Bilirubin Negative (Negative) Urine Urobilinogen <2.0 (<2.0) mg/dL Ur Leukocyte Esterase Trace H (Negative) Urine RBC >182 H (0-5) /hpf Urine WBC 3 (0-5) /hpf Urine Bacteria Occasional H (None) /hpf Urine Mucus Rare H (None) /hpf 05/29/24 05/29/24 05/29/24 Range/Units 12:59 12:59 13:11 WBC (4.50-10.00) 10*3/uL RBC (4.40-5.60) 10*6/uL Hgb (13.0-17.0) g/dL Hct (39.6-50.0) % MCV (80.0-97.0) fL MCH (27.0-32.0) pg MCHC (32.0-37.0) g/dL Plt Count (140-440) 10*3/uL MPV (9.5-12.2) fL Immature Gran % (Auto) % Neutrophils % % Lymphocytes % % Monocytes % % Eosinophils % % Basophils % % Immature Gran # (0.00-0.04) 10*3/uL Neutrophils # (1.80-7.70) 10*3/uL Lymphocytes # (0.90-5.00) 10*3/uL Monocytes # (0.20-1.00) 10*3/uL Eosinophils # (0.04-0.35) 10*3/uL Basophils # (0.00-0.10) 10*3/uL PT (10.0-12.5) sec INR (<1.2) APTT (22.0-30.0) sec Sodium 136 L (137-145) mmol/L Potassium 5.2 H (3.5-5.1) mmol/L Chloride 101 (98-107) mmol/L Carbon Dioxide 26 (22-30) mmol/L Anion Gap 9 mmol/L BUN 25 H (9-20) mg/dL Creatinine 1.15 (0.66-1.25) mg/dL Est GFR (CKD-EPI)AfAm 72 (>60 ml/min/1.73 sqM) Est GFR (CKD-EPI)NonAf 62 (>60 ml/min/1.73 sqM) Glucose 107 H (74-99) mg/dL Plasma Lactic Acid Silvano 2.0 (0.7-2.0) mmol/L Calcium 9.8 (8.4-10.2) mg/dL Magnesium 1.8 (1.6-2.3) mg/dL Total Bilirubin 1.7 H (0.2-1.3) mg/dL AST 39 (17-59) U/L ALT 6 (4-49) U/L Alkaline Phosphatase 101 (38-126) U/L Troponin I <0.012 (0.000-0.034) ng/mL NT-Pro-B Natriuret Pep 2140 pg/mL Total Protein 7.7 (6.3-8.2) g/dL Albumin 4.3 (3.5-5.0) g/dL Urine Color Urine Appearance (Clear) Urine pH (5.0-8.0) Ur Specific Brock (1.001-1.035) Urine Protein (Negative) Urine Glucose (UA) (Negative) Urine Ketones (Negative) Urine Blood (Negative) Urine Nitrite (Negative) Urine Bilirubin (Negative) Urine Urobilinogen (<2.0) mg/dL Ur Leukocyte Esterase (Negative) Urine RBC (0-5) /hpf Urine WBC (0-5) /hpf Urine Bacteria (None) /hpf Urine Mucus (None) /hpf Disposition Clinical Impression: Edema, Acalculous cholecystitis, Hematuria Disposition: ADMITTED IP TO THIS HOSP Is patient prescribed a controlled substance at d/c from ED?: No Referrals: Jossue Peguero MD [Primary Care Provider] - 1-2 days Time of Disposition: 16:50
[2024-05-29 12:52] LABS: Appearance,Urine Turbid (Clear); Bacteria,Urine Occasional /hpf; Bilirubin,Urine Negative (Negative); Blood,Urine Large (Negative); Color,Urine Dark Brown; Glucose,Urine (UA) Negative (Negative); Ketones,Urine Trace (Negative); Leukocyte Esterase,Urine Trace (Negative); Mucus,Urine Rare /hpf; Nitrite,Urine Negative (Negative); PH, Urine 5.5 (5.0-8.0); Protein,Urine 1+ (Negative); RBC,Urine >182 /hpf (0-5); Specific Gravity,Urine 1.028 (1.001-1.035); Urobilinogen,Urine <2.0 mg/dL (<2.0); WBC,Urine 3 /hpf (0-5)
[2024-05-29 13:06] LABS: Basophils % (A) 1.1 %; Eosinophils # (A) 0.28 10*3/uL (0.04-0.35); HCT 44.3 % (39.6-50.0); HGB 14.8 g/dL (13.0-17.0); Lymphocytes # (A) 1.04 10*3/uL (0.90-5.00); Lymphocytes % (A) 11.3 %; MCH 29.5 pg (27.0-32.0); MCHC 33.4 g/dL (32.0-37.0); MCV 88.4 fL (80.0-97.0); Mean Platelet Volume 10.6 fL (9.5-12.2); Monocytes % (A) 9.7 %; Neutrophils # (A) 6.83 10*3/uL (1.80-7.70); Neutrophils % (A) 73.9 %; Platelet Count 218 10*3/uL (140-440); RBC 5.01 10*6/uL (4.40-5.60); RDW 13.8 % (11.5-14.5); WBC 9.24 10*3/uL (4.50-10.00)
[2024-05-29 13:27] LABS: INR 1.4 (<1.2); Partial Thromboplastin Time 22.7 sec (22.0-30.0); Prothrombin Time 14.9 sec (10.0-12.5)
[2024-05-29 13:30] LABS: ALT 6 U/L (4-49); African American GFR (CKD) 72 (>60 ml/min/1.73 sqM); Anion Gap 9 mmol/L; Blood Urea Nitrogen 25 mg/dL (9-20); Calcium 9.8 mg/dL (8.4-10.2); Carbon Dioxide 26 mmol/L (22-30); Chloride 101 mmol/L (98-107); Non-African American GFR(CKD) 62 (>60 ml/min/1.73 sqM); Sodium 136 mmol/L (137-145)
[2024-05-29 13:31] LABS: AST 39 U/L (17-59); Albumin 4.3 g/dL (3.5-5.0); Alkaline Phosphatase 101 U/L (38-126); Glucose 107 mg/dL (74-99); Magnesium 1.8 mg/dL (1.6-2.3); Potassium 5.2 mmol/L (3.5-5.1); Total Bilirubin 1.7 mg/dL (0.2-1.3); Total Protein 7.7 g/dL (6.3-8.2)
[2024-05-29 13:37] LABS: NT-Pro-B-Type Natriuretic Pept 2140 pg/mL
--- NOTE | 2024-05-29 13:43 | XR ---
EXAMINATION TYPE: XR chest 2V DATE OF EXAM: 05/29/2024 1:21 PM COMPARISON: Multiple radiographs, with the most recent on 06/11/2019 TECHNIQUE: XR chest 2V Frontal and lateral views of the chest. CLINICAL INDICATION:Male, 73 years old with history of Weakness; FINDINGS: Lungs/Pleura: There is no evidence of pleural effusion, focal consolidation, or pneumothorax. Pulmonary vascularity: Unremarkable. Heart/mediastinum: Cardiomediastinal silhouette is prominent in size. Musculoskeletal: No acute osseous pathology. IMPRESSION: No acute cardiopulmonary disease/process. [facility], , 05/29/2024 1:40 PM
--- NOTE | 2024-05-29 13:45 | XR ---
EXAMINATION TYPE: XR abdomen 1V DATE OF EXAM: 05/29/2024 COMPARISON: Abdominal radiograph 06/16/2019, CT abdomen pelvis 06/05/2018 HISTORY: Pain TECHNIQUE: Single supine KUB image of the abdomen is obtained FINDINGS: Small bowel demonstrates no evidence for dilatation or air fluid levels. Gas and fecal material is seen in non-distended colon. No convincing evidence for pneumoperitoneum. No definitive renal or ureteral calculus. Left-sided pelvic phlebolith. The lung bases are clear. The osseous structures are intact. IMPRESSION: 1. Overall nonobstructive bowel gas pattern. 2. No definitive renal or ureteral calculus. [facility], , 05/29/2024 1:43 PM
--- NOTE | 2024-05-29 15:07 | CT ---
EXAMINATION TYPE: CT abdomen pelvis wo con DATE OF EXAM: 05/29/2024 COMPARISON: 06/05/2018 CLINICAL INDICATION: Male, 73 years old with history of hematuria, leg edema; PHH, hematuria, leg yuliet ma TECHNIQUE: CT scan of the abdomen and pelvis is performed without oral or IV contrast. CT DLP: 861.[address] CTDI: mGy Automated exposure control for dose reduction was used. FINDINGS: Within the limitations of a non-contrast study, the following observations are made. The lungs are clear. There are no gallstones but there is no significant pericholecystic fluid raising the question of yvonne lculous acute cholecystitis. There is no biliary ductal dilatation. There is no organomegaly of the liver, pancreas, spleen or adrenal glands. 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 There is a 7 mm nonobstructing right renal calcification. Ther e is a 5.8 cm cyst in the upper pole of the left kidney.. The caliber of the abdominal aorta is normal and there is no retroperitoneal adenopathy or hemorrhage . The bowel loops are normal in caliber is no evidence of obstruction. There is a left lower quadrant c olostomy. There is a 5.6 cm right inguinal hernia containing nonstrangulated, nonedematous, nondilat ed loops of small bowel. There is a tiny amount of free fluid adjacent to the liver edge. There is no free intraperitoneal air There is no pelvic mass, free fluid, abscess or adenopathy. There is mild prostatic hypertrophy. There are no focal osseous lesions. IMPRESSION: 1. Significant pericholecystic fluid in a nondilated gallbladder with no gallstones. Findings raise t he question of acalculous cholecystitis and clinical correlation is recommended. 2. 7 mm nonobstructing right renal calcification. 3. Tiny amount of free fluid adjacent to the liver edge. 4. Right inguinal hernia containing normal small bowel loops. 5. Left lower quadrant ostomy. 6. Mild prostatic hypertrophy [facility], , 05/29/2024 3:05 PM
[2024-05-29] MEDS ORDERED: NALOXONE 0.4 MG/ML 1 ML VIAL IV PRN (16:52)
[2024-05-29] MEDS ORDERED: ACETAMINOPHEN TAB 325 MG TAB PO PRN (16:52)
[2024-05-29] MEDS ORDERED: CARBIDOPA-LEVODOPA 25-100 MG 1 EACH TAB PO PRN (16:54)
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
[2024-05-29 17:48] LABS: Creatinine,Urine Random 299.5 mg/dL
[2024-05-29] MEDS ORDERED: PIPERACILLIN-TAZOBACTAM 3.375 GM in SODIUM CHLORIDE 0.9% 100 ML IVPB SCH (18:00)
[2024-05-29] MEDS ORDERED: metroNIDAZOLE-NS PMX 500 MG in SALINE 1 100ML.BAG IVPB SCH (18:00)
--- NOTE | 2024-05-29 19:59 | US ---
EXAMINATION TYPE: US venous doppler duplex LE BI DATE OF EXAM: 05/29/2024 7:30 PM COMPARISON: NONE CLINICAL INDICATION: Male, 73 years old with history of LE swelling; patient states LLE swelling that started few days ago and has gotten worse. states no thinners. hx of dvt, unsure which leg. patient has parkinsons disease, Pain TECHNIQUE: The lower extremity deep venous system is examined utilizing real time linear array sonog medhat with graded compression, color doppler sonography, and spectral doppler. SIDE PERFORMED: Bilateral FINDINGS: VESSELS IMAGED: Common Femoral Vein Deep Femoral Vein Greater Saphenous Vein * Femoral Vein Popliteal Vein Small Saphenous Vein * Proximal Calf Veins (* superficial vessels) suboptimal due to shaking during exam Right Leg: unable to compress distal femoral vein, however color and spectral doppler seen, Color Do ppler imaging shows patency of the vessels. Spectral waveforms are within normal limits. Left Leg: appears negative for dvt, Color Doppler imaging shows patency of the vessels. Spectral wav eforms are within normal limits. IMPRESSION: No ultrasound evidence for deep venous thrombosis. [facility], , 05/29/2024 7:57 PM
[2024-05-29] MEDS: SODIUM CHLORIDE 0.9% 1,000 ML IV SCH (20:21)
[2024-05-29] MEDS: PANTOPRAZOLE 40 MG/10 ML VIAL IV SCH (20:21)
[2024-05-29] MEDS: PRAMIPEXOLE 0.125 MG TAB PO SCH (21:17)
[2024-05-29] MEDS: MIDODRINE 5 MG TAB PO SCH (21:17)
[2024-05-29] MEDS: FLUDROCORTISONE 0.1 MG TAB PO SCH (21:17)
[2024-05-29] MEDS: PIPERACILLIN-TAZOBACTAM 3.375 GM in SODIUM CHLORIDE 0.9% 100 ML IVPB SCH (21:17)
[2024-05-29] MEDS: CARBIDOPA-LEVODOPA ER 50-200MG 1 EACH TABLET.ER PO SCH (21:17)
[2024-05-30 08:19] LABS: Basophils # (A) 0.07 X 10*3/uL (0.00-0.10); Eosinophils # (A) 0.32 X 10*3/uL (0.04-0.35); Eosinophils % (A) 4.5 %; HCT 41.8 % (39.6-50.0); HGB 13.6 g/dL (13.0-17.0); Lymphocytes # (A) 1.35 X 10*3/uL (0.90-5.00); Lymphocytes % (A) 18.9 %; MCH 28.8 pg (27.0-32.0); MCHC 32.5 g/dL (32.0-37.0); MCV 88.6 FL (80.0-97.0); Monocytes # (A) 0.81 X 10*3/uL (0.20-1.00); Monocytes % (A) 11.3 %; NRBC Per 100 WBC 0 X 10*3/uL (0.00-0.01); Neutrophils # (A) 4.52 X 10*3/uL (1.80-7.70); Neutrophils % (A) 63.2 %; Platelet Count 193 X 10*3/uL (140-440); RBC 4.72 X 10*6/uL (4.40-5.60); RDW 13.8 % (11.5-14.5); WBC 7.15 X 10*3/uL (4.50-10.00)
[2024-05-30 08:21] LABS: Amylase 24 U/L (23-121); BUN/Creat Ratio 14.31 Ratio (12.00-20.00); Blood Urea Nitrogen 18.6 mg/dL (9.0-27.0); Carbon Dioxide 22.6 mmol/L (21.6-31.8); Chloride 106 mmol/L (96-109); Glucose 103 mg/dL (70-110); Lipase 9 U/L (14-60); Potassium 4.1 mmol/L (3.5-5.5); Sodium 138 mmol/L (135-145)
[2024-05-30 08:22] LABS: ALT <5 U/L (10-49); AST 22 U/L (14-35); Albumin 3.6 g/dL (3.8-4.9); Albumin/Globulin Ratio 1.64 Ratio (1.60-3.17); Alkaline Phosphatase 82 U/L (41-126); Calcium 8.9 mg/dL (8.7-10.3); Globulin 2.2 g/dL (1.6-3.3); Magnesium 1.8 mg/dL (1.5-2.4); Total Protein 5.8 g/dL (6.2-8.2)
[2024-05-30 10:10] LABS: INR 1.43 sec (0.93-1.11); Prothrombin Time 15.9 sec (9.9-11.9)
--- NOTE | 2024-05-30 11:36 | P.CRDCN ---
History of Present Illness Consult date: 05/30/24 Reason for Consult (text): New onset atrial fibrillation History of present illness: This is a 73-year-old male previously seen in the office by Dr. Muhammad in last office visit 10/01/2020 with past medical history of Parkinson's, orthostatic hy potension on midodrine and Florinef, colitis status post colostomy. We have been asked to evaluate the patient for new onset of atrial fibrillation. Patient states that he has had blood in his urine for the past week and worsening over the past 3 days. He denies any previous history of atrial fib rillation. No palpitations no chest pain, no shortness of breath. Patient does complain of lower extremity edema. Blood pressure 135/87, heart rate 70, pulse ox 96% on room air. General surgery and urology on consult as well. -EKG: Atrial fibrillation 97 bpm. -Chest x-ray: No acute process. -Abdominal x-ray: Overall nonobstructive bowel gas pattern. No definitive renal or ureteral calculus. -CT abdomen and pelvis: Significant Leonardo cholecystic fluid in a nondilated gallbladder with no gallstones. Possible acalculous cholecystitis. 7 mm nonobstructing right renal calcification. Tiny amount of free fluid in the adjacent liver edge. Right inguinal hernia normal small bowel loops. Left lower quadrant ostomy, mild prostatic hypertrophy. -Venous duplex negative for DVT -Laboratory studies: BC unremarkable. INR 1.4. Sodium 138, potassium 4.1, troponin negative x 1. proBNP 2140. TSH 1.01. -Home cardiac medications: Patient is on Florinef 0.1 mg twice daily and midodrine 2.5 mg 3 times daily. -Echocardiogram performed at [facility] 05/17/2019: EF 55 to 60%, borderline concentric LVH. Mild aortic valve sclerosis. Mild aortic stenosis. Mild mitral regurgitation. Mild tricuspid regurgitation. Review Of Systems: At the time of my exam: CONSTITUTIONAL: Denies fever or chills. HEENT: Denies blurred vision, vision changes, or eye pain. Denies hemoptysis CARDIOVASCULAR: Denies chest pain. Denies orthopnea. Denies PND. Denies palpitations RESPIRATORY: Denies shortness of breath. GASTROINTESTINAL: Denies abdominal pain. Denies nausea or vomiting. HEMATOLOGIC: Denies bleeding disorders. GENITOURINARY: Reports hematuria. SKIN: Denies puritis. Denies rash. Physical examination: Gen: This is 73-year-old male in no acute distress. VS: reviewed HEENT: Head is atraumatic, normocephalic. Pupils equal, round. Sclerae is anicteric. NECK: Supple. No JVD. LUNGS: Clear to auscultation. No wheezes or rhonchi. No intercostal retractions. HEART: Irregular rate and rhythm. No murmur. ABDOMEN: Soft No tenderness. EXTREMITIES: Lower extremity edema. No calf tenderness. NEUROLOGICAL: Patient is awake, alert and oriented x3. Assessment: New onset paroxysmal atrial fibrillation, currently rate controlled Hematuria Cholecystitis Parkinson's Orthostatic hypotension History of colitis status post colostomy Plan: Patient is not currently on beta-hi and heart rate is controlled Hold starting anticoagulation due to hematuria which is improving Obtain 2-D echocardiogram and Doppler study to assess cardiac structure and function Further recommendations to follow based upon clinical course Thank you kindly for this consultation. Nurse practitioner note has been reviewed, I agree with documented findings and plan of care. Patient was seen and examined. Past Medical History Additional Past Medical History / Comment(s): parkinson and colitis, colostomy History of Any Multi-Drug Resistant Organisms: None Reported Past Surgical History: Tonsillectomy Additional Past Surgical History / Comment(s): Previous colonoscopy and EGD, colon removed. Past Anesthesia/Blood Transfusion Reactions: No Reported Reaction Past Psychological History: No Psychological Hx Reported Smoking Status: Never smoker Past Alcohol Use History: Rare Past Drug Use History: None Reported Medications and Allergies Home Medications Medication Instructions Recorded Confirmed Type Carbidopa/Levodopa [Sinemet 25-100 1 tab PO QID PRN 05/14/19 05/29/24 History mg] Adalimumab [Humira(Cf) Pen] 40 mg SQ Q14D 05/29/24 05/29/24 History Carbidopa-Levodopa ER 50-200Mg 1 tab PO BID 05/29/24 05/29/24 History [Sinemet CR 50-200 mg] Fludrocortisone [Florinef] 0.1 mg PO BID 05/29/24 05/29/24 History Midodrine HCl [ProAmantine] 2.5 mg PO TID 05/29/24 05/29/24 History Naproxen [Naprosyn] 500 mg PO BID PRN 05/29/24 05/29/24 History Pramipexole [Mirapex] 0.125 mg PO TID@1100,1500,1900 05/29/24 05/29/24 History Sildenafil Citrate 100 mg PO DAILY PRN 05/29/24 05/29/24 History Testosterone Enanthate [Xyosted] 75 mg SQ TH 05/29/24 05/29/24 History modafiniL [Provigil] 200 mg PO DAILY 05/29/24 05/29/24 History Allergies Allergy/AdvReac Type Severity Reaction Status Date / Time Penicillins Allergy Rash/Hives Verified 05/29/24 14:15 Physical Exam Vitals: Vital Signs Temp Pulse Pulse Resp BP BP Pulse Ox 05/30/24 07:28 97.6 F 70 18 135/87 96 05/30/24 03:31 97.5 F L 64 18 110/74 94 L 05/29/24 19:09 97.9 F 82 18 143/84 97 05/29/24 17:58 97.8 F 81 18 137/83 97 05/29/24 16:09 98 18 147/84 97 05/29/24 12:00 97.8 F 86 18 110/63 97 Intake and Output 05/29/24 05/30/24 05/30/24 22:59 06:59 14:59 Other: Voiding Method Toilet # Voids 1 Weight 97.976 kg Results 05/30/24 05:19 05/30/24 05:19 Cardiac Enzymes 05/29/24 05/29/24 05/30/24 Range/Units 12:59 13:11 05:19 AST 39 22 (17-59) U/L Troponin I <0.012 (0.000-0.034) ng/mL Coagulation 05/29/24 Range/Units 12:59 PT 14.9 H (10.0-12.5) sec APTT 22.7 (22.0-30.0) sec CBC 05/29/24 05/30/24 Range/Units 12:59 05:19 WBC 9.24 7.15 (4.50-10.00) 10*3/uL RBC 5.01 4.72 (4.40-5.60) 10*6/uL Hgb 14.8 13.6 (13.0-17.0) g/dL Hct 44.3 41.8 (39.6-50.0) % Plt Count 218 193 (140-440) 10*3/uL Comprehensive Metabolic Panel 05/29/24 05/30/24 Range/Units 13:11 05:19 Sodium 136 L 138 (137-145) mmol/L Potassium 5.2 H 4.1 (3.5-5.1) mmol/L Chloride 101 106 (98-107) mmol/L Carbon Dioxide 26 22.6 (22-30) mmol/L BUN 25 H 18.6 (9-20) mg/dL Creatinine 1.15 1.3 (0.66-1.25) mg/dL Glucose 107 H 103 (74-99) mg/dL Calcium 9.8 8.9 (8.4-10.2) mg/dL AST 39 22 (17-59) U/L ALT 6 <5 L (4-49) U/L Alkaline Phosphatase 101 82 (38-126) U/L Total Protein 7.7 5.8 L (6.3-8.2) g/dL Albumin 4.3 3.6 L (3.5-5.0) g/dL Current Medications Generic Name Dose Route Start Last Admin Trade Name Freq PRN Reason Stop Dose Admin Acetaminophen 650 mg 05/29/24 16:52 Acetaminophen Tab 325 Mg Tab PO Q6HR PRN Mild Pain or Fever > 100.5 Carbidopa/Levodopa 1 each 05/29/24 16:54 Carbidopa-Levodopa 25-100 Mg 1 Each Tab PO QID PRN tremors Carbidopa/Levodopa 1 each 05/29/24 21:00 05/30/24 09:04 Carbidopa-Levodopa Er 50-200mg 1 Each Tablet.Er PO 1 each BID JUSTIN Administration Fludrocortisone Acetate 0.1 mg 05/29/24 21:00 05/30/24 09:05 Fludrocortisone 0.1 Mg Tab PO 0.1 mg BID JUSTIN Administration Sodium Chloride 1,000 mls @ 75 mls/hr 05/29/24 17:30 05/30/24 06:50 Saline 0.9% IV Not Given .[id number] JUSTIN Piperacillin Sod/Tazobactam 100 mls @ 25 mls/hr 05/29/24 20:00 05/30/24 04:14 Sod 3.375 gm/ Sodium Chloride IVPB 25 mls/hr Q8H JUSTIN Administration Protocol Midodrine 2.5 mg 05/29/24 17:30 05/30/24 06:49 Midodrine 5 Mg Tab PO 2.5 mg AC-TID JUSTIN Administration Naloxone HCl 0.2 mg 05/29/24 16:52 Naloxone 0.4 Mg/Ml 1 Ml Vial IV Q2M PRN Opioid Reversal Pantoprazole Sodium 40 mg 05/29/24 17:00 05/30/24 09:05 Pantoprazole 40 Mg/10 Ml Vial IV 40 mg DAILY JUSTIN Administration Pramipexole Dihydrochloride 0.125 mg 05/29/24 19:00 05/29/24 21:17 Pramipexole 0.125 Mg Tab PO 0.125 mg TID@1100,1500,1900 JUSTIN Administration Intake and Output 05/29/24 05/30/24 05/30/24 22:59 06:59 14:59 Other: Voiding Method Toilet # Voids 1 Weight 97.976 kg 05/30/24 05:19 05/30/24 05:19
--- NOTE | 2024-05-30 12:02 | P.GSCN ---
History of Present Illness Consult date: 05/30/24 Reason for Consult: Gross hematuria History of present illness: This is a 73-year-old male admitted to the hospital with A-fib, fluid overload. Urology is consulted for gross hematuria. Patient indicated he has been having intermittent gross hematuria for the past week. Denies any previous history of gross hematuria. No history of kidney stones recurrent UTIs. This morning his urine is clear. No known family history of urological malignancies. He underwent a CT abdomen and pelvis which showed no evidence of upper tract disease. Denies any voiding dysfunction at baseline. He indicated he has never seen a urologist before. Past Medical History Additional Past Medical History / Comment(s): parkinson and colitis, colostomy History of Any Multi-Drug Resistant Organisms: None Reported Past Surgical History: Tonsillectomy Additional Past Surgical History / Comment(s): Previous colonoscopy and EGD, colon removed. Past Anesthesia/Blood Transfusion Reactions: No Reported Reaction Past Psychological History: No Psychological Hx Reported Smoking Status: Never smoker Past Alcohol Use History: Rare Past Drug Use History: None Reported Medications and Allergies Home Medications Medication Instructions Recorded Confirmed Type Carbidopa/Levodopa [Sinemet 25-100 1 tab PO QID PRN 05/14/19 05/29/24 History mg] Adalimumab [Humira(Cf) Pen] 40 mg SQ Q14D 05/29/24 05/29/24 History Carbidopa-Levodopa ER 50-200Mg 1 tab PO BID 05/29/24 05/29/24 History [Sinemet CR 50-200 mg] Fludrocortisone [Florinef] 0.1 mg PO BID 05/29/24 05/29/24 History Midodrine HCl [ProAmantine] 2.5 mg PO TID 05/29/24 05/29/24 History Naproxen [Naprosyn] 500 mg PO BID PRN 05/29/24 05/29/24 History Pramipexole [Mirapex] 0.125 mg PO TID@1100,1500,1900 05/29/24 05/29/24 History Sildenafil Citrate 100 mg PO DAILY PRN 05/29/24 05/29/24 History Testosterone Enanthate [Xyosted] 75 mg SQ TH 05/29/24 05/29/24 History modafiniL [Provigil] 200 mg PO DAILY 05/29/24 05/29/24 History Allergies Allergy/AdvReac Type Severity Reaction Status Date / Time Penicillins Allergy Rash/Hives Verified 05/29/24 14:15 Surgical - Exam Vital Signs Temp Pulse Resp BP Pulse Ox 97.8 F 86 18 110/63 97 05/29/24 12:00 05/29/24 12:00 05/29/24 12:00 05/29/24 12:00 05/29/24 12:00 - General no distress, no pain - Eyes normal ocular movement, no pale - ENT normal nares, normal mucosa - Respiratory normal expansion, normal respiratory effort - Abdomen Abdomen: soft, non tender, no distended - Psychiatric oriented to time, oriented to person, oriented to place Results - Labs 05/30/24 05:19 05/30/24 05:19 Abnormal Lab Results - Last 24 Hours (Table) 05/29/24 05/29/24 05/29/24 Range/Units 12:27 12:27 12:59 Immature Gran # 0.09 H (0.00-0.04) 10*3/uL PT (10.0-12.5) sec INR (<1.2) Sodium (137-145) mmol/L Potassium (3.5-5.1) mmol/L BUN (9-20) mg/dL Est GFR (CKD-EPI) (>=60) Glucose (74-99) mg/dL Total Bilirubin (0.2-1.3) mg/dL ALT (10-49) U/L Total Protein (6.2-8.2) g/dL Albumin (3.8-4.9) g/dL Lipase (14-60) U/L Urine Protein 1+ H (Negative) Urine Ketones Trace H (Negative) Urine Blood Large H (Negative) Ur Leukocyte Esterase Trace H (Negative) Urine RBC >182 H (0-5) /hpf Urine Bacteria Occasional H (None) /hpf Urine Mucus Rare H (None) /hpf U Random Total Protein 191 H (<12) mg/dL 05/29/24 05/29/24 05/30/24 Range/Units 12:59 13:11 05:19 Immature Gran # 0.08 H (0.00-0.04) 10*3/uL PT 14.9 H (10.0-12.5) sec INR 1.4 H (<1.2) Sodium 136 L (137-145) mmol/L Potassium 5.2 H (3.5-5.1) mmol/L BUN 25 H (9-20) mg/dL Est GFR (CKD-EPI) (>=60) Glucose 107 H (74-99) mg/dL Total Bilirubin 1.7 H (0.2-1.3) mg/dL ALT (10-49) U/L Total Protein (6.2-8.2) g/dL Albumin (3.8-4.9) g/dL Lipase (14-60) U/L Urine Protein (Negative) Urine Ketones (Negative) Urine Blood (Negative) Ur Leukocyte Esterase (Negative) Urine RBC (0-5) /hpf Urine Bacteria (None) /hpf Urine Mucus (None) /hpf U Random Total Protein (<12) mg/dL 05/30/24 05/30/24 Range/Units 05:19 05:19 Immature Gran # (0.00-0.04) 10*3/uL PT 15.9 H (10.0-12.5) sec INR 1.43 H (<1.2) Sodium (137-145) mmol/L Potassium (3.5-5.1) mmol/L BUN (9-20) mg/dL Est GFR (CKD-EPI) 57 L (>=60) Glucose (74-99) mg/dL Total Bilirubin (0.2-1.3) mg/dL ALT <5 L (10-49) U/L Total Protein 5.8 L (6.2-8.2) g/dL Albumin 3.6 L (3.8-4.9) g/dL Lipase 9 L (14-60) U/L Urine Protein (Negative) Urine Ketones (Negative) Urine Blood (Negative) Ur Leukocyte Esterase (Negative) Urine RBC (0-5) /hpf Urine Bacteria (None) /hpf Urine Mucus (None) /hpf U Random Total Protein (<12) mg/dL Diabetes panel 05/29/24 05/30/24 Range/Units 13:11 05:19 Sodium 136 L 138 (137-145) mmol/L Potassium 5.2 H 4.1 (3.5-5.1) mmol/L Chloride 101 106 (98-107) mmol/L Carbon Dioxide 26 22.6 (22-30) mmol/L BUN 25 H 18.6 (9-20) mg/dL Creatinine 1.15 1.3 (0.66-1.25) mg/dL Glucose 107 H 103 (74-99) mg/dL Calcium 9.8 8.9 (8.4-10.2) mg/dL AST 39 22 (17-59) U/L ALT 6 <5 L (4-49) U/L Alkaline Phosphatase 101 82 (38-126) U/L Total Protein 7.7 5.8 L (6.3-8.2) g/dL Albumin 4.3 3.6 L (3.5-5.0) g/dL Thyroid panel 05/30/24 Range/Units 05:19 TSH 1.010 (0.350-5.500) UIU/ML Calcium panel 05/29/24 05/30/24 Range/Units 13:11 05:19 Calcium 9.8 8.9 (8.4-10.2) mg/dL Albumin 4.3 3.6 L (3.5-5.0) g/dL Pituitary panel 05/29/24 05/30/24 Range/Units 13:11 05:19 Sodium 136 L 138 (137-145) mmol/L Potassium 5.2 H 4.1 (3.5-5.1) mmol/L Chloride 101 106 (98-107) mmol/L Carbon Dioxide 26 22.6 (22-30) mmol/L BUN 25 H 18.6 (9-20) mg/dL Creatinine 1.15 1.3 (0.66-1.25) mg/dL Glucose 107 H 103 (74-99) mg/dL Calcium 9.8 8.9 (8.4-10.2) mg/dL TSH 1.010 (0.350-5.500) UIU/ML Adrenal panel 05/29/24 05/30/24 Range/Units 13:11 05:19 Sodium 136 L 138 (137-145) mmol/L Potassium 5.2 H 4.1 (3.5-5.1) mmol/L Chloride 101 106 (98-107) mmol/L Carbon Dioxide 26 22.6 (22-30) mmol/L BUN 25 H 18.6 (9-20) mg/dL Creatinine 1.15 1.3 (0.66-1.25) mg/dL Glucose 107 H 103 (74-99) mg/dL Calcium 9.8 8.9 (8.4-10.2) mg/dL Total Bilirubin 1.7 H 1.0 (0.2-1.3) mg/dL AST 39 22 (17-59) U/L ALT 6 <5 L (4-49) U/L Alkaline Phosphatase 101 82 (38-126) U/L Total Protein 7.7 5.8 L (6.3-8.2) g/dL Albumin 4.3 3.6 L (3.5-5.0) g/dL Assessment and Plan Assessment: 73-year-old male with history of gross hematuria, CT abdomen pelvis showed no upper tract disease. Discussed with him he will need an outpatient cystoscopy to complete the hematuria workup. Follow-up outpatient for cystoscopy If cardiology needs to start anticoagulation, okay to start from urology standpoint
--- NOTE | 2024-05-30 13:10 | P.GSCN ---
History of Present Illness Consult date: 05/30/24 History of present illness: CHIEF COMPLAINT: Bilateral leg edema and hematuria HISTORY OF PRESENT ILLNESS: This is a 73 with a history of Parkinson's. He presents to the hospital with complaints of edema bilateral lower extremities for the last 4 days as well as hematuria. Patient also was found to have evidence of A-fib with RVR. Patient denies any abdominal pain. Denies any nausea or vomiting. He reports eating hash brown and sausage biscuit at [facility] prior to coming into the hospital without any abdominal pain. CT scan abdomen pelvis had noted significant pericholecystic fluid with no gallstones. Surgical service was requested to evaluate for cholecystitis. Patient is afebrile. White count is normal. LFTs are normal. Total bili is minimally elevated 1.7. Past surgical history does include a colectomy with colostomy for colitis in 2019. PAST MEDICAL HISTORY: See below PAST SURGICAL HISTORY: See below MEDICATIONS: See below ALLERGIES: See below SOCIAL HISTORY: No illicit drug use. REVIEW OF SYSTEMS: CONSTITUTIONAL: Denies fever or chills. HEENT: Denies blurred vision, vision changes, or eye pain. Denies hemoptysis CARDIOVASCULAR: Denies chest pain or pressure. RESPIRATORY: No shortness of breath. GASTROINTESTINAL: See HPI for pertinent findings HEMATOLOGIC: Denies bleeding disorders. GENITOURINARY: Denies any blood in urine or increased urinary frequency. SKIN: Denies pruitis. Denies rash. PHYSICAL EXAM: VITAL SIGNS: Reviewed GENERAL: Well-developed in no acute distress. HEENT: No sclera icterus. Extraocular movements grossly intact. Moist buccal mucosa. Head is atraumatic, normocephalic. No nasal drainage. ABDOMEN: Soft. Nondistended. Nontender. Negative Lamb sign. No rebound or guarding noted. Colostomy on the left side abdomen with stool present. NEUROLOGIC: Alert and oriented. Cranial nerves II through XII grossly intact. LABORATORY DATA: WBC 7.15 Hgb 13.6 platelets 193 INR 1.43 Sodium 138 potassium 4.1 creatinine 1.3 total bilirubin 1.7 down to 1.0 AST 22 ALT 5 alk phos 82 Lipase 9 IMAGING: CT scan abdomen pelvis reports significant pericholecystic fluid and a nondilated gallbladder with no gallstones. Findings raise a question of acalculous cholecystitis. 7 mm nonobstructing right renal calcification. Tiny amount of free fluid adjacent to the liver edge. Right inguinal hernia containing normal small bowel loops. Left lower quadrant ostomy. Mild prostatic hypertrophy. Venous Doppler negative for DVT bilaterally ASSESSMENT: 1. Significant pericholecystic fluid and nondilated gallbladder with no gallstones noted on CT scan. No evidence of acute cholecystitis. Possible chronic cholecystitis. Patient has no abdominal pain and tolerating diet. PLAN: - Agree with regular, heart healthy diet - No surgical intervention planned - No evidence of acute cholecystitis. Antibiotics can be discontinued. This was discussed with medicine service. Physician Sort Line note has been reviewed by physician. Signing provider agrees with the documented findings, assessment, and plan of care. Attestation Patient seen and examined at bedside. Presented with chief complaint of bilateral leg edema. CT of the abdomen and pelvis was performed for part of his workup with finding of para cholecystic fluid with no gallstones. Surgery consulted for evaluation of possible cholecystitis. LFTs normal with mild elevation in total bilirubin. Patient denying any abdominal pain. He states that he did eat [employer] prior to coming in without any abdominal pain. Patient may have chronic cholecystitis, however no reason for acute surgical intervention at this time. This was discussed with medicine service. Patient can continue diet. [employer], Past Medical History Additional Past Medical History / Comment(s): parkinson and colitis, colostomy History of Any Multi-Drug Resistant Organisms: None Reported Past Surgical History: Tonsillectomy Additional Past Surgical History / Comment(s): Previous colonoscopy and EGD, colon removed. Past Anesthesia/Blood Transfusion Reactions: No Reported Reaction Past Psychological History: No Psychological Hx Reported Smoking Status: Never smoker Past Alcohol Use History: Rare Past Drug Use History: None Reported Medications and Allergies Home Medications Medication Instructions Recorded Confirmed Type Carbidopa/Levodopa [Sinemet 25-100 1 tab PO QID PRN 05/14/19 05/29/24 History mg] Adalimumab [Humira(Cf) Pen] 40 mg SQ Q14D 05/29/24 05/29/24 History Carbidopa-Levodopa ER 50-200Mg 1 tab PO BID 05/29/24 05/29/24 History [Sinemet CR 50-200 mg] Fludrocortisone [Florinef] 0.1 mg PO BID 05/29/24 05/29/24 History Midodrine HCl [ProAmantine] 2.5 mg PO TID 05/29/24 05/29/24 History Naproxen [Naprosyn] 500 mg PO BID PRN 05/29/24 05/29/24 History Pramipexole [Mirapex] 0.125 mg PO TID@1100,1500,1900 05/29/24 05/29/24 History Sildenafil Citrate 100 mg PO DAILY PRN 05/29/24 05/29/24 History Testosterone Enanthate [Xyosted] 75 mg SQ TH 05/29/24 05/29/24 History modafiniL [Provigil] 200 mg PO DAILY 05/29/24 05/29/24 History Allergies Allergy/AdvReac Type Severity Reaction Status Date / Time Penicillins Allergy Rash/Hives Verified 05/29/24 14:15 Surgical - Exam Osteopathic Statement: *. No significant issues noted on an osteopathic structural exam other than those noted in the History and Physical/Consult. Vital Signs Temp Pulse Resp BP Pulse Ox 97.8 F 86 18 110/63 97 05/29/24 12:00 05/29/24 12:00 05/29/24 12:00 05/29/24 12:00 05/29/24 12:00 Results - Labs 05/30/24 05:19 05/30/24 05:19 Abnormal Lab Results - Last 24 Hours (Table) 05/29/24 05/29/24 05/29/24 Range/Units 12:27 12:27 12:59 Immature Gran # 0.09 H (0.00-0.04) 10*3/uL PT (10.0-12.5) sec INR (<1.2) Sodium (137-145) mmol/L Potassium (3.5-5.1) mmol/L BUN (9-20) mg/dL Est GFR (CKD-EPI) (>=60) Glucose (74-99) mg/dL Total Bilirubin (0.2-1.3) mg/dL ALT (10-49) U/L Total Protein (6.2-8.2) g/dL Albumin (3.8-4.9) g/dL Lipase (14-60) U/L Urine Protein 1+ H (Negative) Urine Ketones Trace H (Negative) Urine Blood Large H (Negative) Ur Leukocyte Esterase Trace H (Negative) Urine RBC >182 H (0-5) /hpf Urine Bacteria Occasional H (None) /hpf Urine Mucus Rare H (None) /hpf U Random Total Protein 191 H (<12) mg/dL 05/29/24 05/29/24 05/30/24 Range/Units 12:59 13:11 05:19 Immature Gran # 0.08 H (0.00-0.04) 10*3/uL PT 14.9 H (10.0-12.5) sec INR 1.4 H (<1.2) Sodium 136 L (137-145) mmol/L Potassium 5.2 H (3.5-5.1) mmol/L BUN 25 H (9-20) mg/dL Est GFR (CKD-EPI) (>=60) Glucose 107 H (74-99) mg/dL Total Bilirubin 1.7 H (0.2-1.3) mg/dL ALT (10-49) U/L Total Protein (6.2-8.2) g/dL Albumin (3.8-4.9) g/dL Lipase (14-60) U/L Urine Protein (Negative) Urine Ketones (Negative) Urine Blood (Negative) Ur Leukocyte Esterase (Negative) Urine RBC (0-5) /hpf Urine Bacteria (None) /hpf Urine Mucus (None) /hpf U Random Total Protein (<12) mg/dL 05/30/24 05/30/24 Range/Units 05:19 05:19 Immature Gran # (0.00-0.04) 10*3/uL PT 15.9 H (10.0-12.5) sec INR 1.43 H (<1.2) Sodium (137-145) mmol/L Potassium (3.5-5.1) mmol/L BUN (9-20) mg/dL Est GFR (CKD-EPI) 57 L (>=60) Glucose (74-99) mg/dL Total Bilirubin (0.2-1.3) mg/dL ALT <5 L (10-49) U/L Total Protein 5.8 L (6.2-8.2) g/dL Albumin 3.6 L (3.8-4.9) g/dL Lipase 9 L (14-60) U/L Urine Protein (Negative) Urine Ketones (Negative) Urine Blood (Negative) Ur Leukocyte Esterase (Negative) Urine RBC (0-5) /hpf Urine Bacteria (None) /hpf Urine Mucus (None) /hpf U Random Total Protein (<12) mg/dL Diabetes panel 05/29/24 05/30/24 Range/Units 13:11 05:19 Sodium 136 L 138 (137-145) mmol/L Potassium 5.2 H 4.1 (3.5-5.1) mmol/L Chloride 101 106 (98-107) mmol/L Carbon Dioxide 26 22.6 (22-30) mmol/L BUN 25 H 18.6 (9-20) mg/dL Creatinine 1.15 1.3 (0.66-1.25) mg/dL Glucose 107 H 103 (74-99) mg/dL Calcium 9.8 8.9 (8.4-10.2) mg/dL AST 39 22 (17-59) U/L ALT 6 <5 L (4-49) U/L Alkaline Phosphatase 101 82 (38-126) U/L Total Protein 7.7 5.8 L (6.3-8.2) g/dL Albumin 4.3 3.6 L (3.5-5.0) g/dL Thyroid panel 05/30/24 Range/Units 05:19 TSH 1.010 (0.350-5.500) UIU/ML Calcium panel 05/29/24 05/30/24 Range/Units 13:11 05:19 Calcium 9.8 8.9 (8.4-10.2) mg/dL Albumin 4.3 3.6 L (3.5-5.0) g/dL Pituitary panel 05/29/24 05/30/24 Range/Units 13:11 05:19 Sodium 136 L 138 (137-145) mmol/L Potassium 5.2 H 4.1 (3.5-5.1) mmol/L Chloride 101 106 (98-107) mmol/L Carbon Dioxide 26 22.6 (22-30) mmol/L BUN 25 H 18.6 (9-20) mg/dL Creatinine 1.15 1.3 (0.66-1.25) mg/dL Glucose 107 H 103 (74-99) mg/dL Calcium 9.8 8.9 (8.4-10.2) mg/dL TSH 1.010 (0.350-5.500) UIU/ML Adrenal panel 05/29/24 05/30/24 Range/Units 13:11 05:19 Sodium 136 L 138 (137-145) mmol/L Potassium 5.2 H 4.1 (3.5-5.1) mmol/L Chloride 101 106 (98-107) mmol/L Carbon Dioxide 26 22.6 (22-30) mmol/L BUN 25 H 18.6 (9-20) mg/dL Creatinine 1.15 1.3 (0.66-1.25) mg/dL Glucose 107 H 103 (74-99) mg/dL Calcium 9.8 8.9 (8.4-10.2) mg/dL Total Bilirubin 1.7 H 1.0 (0.2-1.3) mg/dL AST 39 22 (17-59) U/L ALT 6 <5 L (4-49) U/L Alkaline Phosphatase 101 82 (38-126) U/L Total Protein 7.7 5.8 L (6.3-8.2) g/dL Albumin 4.3 3.6 L (3.5-5.0) g/dL
--- NOTE | 2024-05-30 13:31 | CA ---
Transthoracic Echo Report Name: Deangelo Baumann Age: 73 Gender: M : 1950 Exam Date: 05/30/2024 09:21 Exam Location: [facility] Ht (in): 71 Wt (lb): 216 Ordering Physician: Chase Parmar MD Attending/Referring Phys: Benzol Operator Ros Espana RDCS Procedure CPT: Indications: LE swelling, Cardiomyopathy, unspecified Cardiac Hx: Technical Quality: Fair Contrast 1: Total Dose (mL): Contrast 2: Total Dose (mL): MEASUREMENTS (Male / Female) Normal Values 2D ECHO LV Diastolic Diameter PLAX 5.0 cm 4.2 - 5.9 / 3.9 - 5.3 cm LV Systolic Diameter PLAX 3.6 cm IVS Diastolic Thickness 1.1 cm 0.6 - 1.0 / 0.6 - 0.9 cm LVPW Diastolic Thickness 0.8 cm 0.6 - 1.0 / 0.6 - 0.9 cm LV Relative Wall Thickness 0.4 RV Internal Dim ED PLAX 2.9 cm LVOT Diameter 2.3 cm LA Systolic Diameter LX 4.8 cm 3.0 - 4.0 / 2.7 - 3.8 cm LV Diastolic Volume MOD BP 65.7 cm??? 67 - 155 / 56 - 104 cm??? LV Systolic Volume MOD BP 34.9 cm??? - 58 / 19 - 49 cm??? LV Ejection Fraction MOD BP 46.8 % >= 55 % LV Cardiac Index MOD BP 1373.2 cm???/min???m??? LV Diastolic Volume MOD 4C 71.2 cm??? LV Systolic Volume MOD 4C 30.2 cm??? LV Ejection Fraction MOD 4C 57.6 % LV Cardiac Index MOD 4C 1831.2 cm???/min???m??? LV Diastolic Length 4C 7.2 cm LV Systolic Length 4C 5.8 cm LV Diastolic Volume MOD 2C 60.7 cm??? LV Systolic Volume MOD 2C 42.2 cm??? LV Ejection Fraction MOD 2C 30.5 % LV Cardiac Index MOD 2C 827.5 cm???/min???m??? LV Diastolic Length 2C 7.2 cm LV Systolic Length 2C 5.9 cm LA Volume 96.5 cm??? 18 - 58 / 22 - 52 cm??? LA Volume Index 43.1 cm???/m??? 16 - 28 cm???/m??? M-MODE Aortic Root Diameter MM 3.4 cm LA Systolic Diameter MM 4.9 cm LA Ao Ratio MM 1.4 AV Cusp Separation MM 1.1 cm DOPPLER AV Peak Velocity 202.4 cm/s AV Peak Gradient 16.4 mmHg AV Mean Velocity 134.7 cm/s AV Mean Gradient 8.5 mmHg AV Velocity Time Integral 39.2 cm LVOT Peak Velocity 64.1 cm/s LVOT Peak Gradient 1.6 mmHg LVOT Velocity Time Integral 13.0 cm LVOT Stroke Volume 54.7 cm??? LVOT Stroke Volume Index 25.1 ml/m??? LVOT Cardiac Index 2441.1 cm???/min???m??? AV Area Cont Eq vti 1.4 cm??? AV Area Cont Eq pk 1.3 cm??? MV Area PHT 2.7 cm??? Mitral E Point Velocity 76.2 cm/s Mitral A Point Velocity 1.8 cm/s Mitral E to A Ratio 41.6 MV Deceleration Time 286.2 ms TR Peak Velocity 298.0 cm/s TR Peak Gradient 39.2 mmHg Right Atrial Pressure 8.0 mmHg Pulmonary Artery Systolic Pressu 43.5 mmHg Right Ventricular Systolic Press 43.5 mmHg FINDINGS Left Ventricle Left ventricular ejection fraction is estimated at 45 %. Mildly increased septal wall thickness. Mildly decreased left ventricular ejection fraction. Normal left ventricular systolic function with no obvious regional wall motion abnormalities. Left ventricular cavity size normal. Mildly reduced global left ventricular systolic function. Right Ventricle Mild right ventricular dilatation. Mild pulmonary hypertension. Right Atrium Severe right atrial dilatation. Left Atrium Severely increased left atrial volume. Mitral Valve Structurally normal mitral valve. [id number] mitral regurgitation. No mitral stenosis. Aortic Valve Trileaflet aortic valve. Mild aortic stenosis with a peak gradient of 16 mmHg and a mean gradient of 8mmHg. No aortic regurgitation. Diffuse thickening of the aortic valve cusps with reduced excursion. Tricuspid Valve Structurally normal tricuspid valve. Severe tricuspid regurgitation. No tricuspid stenosis. Pulmonic Valve Structurally normal pulmonic valve. No pulmonic stenosis. Trace pulmonic regurgitation. Pericardium No pericardial or pleural effusion. Aorta Normal size aortic root and proximal ascending aorta. CONCLUSIONS LVEF 45 to 50% Mildly reduced global LV systolic function No obvious regional wall motion abnormality Severe biatrial dilatation Moderate mitral regurgitation Calcified and restricted right coronary cusp with mild aortic stenosis Previewed by: Dr Ayush Gillis (Electronically Signed) Final Date: 30 May 2024 13:30
[2024-05-30 15:18] VITALS: BP 130/86; PULSE 68; RESP 15; TEMP 97.7
--- NOTE | 2024-05-30 16:22 | P.DS ---
Providers Date of admission: 05/29/24 16:52 Expected date of discharge: 05/30/24 Attending physician: Chase Parmar MD Consults: 05/29/24 17:15 Consult Physician Routine Consulting Provider: Sabas Workman Consult Reason/Comments: Cholecystitis Do you want consulting provider notified?: Yes 05/29/24 17:16 Consult Physician Routine Consulting Provider: Travis Rodriguez Consult Reason/Comments: hematuria Do you want consulting provider notified?: Yes 05/29/24 17:20 Consult Physician Routine Consulting Provider: Ayush Gillis Consult Reason/Comments: New onset AFib Do you want consulting provider notified?: Yes Primary care physician: Jossue Peguero [facility] Course: 73 year old M with PMH of Parkinsons, orthostatic hypotension, NIDIA, colostomy presents to the ED from his PCP Dr. Peguero's clinic for multiple complaints. Patient reports hematuria that has been progressively getting worse for the past week. He denies any dysuria, urinary urgency or flank pain. Patient also reports bilateral swelling in his legs progressively getting worse over the past 3 days. Swelling improves with lower extremity swelling. He denies any calf pain. He denies any orthopnea or shortness of breath. Patient reports generalized abdominal pain that typically resolves with antacids or milk. Abdominal pain is not related to meals. He reports a history of severe colitis in 2019 requiring colostomy. He reports exposure to bats. In the ED he underwent extensive evaluation. BP 110/63, HR 86, RR 18, T 97.8F, 97% on RA. CBC, Coag panel, CMP significant for PT 14.9, INR 1.4, Na 136, K 5.2, BUN 25, glu 107, T. BIili 1.7. Trop < 0.012. BNP 2140. Lactic acid 2. Mag 1.8. UA 1+ protein, trace ketones, large blood, trace LE with > 182 RBCs and 3 WBCs. EKG shows atrial fibrillation with PVCs. CXR no acute process. CT AP shows pericholecystic fluids in a nondilated gallbladder with no stones concerning for acalculous cholecystitis, 7 mm nonobstructing right renal stone, right inguinal hernia and LLQ ostomy with prostate hyperplasia. He is admitted for further workup and management. Urology consulted, recommended outpatient cystoscopy. Cardiology consulted, recommended outpatient follow up and no AC at this time. Echo showed EF 45% mod MR. Surgery consulted for concerns of cholecystitis. Discussed with Dr. Workman, no concerns for infection, likely chronic, OK to discontinue antibiotics. LE Duplex neg for DVT. 05/30 Patient was seen and examined. No acute events overnight. No complaints. Above results were discussed with the family in detail. CBC, Coag panel, CMP sig nificant for PT 15.9, INR 1.43, ALT < 5, alb 3.6. TSH 1.01. A1c 6.6. Discharge Plan: Follow up with PCP within 1-2 days of discharge. Follow up with Urology, Nephrology and Cardiology within 1 week of discharge. 1.5 L fluid restriction and low salt diet for now. Recommended LE elevation and compression stockings for the swelling. General: non toxic, no distress, appears at stated age Derm: warm, dry Head: atraumatic, normocephalic, symmetric Mouth: no lip lesion, mucus membranes moist Cardiovascular: S1 S2 irreg. No murmurs, rubs, gallops Lungs: Clear to auscultation bilaterally, no accessory muscle use Ext: no gross muscle atrophy, 2-3+ pitting LE edema with 2 abrasions on the RLE, no contractures Neuro: no focal neuro deficits Psych: Alert and oriented Negative nakia sign. + ostomy LLQ. Abdomen non tender to palpation. Discharge Diagnosis: Hematuria likely secondary to right renal stone New onset A-Fib Acute kidney injury with hyponatremia and hyperkalemia Lower extremity swelling Hyperbilirubinemia with concerns of acalculous cholecystitis Supratherapeutic INR Parkinsons Orthostatic hypotension NDIIA RLS This complex discharge took 35 minutes to complete. Patient Condition at Discharge: Stable Plan - Discharge Summary Discharge Rx Participant: No New Discharge Prescriptions: Continue Carbidopa/Levodopa [Sinemet 25-100 mg] 1 tab PO QID PRN PRN Reason: tremors Midodrine HCl [ProAmantine] 2.5 mg PO TID Fludrocortisone [Florinef] 0.1 mg PO BID Sildenafil Citrate 100 mg PO DAILY PRN PRN Reason: E.D. Naproxen [Naprosyn] 500 mg PO BID PRN PRN Reason: Pain Adalimumab [Humira(Cf) Pen] 40 mg SQ Q14D modafiniL [Provigil] 200 mg PO DAILY Carbidopa-Levodopa ER 50-200Mg [Sinemet CR 50-200 mg] 1 tab PO BID Pramipexole [Mirapex] 0.125 mg PO TID@1100,1500,1900 Testosterone Enanthate [Xyosted] 75 mg SQ TH Discharge Medication List Carbidopa/Levodopa [Sinemet 25-100 mg] 1 tab PO QID PRN 05/14/19 [History] Adalimumab [Humira(Cf) Pen] 40 mg SQ Q14D 05/29/24 [History] Carbidopa-Levodopa ER 50-200Mg [Sinemet CR 50-200 mg] 1 tab PO BID 05/29/24 [History] Fludrocortisone [Florinef] 0.1 mg PO BID 05/29/24 [History] Midodrine HCl [ProAmantine] 2.5 mg PO TID 05/29/24 [History] Naproxen [Naprosyn] 500 mg PO BID PRN 05/29/24 [History] Pramipexole [Mirapex] 0.125 mg PO TID@1100,1500,1900 05/29/24 [History] Sildenafil Citrate 100 mg PO DAILY PRN 05/29/24 [History] Testosterone Enanthate [Xyosted] 75 mg SQ TH 05/29/24 [History] modafiniL [Provigil] 200 mg PO DAILY 05/29/24 [History] Follow up Appointment(s)/Referral(s): Ayush Gillis MD [Medical Doctor] - 1 Week Loree Nichols MD [STAFF PHYSICIAN] - 1 Week Collins Perez MD [STAFF PHYSICIAN] - 2 Weeks (For cystoscopy) Jossue Peguero MD [Primary Care Provider] - 1-2 days Activity/Diet/Wound Care/Special Instructions: Low salt diet with 1.5L fluid restriction Discharge Disposition: HOME SELF-CARE
== END 2024-05-30 17:22 | disposition home or self-care (01) | DRG 309 ==
LOC: EC 12:00 → 4SSUR 16:52 → 6NMEDSUR 20:57
PROVIDERS: ADMIT Family Medicine; ATTEND Family Medicine
DX: I48.0 Paroxysmal atrial fibrillation (principal); E87.1 Hypo-osmolality and hyponatremia; N17.9 Acute kidney failure, unspecified; G20.A1 Parkinson's disease without dyskinesia, without mention of fluctuations; K81.1 Chronic cholecystitis; K81.9 Cholecystitis, unspecified; I08.1 Rheumatic disorders of both mitral and tricuspid valves; Z93.3 Colostomy status; Z79.01 Long term (current) use of anticoagulants; N20.0 Calculus of kidney; I95.1 Orthostatic hypotension; K52.9 Noninfective gastroenteritis and colitis, unspecified; M79.89 Other specified soft tissue disorders; R79.89 Other specified abnormal findings of blood chemistry; E87.5 Hyperkalemia; E87.70 Fluid overload, unspecified; G25.81 Restless legs syndrome; G47.33 Obstructive sleep apnea (adult) (pediatric); I49.3 Ventricular premature depolarization; N40.1 Benign prostatic hyperplasia with lower urinary tract symptoms; K40.90 Unilateral inguinal hernia, without obstruction or gangrene, not specified as recurrent; N28.89 Other specified disorders of kidney and ureter; R31.0 Gross hematuria; R79.1 Abnormal coagulation profile; Z79.52 Long term (current) use of systemic steroids; Z79.899 Other long term (current) drug therapy; Z88.0 Allergy status to penicillin
CPT/HCPCS: 36415; 71046; 74018; 74176; 80053; 81001; 82150; 82570; 83036; 83605; 83690; 83735; 83880; 84156; 84443; 84484; 85025; 85610; 85730; 87040; 93005; 93306; 93970; 99285